=== PATIENT | male | born 1955 | race Caucasian/White ===

== ENCOUNTER 2018-03-04 15:13 | Inpatient (IN) | payer BC, MEDICAID ==
[2018-03-04] MEDS ORDERED: ASPIRIN 81 MG PO STA (15:59)
--- NOTE | 2018-03-04 16:02 | ED ---
Chest Pain HPI - General Chief Complaint: Chest Pain Stated Complaint: Chest Pain Time Seen by Provider: 03/04/18 15:42 Source: patient Mode of arrival: wheelchair Limitations: no limitations - History of Present Illness Initial Comments: This is a 63-year-old male who presents emergency department for chest discomfort. He states is been going on for the last 6 months however is worsened over the last 3 weeks. He describes it as a pressure-like sensation. He states it only occurs at nighttime when he is laying flat. He states that he is on an incline he will not have the discomfort. History is as a pressure- like sensation and occasionally gets diaphoretic. He also has some associated shortness of breath with this. He states that throughout the day he feels fine. He does occasionally get the sensation when he is playing golf however he attributed this to hold her whether and happened multiple months ago. He states he does lift weights once a week and does not get the discomfort. He does take [id number] medications for acid reflux which seemed to relieve the symptoms. He did go to his primary care doctor's office who advised him to come emergency department for evaluation. Denies any history of CAD or PR. Has not had a stress test previously. - Related Data Home Medications Medication Instructions Recorded Confirmed amLODIPine [Norvasc] 5 mg PO DAILY 04/24/16 03/04/18 HYDROcodone/IBUPROFEN 7.5-200 1 tab PO DAILY PRN 03/04/18 03/04/18 [Vicoprofen 7.5-200 mg] Meloxicam [Mobic] 15 mg PO DAILY PRN 03/04/18 03/04/18 Allergies Allergy/AdvReac Type Severity Reaction Status Date / Time No Known Allergies Allergy Verified 03/04/18 15:42 Review of Systems ROS Statement: Those systems with pertinent positive or pertinent negative responses have been documented in the HPI. ROS Other: All systems not noted in ROS Statement are negative. EKG Findings - EKG Comments: EKG Findings:: EKG showing normal sinus rhythm with a rate of 90. There is no abnormal ST segment changes. There are new T-wave inversions in V4 and V5 when compared to previous EKG. The patient does have a) block. QTC is 479. QRS is prolonged due to the bundle branch block. Other intervals normal. No ectopy. Past Medical History Past Medical History: Hearing Disorder / Deafness, Hypertension, Osteoarthritis (OA) Additional Past Medical History / Comment(s): TINNITUS . History of Any Multi-Drug Resistant Organisms: None Reported Past Surgical History: Joint Replacement, Orthopedic Surgery Additional Past Surgical History / Comment(s): TOTAL DAVINA KNEES. , DAVINA KNEE ARTHROSCOPY. Past Anesthesia/Blood Transfusion Reactions: No Reported Reaction Past Psychological History: No Psychological Hx Reported Smoking Status: Never smoker Past Alcohol Use History: Daily Past Drug Use History: None Reported - Past Family History Mother Family Medical History: No Reported History General Exam - General Exam Comments Initial Comments: Constitutional: Awake alert Appears comfortable Head: Normocephalic atraumatic Eyes: no conjunctival injection No scleral icterus EOMI Neck: No JVD Supple Heart: Regular rate rhythm normal S1-S2 no murmurs Lungs: Clear to auscultation bilaterally No wheezing No rales Abdomen: Soft nondistended nontender Extremities: Non edematous DP pulses intact Radial pulses intact Neuro: A&Ox3 No focal neurologic deficits Psych: Appropriate mood and affect Limitations: no limitations Course Vital Signs 03/04/18 15:24 Temperature 98.5 F Pulse Rate 90 Respiratory 18 Rate Blood Pressure 154/92 O2 Sat by Pulse 96 Oximetry Chest Pain MDM - MDM This is a 63-year-old male who presents emergency department for intermittent chest discomfort. The patient was found have a mildly elevated troponin of 0.06 and also new T-wave inversions laterally. The patient was started on heparin and will be kept in the hospital for cardiology evaluation. Dr. Woods except see admission. Disposition Clinical Impression: Elevated troponin, Chest pain Disposition: ADMITTED IP TO THIS HOSP Condition: Stable
[2018-03-04 16:15] LABS: Basophils % (A) 1 %; Eosinophils # (A) 0.1 k/uL (0-0.7); Eosinophils % (A) 1 %; HCT 44.4 % (39.0-53.0); HGB 14.3 gm/dL (13.0-17.5); Lymphocytes # (A) 1.5 k/uL (1.0-4.8); Lymphocytes % (A) 23 %; MCH 29.5 pg (25.0-35.0); MCHC 32.2 g/dL (31.0-37.0); MCV 91.5 fL (80.0-100.0); Mean Platelet Volume 6.5; Monocytes # (A) 0.3 k/uL (0-1.0); Monocytes % (A) 5 %; Neutrophils # (A) 4.5 k/uL (1.3-7.7); Neutrophils % (A) 69 %; Platelet Count 243 k/uL (150-450); RBC 4.85 m/uL (4.30-5.90); RDW 13.8 % (11.5-15.5); WBC 6.4 k/uL (3.8-10.6)
[2018-03-04 16:26] LABS: ALT 40 U/L (21-72); AST 26 U/L (17-59); Albumin 4.5 g/dL (3.5-5.0); Alkaline Phosphatase 75 U/L (38-126); Anion Gap 8 mmol/L; Blood Urea Nitrogen 18 mg/dL (9-20); Calcium 9.8 mg/dL (8.4-10.2); Carbon Dioxide 26 mmol/L (22-30); Chloride 106 mmol/L (98-107); Glucose 111 mg/dL (74-99); Lipase 72 U/L (23-300); Magnesium 2.1 mg/dL (1.6-2.3); Potassium 4.1 mmol/L (3.5-5.1); Sodium 140 mmol/L (137-145); Total Bilirubin 0.6 mg/dL (0.2-1.3); Total Protein 7.4 g/dL (6.3-8.2)
[2018-03-04 16:27] LABS: INR 1.1 (<1.2); Partial Thromboplastin Time 24.4 sec (22.0-30.0); Prothrombin Time 10.4 sec (9.0-12.0)
[2018-03-04 16:47] LABS: Creatine Kinase MB 0.8 ng/mL (0.0-2.4)
[2018-03-04 16:52] LABS: Troponin I 0.064 ng/mL (0.000-0.034)
--- NOTE | 2018-03-04 16:58 | XR ---
EXAMINATION TYPE: XR chest 2V DATE OF EXAM: 03/04/2018 COMPARISON: NONE HISTORY: Chest pain TECHNIQUE: Frontal and lateral views of the chest are obtained. FINDINGS: There is no heart failure nor confluent pneumonic infiltrate. Heart size is normal. Thorac ic aorta is atheromatous. There is no pleural effusion. Bony thorax is intact. There are chest leads. IMPRESSION: No active cardiopulmonary disease.
[2018-03-04] MEDS ORDERED: NITROGLYCERIN SL TABS 0.4 MG TAB SUBLINGUAL PRN (17:03)
[2018-03-04] MEDS ORDERED: HEPARIN SODIUM,PORCINE 5,000 UNIT/ML 1 ML VIAL IV ONE (17:03)
[2018-03-04] MEDS ORDERED: [UNRECOGNIZED DRUG - OTHER] PO PRN (17:06)
[2018-03-04] MEDS: HEPARIN SOD,PORK IN 0.45% NACL 25,000 UNIT in 0.45% NACL 1 500ML.BAG IV SCH (18:04)
[2018-03-04 23:07] LABS: Creatine Kinase MB 0.5 ng/mL (0.0-2.4)
[2018-03-04 23:11] LABS: Troponin I 0.07 ng/mL (0.000-0.034)
[2018-03-05] MEDS ORDERED: HEPARIN SODIUM,PORCINE 5,000 UNIT/ML 1 ML VIAL IV PRN ×2 (00:39→14:32)
[2018-03-05 01:08] LABS: Cholesterol 229 mg/dL (<200); HDL Cholesterol 49 mg/dL (40-60); LDL Cholesterol,Calculated 156 mg/dL (0-99); Triglycerides 122 mg/dL (<150)
[2018-03-05 04:42] LABS: Creatine Kinase MB 0.4 ng/mL (0.0-2.4)
[2018-03-05 04:47] LABS: Troponin I 0.06 ng/mL (0.000-0.034)
--- NOTE | 2018-03-05 08:05 | P.CRDCN ---
History of Present Illness Consult date: 03/05/18 Requesting physician: Cece Woods Consult reason: chest pain Chief complaint: Chest pain History of present illness: This is a pleasant 63-year-old gentleman with history of hypertension , sciatica, nondiabetic, no hyperlipidemia, he does smoke an occasional cigar. He denies family history of premature coronary artery disease but states that his father with myocardial infarction in his 80s. Patient presents to the hospital with symptoms of chest pressure and heaviness. According to the patient he has noticed the symptoms for the past several months, but over the past few weeks it seems to have been more intense than usual. He states that the symptoms mostly occur when he is lying flat in bed, he gets up to sleep in his chair and symptoms seemed to improve. Patient does play golf 3 or 4 times a week, states that he does not give any symptoms of chest discomfort at that time. Patient does drink alcohol, he has 3-4 beers for 5 times a week. Patient also has acid reflux and thought for the longest time that may be the symptoms were secondary to that. He went to see Dr. Davison and explained the symptoms he been having and was referred to come to the hospital for further evaluation. His EKG on arrival here showed a normal sinus rhythm with a right bundle branch block pattern, lateral ST-T wave changes are noted as well as inferior Q waves. Chest x-ray did not reveal any active cardiopulmonary disease. At pressure on arrival here 154/90 with a heart rate in the 90s, 96% on room air. CBC is normal, sodium 140, potassium 4.1, BUN 18, creatinine 0.8. Magnesium 2.1. Cholesterol 229, LDL 156, HDL 49, triglycerides 122. BNP 317. Troponin 0.064, 0.070, 0.060. At the time of my examination this morning, patient is currently chest pain-free. Past Medical History Past Medical History: Hypertension, Osteoarthritis (OA), Prostate Disorder Additional Past Medical History / Comment(s): DAVINA TINNITUS, BEGINNINGS OF MACULAR DEGENERATION History of Any Multi-Drug Resistant Organisms: None Reported Past Surgical History: Joint Replacement, Orthopedic Surgery, Prostate Surgery Additional Past Surgical History / Comment(s): TOTAL DAVINA KNEES. , DAVINA KNEE ARTHROSCOPIES, CYSTOSCOPY/TURP 2015, LASIK EYE SX -RT EYE Past Anesthesia/Blood Transfusion Reactions: No Reported Reaction Additional Past Anesthesia/Blood Transfusion Reaction / Comment(s): CLAUSTERPHOBIA Smoking Status: Never smoker - Past Family History Mother Family Medical History: No Reported History Additional Family Medical History / Comment(s): LUNG DISEASE Father Family Medical History: Myocardial Infarction ([place]) Medications and Allergies Home Medications Medication Instructions Recorded Confirmed Type amLODIPine [Norvasc] 5 mg PO DAILY 04/24/16 03/04/18 History HYDROcodone/IBUPROFEN 7.5-200 1 tab PO DAILY PRN 03/04/18 03/04/18 History [Vicoprofen 7.5-200 mg] Meloxicam [Mobic] 15 mg PO DAILY PRN 03/04/18 03/04/18 History Allergies Allergy/AdvReac Type Severity Reaction Status Date / Time No Known Allergies Allergy Verified 03/04/18 15:42 Physical Exam Vitals: Vital Signs Temp Pulse Pulse Resp BP BP Pulse Ox 03/05/18 04:00 85 16 168/96 96 03/05/18 00:00 97.8 F 77 18 153/91 98 03/04/18 20:00 97.9 F 87 18 151/88 97 03/04/18 18:25 97.7 F 80 20 152/89 95 03/04/18 18:08 98.3 F 79 18 145/93 97 03/04/18 17:06 86 152/91 98 03/04/18 16:36 84 186/89 98 03/04/18 16:06 84 175/95 99 03/04/18 15:24 98.5 F 90 18 154/92 96 Intake and Output 03/04/18 03/05/18 03/05/18 22:59 06:59 14:59 Intake Total 138.528 Balance 138.528 Intake: Intake, IV Titration 138.528 Amount Heparin Sod,Pork in 0.45% 138.528 NaCl 25,000 unit In 0.45 % NaCl 1 500ml.bag @ 7.73 UNITS/KG/HR 19.98 mls/hr IV .Q24H [facility] Rx#: [id number] Other: Voiding Method Toilet # Voids 2 Weight 129.274 kg 128.8 kg PHYSICAL EXAMINATION: GENERAL: 63-year-old gentleman in no acute distress at the time of my examination HEENT: Head is atraumatic, normocephalic. Pupils equal, round. Sclera anicteric. Conjunctiva are clear. Mucous membranes of the mouth are moist. Neck is supple. There is no elevated jugular venous pressure. No carotid bruit is heard. HEART EXAMINATION: [eart S1, S2 normal. No murmur or gallop heard.] CHEST EXAMINATION:[Lungs are clear to auscultation and precussion. No chest wall tenderness is noted on palpation or with deep breathing.] ABDOMEN: [Soft, nontender. Bowel sounds are heard. No organomegaly noted] EXTREMITIES:[2+ peripheral pulses with no evidence of peripheral edema and no calf tenderness noted] NEUROLOGIC [atient is awake, alert and oriented X3. . Results 03/04/18 15:44 03/04/18 15:44 Cardiac Enzymes 03/04/18 03/04/18 03/04/18 Range/Units 15:44 15:44 22:19 AST 26 (17-59) U/L CK-MB (CK-2) 0.8 0.5 (0.0-2.4) ng/mL Troponin I 0.064 H* 0.070 H* (0.000-0.034) ng/mL 03/05/18 Range/Units 03:54 AST (17-59) U/L CK-MB (CK-2) 0.4 (0.0-2.4) ng/mL Troponin I 0.060 H* (0.000-0.034) ng/mL Coagulation 03/04/18 03/05/18 03/05/18 Range/Units 15:44 00:11 03:54 PT 10.4 (9.0-12.0) sec APTT 24.4 28.6 61.6 H (22.0-30.0) sec Lipids 03/04/18 Range/Units 15:44 Triglycerides 122 (<150) mg/dL Cholesterol 229 H (<200) mg/dL HDL Cholesterol 49 (40-60) mg/dL CBC 03/04/18 Range/Units 15:44 WBC 6.4 (3.8-10.6) k/uL RBC 4.85 (4.30-5.90) m/uL Hgb 14.3 (13.0-17.5) gm/dL Hct 44.4 (39.0-53.0) % Plt Count 243 (150-450) k/uL Comprehensive Metabolic Panel 03/04/18 Range/Units 15:44 Sodium 140 (137-145) mmol/L Potassium 4.1 (3.5-5.1) mmol/L Chloride 106 (98-107) mmol/L Carbon Dioxide 26 (22-30) mmol/L BUN 18 (9-20) mg/dL Creatinine 0.80 (0.66-1.25) mg/dL Glucose 111 H (74-99) mg/dL Calcium 9.8 (8.4-10.2) mg/dL AST 26 (17-59) U/L ALT 40 (21-72) U/L Alkaline Phosphatase 75 (38-126) U/L Total Protein 7.4 (6.3-8.2) g/dL Albumin 4.5 (3.5-5.0) g/dL Current Medications Generic Name Dose Route Start Last Admin Trade Name Freq PRN Reason Stop Dose Admin Amlodipine Besylate 5 mg 03/05/18 09:00 Norvasc PO DAILY [facility] Aspirin 325 mg 03/05/18 09:00 Aspirin PO DAILY [facility] Heparin Sodium (Porcine) 0 unit 03/05/18 00:39 03/05/18 01:00 Heparin IV 4,000 unit PER PROTOCOL PRN Administration Low PTT Protocol Heparin Sodium/Sodium Chloride 500 mls @ 19.98 mls/hr 03/04/18 17:15 01:00 25,000 unit/ Sodium Chloride IV 10.73 units/kg/hr .Q24H [facility] 27.74 mls/hr Titration Protocol 7.73 UNITS/KG/HR Nitroglycerin 0.4 mg 03/04/18 17:03 Nitrostat SUBLINGUAL Q5M PRN Chest Pain Hydrocodone- 1 tab 03/04/18 17:06 Ibuprofen 7.5-200mg PO DAILY PRN Pain Intake and Output 03/04/18 03/05/18 03/05/18 22:59 06:59 14:59 Intake Total 138.528 Balance 138.528 Intake: Intake, IV Titration 138.528 Amount Heparin Sod,Pork in 0.45% 138.528 NaCl 25,000 unit In 0.45 % NaCl 1 500ml.bag @ 7.73 UNITS/KG/HR 19.98 mls/hr IV .Q24H [facility] Rx#: [id number] Other: Voiding Method Toilet # Voids 2 Weight 129.274 kg 128.8 kg 03/04/18 15:44 03/04/18 15:44 EKG Interpretations (text) EKG shows normal sinus rhythm with right bundle branch block pattern lateral ST- T wave changes. Inferior Q waves noted. Assessment and Plan Plan: Assessment and plan #1 symptoms of chest pressure and heaviness, possible acute coronary syndrome. Troponin 0.064, 0.070, 0.060. EKG shows normal sinus rhythm with right bundle branch block pattern ST-T wave changes noted in the lateral leads, inferior Q waves. #2 hypertension #3 occasional cigar smoking #4 hyperlipidemia, untreated Plan We will continue the patient on an aspirin daily along with IV heparin. We will add Lipitor to his medication regime as well as a small dose of beta david. Echocardiogram with Doppler study will be obtained. We will also request an old EKG from Dr. Davison's office. Patient has been advised he may need to undergo cardiac catheterization for more definitive diagnosis, the risks and the benefits were explained to the patient in detail and he is willing to proceed. Further recommendations will follow. DNP note has been reviewed, I agree with a documented findings and plan of care. Patient was seen and examined.
[2018-03-05] MEDS ORDERED: ASPIRIN 325 MG TAB PO SCH (09:00)
[2018-03-05] MEDS ORDERED: amLODIPine 5 MG TAB PO SCH (09:00)
[2018-03-05] MEDS ORDERED: ATORVASTATIN 80 MG TAB PO SCH (09:00)
[2018-03-05] MEDS ORDERED: NITROGLYCERIN SL TABS 0.4 MG TAB SUBLINGUAL PRN (09:25)
[2018-03-05] MEDS ORDERED: ATORVASTATIN 80 MG TAB PO STA (09:25)
[2018-03-05] MEDS ORDERED: ALPRAZolam 0.5 MG TAB PO PRN (09:25)
[2018-03-05] MEDS ORDERED: ALPRAZolam 0.25 MG TAB PO PRN (09:25)
[2018-03-05] MEDS ORDERED: SODIUM CHLORIDE 0.9% 1,000 ML in EMPTY BAG 1 BAG IV ONE (09:25)
[2018-03-05] MEDS ORDERED: ASPIRIN 325 MG TAB PO STA (09:25)
[2018-03-05] MEDS: METOPROLOL TARTRATE 25 MG TAB PO SCH ×2 (09:29→20:08)
[2018-03-05] MEDS: HEPARIN SOD,PORK IN 0.45% NACL 25,000 UNIT in 0.45% NACL 1 500ML.BAG IV SCH ×2 (09:36→16:30)
--- NOTE | 2018-03-05 10:17 | ECHOF ---
Referral Reason:chest pain MEASUREMENTS -------- HEIGHT: 188.0 cm WEIGHT: 128.4 kg BP: 168/96 RVIDd: 3.6 cm (< 3.3) IVSd: 1.6 cm (0.6 - 1.1) LVIDd: 4.4 cm (3.9 - 5.3) LVPWd: 1.6 cm (0.6 - 1.1) IVSs: 2.0 cm LVIDs: 2.8 cm LVPWs: 1.7 cm LA Diam: 3.6 cm (2.7 - 3.8) LAESV Index (A-L): 29.29 ml/m Ao Diam: 4.8 cm (2.0 - 3.7) AV Cusp: 2.6 cm (1.5 - 2.6) MV EXCURSION: 13.601 mm (> 18.000) MV EF SLOPE: 18 mm/s (70 - 150) EPSS: 1.0 cm MV E Paul: 0.56 m/s MV DecT: 457 ms MV A Paul: 0.87 m/s MV E/A Ratio: 0.64 RAP: 5.00 mmHg RVSP: 21.42 mmHg FINDINGS -------- Sinus rhythm. This was a technically adequate study. The left ventricular size is normal. There is moderate concentric left ventricular hypertrophy. O verall left ventricular systolic function is normal with, an EF between 55 - 60 %. The right ventricle is mildly enlarged. The global wall thickness of the right ventricle is mildly enlarged. LA is midly dilated 29-33ml/m2. The right atrium is normal in size. There is mild aortic valve sclerosis. The mitral valve is normal. Mild tricuspid regurgitation present. Right ventricular systolic pressure is normal at < 35 mmHg. Trace/mild (physiologic) pulmonic regurgitation. 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 IVC Not well visulized. There is no pericardial effusion. CONCLUSIONS -------- 1. Sinus rhythm. 2. This was a technically adequate study. 3. The left ventricular size is normal. 4. There is moderate concentric left ventricular hypertrophy. 5. Overall left ventricular systolic function is normal with, an EF between 55 - 60 %. 6. The right ventricle is mildly enlarged. 7. The global wall thickness of the right ventricle is mildly enlarged. 8. LA is midly dilated 29-33ml/m2. 9. The right atrium is normal in size. 10. There is mild aortic valve sclerosis. 11. The mitral valve is normal. 12. Mild tricuspid regurgitation present. 13. Right ventricular systolic pressure is normal at < 35 mmHg. 14. Trace/mild (physiologic) pulmonic regurgitation. 15. 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 16. IVC Not well visulized. 17. There is no pericardial effusion. BOILER ENGINEER: Brina Samayoa RDCS
--- NOTE | 2018-03-05 12:31 | P.HPIM ---
History of Present Illness H&P Date: 03/05/18 Chief Complaint: Chest pain, shortness of breath This is a 63-year-old male patient of Dr. Davison with past medical history for hypertension, osteoarthritis, benign prostatic hypertrophy. Patient gives history that for a long period of time since last fall he has had a cough when he lays in bed. He has had about a bronchitis and following that he did have some improvement for about 6 months and now he has a cough when he lays down and has some chest pain in the midsternal area. He does golf 3-4 times a week and does not have any chest heaviness at that time. He states he has had it every day for 2-3 weeks in a row and went to see Dr. Davison yesterday and he was sent into the emergency center for evaluation. Patient describes it as a heavy chest. He states he gets up and take some Pepto-Bismol or something else and then he ends up sleeping in a chair. Troponins are 0.064 , 0.070, 0.060. Triglycerides 122, cholesterol 229, LDL 156, HDL 49. Lipase 72. CBC is within normal limits. Electrolytes are normal. Patient has been admitted to the selective care unit and cardiology consult requested. He has been started on heparin drip and aspirin. Cardiology has added and Lipitor and beta david. Echocardiogram reveals EF of 55-60%, moderate concentric left ventricular hypertrophy, LV mildly dilated at 29-33, mild aortic valve sclerosis , mild tricuspid regurgitation. Patient is scheduled for heart catheterization today. Review of Systems All systems: negative Constitutional: Denies chills, Denies fatigue, Denies fever, Denies poor appetite Eyes: denies blurred vision, denies pain Ears, nose, mouth and throat: Denies headache, Denies sore throat, Denies vertigo Cardiovascular: Reports chest pain, Reports shortness of breath, Denies leg edema, Denies lightheadedness, Denies syncope Respiratory: Denies cough Gastrointestinal: Denies abdominal pain, Denies diarrhea, Denies nausea, Denies vomiting Musculoskeletal: Denies myalgias Integumentary: Denies pruritus, Denies rash Neurological: Denies numbness, Denies weakness Psychiatric: Denies anxiety, Denies depression Endocrine: Denies fatigue, Denies weight change Past Medical History Past Medical History: Hypertension, Osteoarthritis (OA), Prostate Disorder Additional Past Medical History / Comment(s): DAVINA TINNITUS, BEGINNINGS OF MACULAR DEGENERATION History of Any Multi-Drug Resistant Organisms: None Reported Past Surgical History: Joint Replacement, Orthopedic Surgery, Prostate Surgery Additional Past Surgical History / Comment(s): TOTAL DAVINA KNEES. , DAVINA KNEE ARTHROSCOPIES, CYSTOSCOPY/TURP 2016, LASIK EYE SX -RT EYE, lumbar disc disease of L4, L5, L6 with right lower extremity sciatica. Past Anesthesia/Blood Transfusion Reactions: No Reported Reaction Additional Past Anesthesia/Blood Transfusion Reaction / Comment(s): Claustrophobia Smoking Status: Never smoker Additional Past Alcohol Use History / Comment(s): Patient is a lifelong nonsmoker. He states he drinks a few beers occasionally and occasionally smokes a cigar. 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 He lives at home with his . He is independent. - Past Family History Mother Family Medical History: No Reported History Additional Family Medical History / Comment(s): Other at age 74 with heart failure and coronary artery disease. Father Family Medical History: Myocardial Infarction ([place]) Additional Family Medical History / Comment(s): Father at age 89 from a myocardial infarction. Sister(s) Additional Family Medical History / Comment(s): Patient has one sister and one half-sister with no major medical problems. Patient does not have any brothers. Patient has 2 sons with no major medical problems. Medications and Allergies Home Medications Medication Instructions Recorded Confirmed Type amLODIPine [Norvasc] 5 mg PO DAILY 04/24/16 03/04/18 History HYDROcodone/IBUPROFEN 7.5-200 1 tab PO DAILY PRN 03/04/18 03/04/18 History [Vicoprofen 7.5-200 mg] Meloxicam [Mobic] 15 mg PO DAILY PRN 03/04/18 03/04/18 History Allergies Allergy/AdvReac Type Severity Reaction Status Date / Time No Known Allergies Allergy Verified 03/04/18 15:42 Physical Exam Vitals: Vital Signs Temp Pulse Pulse Resp BP BP Pulse Ox 03/05/18 04:00 85 16 168/96 96 03/05/18 00:00 97.8 F 77 18 153/91 98 03/04/18 20:00 97.9 F 87 18 151/88 97 03/04/18 18:25 97.7 F 80 20 152/89 95 03/04/18 18:08 98.3 F 79 18 145/93 97 03/04/18 17:06 86 152/91 98 03/04/18 16:36 84 186/89 98 03/04/18 16:06 84 175/95 99 03/04/18 15:24 98.5 F 90 18 154/92 96 Intake and Output 03/04/18 03/05/18 03/05/18 22:59 06:59 14:59 Intake Total 138.528 238.564 Balance 138.528 238.564 Intake: Intake, IV Titration 138.528 238.564 Amount Heparin Sod,Pork in 0.45% 138.528 238.564 NaCl 25,000 unit In 0.45 % NaCl 1 500ml.bag @ 7.73 UNITS/KG/HR 19.98 mls/hr IV .Q24H [facility] Rx#: [id number] Other: Voiding Method Toilet # Voids 2 Weight 129.274 kg 128.8 kg Gen: This is a 63-year-old male. He is sitting up in bed and appears to be comfortable and in no acute distress. No current chest pain. HEENT: Head is atraumatic, normocephalic. Pupils equal, round. Sclerae is anicteric. Conjunctiva pink. Because members of the mouth are slightly dry. NECK: Supple. No JVD. No lymphadenopathy. No thyromegaly. LUNGS: Clear to auscultation. No wheezes or rhonchi. No intercostal retractions. HEART: Regular rate and rhythm. No murmur. ABDOMEN: Soft. Bowel sounds are present. No masses. No tenderness. EXTREMITIES: No pedal edema. No calf tenderness. Dorsalis pedis +2 bilaterally. NEUROLOGICAL: Patient is awake, alert and oriented x3. Cranial nerves 2 through 12 are grossly intact. Results CBC & Chem 7: 03/04/18 15:44 03/04/18 15:44 Labs: Abnormal Lab Results - Last 24 Hours (Table) 03/04/18 03/04/18 03/04/18 Range/Units 15:44 15:44 15:44 APTT (22.0-30.0) sec Glucose 111 H (74-99) mg/dL Total Creatine Kinase (55-170) U/L Troponin I 0.064 H* (0.000-0.034) ng/mL Cholesterol 229 H (<200) mg/dL LDL Cholesterol, Calc 156 H (0-99) mg/dL 03/04/18 03/05/18 03/05/18 Range/Units 22:19 03:54 03:54 APTT 61.6 H (22.0-30.0) sec Glucose (74-99) mg/dL Total Creatine Kinase 46 L 39 L (55-170) U/L Troponin I 0.070 H* 0.060 H* (0.000-0.034) ng/mL Cholesterol (<200) mg/dL LDL Cholesterol, Calc (0-99) mg/dL Thrombosis Risk Factor Assmnt - DVT/VTE Prophylaxis DVT/VTE Prophylaxis: Pharmacologic Prophylaxis ordered - Choose All That Apply Any of the Below Risk Factors Present?: No Other Risk Factors: Yes Each Risk Factor Represents 2 Points: Age 61-74 years Thrombosis Risk Factor Assessment Total Risk Factor Score: 2 Thrombosis Risk Factor Assessment Level: Low Risk Assessment and Plan Plan: 1. Chest heaviness with mildly elevated troponins and EKG changes. Patient is scheduled for heart catheterization today. Continue heparin drip, aspirin, Lipitor, Lopressor. Cardiology consult appreciated. Echocardiogram as above. 2. Hypertension. Continue amlodipine 5 mg daily, Lopressor 25 g twice daily 3. Benign prostatic hypertrophy. Monitor for urinary retention. 4. Osteoarthritis, generalized. 5. 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 Continue Vicoprofen as needed 6. DVT prophylaxis. Heparin. 7. GI prophylaxis. Pepcid. Patient will be admitted to the hospital for a minimum of 2 night stay. Discharge plan: Return home Impression and plan of care have been directed as dictated by the signing physician. Stefania Vázquez nurse practitioner acting as scribe for signing physician.
[2018-03-05] MEDS ORDERED: fentaNYL (PF) 50 MCG/ML 2 ML AMP IV ONE (14:00)
[2018-03-05] MEDS ORDERED: LIDOCAINE 1% INJ 10MG/ML (20 ML MDV) SQ ONE (14:00)
[2018-03-05] MEDS ORDERED: IV FLUID CONTINUATION 1,000 ML IV ONE (14:01)
[2018-03-05] MEDS ORDERED: VERAPAMIL SYRINGE (5 MG/10 ML) INTRAARTER ONE (14:06)
[2018-03-05] MEDS ORDERED: HEPARIN SODIUM 1,000 UN/ML (10ML VL) IV ONE (14:15)
[2018-03-05] MEDS ORDERED: IOPAMIDOL-370 125ML BTL INJ ONE (14:19)
[2018-03-05] MEDS ORDERED: RX INFO: IV CONTRAST WAS GIVEN 1 EACH MISC MISCELLANE PRN (14:27)
[2018-03-05] MEDS ORDERED: SODIUM CHLORIDE 0.9% 1,000 ML IV SCH (14:30)
[2018-03-05 15:33] LABS: Basophils % (A) 1 %; Eosinophils # (A) 0.1 k/uL (0-0.7); Eosinophils % (A) 1 %; HCT 42.7 % (39.0-53.0); HGB 13.9 gm/dL (13.0-17.5); Lymphocytes # (A) 1.4 k/uL (1.0-4.8); Lymphocytes % (A) 27 %; MCH 30.1 pg (25.0-35.0); MCHC 32.5 g/dL (31.0-37.0); MCV 92.7 fL (80.0-100.0); Mean Platelet Volume 6.8; Monocytes # (A) 0.4 k/uL (0-1.0); Monocytes % (A) 7 %; Neutrophils # (A) 3.3 k/uL (1.3-7.7); Neutrophils % (A) 63 %; Platelet Count 262 k/uL (150-450); RBC 4.61 m/uL (4.30-5.90); WBC 5.2 k/uL (3.8-10.6)
[2018-03-05 15:43] LABS: INR 1.1 (<1.2); Partial Thromboplastin Time 49.8 sec (22.0-30.0); Prothrombin Time 10.9 sec (9.0-12.0)
[2018-03-05] MEDS ORDERED: MD COMMUNICATION TO PHARMACY 1 EACH MISC PO ONE ×4 (15:49→15:55)
--- NOTE | 2018-03-05 16:44 | CC ---
CARDIAC CATHETERIZATION REPORT Mr. Virgen is a 63-year-old male with a known history of hypertension, hyperlipidemia, who presented with symptoms of chest discomfort. The discomfort has been occurring at rest. Prior to that, he had some discomfort with exertion. On presentation, there was no acute ST-segment changes, but there was minimal elevation of the troponin. In view of that, recommendation made regarding cardiac catheterization. The procedures, risks and complications were discussed with the patient who is in full understanding and agreement. PROCEDURE: Patient was brought to the laborer shaft sinking in a fasting semi-sedated state, after receiving fentanyl and Benadryl, he was draped and prepped and after achieving moderate conscious sedated state he was draped and prepped in a conventional fashion. Using Xylocaine anesthesia and the Seldinger technique, a 6-Vincentian sheath was introduced in the right radial artery. Selective right and left coronary angiography performed using 5-Vincentian 3 and half bend right and left Sherman catheter. Multiple views of the coronary artery including hemiaxial views were obtained. Following that a 5-Vincentian tight pigtail catheter was introduced in the left ventricle and a 30 degree MATTHEWS view of the left ventricle was obtained. Following that, the catheter and sheaths were removed. Hemostasis was obtained with deployment of TR band. There was no immediate complications. Patient is returned to his room in stable condition. Of note, the patient received 5000 units of intravenous heparin as well as intra-arterial verapamil. FLUOROSCOPY: There is calcification involving all the coronary arteries. SELECTIVE CORONARY ANGIOGRAPHY: LEFT MAIN: This is a large-sized vessel bifurcating left circumflex, left anterior descending artery. Left main coronary artery has no evidence of high-grade stenosis. LEFT ANTERIOR DESCENDING CORONARY ARTERY: This is a large-sized vessel reaching toward the apex with a wraparound apex segment giving rise to a large diagonal branch, proximal. The left anterior descending coronary artery proximally at the takeoff of the first septal microelectronics engineer had a 70% stenosis and there is a plaque of 80% involving the takeoff of the diagonal branch. In the mid segment of the LAD, there is another plaque of 99%. The rest of the vessel has no high-grade stenosis. LEFT CIRCUMFLEX: This is a nondominant vessel giving rise to a large obtuse marginal branch. Prior to the takeoff of the obtuse marginal branch, there is a 70% plaque. The rest of the vessel has no evidence of high-grade stenosis. RIGHT CORONARY ARTERY: This is a dominant vessel, totally occluded in a long segment of the mid vessel with minimal antegrade flow. COLLATERALS: There is collaterals from the left coronary system toward the right PDA and PLV. LEFT VENTRICULOGRAM: Left ventriculogram performed in 30-degree MATTHEWS view and revealed normal left ventricular size systolic function. The ejection fraction is 60%. There was no significant mitral regurgitation. HEMODYNAMICS: There was no gradient across the aortic valve. The left ventricle end-diastolic pressure was 20 mmHg. CONCLUSION: 1. Severe triple-vessel coronary disease. 2. Normal left ventricular size and systolic function. RECOMMENDATION: In view of findings and anatomy, I have recommend proceeding with evaluation for coronary bypass grafting in view of the multiple lesions and the occlusion of the right coronary artery. Those findings and recommendations were discussed with the patient and his family and they are in full understanding and agreement. Duration of the procedure 24 minutes. CANDIDO / ALINEN: [id number] /
--- NOTE | 2018-03-05 16:44 | LTR ---
DATE OF SERVICE: 03/05/[address] Davison: I had the pleasure of performing cardiac catheterization on Mr. Virgen at [facility] on March 05 and a full copy of procedure note will be forwarded to you. In brief, he was found to have severe triple-vessel coronary artery disease. Based on those findings, I have recommend proceed with evaluation for possible coronary artery bypass grafting. I will keep you updated on his outcome. Thank you again for allowing me to participate in his care. Please feel free to call for any questions. Sincerely yours, MMARMANDOL / ALINEN: [id number] /
--- NOTE | 2018-03-05 16:59 | P.GSCN ---
History of Present Illness Consult date: 03/05/18 Reason for Consult: Coronary artery disease, surgical recommendations. Requesting physician: Cielo Walter History of present illness: This is a 63-year-old gentleman who follows with Dr. Kameron Gordon on an outpatient basis. He has a previous medical history of hypertension, and social alcohol use as well as family history of coronary artery disease. He denies any history of hypertension, diabetes, tobacco dependence, although does admit to an occasional cigar. He is normally very active gentleman, however he has had anginal type symptoms in the form of shortness of breath and intermittent chest pressure for approximately the last 6 months with worsening in the last couple of weeks. He did not seek attention sooner as he attributed his symptoms to acid reflux. The patient did go to see his primary care physician and upon description of the symptoms his primary recommended he come to the emergency room for evaluation. He did have elevation of his troponins, his EKG demonstrated sinus rhythm with a right bundle branch block, lateral ST changes and inferior Q wave, and he was ruled in for non-ST elevation myocardial infarction. He was recommended to undergo heart catheterization which was completed this morning and which demonstrated LAD stenosis of 99%, circumflex 70%, and chronic total occlusion of the right coronary artery. He did transthoracic echocardiogram this morning which demonstrated preserved left ventricular function with an ejection fraction of 55-60% with no significant valvular pathology. Dr. Hammer from cardiothoracic surgery was consulted regarding surgical revascularization recommendations. Review of Systems Review of systems was completed and was negative except as noted. - Cardiovascular Reports as per HPI, Reports chest pain, Reports decreased exercise tolerance, Reports high blood pressure, Reports shortness of breath Past Medical History Past Medical History: Coronary Artery Disease (CAD), Chest Pain / Angina, Hypertension, Osteoarthritis (OA), Prostate Disorder Additional Past Medical History / Comment(s): DAVINA TINNITUS, BEGINNINGS OF MACULAR DEGENERATION History of Any Multi-Drug Resistant Organisms: None Reported Past Surgical History: Joint Replacement, Orthopedic Surgery, Prostate Surgery Additional Past Surgical History / Comment(s): TOTAL DAVINA KNEES. , DAVINA KNEE ARTHROSCOPIES, CYSTOSCOPY/TURP 2015, LASIK EYE SX -RT EYE, lumbar disc disease of L4, L5, L6 with right lower extremity sciatica. Past Anesthesia/Blood Transfusion Reactions: No Reported Reaction Additional Past Anesthesia/Blood Transfusion Reaction / Comm: Claustrophobia Past Psychological History: No Psychological Hx Reported Smoking Status: Never smoker Past Alcohol Use History: Occasional Additional Past Alcohol Use History / Comment(s): Patient is a lifelong nonsmoker. He states he drinks a few beers occasionally and occasionally smokes a cigar. 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 He lives at home with his . He is independent. Past Drug Use History: None Reported - Past Family History Mother Family Medical History: No Reported History Additional Family Medical History / Comment(s): Other at age 74 with heart failure and coronary artery disease. Father Family Medical History: Myocardial Infarction ([place]) Additional Family Medical History / Comment(s): Father at age 89 from a myocardial infarction. Sister(s) Additional Family Medical History / Comment(s): Patient has one sister and one half-sister with no major medical problems. Patient does not have any brothers. Patient has 2 sons with no major medical problems. Medications and Allergies Home Medications Medication Instructions Recorded Confirmed Type amLODIPine [Norvasc] 5 mg PO DAILY 04/24/16 03/04/18 History HYDROcodone/IBUPROFEN 7.5-200 1 tab PO DAILY PRN 03/04/18 03/04/18 History [Vicoprofen 7.5-200 mg] Meloxicam [Mobic] 15 mg PO DAILY PRN 03/04/18 03/04/18 History Allergies Allergy/AdvReac Type Severity Reaction Status Date / Time No Known Allergies Allergy Verified 03/04/18 15:42 Surgical - Exam Vital Signs Temp Pulse Resp BP Pulse Ox 98.5 F 90 18 154/92 96 03/04/18 15:24 03/04/18 15:24 03/04/18 15:24 03/04/18 15:24 03/04/18 15:24 - General well developed, well nourished, no distress, no pain - Eyes PERRL, normal ocular movement - ENT no hearing loss - Neck no masses, no bruits, trachea midline - Respiratory Lungs sounds clear bilaterally. Respirations even, nonlabored. Currently on room air with oxygen saturation 93%. No chest wall deformities. - Cardiovascular S1, S2 present. Regular rate and rhythm, sinus rhythm on telemetry. Palpable peripheral pulses bilaterally. No edema present. No calf pain or tenderness noted. Positive varicosities to bilateral lower extremities present. - Abdomen Abdomen: soft, non tender, bowel sounds - Genitourinary Deferred - Rectum Deferred - Integumentary Right radial heart catheterization site with TR band in place. no rash, no growths, no abnormal pigmentation - Neurologic normal coordination, normal sensation - Musculoskeletal normal gait, normal posture - Psychiatric oriented to time, oriented to person, oriented to place, speech is normal, memory intact Results - Labs 03/05/18 15:08 03/04/18 15:44 Abnormal Lab Results - Last 24 Hours (Table) 03/04/18 03/04/18 03/04/18 Range/Units 15:44 15:44 22:19 APTT (22.0-30.0) sec Total Creatine Kinase 46 L (55-170) U/L Troponin I 0.064 H* 0.070 H* (0.000-0.034) ng/mL Cholesterol 229 H (<200) mg/dL LDL Cholesterol, Calc 156 H (0-99) mg/dL 03/05/18 03/05/18 03/05/18 Range/Units 03:54 03:54 15:08 APTT 61.6 H 49.8 H (22.0-30.0) sec Total Creatine Kinase 39 L (55-170) U/L Troponin I 0.060 H* (0.000-0.034) ng/mL Cholesterol (<200) mg/dL LDL Cholesterol, Calc (0-99) mg/dL Diabetes panel 03/04/18 Range/Units 15:44 Triglycerides 122 (<150) mg/dL HDL Cholesterol 49 (40-60) mg/dL - Imaging Chest x-ray: report reviewed, image reviewed Additional studies: Heart catheterization films reviewed. Assessment and Plan (1) Non-STEMI (non-ST elevated myocardial infarction) Current Visit: Yes Status: Acute Code(s): I21.4 - NON-ST ELEVATION (NSTEMI) MYOCARDIAL INFARCTION SNOMED Code(s): 878604265 (2) Hypertension Current Visit: Yes Status: Chronic Code(s): I10 - ESSENTIAL (PRIMARY) HYPERTENSION SNOMED Code(s): 80953079 (3) Family history of coronary artery disease Current Visit: Yes Status: Chronic Code(s): Z82.49 - FAMILY HX OF ISCHEM HEART DIS AND OTH DIS OF THE CIRC SYS SNOMED Code(s): 875198536 Plan: The patient was seen and examined at the bedside. Chart/diagnostics were reviewed. Heart catheterization films were reviewed by Dr. Hammer. Preoperative teaching initiated. Preoperative testing initiated. We recommend continuing aspirin, statin, beta david therapy. Our plan is for urgent coronary artery bypass graft surgery 3 vessels with left internal mammary artery and endoscopic vein harvesting as well as possible left radial artery harvesting, intraoperative transesophageal echocardiogram, and epi-aortic scanning to be done tomorrow, 03/06/2018 pending the outcome of preoperative testing. More recommendations to follow. Thank you Dr. Walter for this consult. We look forward to working with you in the care of your patient. Time with Patient: Greater than 30
[2018-03-05] MEDS: NITROGLYCERIN OINT 1 INCH/GM PACKET TOPICAL SCH ×2 (18:17→23:06)
[2018-03-05 18:22] LABS: Basophils % (A) 1 %; Eosinophils # (A) 0.1 k/uL (0-0.7); Eosinophils % (A) 1 %; HCT 42.6 % (39.0-53.0); HGB 13.2 gm/dL (13.0-17.5); Lymphocytes # (A) 1.4 k/uL (1.0-4.8); Lymphocytes % (A) 26 %; MCH 28.6 pg (25.0-35.0); MCV 92.1 fL (80.0-100.0); Mean Platelet Volume 6.6; Monocytes # (A) 0.4 k/uL (0-1.0); Monocytes % (A) 7 %; Neutrophils # (A) 3.4 k/uL (1.3-7.7); Neutrophils % (A) 63 %; Platelet Count 280 k/uL (150-450); RBC 4.63 m/uL (4.30-5.90); RDW 13.9 % (11.5-15.5); WBC 5.4 k/uL (3.8-10.6)
--- NOTE | 2018-03-05 18:46 | US ---
EXAMINATION TYPE: US carotid duplex BILAT DATE OF EXAM: 03/05/2018 COMPARISON: NONE CLINICAL HISTORY: preop cardiac surgery. Pre op cabbage EXAM MEASUREMENTS: RIGHT: Peak Systolic Velocity (PSV) cm/sec ----- Right CCA: 53.7 ----- Right ICA: 76.9 ----- Right ECA: 84.2 ICA/CCA ratio: 1.4 RIGHT: End Diastole cm/sec ----- Right CCA: 12.9 ----- Right ICA: 24.6 ----- Right ECA: 11.5 LEFT: Peak Systolic Velocity (PSV) cm/sec ----- Left CCA: 87.1 ----- Left ICA: 85.1 ----- Left ECA: 93.0 ICA/CCA ratio: 1.0 LEFT: End Diastole cm/sec ----- Left CCA: 18.1 ----- Left ICA: 22.1 ----- Left ECA: 33.1 VERTEBRALS (direction of flow): Right Vertebral: Antegrade Left Vertebral: Antegrade Rhythm: Normal No significant stenosis seen IMPRESSION: There is antegrade flow in the vertebral arteries. The images and measurements suggest l ess than 10% stenosis in both internal carotid arteries. Criteria for Assigning % of Stenosis / Diameter reduction (Estimation based on the indirect measurements of the internal carotid artery velocities (ICA PSV). 1. Normal (no stenosis)=ICA PSV < 125 cm/s: ratio < 2.0: ICA EDV<40 cm/s. 2. Less than 50% stenosis=ICA PSV < 125 cm/s: ratio < 2.0: ICA EDV<40 cm/s. 3. 50 to 69% stenosis=ICA PSV of 125 to 230 cm/s: ration 2.0 ? 4.0: ICA EDV 40-100 cm/s. 4. Greater than 70% stenosis to near occlusion= ICA PSV > 230 cm/s: ratio > 4.0: ICA EDV > 100 cm/s. 5. Near occlusion= ICA PSV velocities may be low or undetectable: variable ratio and ICA EDV. 6. Total occlusion=unable to detect flow.
[2018-03-05 18:47] LABS: ALT 39 U/L (21-72); AST 23 U/L (17-59); Albumin 3.9 g/dL (3.5-5.0); Alkaline Phosphatase 66 U/L (38-126); Anion Gap 7 mmol/L; Blood Urea Nitrogen 15 mg/dL (9-20); Calcium 8.9 mg/dL (8.4-10.2); Carbon Dioxide 28 mmol/L (22-30); Chloride 106 mmol/L (98-107); Glucose 104 mg/dL (74-99); Magnesium 2.2 mg/dL (1.6-2.3); Potassium 3.9 mmol/L (3.5-5.1); Sodium 141 mmol/L (137-145); Total Bilirubin 0.5 mg/dL (0.2-1.3); Total Protein 6.7 g/dL (6.3-8.2)
[2018-03-05 19:27] LABS: Appearance,Urine Clear (Clear); Bilirubin,Urine Negative (Negative); Blood,Urine Negative (Negative); Color,Urine Light Yellow; Glucose,Urine (UA) Negative (Negative); Ketones,Urine Negative (Negative); Leukocyte Esterase,Urine Negative (Negative); Nitrite,Urine Negative (Negative); PH, Urine 7.5 (5.0-8.0); Protein,Urine Negative (Negative); Specific Gravity,Urine 1.028 (1.001-1.035); Urobilinogen,Urine <2.0 mg/dL (<2.0)
[2018-03-05] MEDS: MUPIROCIN 2% OINT 22 GM TUBE NASAL SCH (20:08)
[2018-03-06 02:07] LABS: Hemoglobin A1C 5.5 % (4.0-6.0)
[2018-03-06] MEDS ORDERED: PROTAMINE SULFATE 250 MG in EMPTY BAG 1 BAG IV PRN (05:00)
[2018-03-06] MEDS ORDERED: ATORVASTATIN 10 MG TAB PO ONE (05:00)
[2018-03-06] MEDS ORDERED: CLEVIDIPINE BUTYRATE 25 MG in EMPTY BAG 1 BAG IV PRN (05:00)
[2018-03-06] MEDS ORDERED: LACTATED RINGERS 1,000 ML IV PRN (05:00)
[2018-03-06] MEDS ORDERED: PHENYLEPHRINE-0.9% NACL SYG 1 MG/10 ML SYRINGE IV PRN ×4 (05:00)
[2018-03-06] MEDS ORDERED: SODIUM BICARB 8.4% 50 ML SYR (1 MEQ/ML) IV PRN (05:00)
[2018-03-06] MEDS ORDERED: HEPARIN SODIUM,PORCINE 5,000 UNIT in SODIUM CHLORIDE 0.9% 500 ML IV PRN (05:00)
[2018-03-06] MEDS ORDERED: PHENYLEPHRINE 40 MG in SODIUM CHLORIDE 0.9% 250 ML IV PRN (05:00)
[2018-03-06] MEDS ORDERED: ceFAZolin 1,000 MG in SODIUM CHLORIDE 0.9% IRRIGATIO 1,000 ML IRRIGATION PRN (05:00)
[2018-03-06] MEDS ORDERED: METOPROLOL TARTRATE 12.5 MG TAB PO ONE (05:00)
[2018-03-06] MEDS ORDERED: PROPOFOL 1,000 MG in EMPTY BAG 1 BAG IV PRN (05:00)
[2018-03-06] MEDS ORDERED: ceFAZolin 2 GM in SODIUM CHLORIDE 0.9% 30 ML IVPB PRN (05:00)
[2018-03-06] MEDS ORDERED: DEXTROSE 5% IN WATER 1,000 ML with POTASSIUM CHLORIDE 110 MEQ, MAGNESIUM SULFATE 16 MEQ... IV PRN ×5 (05:00)
[2018-03-06] MEDS ORDERED: ASPIRIN 325 MG TAB PO ONE (05:00)
[2018-03-06] MEDS ORDERED: MANNITOL 25% 12.5 GM/50 ML VIAL IV PRN ×2 (05:00)
[2018-03-06] MEDS ORDERED: DEXTROSE 5% IN WATER 1,000 ML with POTASSIUM CHLORIDE 25 MEQ, SODIUM CHLORIDE 2.5MEQ/ML... IV PRN ×6 (05:00)
[2018-03-06] MEDS ORDERED: PAPAVERINE 360 MG in SODIUM CHLORIDE 0.9% 90 ML IV PRN (05:00)
[2018-03-06] MEDS ORDERED: ALBUMIN HUMAN 25% 50 ML in EMPTY BAG 1 BAG IVPB PRN (05:00)
[2018-03-06] MEDS ORDERED: PROTAMINE SULFATE 10 MG/ML 25 ML VIAL IV PRN (05:00)
[2018-03-06] MEDS ORDERED: ceFAZolin 2,000 MG in SODIUM CHLORIDE 0.9% 30 ML IVPB PRN (05:00)
[2018-03-06] MEDS ORDERED: NITROGLYCERIN-D5W PMX 25 MG/250 ML BTL IV PRN (05:00)
[2018-03-06] MEDS ORDERED: INSULIN REGULAR 100 UNIT in SODIUM CHLORIDE 0.9% 100 ML IV PRN (05:00)
[2018-03-06] MEDS ORDERED: ALBUMIN HUMAN 5% 500 ML in EMPTY BAG 1 BAG IVPB PRN ×6 (05:00)
[2018-03-06] MEDS ORDERED: NOREPINEPHRINE 4 MG in DEXTROSE 5% IN WATER 250 ML IV PRN ×2 (05:00)
[2018-03-06] MEDS ORDERED: CALCIUM CHLORIDE 100 MG/ML 10 ML SYRINGE IVP PRN (05:00)
[2018-03-06] MEDS ORDERED: TRANEXAMIC ACID 2,000 MG in SODIUM CHLORIDE 0.9% 180 ML IV PRN (05:00)
[2018-03-06] MEDS ORDERED: MAGNESIUM SULFATE SYG 4.06 MEQ/ML SYRINGE IV PRN (05:00)
[2018-03-06] MEDS ORDERED: HEPARIN SODIUM 1,000 UN/ML (10ML VL) IV PRN (05:00)
[2018-03-06] MEDS ORDERED: CHLORHEXIDINE GLUCONATE 15 ML CUP MUCOUS MEM PRN (05:00)
[2018-03-06] MEDS ORDERED: NITROGLYCERIN-D5W PMX 50 MG in DEXTROSE/WATER 1 250ML.BAG IV PRN (05:00)
[2018-03-06 06:55] LABS: Basophils % (A) 1 %; Eosinophils # (A) 0.2 k/uL (0-0.7); Eosinophils % (A) 2 %; HCT 44.6 % (39.0-53.0); Lymphocytes # (A) 1.7 k/uL (1.0-4.8); Lymphocytes % (A) 23 %; MCH 29.3 pg (25.0-35.0); MCHC 31.4 g/dL (31.0-37.0); MCV 93.4 fL (80.0-100.0); Mean Platelet Volume 6.4; Monocytes # (A) 0.4 k/uL (0-1.0); Monocytes % (A) 5 %; Neutrophils % (A) 67 %; Platelet Count 295 k/uL (150-450); RBC 4.77 m/uL (4.30-5.90); WBC 7.5 k/uL (3.8-10.6)
[2018-03-06] MEDS ORDERED: METOPROLOL TARTRATE 12.5 MG TAB PO STA (06:57)
[2018-03-06 07:25] LABS: Anion Gap 10 mmol/L; Blood Urea Nitrogen 15 mg/dL (9-20); Carbon Dioxide 24 mmol/L (22-30); Chloride 107 mmol/L (98-107); Glucose 115 mg/dL (74-99); Potassium 3.9 mmol/L (3.5-5.1); Sodium 141 mmol/L (137-145)
[2018-03-06] MEDS: NITROGLYCERIN OINT 1 INCH/GM PACKET TOPICAL SCH (08:12)
[2018-03-06] MEDS: MUPIROCIN 2% OINT 22 GM TUBE NASAL SCH (08:47)
[2018-03-06] MEDS ORDERED: ATORVASTATIN 80 MG TAB PO SCH (09:00)
[2018-03-06] MEDS ORDERED: ASPIRIN 325 MG TAB PO SCH (09:00)
[2018-03-06] MEDS ORDERED: FAMOTIDINE 20 MG TAB PO SCH (09:00)
[2018-03-06] MEDS ORDERED: ASPIRIN 81 MG PO SCH (09:00)
--- NOTE | 2018-03-06 09:44 | PN ---
PROGRESS NOTE Mr. Virgen is a 63-year-old male who presented with unstable angina and non ST-segment elevation myocardial infarction, underwent cardiac catheterization yesterday was found to have severe triple-vessel coronary artery disease. He is doing well this morning. He slept well. He had no episode of anginal pain. He denies any chest pain. No dizziness. No palpitation. No nausea. Hemodynamically, he is stable. He is scheduled to undergo coronary artery bypass grafting today. He continued be on aspirin once a day, IV heparin, Lipitor 80 mg daily, metoprolol tartrate. PHYSICAL EXAMINATION: Blood pressure 142/80 with the heart in the 70s. LUNGS: Clear. HEART: Regular rate and rhythm. S1, S2. No S3. No rub. ABDOMEN: Soft, nontender. EXTREMITIES: No edema. Right radial pulse is intact. LAB DATA: Lab data revealed BUN and creatinine 15 and 0.93. Hemoglobin of 14. Potassium 3.9. IMPRESSION: 1. Non ST-segment elevation myocardial infarction. 2. Severe triple-vessel coronary artery disease with preserved left ventricular systolic function. 3. Hyperlipidemia. 4. Hypertension. RECOMMENDATION: The patient will proceed with coronary artery bypass grafting today. I have discussed with him again the rational behind that and he has full understanding and agreement. MMODL / IJN: [id number] /
--- NOTE | 2018-03-06 10:38 | P.PN ---
Subjective Progress Note Date: 03/06/18 This is a 63-year-old male patient of Dr. Davison with past medical history for hypertension, osteoarthritis, benign prostatic hypertrophy. Patient gives history that for a long period of time since last fall he has had a cough when he lays in bed. He has had about a bronchitis and following that he did have some improvement for about 6 months and now he has a cough when he lays down and has some chest pain in the midsternal area. He does golf 3-4 times a week and does not have any chest heaviness at that time. He states he has had it every day for 2-3 weeks in a row and went to see Dr. Davison yesterday and he was sent into the emergency center for evaluation. Patient describes it as a heavy chest. He states he gets up and take some Pepto-Bismol or something else and then he ends up sleeping in a chair. Troponins are 0.064 , 0.070, 0.060. Triglycerides 122, cholesterol 229, LDL 156, HDL 49. Lipase 72. CBC is within normal limits. Electrolytes are normal. Patient has been admitted to the selective care unit and cardiology consult requested. He has been started on heparin drip and aspirin. Cardiology has added and Lipitor and beta david. Echocardiogram reveals EF of 55-60%, moderate concentric left ventricular hypertrophy, LV mildly dilated at 29-33, mild aortic valve sclerosis , mild tricuspid regurgitation. Patient is scheduled for heart catheterization today. 03/06: And heart catheterization with Dr. Walter yesterday upon severe triple vessel coronary disease, normal left ventricular size and systolic function. Recommendations for cardiovascular surgery evaluation which was done yesterday. Plan is for urgent coronary artery bypass graft 3 today. Patient denies any new complaints. His is at bedside. Objective - Vital Signs Vital signs: Vital Signs Temp 97.3 F L 03/06/18 04:00 Pulse 78 03/06/18 04:00 Resp 18 03/06/18 04:00 BP 142/88 03/06/18 04:00 Pulse Ox 95 03/06/18 04:00 Intake & Output 03/05/18 03/06/18 03/06/18 18:59 06:59 18:59 Intake Total 313.564 150.849 Balance 313.564 150.849 Weight 128.2 kg Intake: IV 75 Intake, IV Titration 238.564 150.849 Amount Heparin Sod,Pork in 0.45% 238.564 NaCl 25,000 unit In 0.45 % NaCl 1 500ml.bag @ 7.73 UNITS/KG/HR 19.98 mls/hr IV .Q24H YOLIS Rx#: [id number] Heparin Sod,Pork in 0.45% 150.849 NaCl 25,000 unit In 0.45 % NaCl 1 500ml.bag @ 7.76 UNITS/KG/HR 19.98 mls/hr IV .Q24H YOLIS Rx#: [id number] Oral 0 Other: Voiding Method Toilet # Voids 1 1 # Bowel Movements 0 - Exam Gen: This is a 63-year-old male. He is sitting up in bed and appears to be comfortable and in no acute distress. No current chest pain. HEENT: Head is atraumatic, normocephalic. Pupils equal, round. Sclerae is anicteric. Conjunctiva pink. Because members of the mouth are slightly dry. NECK: Supple. No JVD. No lymphadenopathy. No thyromegaly. LUNGS: Clear to auscultation. No wheezes or rhonchi. No intercostal retractions. HEART: Regular rate and rhythm. No murmur. ABDOMEN: Soft. Bowel sounds are present. No masses. No tenderness. EXTREMITIES: No pedal edema. No calf tenderness. Dorsalis pedis +2 bilaterally. NEUROLOGICAL: Patient is awake, alert and oriented x3. Cranial nerves 2 through 12 are grossly intact. - Labs CBC & Chem 7: 03/06/18 06:38 03/06/18 06:38 Labs: Abnormal Lab Results - Last 24 Hours (Table) 03/05/18 03/05/18 03/05/18 Range/Units 15:08 18:02 18:02 APTT 49.8 H (22.0-30.0) sec Glucose 104 H (74-99) mg/dL Crossmatch See Detail 03/06/18 03/06/18 Range/Units 06:38 06:38 APTT 42.1 H (22.0-30.0) sec Glucose 115 H (74-99) mg/dL Crossmatch Microbiology - Last 24 Hours (Table) 03/05/18 18:10 Nasal Screen MRSA/MSSA - Preliminary Nasal Swab 03/05/18 18:40 Urine Culture - Preliminary Urine,Clean Catch Assessment and Plan Plan: 1. Chest pain secondary to severe coronary artery disease three-vessel with scheduled CABG today. Cardiology and cardio vascular surgery is following. Echocardiogram as above. 2. Hypertension. Patient has been on amlodipine 5 mg daily, Lopressor 25 g twice daily 3. Benign prostatic hypertrophy. Monitor for urinary retention. 4. Osteoarthritis, generalized. 5. 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 Continue Vicoprofen as needed 6. DVT prophylaxis. Heparin. 7. GI prophylaxis. Pepcid. Discharge plan: Return home Impression and plan of care have been directed as dictated by the signing physician. Stefania Vázquez nurse practitioner acting as scribe for signing physician.
--- NOTE | 2018-03-06 11:13 | P.CNPUL ---
History of Present Illness Consult date: 03/06/18 Reason for consult: other Chief complaint: Bypass grafting History of present illness: Consult dated 03/06/2018 Mr. Virgen is a 63-year-old male who I'm asked to see prior to bypass grafting. He apparently is going to have a three-vessel bypass today. He apparently presented to the emergency department with chest discomfort. He's been having chest discomfort for about 6 months prior to his admission on March 04. Over the last 3 weeks it has gotten worse. He describes it as a chest pressure like sensation. It occurs at nighttime when he is laying flat. He also has diaphoresis. He also some associated shortness of breath. Throughout the day he feels generally fine. He does get the sensation occasionally when he is playing golf. He apparently does suffer from acid reflux disease and over-the- counter medications help make the acid reflux better. It appears that maybe he was blaming the pain that he was having on acid reflux disease. Anyway, the patient is going to have a three-vessel bypass today by one of the thoracic surgeons. The patient is a lifelong nonsmoker. Has no history of any lung disease. Denies emphysema asthma chronic bronchitis or any other pulmonary issues. Denies any shortness of breath on a regular basis cough wheezing chest tightness phlegm production or hemoptysis. He does have a history of deafness and hypertension and DJD and ringing in the ears. Review of Systems A 12 point review of system is positive for chest pressure some mild shortness of breath and diaphoresis. Past Medical History Past Medical History: Coronary Artery Disease (CAD), Chest Pain / Angina, Hypertension, Osteoarthritis (OA), Prostate Disorder Additional Past Medical History / Comment(s): DAVINA TINNITUS, BEGINNINGS OF MACULAR DEGENERATION History of Any Multi-Drug Resistant Organisms: None Reported Past Surgical History: Joint Replacement, Orthopedic Surgery, Prostate Surgery Additional Past Surgical History / Comment(s): TOTAL DAVINA KNEES. , DAVINA KNEE ARTHROSCOPIES, CYSTOSCOPY/TURP 2016, LASIK EYE SX -RT EYE, lumbar disc disease of L4, L5, L6 with right lower extremity sciatica. Past Anesthesia/Blood Transfusion Reactions: No Reported Reaction Additional Past Anesthesia/Blood Transfusion Reaction / Comment(s): Claustrophobia Past Psychological History: No Psychological Hx Reported Smoking Status: Never smoker Past Alcohol Use History: Occasional Additional Past Alcohol Use History / Comment(s): Patient is a lifelong nonsmoker. He states he drinks a few beers occasionally and occasionally smokes a cigar. 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 He lives at home with his . He is independent. Past Drug Use History: None Reported - Past Family History Mother Family Medical History: No Reported History Additional Family Medical History / Comment(s): Other at age 74 with heart failure and coronary artery disease. Father Family Medical History: Myocardial Infarction ([place]) Additional Family Medical History / Comment(s): Father at age 89 from a myocardial infarction. Sister(s) Additional Family Medical History / Comment(s): Patient has one sister and one half-sister with no major medical problems. Patient does not have any brothers. Patient has 2 sons with no major medical problems. Medications and Allergies Home Medications Medication Instructions Recorded Confirmed Type amLODIPine [Norvasc] 5 mg PO DAILY 04/24/16 03/04/18 History HYDROcodone/IBUPROFEN 7.5-200 1 tab PO DAILY PRN 03/04/18 03/04/18 History [Vicoprofen 7.5-200 mg] Meloxicam [Mobic] 15 mg PO DAILY PRN 03/04/18 03/04/18 History Allergies Allergy/AdvReac Type Severity Reaction Status Date / Time No Known Allergies Allergy Verified 03/04/18 15:42 Physical Exam Osteopathic Statement: *. No significant issues noted on an osteopathic structural exam other than those noted in the History and Physical/Consult. Vitals: Vital Signs Temp Pulse Pulse Pulse Resp BP BP 03/06/18 08:06 97.7 F 77 20 141/93 141/87 03/06/18 08:00 97.7 F 77 20 141/93 141/87 03/06/18 04:00 97.3 F L 78 18 142/88 03/06/18 00:00 97.9 F 72 18 136/68 03/05/18 20:00 98.3 F 94 18 126/83 03/05/18 18:30 96.0 F L 91 20 149/91 03/05/18 17:30 96.6 F L 79 20 135/89 03/05/18 16:30 80 20 127/69 03/05/18 16:00 80 20 151/87 03/05/18 15:30 82 20 168/96 03/05/18 15:15 84 18 151/88 03/05/18 15:00 96.1 F L 83 20 154/93 03/05/18 14:45 18 152/84 03/05/18 11:20 96.8 F L 77 18 128/84 Pulse Ox 03/06/18 08:06 94 L 03/06/18 08:00 94 L 03/06/18 04:00 95 03/06/18 00:00 95 03/05/18 20:00 94 L 03/05/18 18:30 95 03/05/18 17:30 93 L 03/05/18 16:30 93 L 03/05/18 16:00 03/05/18 15:30 95 03/05/18 15:15 94 L 03/05/18 15:00 03/05/18 14:45 03/05/18 11:20 93 L Intake and Output 03/05/18 03/06/18 03/06/18 22:59 06:59 14:59 Intake Total 0 150.849 Balance 0 150.849 Intake: Intake, IV Titration 150.849 Amount Heparin Sod,Pork in 0.45% 150.849 NaCl 25,000 unit In 0.45 % NaCl 1 500ml.bag @ 7.76 UNITS/KG/HR 19.98 mls/hr IV .Q24H [facility] Rx#: [id number] Oral 0 Other: Voiding Method Toilet # Voids 2 1 # Bowel Movements 0 Weight 128.2 kg 128.2 kg No acute distress, oriented 3. HEENT examination is grossly unremarkable. Mucous membranes are moist. No oral lesions. Neck supple. Full range of motion. No adenopathy thyromegaly or neck vein distention. Cardiovascular examination reveals regular rhythm rate. S1-S2 normal. No S3 or S4. No discernible murmur noted. Lungs reveal clear breath sounds. His breath ounds are equal bilaterally. No adventitious lung sounds including wheezes rhonchi or crackles. Abdomen soft bowel sounds are heard. No masses or tenderness. Extremities are intact. No cyanosis clubbing or edema. Skin is without rash or lesion. Neurologic examination is brief but nonfocal. Results - Laboratory Findings CBC and BMP: 03/06/18 06:38 03/06/18 06:38 PT/INR, D-dimer PT 10.9 sec (9.0-12.0) 03/05/18 15:08 INR 1.1 (<1.2) 03/05/18 15:08 Abnormal lab findings: Abnormal Labs 03/04/18 03/04/18 03/04/18 15:44 15:44 15:44 APTT Glucose 111 H Total Creatine Kinase Troponin I 0.064 H* Cholesterol 229 H LDL Cholesterol, Calc 156 H Crossmatch 03/04/18 03/05/18 03/05/18 22:19 03:54 03:54 APTT 61.6 H Glucose Total Creatine Kinase 46 L 39 L Troponin I 0.070 H* 0.060 H* Cholesterol LDL Cholesterol, Calc Crossmatch 03/05/18 03/05/18 03/05/18 15:08 18:02 18:02 APTT 49.8 H Glucose 104 H Total Creatine Kinase Troponin I Cholesterol LDL Cholesterol, Calc Crossmatch See Detail 03/06/18 03/06/18 06:38 06:38 APTT 42.1 H Glucose 115 H Total Creatine Kinase Troponin I Cholesterol LDL Cholesterol, Calc Crossmatch - Diagnostic Findings Chest x-ray: report reviewed (Chest x-ray labs and medications are all reviewed. ), image reviewed Assessment and Plan Assessment: Assessment Severe triple-vessel coronary artery disease with normal LV function. Non-ST segment elevation myocardial infarction History of hypertension History of tinnitus History of deafness Multiple previous orthopedic procedures Lifelong nonsmoker No history of intrinsic pulmonary disease Plan: Plan dated 03/06/2018 I explained to the patient that I will be seeing him after surgery. Our goal will be to get him extubated as soon as possible. The patient appears not to have any intrinsic lung disease. He is a lifelong nonsmoker. Denies any history of emphysema asthma chronic bronchitis, etc. He should do well. We'll continue to follow. Time with Patient: Greater than 30
[2018-03-06 11:41] LABS: Hepatitis A Antibody IgM Non-Reactive (Non-Reactive); Hepatitis B Core IgM Non-Reactive (Non-Reactive)
[2018-03-06] MEDS ORDERED: LACTATED RINGERS 1,000 ML IV ONE (12:45)
[2018-03-06] MEDS ORDERED: fentaNYL (PF) 50 MCG/ML 2 ML AMP ONE (14:41)
[2018-03-06] MEDS ORDERED: TRANEXAMIC ACID 1,000 MG/10 ML VIAL ONE (14:41)
[2018-03-06] MEDS ORDERED: LIDOCAINE 2% SYG (PF) 100 MG/5 ML ONE (14:41)
[2018-03-06] MEDS ORDERED: SODIUM CHLORIDE 0.9% IRRIG 1,000 ML BTL IRRIGATION ONE (14:41)
[2018-03-06] MEDS ORDERED: ELECTROLYTE-R (PH 7.4) 1,000 ML IV.SOLN IV ONE (14:41)
[2018-03-06] MEDS ORDERED: VECURONIUM 10 MG VIAL IV ONE (14:41)
[2018-03-06] MEDS ORDERED: SODIUM CHLORIDE 0.9% 250 ML BAG ONE (14:41)
[2018-03-06] MEDS ORDERED: MIDAZOLAM 2 MG/2 ML VIAL ONE (14:41)
[2018-03-06] MEDS ORDERED: PROPOFOL 10 MG/ML 20 ML VIAL IV ONE (14:41)
[2018-03-06] MEDS ORDERED: HEPARIN SODIUM,PORCINE 10,000 UNIT/ML 1 ML VIAL ONE (14:41)
[2018-03-06] MEDS ORDERED: PROTAMINE SULFATE 10 MG/ML 25 ML VIAL IV ONE (14:41)
[2018-03-06] MEDS ORDERED: fentaNYL (PF) 50 MCG/ML 50 ML VIAL ONE (14:41)
[2018-03-06] MEDS ORDERED: MAGNESIUM SULFATE 4 MEQ/ML 2 ML VIAL ONE (14:41)
[2018-03-06 15:27] LABS: ABG Base Excess 1.5 mmol/L; ABG HCO3 26 mmol/L (21-25); ABG Oxygen Saturation 99.8 % (94-97); ABG PCO2 38 mmHg (35-45); ABG PH 7.44 (7.35-7.45); ABG PO2 237 mmHg (83-108); ABG Potassium Whole Blood 4.3 mmol/L (3.4-4.5); ABG Sodium Whole Blood 141 mmol/L (135-146); ABG TCO2 27 mmol/L (19-24)
[2018-03-06 17:39] LABS: ABG Base Excess -0.8 mmol/L; ABG HCO3 25 mmol/L (21-25); ABG Oxygen Saturation 99.4 % (94-97); ABG PCO2 42 mmHg (35-45); ABG PH 7.38 (7.35-7.45); ABG PO2 186 mmHg (83-108); ABG Potassium Whole Blood 3.6 mmol/L (3.4-4.5); ABG Sodium Whole Blood 142 mmol/L (135-146); ABG TCO2 26 mmol/L (19-24)
[2018-03-06 18:35] LABS: ABG Base Excess -0.8 mmol/L; ABG HCO3 24 mmol/L (21-25); ABG Oxygen Saturation 99.9 % (94-97); ABG PCO2 37 mmHg (35-45); ABG PH 7.41 (7.35-7.45); ABG PO2 420 mmHg (83-108); ABG Potassium Whole Blood 3.8 mmol/L (3.4-4.5); ABG Sodium Whole Blood 139 mmol/L (135-146); ABG TCO2 25 mmol/L (19-24)
[2018-03-06 19:10] LABS: ABG Base Excess -0.8 mmol/L; ABG HCO3 25 mmol/L (21-25); ABG Oxygen Saturation 99.3 % (94-97); ABG PCO2 43 mmHg (35-45); ABG PH 7.36 (7.35-7.45); ABG PO2 175 mmHg (83-108); ABG Potassium Whole Blood 4.3 mmol/L (3.4-4.5); ABG Sodium Whole Blood 139 mmol/L (135-146); ABG TCO2 26 mmol/L (19-24)
[2018-03-06 19:45] LABS: ABG Base Excess -0.5 mmol/L; ABG HCO3 25 mmol/L (21-25); ABG Oxygen Saturation 99.9 % (94-97); ABG PCO2 44 mmHg (35-45); ABG PH 7.36 (7.35-7.45); ABG PO2 304 mmHg (83-108); ABG Potassium Whole Blood 5.1 mmol/L (3.4-4.5); ABG Sodium Whole Blood 138 mmol/L (135-146); ABG TCO2 26 mmol/L (19-24)
[2018-03-06] MEDS ORDERED: ALBUMIN HUMAN 5% 250 ML IVPB ONE (20:49)
[2018-03-06 20:51] LABS: ABG Base Excess -0.7 mmol/L; ABG HCO3 24 mmol/L (21-25); ABG Oxygen Saturation 96.1 % (94-97); ABG PCO2 38 mmHg (35-45); ABG PH 7.41 (7.35-7.45); ABG PO2 78 mmHg (83-108); ABG Potassium Whole Blood 4.1 mmol/L (3.4-4.5); ABG Sodium Whole Blood 140 mmol/L (135-146); ABG TCO2 25 mmol/L (19-24)
[2018-03-06] MEDS ORDERED: Phosphorus Replacement Protoco 1 EACH MISC MISCELLANE PRN (21:12)
[2018-03-06] MEDS ORDERED: Magnesium Replacement Protocol 1 EACH MISC MISCELLANE PRN (21:12)
[2018-03-06] MEDS ORDERED: METOCLOPRAMIDE 5 MG/ML 2 ML VIAL IVP PRN (21:12)
[2018-03-06] MEDS ORDERED: MORPHINE SULFATE 2 MG/ML SYRINGE IVP PRN (21:12)
[2018-03-06] MEDS ORDERED: CALCIUM CHLORIDE 1,000 MG in SODIUM CHLORIDE 0.9% 100 ML IV PRN (21:12)
[2018-03-06] MEDS ORDERED: IPRATROPIUM-ALBUTEROL 3 ML NEB INHALATION PRN (21:12)
[2018-03-06] MEDS ORDERED: ALBUMIN HUMAN 5% 250 ML in EMPTY BAG 1 BAG IVPB PRN (21:12)
[2018-03-06] MEDS ORDERED: ONDANSETRON 4 MG/2 ML VIAL IVP PRN (21:12)
[2018-03-06] MEDS ORDERED: INSULIN REGULAR 100 UNIT in SODIUM CHLORIDE 0.9% 100 ML IV SCH (21:12)
[2018-03-06] MEDS ORDERED: Potassium Replacement Protocol 1 EACH MISC MISCELLANE PRN (21:12)
[2018-03-06] MEDS: PROPOFOL 1,000 MG in EMPTY BAG 1 BAG IV SCH (21:45)
--- NOTE | 2018-03-06 21:45 | P.PN ---
Progress Note - Text Procedure performed: Transesophageal echocardiography Indication for the procedure: Coronary artery bypass graft surgery, ischemia monitoring, assessment of valvular function, intracardiac air monitoring, assessment of regional wall motion abnormalities and hemodynamic monitoring. Probe insertion: Under general anesthesia, uneventful. Pre-bypass findings: Left ventricle mild hypertrophy and LV ejection fraction is approximately 55 - 60%. Left atrium slighly enalrgerd in size. No thrombus seen in the appendage. Right atrium normal in size. No patent foramen ovale or ASD seen. Right ventricle normal in structure and function. Aortic valve appears to be normal .No Aortic Regurgitation seen. Mitral valve normal in anatomy. Trivial mitral regurgitation seen. Trivial tricuspid regurgitation seen. Pulmonic valve appears to be normal. Descending aorta grade 2 atheroma seen. No pericardial effusion noted. Post-bypass findings: LV ejection fraction is 55-60%. No new regional wall motion abnormalities seen. Rest of the examination is same as pre-bypass.
[2018-03-06] MEDS: CLEVIDIPINE BUTYRATE 25 MG in EMPTY BAG 1 BAG IV SCH (22:30)
[2018-03-06 22:31] LABS: Glucose,Whole Blood 121 mg/dL (75-99)
--- NOTE | 2018-03-06 23:05 | OP ---
OPERATIVE REPORT DATE OF THE SURGERY: 03/06/2018. SURGEON: Dr. Alena Hammer. [employer]AND DEPARTMENT HEAD: MENA Swain and Sidney Mari, nurse practitioner. PREOPERATIVE DIAGNOSIS:: Non ST elevation myocardial infarction, triple-vessel coronary artery disease, preserved left ventricular function, hypertension, obesity, strong family history for coronary artery disease. POSTOPERATIVE DIAGNOSIS:: Non ST elevation myocardial infarction, triple-vessel coronary artery disease, preserved left ventricular function, hypertension, obesity, strong family history for coronary artery disease with evidence of diffuse coronary artery disease. OPERATION:: 1. Multiple arterial triple coronary artery bypass grafting using the left internal mammary artery to the left anterior descending artery, the left radial artery from the aorta to the obtuse marginal artery, reverse saphenous vein graft from the aorta to the right coronary artery. 2. Endoscopic harvesting of the left radial artery. 3. Endoscopic harvesting of the left greater saphenous vein between groin and knee level. 4. Intraoperative graft flow measurements. 5. Intraoperative transesophageal echocardiogram and epiaortic scanning. ESTIMATED BLOOD LOSS:: SPECIMEN TAKEN:: INDICATION FOR SURGERY: The patient is a 63-year-old gentleman who was admitted to the hospital for chest pain and was ruled in for non ST elevation myocardial infarction. 2D echo showed preserved left ventricular function. Cardiac catheterization followed and that showed severe stenosis of the left anterior descending artery, moderate stenosis of the circumflex artery and totally occluded collateralized right coronary artery. The patient was considered for surgical revascularization. The SDS risk was discussed with him. He understood it and agreed to proceed. NARRATIVE:: The patient had the right internal jugular [place]-Seble catheter and the right radial arterial line placed in the preoperative holding area. He has then brought to the operating room, where general endotracheal anesthesia was induced uneventfully. He had normal PA pressure and good cardiac index before induction. He received 3 g of cefazolin intravenously. A Cutler catheter was inserted. The chest, abdomen and both lower extremities were prepped and draped using ChloraPrep. Ioban was used to cover the skin. Transesophageal echocardiogram confirmed the preoperative finding of preserved systolic function and left ventricular hypertrophy. No significant valvular abnormalities. Midline sternotomy was performed and the bone was quite dense. The left rebekah-sternum was elevated and the left internal mammary artery was harvested in a somewhat skeletonized fashion. The left pleura was intentionally opened in this process and was drained with a 28-Cro[place]ian chest tube. The right pleura was also opened inadvertently, as the whole mediastinum was shifted to the left and it was drained with another 28- [place] chest tube. In the same setting, the left radial artery was harvested endoscopically from elbow to wrist level after exposing it at the wrist and performing a clamping trial that revealed preserved pulsatile signal at the level of the left index O2 saturation probe. The forearm incisions were closed over a drain. Also, the left greater saphenous vein was harvested endoscopically from groin to knee level after administration of 2500 units of heparin. The branches were tied. The leg incisions were closed over a drain. Mediastinal fat was transected between 2 ties and epiaortic scanning revealed normal ascending aorta. Pericardium was opened in an inverted T-fashion and a pericardial cradle was created. Findings included a leftward-shifted heart in mediastinum and evidence of diffuse coronary artery disease. The patient would not be a good candidate for redo surgery. After systemic heparinization and after placement of respective pledgeted pursestring, aortic cannulation with a 24-Croatian cannula and venous cannulation via the right atrial appendage was performed. Antegrade as well as retrograde cardioplegia catheters were placed. The mammary artery was clipped distally and transected and had an excellent pulsatile flow in it and was around 1.75 mm in diameter. The vein was prepared and appeared to be of good quality, around 4 mm in diameter. The left radial artery was prepared by incising its fascia all along the volar aspect and clipping all its branches. It was of excellent quality, around 3 mm in diameter. Cardiopulmonary bypass was initiated and the patient's temperature was allowed to drift down to 34 degrees Celsius. During 86 minutes of aortic clamping, myocardial protection was achieved with initial dose of antegrade cold blood cardioplegia followed by a dose of retrograde cold blood cardioplegia with adequate arrest at around 300 mL. All subsequent doses were given retrograde as well as through the constructed vein graft to the right coronary artery for optimal protection, as the right coronary artery was totally occluded. The 1st distal anastomosis was between a segment of reverse saphenous vein graft and the right coronary artery. The PDA was small and diffusely diseased as well as the right coronary artery. It was opened and was thickened and was around 1.5 mm in diameter. The anastomosis was completed using Prolene 7-0 in continuous fashion. There was adequate flow. The vein was connected to a side-arm of the retrograde cardioplegia delivery system and additional plegia was given via the vein. A 2nd distal anastomosis was between the left radial artery and obtuse marginal artery, which was of good caliber, but also diffusely diseased. It was around 2 mm in diameter and the anastomosis was completed using Prolene 7-0 in a continuous fashion. The 3rd distal anastomosis was between the left internal mammary artery and the left anterior descending artery which was totally and diffusely diseased. I found a soft spot in its mid aspect. It was around 1.75 mm in diameter and the anastomosis was completed using Prolene 7-0 in continuous fashion. Satisfied with the distal anastomosis, attention was turned to performing the 2 proximal anastomosis. The rewarming was started. Two buttons of 5 mm each were punched out of the ascending aorta and the 2 proximal anastomosis of the radial artery and the vein were completed using Prolene 7-0 and 6-0 respectively in a continuous fashion. The patient was given lidocaine and magnesium and de-airing maneuver was done before unclamping the aorta. He regained spontaneous sinus rhythm. Anastomosis appeared hemostatic. After a period of reperfusion, we were able to wean off cardioplegia bypass without the need of any inotropic support. SHIRA showed good LV function. The graft flow measurements revealed excellent flows in all 3 grafts with no evidence of competitive flow at the level of the radial artery. Test dose and full dose protamine was given. Two monopolar atrial pacing wires were affixed to the right atrial pursestring and 1 bipolar ventricular pacing wire was driven via the inferior aspect of the right ventricle. The venous cannulation site after decannulation was reinforced with a pledgeted Prolene 4-0. One 36-Croatian substernal chest tube was placed. A groove was made in the left pleuropericardial fat to accommodate the mammary artery medial to the lung and away from the posterior sternal table. As mentioned, the heart was shifted to the left. Basically, the right atrium was dominating the surgical field. Pericardial fat was approximated over the RV and did cover most of the vein graft to the right coronary artery. After ensuring adequate hemostasis and hemodynamics and after correct sponge, instrument and needle count, the sternum was closed using 6 [id number] Silva cable after interposing fibular between the sternal edges. Thorough irrigation with cefazolin was followed. The rest of the closure proceeded in layers. Skin glue was applied. Patient did not receive any blood bank product, but received 250 mL of Cell Saver blood. He was transferred to the ICU in stable condition with a normal EKG with a PA pressure 40/20. Cardiac index was 2.4 on low-dose nitroglycerin. MMARMANDOL / ALINEN: [id number] /
[2018-03-06 23:09] LABS: Glucose,Whole Blood 128 mg/dL (75-99)
[2018-03-06] MEDS ORDERED: IPRATROPIUM-ALBUTEROL 3 ML NEB ONE (23:30)
[2018-03-07] MEDS: PROPOFOL 1,000 MG in EMPTY BAG 1 BAG IV SCH (00:01)
[2018-03-07] MEDS ORDERED: HEPARIN SODIUM,PORCINE 5,000 UNIT/ML 1 ML VIAL ONE (00:30)
[2018-03-07] MEDS ORDERED: IPRATROPIUM-ALBUTEROL 3 ML NEB ONE (00:30)
[2018-03-07] MEDS ORDERED: MORPHINE SULFATE 2 MG/ML SYRINGE ONE ×2 (00:30)
[2018-03-07] MEDS: CLEVIDIPINE BUTYRATE 25 MG in EMPTY BAG 1 BAG IV SCH ×2 (01:45→04:48)
[2018-03-07 03:46] LABS: Glucose,Whole Blood 140 mg/dL (75-99)
[2018-03-07 03:46] LABS: Glucose,Whole Blood 136 mg/dL (75-99)
[2018-03-07 03:46] LABS: Glucose,Whole Blood 133 mg/dL (75-99)
[2018-03-07 04:13] LABS: Glucose,Whole Blood 128 mg/dL (75-99)
[2018-03-07] MEDS: MUPIROCIN 2% OINT 22 GM TUBE NASAL SCH ×4 (04:41→21:29)
[2018-03-07] MEDS: LACTATED RINGERS 1,000 ML IV SCH ×2 (04:41→17:12)
[2018-03-07] MEDS: ACETAMINOPHEN IV (For NPO) 1,000 MG in EMPTY BAG 1 BAG IVPB SCH ×4 (04:41→18:37)
[2018-03-07] MEDS: IPRATROPIUM-ALBUTEROL 3 ML NEB INHALATION SCH ×7 (04:41→19:44)
[2018-03-07] MEDS: HEPARIN SODIUM,PORCINE 5,000 UNIT/ML 1 ML VIAL SQ SCH ×3 (04:42→16:19)
[2018-03-07] MEDS: NITROGLYCERIN-D5W PMX 50 MG in DEXTROSE/WATER 1 250ML.BAG IV SCH ×3 (04:43→21:28)
[2018-03-07 05:24] LABS: Glucose,Whole Blood 150 mg/dL (75-99)
[2018-03-07 05:30] LABS: Basophils % (A) 0 %; Eosinophils % (A) 0 %; HCT 31.5 % (39.0-53.0); HGB 10.4 gm/dL (13.0-17.5); Lymphocytes # (A) 0.3 k/uL (1.0-4.8); Lymphocytes % (A) 3 %; MCH 30.3 pg (25.0-35.0); MCHC 32.9 g/dL (31.0-37.0); MCV 92.1 fL (80.0-100.0); Mean Platelet Volume 6.9; Monocytes # (A) 0.5 k/uL (0-1.0); Monocytes % (A) 5 %; Neutrophils # (A) 8.5 k/uL (1.3-7.7); Neutrophils % (A) 91 %; Platelet Count 150 k/uL (150-450); RBC 3.43 m/uL (4.30-5.90); RDW 13.7 % (11.5-15.5); WBC 9.4 k/uL (3.8-10.6)
[2018-03-07 05:36] LABS: ABG Base Excess -1.4 mmol/L; ABG HCO3 23 mmol/L (21-25); ABG PCO2 38 mmHg (35-45); ABG PO2 61 mmHg (83-108); ABG TCO2 25 mmol/L (19-24)
[2018-03-07 05:39] LABS: INR 1.1 (<1.2); Ionized Calcium 4.9 mg/dL (4.5-5.3); Partial Thromboplastin Time 23.6 sec (22.0-30.0)
[2018-03-07 05:48] LABS: Ionized Calcium 5.1 mg/dL (4.5-5.3)
[2018-03-07 05:55] LABS: Basophils % (A) 0 %; Eosinophils % (A) 0 %; HCT 26.5 % (39.0-53.0); Lymphocytes # (A) 0.6 k/uL (1.0-4.8); Lymphocytes % (A) 8 %; MCH 31.2 pg (25.0-35.0); MCHC 33.9 g/dL (31.0-37.0); MCV 92.1 fL (80.0-100.0); Mean Platelet Volume 6.6; Monocytes # (A) 0.4 k/uL (0-1.0); Monocytes % (A) 5 %; Neutrophils # (A) 6.7 k/uL (1.3-7.7); Neutrophils % (A) 86 %; RBC 2.88 m/uL (4.30-5.90); RDW 13.9 % (11.5-15.5); WBC 7.8 k/uL (3.8-10.6)
[2018-03-07 05:56] LABS: Platelet Count 118 k/uL (150-450)
[2018-03-07 05:57] LABS: ABG Base Excess -1.7 mmol/L; ABG HCO3 24 mmol/L (21-25); ABG PCO2 45 mmHg (35-45); ABG PH 7.34 (7.35-7.45); ABG PO2 307 mmHg (83-108); ABG TCO2 26 mmol/L (19-24)
[2018-03-07 05:58] LABS: ALT 37 U/L (21-72); AST 40 U/L (17-59); Albumin 2.9 g/dL (3.5-5.0); Alkaline Phosphatase 34 U/L (38-126); Anion Gap 3 mmol/L; Blood Urea Nitrogen 13 mg/dL (9-20); Carbon Dioxide 24 mmol/L (22-30); Chloride 111 mmol/L (98-107); Glucose 106 mg/dL (74-99); Magnesium 2.5 mg/dL (1.6-2.3); Potassium 4.3 mmol/L (3.5-5.1); Sodium 138 mmol/L (137-145); Total Bilirubin 0.7 mg/dL (0.2-1.3); Total Protein 4.6 g/dL (6.3-8.2)
[2018-03-07 06:08] LABS: INR 1.3 (<1.2); Partial Thromboplastin Time 32.8 sec (22.0-30.0); Prothrombin Time 12.2 sec (9.0-12.0)
[2018-03-07 06:28] LABS: Glucose,Whole Blood 131 mg/dL (75-99)
[2018-03-07 06:46] LABS: ALT 35 U/L (21-72); AST 52 U/L (17-59); Albumin 3.5 g/dL (3.5-5.0); Alkaline Phosphatase 49 U/L (38-126); Anion Gap 6 mmol/L; Blood Urea Nitrogen 14 mg/dL (9-20); Calcium 8.4 mg/dL (8.4-10.2); Carbon Dioxide 26 mmol/L (22-30); Chloride 107 mmol/L (98-107); Glucose 126 mg/dL (74-99); Magnesium 2.1 mg/dL (1.6-2.3); Sodium 139 mmol/L (137-145); Total Bilirubin 0.9 mg/dL (0.2-1.3); Total Protein 5.5 g/dL (6.3-8.2)
[2018-03-07 06:52] LABS: HCT 31.7 % (39.0-53.0); HGB 10.6 gm/dL (13.0-17.5); MCH 30.9 pg (25.0-35.0); MCHC 33.5 g/dL (31.0-37.0); MCV 92.4 fL (80.0-100.0); Mean Platelet Volume 6.6; Platelet Count 159 k/uL (150-450); RBC 3.43 m/uL (4.30-5.90)
--- NOTE | 2018-03-07 07:54 | P.CNPUL ---
History of Present Illness Consult date: 03/07/18 Reason for consult: other Chief complaint: Status post three-vessel bypass grafting, postoperative respiratory failure History of present illness: Progress note dated 03/07/2018 63-year-old male status post postop day #1 status post triple vessel bypass grafting. The patient did have postoperative respiratory failure. He was extubated within the 6 hour timeframe. Patient is doing relatively well. Sitting up in the chair. Working on deep breathing coughing clearing of secretions and also using the incentive spirometer. Remains on nasal O2. Hemodynamically stable. The patient does have a history of non-ST segment elevation myocardial infarction hypertension tinnitus deafness multiple reviews orthopedic procedures and was not thought to have any intrinsic pulmonary disease. The patient is otherwise doing reasonably well. We stressed the importance of deep breathing coughing and clearing his secretions. We'll also stressed the importance of using the incentive spirometer. Chest x-ray is difficult to interpret. Typical postoperative changes no noted. Review of Systems A 12 point review of system is positive only for pain at the surgical site. He denies other complaints at this time. Is coughing up some phlegm. Past Medical History Past Medical History: Coronary Artery Disease (CAD), Chest Pain / Angina, Hypertension, Osteoarthritis (OA), Prostate Disorder Additional Past Medical History / Comment(s): DAVINA TINNITUS, BEGINNINGS OF MACULAR DEGENERATION History of Any Multi-Drug Resistant Organisms: None Reported Past Surgical History: Joint Replacement, Orthopedic Surgery, Prostate Surgery Additional Past Surgical History / Comment(s): TOTAL DAVINA KNEES. , DAVINA KNEE ARTHROSCOPIES, CYSTOSCOPY/TURP 2016, LASIK EYE SX -RT EYE, lumbar disc disease of L4, L5, L6 with right lower extremity sciatica. Past Anesthesia/Blood Transfusion Reactions: No Reported Reaction Additional Past Anesthesia/Blood Transfusion Reaction / Comment(s): Claustrophobia Past Psychological History: No Psychological Hx Reported Smoking Status: Never smoker Past Alcohol Use History: Occasional Additional Past Alcohol Use History / Comment(s): Patient is a lifelong nonsmoker. He states he drinks a few beers occasionally and occasionally smokes a cigar. 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 He lives at home with his . He is independent. Past Drug Use History: None Reported - Past Family History Mother Family Medical History: No Reported History Additional Family Medical History / Comment(s): Other at age 74 with heart failure and coronary artery disease. Father Family Medical History: Myocardial Infarction (MT) Additional Family Medical History / Comment(s): Father at age 89 from a myocardial infarction. Sister(s) Additional Family Medical History / Comment(s): Patient has one sister and one half-sister with no major medical problems. Patient does not have any brothers. Patient has 2 sons with no major medical problems. Medications and Allergies Home Medications Medication Instructions Recorded Confirmed Type amLODIPine [Norvasc] 5 mg PO DAILY 04/24/16 03/04/18 History HYDROcodone/IBUPROFEN 7.5-200 1 tab PO DAILY PRN 03/04/18 03/04/18 History [Vicoprofen 7.5-200 mg] Meloxicam [Mobic] 15 mg PO DAILY PRN 03/04/18 03/04/18 History Allergies Allergy/AdvReac Type Severity Reaction Status Date / Time No Known Allergies Allergy Verified 03/04/18 15:42 Physical Exam Osteopathic Statement: *. No significant issues noted on an osteopathic structural exam other than those noted in the History and Physical/Consult. Vitals: Vital Signs Temp Pulse Pulse Pulse Resp BP BP 03/07/18 07:00 104 H 32 H 113/64 03/07/18 06:30 85 18 110/63 03/07/18 06:00 95 18 110/63 03/07/18 05:37 03/07/18 05:32 98 03/07/18 05:30 97 18 117/70 03/07/18 05:00 95 10 L 122/76 03/07/18 04:30 98 18 120/68 03/07/18 04:00 97 77 79 20 127/76 03/07/18 03:30 94 20 93/60 03/07/18 03:00 95 20 109/62 03/07/18 02:30 95 16 125/66 03/07/18 02:10 99 03/07/18 02:00 100 20 140/71 03/07/18 01:30 92 15 134/75 03/07/18 01:00 91 23 117/75 03/07/18 00:30 89 12 109/73 03/07/18 00:00 80 14 109/73 03/06/18 23:40 84 03/06/18 23:30 82 18 107/73 03/06/18 23:00 77 16 107/73 03/06/18 22:30 79 14 03/06/18 22:00 72 14 03/06/18 21:51 72 12 03/06/18 12:45 79 16 152/86 03/06/18 08:06 97.7 F 77 20 141/93 03/06/18 08:00 97.7 F 77 20 141/93 BP Pulse Ox 03/07/18 07:00 91 L 03/07/18 06:30 93 L 03/07/18 06:00 94 L 03/07/18 05:37 93 L 03/07/18 05:32 03/07/18 05:30 96 03/07/18 05:00 96 03/07/18 04:30 95 03/07/18 04:00 95 03/07/18 03:30 97 03/07/18 03:00 96 03/07/18 02:30 95 03/07/18 02:10 03/07/18 02:00 96 03/07/18 01:30 95 03/07/18 01:00 96 03/07/18 00:30 96 03/07/18 00:00 99 03/06/18 23:40 03/06/18 23:30 99 03/06/18 23:00 100 03/06/18 22:30 100 03/06/18 22:00 100 03/06/18 21:51 100 03/06/18 12:45 95 03/06/18 08:06 141/87 94 L 03/06/18 08:00 141/87 94 L Intake and Output 03/06/18 03/07/18 03/07/18 22:59 06:59 14:59 Intake Total 115.167 830.864 155.54 Output Total 5545 1373 225 Balance -2379.833 -542.136 -69.46 Intake: IV 114.5 660.5 151.5 ACETAMINOPHEN IV (For NPO 100 100 ) 1,000 mg In Empty Bag 1 bag @ 400 mls/hr IVPB Q6HR [facility] Rx#:[id number] CO/CI 30 150 Lactated Ringers 1,000 ml 50 350 50 @ 50 mls/hr IV .Q20H [facility] Rx#:[id number] Nitroglycerin-D5w Pmx 50 1.5 10.5 1.5 mg In Dextrose/Water 1 250ml.bag @ 5 MCG/MIN 1.5 mls/hr IV .Q24H [facility] Rx#: [id number] ceFAZolin 3 gm In Sodium 50 Chloride 0.9% 50 ml @ 50 mls/hr IVPB Q8H [facility] Rx#: [id number] Intake, IV Titration 0.667 170.364 4.04 Amount Clevidipine Butyrate 25 0.667 90.933 mg In Empty Bag 1 bag @ 1 MG/HR 2 mls/hr IV .Q24H [facility] Rx#:[id number] Insulin Regular 100 unit 6.04 4.04 In Sodium Chloride 0.9% 100 ml @ Per Protocol IV .Q0M [facility] Rx#:[id number] Propofol 1,000 mg In 73.391 Empty Bag 1 bag @ Titrate IV .Q0M [facility] Rx#: [id number] Output: Chest Tube Drainage 135 388 145 Chest Tube Left 130 58 50 Chest Tube Mediastinal 5 274 80 Chest Tube Right 0 56 15 Drainage 55 40 Left Calf 25 20 Left Wrist 30 20 Urine 560 930 40 Estimated Blood Loss 1800 Other: Voiding Method Indwelling Catheter Weight 130.3 kg ABP, PAP, CO, CI - Last 8 Hours Arterial Blood Pressure 123/113 Arterial Blood Pressure 136/83 Arterial Blood Pressure 112/107 Arterial Blood Pressure 118/61 Pulmonary Artery Pressure 33/24 Pulmonary Artery Pressure 34/23 Pulmonary Artery Pressure 48/48 Pulmonary Artery Pressure 37/22 Pulmonary Artery Pressure 39/26 Pulmonary Artery Pressure 32/21 Pulmonary Artery Pressure 35/22 Pulmonary Artery Pressure 28/11 Pulmonary Artery Pressure 29/8 Pulmonary Artery Pressure 35/19 Pulmonary Artery Pressure 44/26 Pulmonary Artery Pressure 45/25 Pulmonary Artery Pressure 52/25 Pulmonary Artery Pressure 53/24 Pulmonary Artery Pressure 42/17 Cardiac Output 8.5 Cardiac Output 8.5 Cardiac Output 8.5 Cardiac Output 8.5 Cardiac Output 8.5 Cardiac Output 8.5 Cardiac Output 8.5 Cardiac Output 8.8 Cardiac Output 8.8 Cardiac Output 8.8 Cardiac Output 7.7 Cardiac Output 7.7 Cardiac Output 7.7 Cardiac Output 7.7 Cardiac Output 7.7 Cardiac Index 3.4 Cardiac Index 3.5 Cardiac Index 3.1 No acute distress, oriented 3. Nasal O2 in place. HEENT examination is grossly unremarkable. Mucous membranes are moist. No oral lesions. Neck supple. Full range of motion. No adenopathy thyromegaly or neck vein distention. Cardiovascular examination reveals regular rhythm rate. S1-S2 normal. No S3 or S4. No discernible murmur noted. Lungs reveal mostly clear breath sounds. A few scattered expiratory rhonchi and wheezes are noted. No crackles. Rest sounds are equal bilaterally. Abdomen soft bowel sounds are heard. No masses or tenderness. Extremities are intact. No cyanosis clubbing or edema. Skin is without rash or lesion. Neurologic examination is brief but nonfocal. Results - Laboratory Findings CBC and BMP: 03/07/18 05:00 03/07/18 05:00 ABG ABG pH 7.40 (7.35-7.45) 03/07/18 01:24 ABG pCO2 38 mmHg (35-45) 03/07/18 01:24 ABG pO2 61 mmHg (83-108) L 03/07/18 01:24 ABG O2 Saturation 93.0 % (94-97) L 03/07/18 01:24 PT/INR, D-dimer PT 11.0 sec (9.0-12.0) 03/07/18 05:00 INR 1.1 (<1.2) 03/07/18 05:00 Abnormal lab findings: Abnormal Labs 03/04/18 03/04/18 03/04/18 15:44 15:44 15:44 RBC Hgb Hct Plt Count Neutrophils # Lymphocytes # PT INR APTT ABG pH ABG pO2 ABG HCO3 ABG Total CO2 ABG O2 Saturation ABG Hematocrit ABG Potassium ABG Ionized Calcium ABG Glucose Hemoglobin Chloride Glucose 111 H POC Glucose (mg/dL) Calcium Magnesium Alkaline Phosphatase Total Creatine Kinase Troponin I 0.064 H* Total Protein Albumin Cholesterol 229 H LDL Cholesterol, Calc 156 H Arterial Blood Potassium Arterial Blood Glucose Crossmatch 03/04/18 03/05/18 03/05/18 22:19 03:54 03:54 RBC Hgb Hct Plt Count Neutrophils # Lymphocytes # PT INR APTT 61.6 H ABG pH ABG pO2 ABG HCO3 ABG Total CO2 ABG O2 Saturation ABG Hematocrit ABG Potassium ABG Ionized Calcium ABG Glucose Hemoglobin Chloride Glucose POC Glucose (mg/dL) Calcium Magnesium Alkaline Phosphatase Total Creatine Kinase 46 L 39 L Troponin I 0.070 H* 0.060 H* Total Protein Albumin Cholesterol LDL Cholesterol, Calc Arterial Blood Potassium Arterial Blood Glucose Crossmatch 03/05/18 03/05/18 03/05/18 15:08 18:02 18:02 RBC Hgb Hct Plt Count Neutrophils # Lymphocytes # PT INR APTT 49.8 H ABG pH ABG pO2 ABG HCO3 ABG Total CO2 ABG O2 Saturation ABG Hematocrit ABG Potassium ABG Ionized Calcium ABG Glucose Hemoglobin Chloride Glucose 104 H POC Glucose (mg/dL) Calcium Magnesium Alkaline Phosphatase Total Creatine Kinase Troponin I Total Protein Albumin Cholesterol LDL Cholesterol, Calc Arterial Blood Potassium Arterial Blood Glucose Crossmatch See Detail 03/06/18 03/06/18 03/06/18 06:38 06:38 15:29 RBC Hgb Hct Plt Count Neutrophils # Lymphocytes # PT INR APTT 42.1 H ABG pH ABG pO2 237 H ABG HCO3 26 H ABG Total CO2 27 H ABG O2 Saturation 99.8 H ABG Hematocrit ABG Potassium ABG Ionized Calcium ABG Glucose Hemoglobin 12.4 L Chloride Glucose 115 H POC Glucose (mg/dL) Calcium Magnesium Alkaline Phosphatase Total Creatine Kinase Troponin I Total Protein Albumin Cholesterol LDL Cholesterol, Calc Arterial Blood Potassium Arterial Blood Glucose Crossmatch 03/06/18 03/06/18 03/06/18 17:40 18:36 19:11 RBC Hgb Hct Plt Count Neutrophils # Lymphocytes # PT INR APTT ABG pH ABG pO2 186 H 420 H 175 H ABG HCO3 ABG Total CO2 26 H 25 H 26 H ABG O2 Saturation 99.4 H 99.9 H 99.3 H ABG Hematocrit 33 L 29 L 28 L ABG Potassium ABG Ionized Calcium 4.2 L 4.4 L ABG Glucose 103 H 102 H 165 H Hemoglobin 10.8 L 9.3 L 9.0 L Chloride Glucose POC Glucose (mg/dL) Calcium Magnesium Alkaline Phosphatase Total Creatine Kinase Troponin I Total Protein Albumin Cholesterol LDL Cholesterol, Calc Arterial Blood Potassium Arterial Blood Glucose 103 H 102 H 165 H Crossmatch 03/06/18 03/06/18 03/06/18 19:47 20:53 21:55 RBC Hgb Hct Plt Count Neutrophils # Lymphocytes # PT INR APTT ABG pH ABG pO2 304 H 78 L ABG HCO3 ABG Total CO2 26 H 25 H ABG O2 Saturation 99.9 H ABG Hematocrit 28 L 28 L ABG Potassium 5.1 H ABG Ionized Calcium 4.4 L ABG Glucose 196 H 141 H Hemoglobin 9.1 L 9.2 L Chloride Glucose POC Glucose (mg/dL) 121 H Calcium Magnesium Alkaline Phosphatase Total Creatine Kinase Troponin I Total Protein Albumin Cholesterol LDL Cholesterol, Calc Arterial Blood Potassium 5.1 H Arterial Blood Glucose 196 H 141 H Crossmatch 03/06/18 03/06/18 03/06/18 21:59 22:00 22:00 RBC 2.88 L Hgb 9.0 L D Hct 26.5 L Plt Count 118 L D Neutrophils # Lymphocytes # 0.6 L PT INR APTT ABG pH 7.34 L ABG pO2 307 H ABG HCO3 ABG Total CO2 26 H ABG O2 Saturation 100.0 H ABG Hematocrit ABG Potassium ABG Ionized Calcium ABG Glucose Hemoglobin Chloride 111 H Glucose 106 H POC Glucose (mg/dL) Calcium 8.0 L Magnesium 2.5 H Alkaline Phosphatase 34 L Total Creatine Kinase Troponin I Total Protein 4.6 L Albumin 2.9 L Cholesterol LDL Cholesterol, Calc Arterial Blood Potassium Arterial Blood Glucose Crossmatch 03/06/18 03/06/18 03/06/18 22:00 23:08 23:57 RBC Hgb Hct Plt Count Neutrophils # Lymphocytes # PT 12.2 H INR 1.3 H APTT 32.8 H ABG pH ABG pO2 ABG HCO3 ABG Total CO2 ABG O2 Saturation ABG Hematocrit ABG Potassium ABG Ionized Calcium ABG Glucose Hemoglobin Chloride Glucose POC Glucose (mg/dL) 128 H 136 H Calcium Magnesium Alkaline Phosphatase Total Creatine Kinase Troponin I Total Protein Albumin Cholesterol LDL Cholesterol, Calc Arterial Blood Potassium Arterial Blood Glucose Crossmatch 03/07/18 03/07/18 03/07/18 00:50 00:55 01:24 RBC 3.43 L Hgb 10.6 L Hct 31.7 L Plt Count Neutrophils # Lymphocytes # PT INR APTT ABG pH ABG pO2 61 L ABG HCO3 ABG Total CO2 25 H ABG O2 Saturation 93.0 L ABG Hematocrit ABG Potassium ABG Ionized Calcium ABG Glucose Hemoglobin Chloride Glucose POC Glucose (mg/dL) 140 H Calcium Magnesium Alkaline Phosphatase Total Creatine Kinase Troponin I Total Protein Albumin Cholesterol LDL Cholesterol, Calc Arterial Blood Potassium Arterial Blood Glucose Crossmatch 03/07/18 03/07/18 03/07/18 03:17 04:10 05:00 RBC 3.43 L Hgb 10.4 L Hct 31.5 L Plt Count Neutrophils # 8.5 H Lymphocytes # 0.3 L PT INR APTT ABG pH ABG pO2 ABG HCO3 ABG Total CO2 ABG O2 Saturation ABG Hematocrit ABG Potassium ABG Ionized Calcium ABG Glucose Hemoglobin Chloride Glucose POC Glucose (mg/dL) 133 H 128 H Calcium Magnesium Alkaline Phosphatase Total Creatine Kinase Troponin I Total Protein Albumin Cholesterol LDL Cholesterol, Calc Arterial Blood Potassium Arterial Blood Glucose Crossmatch 03/07/18 03/07/18 03/07/18 05:00 05:04 06:26 RBC Hgb Hct Plt Count Neutrophils # Lymphocytes # PT INR APTT ABG pH ABG pO2 ABG HCO3 ABG Total CO2 ABG O2 Saturation ABG Hematocrit ABG Potassium ABG Ionized Calcium ABG Glucose Hemoglobin Chloride Glucose 126 H POC Glucose (mg/dL) 150 H 131 H Calcium Magnesium Alkaline Phosphatase Total Creatine Kinase Troponin I Total Protein 5.5 L Albumin Cholesterol LDL Cholesterol, Calc Arterial Blood Potassium Arterial Blood Glucose Crossmatch - Diagnostic Findings Chest x-ray: report reviewed (Labs x-rays and medications are reviewed.), image reviewed Assessment and Plan Assessment: Assessment Severe triple-vessel coronary artery disease with normal LV function, status postop day #1, three-vessel bypass grafting. Postoperative respiratory failure, resolved with extubation within the 6 hour time limit Non-ST segment elevation myocardial infarction History of hypertension History of tinnitus History of deafness Multiple previous orthopedic procedures Lifelong nonsmoker No history of intrinsic pulmonary disease Plan: Plan dated 03/06/2018 I explained to the patient that I will be seeing him after surgery. Our goal will be to get him extubated as soon as possible. The patient appears not to have any intrinsic lung disease. He is a lifelong nonsmoker. Denies any history of emphysema asthma chronic bronchitis, etc. He should do well. We'll continue to follow. Plan dated 03/07/2018. The patient is doing recently well. The patient's on nasal O2. Hemodynamically stable. We want the patient to focus on deep breathing coughing and clearing of secretions. We also want the patient to really focus on using the incentive spirometer. Chest x-ray shows typical postoperative changes. We'll continue to watch the patient closely to make sure he doesn't develop any complications from the lung standpoint such as atelectasis lung collapse pneumonia pleural effusion, etc. Prognosis is guarded. Critical care time 33 minutes Time with Patient: Greater than 30
[2018-03-07] MEDS ORDERED: FUROSEMIDE 10 MG/ML 2 ML VIAL IV ONE (08:00)
[2018-03-07 08:05] LABS: Glucose,Whole Blood 133 mg/dL (75-99)
--- NOTE | 2018-03-07 08:57 | PN ---
PROGRESS NOTE Mr. Virgen is a 63-year-old male who presented with unstable angina and a non ST- segment elevation myocardial infarction, underwent coronary artery bypass grafting yesterday. He is feeling well this morning. He has some soreness. Hemodynamically stable. He continued to be in sinus mechanism. Yesterday, he received a JACKSON to the LAD, radial to the obtuse marginal branch and saphenous vein graft to the right coronary artery. He has continued to be at this time on aspirin once a day, Lipitor 40 mg daily, Plavix 75 mg daily, metoprolol tartrate 12.5 mg twice a day. PHYSICAL EXAMINATION: Blood pressure 113/60 with a heart rate in the 80s. PA pressure 33/24. LUNGS: With a few crackles at the bases. HEART: Regular rate and rhythm, S1, S2. No S3. No rub. ABDOMEN: Soft, nontender. Positive bowel sounds. No organomegaly. EXTREMITIES: With Kunal wrapping in place. IMPRESSION: 1. Status post bypass grafting, stable. 2. History of non-STEMI. 3. Hypertension. 4. Hyperlipidemia. RECOMMENDATION: From the cardiac standpoint, he is stable. Will adjust the dose of his beta david as needed. Continue to increase his level of activity. Continue incentive spirometry and depending on his progress, further recommendation will be made. MMODL / IJN: [id number] /
[2018-03-07] MEDS: ASPIRIN 325 MG TAB PO SCH (08:58)
[2018-03-07] MEDS: ATORVASTATIN 40 MG TAB PO SCH (08:59)
[2018-03-07] MEDS: CLOPIDOGREL 75 MG TAB PO SCH (08:59)
[2018-03-07] MEDS ORDERED: PANTOPRAZOLE 40 MG/10 ML VIAL IVP SCH (09:00)
[2018-03-07 09:19] LABS: Glucose,Whole Blood 144 mg/dL (75-99)
[2018-03-07] MEDS: amLODIPine 5 MG TAB PO SCH (09:22)
[2018-03-07] MEDS: METOPROLOL TARTRATE 12.5 MG TAB PO SCH ×2 (09:55→21:28)
[2018-03-07 10:01] LABS: Glucose,Whole Blood 152 mg/dL (75-99)
--- NOTE | 2018-03-07 10:05 | P.PN ---
Subjective Progress Note Date: 03/07/18 Principal diagnosis: Non-ST elevation myocardial infarction, triple-vessel coronary artery disease, preserved left ventricular function, hypertension, obesity, strong family history for coronary artery disease with evidence of diffuse coronary artery disease. Social alcohol use of 2-7 drinks per week. POD #1 urgent multiple arterial triple coronary artery bypass grafting using the left internal mammary artery to the left anterior descending artery, the left radial artery from the aorta to the obtuse marginal artery, reverse saphenous vein graft from the aorta to the right coronary artery. Endoscopic harvesting of the left radial artery. Endoscopic harvesting of the left greater saphenous vein between the groin and knee level. Intraoperative graft flow measurements. Intraoperative transesophageal echocardiogram and epi- aortic scanning. Patient is currently sitting up in bed in no acute distress. Does complain of chest discomfort. He was successfully extubated this morning at 2:05 AM. Currently hemodynamically stable with no new complaints. Objective - Vital Signs Vital signs: Vital Signs Temp 97.7 F 03/06/18 08:06 Pulse 84 03/07/18 08:02 Resp 32 H 03/07/18 07:00 BP 113/64 03/07/18 07:00 Pulse Ox 91 L 03/07/18 07:00 Intake & Output 03/06/18 03/07/18 03/07/18 18:59 06:59 18:59 Intake Total 33 913.031 204.062 Output Total 3868 225 Balance 33 -2954.969 -20.938 Weight 128.2 kg 130.3 kg Intake: IV 33 742.0 151.5 ACETAMINOPHEN IV (For NPO 100 100 ) 1,000 mg In Empty Bag 1 bag @ 400 mls/hr IVPB Q6HR YOL[facility] Rx#:[id number] CO/CI 180 Lactated Ringers 1,000 ml 400 50 @ 50 mls/hr IV .Q20H YOLIS Rx#:[id number] Nitroglycerin-D5w Pmx 50 12.0 1.5 mg In Dextrose/Water 1 250ml.bag @ 5 MCG/MIN 1.5 mls/hr IV .Q24H YOLIS Rx#: [id number] ceFAZolin 3 gm In Sodium 50 Chloride 0.9% 50 ml @ 50 mls/hr IVPB Q8H YOLIS Rx#: [id number] Intake, IV Titration 171.031 52.562 Amount Clevidipine Butyrate 25 91.600 45.0 mg In Empty Bag 1 bag @ 1 MG/HR 2 mls/hr IV .Q24H YOLIS Rx#:[id number] Insulin Regular 100 unit 6.04 7.562 In Sodium Chloride 0.9% 100 ml @ Per Protocol IV .Q0M YOLIS Rx#:[id number] Propofol 1,000 mg In 73.391 Empty Bag 1 bag @ Titrate IV .Q0M YOLIS Rx#: [id number] Output: Chest Tube Drainage 523 145 Chest Tube Left 188 50 Chest Tube Mediastinal 279 80 Chest Tube Right 56 15 Drainage 55 40 Left Calf 25 20 Left Wrist 30 20 Urine 1490 40 Estimated Blood Loss 1800 Other: Voiding Method Indwelling Catheter ABP, PAP, CO, CI - Last Documented Arterial Blood Pressure 123/113 Pulmonary Artery Pressure 33/24 Cardiac Output 8.5 Cardiac Index 3.4 - Constitutional General appearance: Present: cooperative, no acute distress, obese - Respiratory Details: Lungs sounds diminished bilaterally. Respirations even, nonlabored. Currently on 10 L high flow with oxygen saturation 91%. Able to achieve 500-750 mL on his incentive spirometry. Effective cough. Mediastinal chest tube to continuous wall suction, 275 mL serosanguineous drainage overnight, 380 mL since surgery. Left pleural chest tube to continuous wall suction, 60 mL serosanguineous drainage overnight, 250 mL since surgery. Right pleural chest tube to continuous wall suction, 55 mL serosanguineous drainage overnight, 175 mL since surgery. No air leaks present. - Cardiovascular Details: S1, S2 present. Regular rate and rhythm, sinus rhythm on telemetry. Sternum stable. A/V epicardial pacemaker wires present, grounded. Palpable peripheral pulses bilaterally. No edema present. No calf pain or tenderness noted. Right internal jugular [place]/Cordis present. Last CO/CI 8.5/3.4 on no inotropes. Heart hugger in place with patient demonstrating appropriate use. Antiembolism stockings, SCDs present. - Gastrointestinal Gastrointestinal Comment(s): Abdomen soft, nontender, nondistended. Hypoactive bowel sounds present 4 quadrants. Tolerating clear liquids. Negative flatus. - Genitourinary Genitourinary Comment(s): [place] present draining clear, yellow urine. Output 80-180 mL/h overnight. - Integumentary Integumentary Comment(s): Skin is warm and dry with evidence of good perfusion. Anterior chest incision well approximated and covered with dry intact dressing. Left radial artery harvest site well approximated with FIDE drain present with minimal drainage, skin is pink, patient does have feeling and mobility in the left arm. Left lower extremity EVH site well approximated, FIDE drain present with minimal drainage. - Neurologic Neurologic: Present: CNII-XII intact - Musculoskeletal Musculoskeletal: Present: gait normal, strength equal bilaterally - Psychiatric Psychiatric: Present: A&O x's 3, appropriate affect, intact judgment & insight - Allied health notes Allied health notes reviewed: nursing - Labs CBC & Chem 7: 03/07/18 05:00 03/07/18 05:00 Labs: Abnormal Lab Results - Last 24 Hours (Table) 03/05/18 03/06/18 03/06/18 Range/Units 18:02 15:29 17:40 RBC (4.30-5.90) m/uL Hgb (13.0-17.5) gm/dL Hct (39.0-53.0) % Plt Count (150-450) k/uL Neutrophils # (1.3-7.7) k/uL Lymphocytes # (1.0-4.8) k/uL PT (9.0-12.0) sec INR (<1.2) APTT (22.0-30.0) sec ABG pH (7.35-7.45) ABG pO2 237 H 186 H (83-108) mmHg ABG HCO3 26 H (21-25) mmol/L ABG Total CO2 27 H 26 H (19-24) mmol/L ABG O2 Saturation 99.8 H 99.4 H (94-97) % ABG Hematocrit 33 L (34.0-46.0) % ABG Potassium (3.4-4.5) mmol/L ABG Ionized Calcium (4.5-5.3) mg/dL ABG Glucose 103 H (75-99) mg/dL Hemoglobin 12.4 L 10.8 L (13.0-17.5) gm/dL Chloride (98-107) mmol/L Glucose (74-99) mg/dL POC Glucose (mg/dL) (75-99) mg/dL Calcium (8.4-10.2) mg/dL Magnesium (1.6-2.3) mg/dL Alkaline Phosphatase (38-126) U/L Total Protein (6.3-8.2) g/dL Albumin (3.5-5.0) g/dL Arterial Blood Potassium (3.4-4.5) mmol/L Arterial Blood Glucose 103 H (75-99) mg/dL Crossmatch See Detail 03/06/18 03/06/18 03/06/18 Range/Units 18:36 19:11 19:47 RBC (4.30-5.90) m/uL Hgb (13.0-17.5) gm/dL Hct (39.0-53.0) % Plt Count (150-450) k/uL Neutrophils # (1.3-7.7) k/uL Lymphocytes # (1.0-4.8) k/uL PT (9.0-12.0) sec INR (<1.2) APTT (22.0-30.0) sec ABG pH (7.35-7.45) ABG pO2 420 H 175 H 304 H (83-108) mmHg ABG HCO3 (21-25) mmol/L ABG Total CO2 25 H 26 H 26 H (19-24) mmol/L ABG O2 Saturation 99.9 H 99.3 H 99.9 H (94-97) % ABG Hematocrit 29 L 28 L 28 L (34.0-46.0) % ABG Potassium 5.1 H (3.4-4.5) mmol/L ABG Ionized Calcium 4.2 L 4.4 L 4.4 L (4.5-5.3) mg/dL ABG Glucose 102 H 165 H 196 H (75-99) mg/dL Hemoglobin 9.3 L 9.0 L 9.1 L (13.0-17.5) gm/dL Chloride (98-107) mmol/L Glucose (74-99) mg/dL POC Glucose (mg/dL) (75-99) mg/dL Calcium (8.4-10.2) mg/dL Magnesium (1.6-2.3) mg/dL Alkaline Phosphatase (38-126) U/L Total Protein (6.3-8.2) g/dL Albumin (3.5-5.0) g/dL Arterial Blood Potassium 5.1 H (3.4-4.5) mmol/L Arterial Blood Glucose 102 H 165 H 196 H (75-99) mg/dL Crossmatch 03/06/18 03/06/18 03/06/18 Range/Units 20:53 21:55 21:59 RBC (4.30-5.90) m/uL Hgb (13.0-17.5) gm/dL Hct (39.0-53.0) % Plt Count (150-450) k/uL Neutrophils # (1.3-7.7) k/uL Lymphocytes # (1.0-4.8) k/uL PT (9.0-12.0) sec INR (<1.2) APTT (22.0-30.0) sec ABG pH 7.34 L (7.35-7.45) ABG pO2 78 L 307 H (83-108) mmHg ABG HCO3 (21-25) mmol/L ABG Total CO2 25 H 26 H (19-24) mmol/L ABG O2 Saturation 100.0 H (94-97) % ABG Hematocrit 28 L (34.0-46.0) % ABG Potassium (3.4-4.5) mmol/L ABG Ionized Calcium (4.5-5.3) mg/dL ABG Glucose 141 H (75-99) mg/dL Hemoglobin 9.2 L (13.0-17.5) gm/dL Chloride (98-107) mmol/L Glucose (74-99) mg/dL POC Glucose (mg/dL) 121 H (75-99) mg/dL Calcium (8.4-10.2) mg/dL Magnesium (1.6-2.3) mg/dL Alkaline Phosphatase (38-126) U/L Total Protein (6.3-8.2) g/dL Albumin (3.5-5.0) g/dL Arterial Blood Potassium (3.4-4.5) mmol/L Arterial Blood Glucose 141 H (75-99) mg/dL Crossmatch 03/06/18 03/06/18 03/06/18 Range/Units 22:00 22:00 22:00 RBC 2.88 L (4.30-5.90) m/uL Hgb 9.0 L D (13.0-17.5) gm/dL Hct 26.5 L (39.0-53.0) % Plt Count 118 L D (150-450) k/uL Neutrophils # (1.3-7.7) k/uL Lymphocytes # 0.6 L (1.0-4.8) k/uL PT 12.2 H (9.0-12.0) sec INR 1.3 H (<1.2) APTT 32.8 H (22.0-30.0) sec ABG pH (7.35-7.45) ABG pO2 (83-108) mmHg ABG HCO3 (21-25) mmol/L ABG Total CO2 (19-24) mmol/L ABG O2 Saturation (94-97) % ABG Hematocrit (34.0-46.0) % ABG Potassium (3.4-4.5) mmol/L ABG Ionized Calcium (4.5-5.3) mg/dL ABG Glucose (75-99) mg/dL Hemoglobin (13.0-17.5) gm/dL Chloride 111 H (98-107) mmol/L Glucose 106 H (74-99) mg/dL POC Glucose (mg/dL) (75-99) mg/dL Calcium 8.0 L (8.4-10.2) mg/dL Magnesium 2.5 H (1.6-2.3) mg/dL Alkaline Phosphatase 34 L (38-126) U/L Total Protein 4.6 L (6.3-8.2) g/dL Albumin 2.9 L (3.5-5.0) g/dL Arterial Blood Potassium (3.4-4.5) mmol/L Arterial Blood Glucose (75-99) mg/dL Crossmatch 03/06/18 03/06/18 03/07/18 Range/Units 23:08 23:57 00:50 RBC (4.30-5.90) m/uL Hgb (13.0-17.5) gm/dL Hct (39.0-53.0) % Plt Count (150-450) k/uL Neutrophils # (1.3-7.7) k/uL Lymphocytes # (1.0-4.8) k/uL PT (9.0-12.0) sec INR (<1.2) APTT (22.0-30.0) sec ABG pH (7.35-7.45) ABG pO2 (83-108) mmHg ABG HCO3 (21-25) mmol/L ABG Total CO2 (19-24) mmol/L ABG O2 Saturation (94-97) % ABG Hematocrit (34.0-46.0) % ABG Potassium (3.4-4.5) mmol/L ABG Ionized Calcium (4.5-5.3) mg/dL ABG Glucose (75-99) mg/dL Hemoglobin (13.0-17.5) gm/dL Chloride (98-107) mmol/L Glucose (74-99) mg/dL POC Glucose (mg/dL) 128 H 136 H 140 H (75-99) mg/dL Calcium (8.4-10.2) mg/dL Magnesium (1.6-2.3) mg/dL Alkaline Phosphatase (38-126) U/L Total Protein (6.3-8.2) g/dL Albumin (3.5-5.0) g/dL Arterial Blood Potassium (3.4-4.5) mmol/L Arterial Blood Glucose (75-99) mg/dL Crossmatch 03/07/18 03/07/18 03/07/18 Range/Units 00:55 01:24 03:17 RBC 3.43 L (4.30-5.90) m/uL Hgb 10.6 L (13.0-17.5) gm/dL Hct 31.7 L (39.0-53.0) % Plt Count (150-450) k/uL Neutrophils # (1.3-7.7) k/uL Lymphocytes # (1.0-4.8) k/uL PT (9.0-12.0) sec INR (<1.2) APTT (22.0-30.0) sec ABG pH (7.35-7.45) ABG pO2 61 L (83-108) mmHg ABG HCO3 (21-25) mmol/L ABG Total CO2 25 H (19-24) mmol/L ABG O2 Saturation 93.0 L (94-97) % ABG Hematocrit (34.0-46.0) % ABG Potassium (3.4-4.5) mmol/L ABG Ionized Calcium (4.5-5.3) mg/dL ABG Glucose (75-99) mg/dL Hemoglobin (13.0-17.5) gm/dL Chloride (98-107) mmol/L Glucose (74-99) mg/dL POC Glucose (mg/dL) 133 H (75-99) mg/dL Calcium (8.4-10.2) mg/dL Magnesium (1.6-2.3) mg/dL Alkaline Phosphatase (38-126) U/L Total Protein (6.3-8.2) g/dL Albumin (3.5-5.0) g/dL Arterial Blood Potassium (3.4-4.5) mmol/L Arterial Blood Glucose (75-99) mg/dL Crossmatch 03/07/18 03/07/18 03/07/18 Range/Units 04:10 05:00 05:00 RBC 3.43 L (4.30-5.90) m/uL Hgb 10.4 L (13.0-17.5) gm/dL Hct 31.5 L (39.0-53.0) % Plt Count (150-450) k/uL Neutrophils # 8.5 H (1.3-7.7) k/uL Lymphocytes # 0.3 L (1.0-4.8) k/uL PT (9.0-12.0) sec INR (<1.2) APTT (22.0-30.0) sec ABG pH (7.35-7.45) ABG pO2 (83-108) mmHg ABG HCO3 (21-25) mmol/L ABG Total CO2 (19-24) mmol/L ABG O2 Saturation (94-97) % ABG Hematocrit (34.0-46.0) % ABG Potassium (3.4-4.5) mmol/L ABG Ionized Calcium (4.5-5.3) mg/dL ABG Glucose (75-99) mg/dL Hemoglobin (13.0-17.5) gm/dL Chloride (98-107) mmol/L Glucose 126 H (74-99) mg/dL POC Glucose (mg/dL) 128 H (75-99) mg/dL Calcium (8.4-10.2) mg/dL Magnesium (1.6-2.3) mg/dL Alkaline Phosphatase (38-126) U/L Total Protein 5.5 L (6.3-8.2) g/dL Albumin (3.5-5.0) g/dL Arterial Blood Potassium (3.4-4.5) mmol/L Arterial Blood Glucose (75-99) mg/dL Crossmatch 03/07/18 03/07/18 03/07/18 Range/Units 05:04 06:26 08:04 RBC (4.30-5.90) m/uL Hgb (13.0-17.5) gm/dL Hct (39.0-53.0) % Plt Count (150-450) k/uL Neutrophils # (1.3-7.7) k/uL Lymphocytes # (1.0-4.8) k/uL PT (9.0-12.0) sec INR (<1.2) APTT (22.0-30.0) sec ABG pH (7.35-7.45) ABG pO2 (83-108) mmHg ABG HCO3 (21-25) mmol/L ABG Total CO2 (19-24) mmol/L ABG O2 Saturation (94-97) % ABG Hematocrit (34.0-46.0) % ABG Potassium (3.4-4.5) mmol/L ABG Ionized Calcium (4.5-5.3) mg/dL ABG Glucose (75-99) mg/dL Hemoglobin (13.0-17.5) gm/dL Chloride (98-107) mmol/L Glucose (74-99) mg/dL POC Glucose (mg/dL) 150 H 131 H 133 H (75-99) mg/dL Calcium (8.4-10.2) mg/dL Magnesium (1.6-2.3) mg/dL Alkaline Phosphatase (38-126) U/L Total Protein (6.3-8.2) g/dL Albumin (3.5-5.0) g/dL Arterial Blood Potassium (3.4-4.5) mmol/L Arterial Blood Glucose (75-99) mg/dL Crossmatch 03/07/18 Range/Units 09:13 RBC (4.30-5.90) m/uL Hgb (13.0-17.5) gm/dL Hct (39.0-53.0) % Plt Count (150-450) k/uL Neutrophils # (1.3-7.7) k/uL Lymphocytes # (1.0-4.8) k/uL PT (9.0-12.0) sec INR (<1.2) APTT (22.0-30.0) sec ABG pH (7.35-7.45) ABG pO2 (83-108) mmHg ABG HCO3 (21-25) mmol/L ABG Total CO2 (19-24) mmol/L ABG O2 Saturation (94-97) % ABG Hematocrit (34.0-46.0) % ABG Potassium (3.4-4.5) mmol/L ABG Ionized Calcium (4.5-5.3) mg/dL ABG Glucose (75-99) mg/dL Hemoglobin (13.0-17.5) gm/dL Chloride (98-107) mmol/L Glucose (74-99) mg/dL POC Glucose (mg/dL) 144 H (75-99) mg/dL Calcium (8.4-10.2) mg/dL Magnesium (1.6-2.3) mg/dL Alkaline Phosphatase (38-126) U/L Total Protein (6.3-8.2) g/dL Albumin (3.5-5.0) g/dL Arterial Blood Potassium (3.4-4.5) mmol/L Arterial Blood Glucose (75-99) mg/dL Crossmatch Microbiology - Last 24 Hours (Table) 03/05/18 18:10 Nasal Screen MRSA/MSSA - Final Nasal Swab 03/05/18 18:40 Urine Culture - Final Urine,Clean Catch - Imaging and Cardiology Chest x-ray: image reviewed Assessment and Plan (1) Non-STEMI (non-ST elevated myocardial infarction) Current Visit: Yes Status: Acute Code(s): I21.4 - NON-ST ELEVATION (NSTEMI) MYOCARDIAL INFARCTION SNOMED Code(s): 627795209 (2) Hypertension Current Visit: Yes Status: Chronic Code(s): I10 - ESSENTIAL (PRIMARY) HYPERTENSION SNOMED Code(s): 12059170 (3) Family history of coronary artery disease Current Visit: Yes Status: Chronic Code(s): Z82.49 - FAMILY HX OF ISCHEM HEART DIS AND OTH DIS OF THE [facility] SNOMED Code(s): 853408631 Plan: 1. Continue aspirin, statin, Plavix, heparin subcu, beta david. Will increase beta david therapy as tolerated. 2. Norvasc added for radial artery spasm. May discontinue IV nitro. 3. Wean O2 as tolerated. Encourage incentive spirometry use 10 times every hour while awake. 4. Increase activity ambulate as tolerated. PT/OT/cardiac rehab following. 5. GI/DVT prophylaxis. 6. Will monitor daily labs and x-rays. 7. Insulin management per primary care service. 8. Pain management per ordered medication regimen. 9. We will give Lasix 20 mg IV 1 today. 10. Will discontinue right pleural chest tube. 11. Discontinue [place]. Connect Cordis to continue CVP monitoring. 12. More recommendations to follow. Time with Patient: Greater than 30
[2018-03-07 10:57] LABS: Glucose,Whole Blood 130 mg/dL (75-99)
--- NOTE | 2018-03-07 11:14 | XR ---
EXAMINATION TYPE: XR chest 1V portable DATE OF EXAM: 03/07/2018 CLINICAL HISTORY: Post open cardiac surgery. TECHNIQUE: Single AP portable supine view of the chest is obtained. COMPARISON: Chest x-ray from 2 days earlier. FINDINGS: There is no endotracheal tube terminating at superior aortic knob and clavicle level appro ximately 3 to 4 cm above the toshia. There is new orogastric tube projecting below diaphragm. There i s new left internal jugular [place]-Seble catheter terminating at level of pulmonary outflow tracts. Ther e is new mediastinal drainage catheter and bilateral chest tubes. Overlying sternal wires and mediast inal clips are now present. There is diminished inspiration with cardiomegaly and central vascular congestion as well as right mi d lung linear atelectasis. Some subcutaneous emphysema in the left lower chest is present. No sizable pneumothorax is seen. Visualized osseous structures are intact. IMPRESSION: 1. New tubes and lines satisfactory in position. 2. Low lung volumes with new cardiomegaly and moderate central vascular congestion with right midlung lateral linear atelectasis. Left lower thoracic subcutaneous emphysema. No sizable pneumothorax.
[2018-03-07 12:08] LABS: Glucose,Whole Blood 120 mg/dL (75-99)
--- NOTE | 2018-03-07 12:38 | XR ---
EXAMINATION TYPE: XR chest 1V portable DATE OF EXAM: 03/07/2018 COMPARISON: 03/06/2018 HISTORY: Status post cardiac surgery. Follow-up exam. TECHNIQUE: Single frontal view of the chest is obtained. FINDINGS: There is been interval extubation and removal of the enteric tube. Mediastinal drain and S wan-Seble catheter remain although the [place]-Seble catheter appears retracted in comparison to the prior . Left-sided thoracostomy tube is also been retracted in the interim. There is a small left apical pn eumothorax seen with visceral pleural line in Pleural separation of 6 mm. Again there are low lung volumes and postoperative changes of the chest with scattered areas of linea r atelectasis. There is improved aeration of the right midlung. Right thoracostomy tube is also seen inferiorly with no residual right pneumothorax remaining. Small amount of left chest wall subcutaneou s emphysema is less well-visualized than on the prior. IMPRESSION: 1. Interval retraction of the left thoracostomy tube with small apical residual pneumothorax seen on the left. 2. Interval extubation and removal of the enteric tube. Low lung volumes are present with scattered a reas of subsegmental atelectasis.
--- NOTE | 2018-03-07 12:58 | P.PN ---
Subjective Progress Note Date: 03/07/18 This is a 63-year-old male patient of Dr. Davison with past medical history for hypertension, osteoarthritis, benign prostatic hypertrophy. Patient gives history that for a long period of time since last fall he has had a cough when he lays in bed. He has had about a bronchitis and following that he did have some improvement for about 6 months and now he has a cough when he lays down and has some chest pain in the midsternal area. He does golf 3-4 times a week and does not have any chest heaviness at that time. He states he has had it every day for 2-3 weeks in a row and went to see Dr. Davison yesterday and he was sent into the emergency center for evaluation. Patient describes it as a heavy chest. He states he gets up and take some Pepto-Bismol or something else and then he ends up sleeping in a chair. Troponins are 0.064 , 0.070, 0.060. Triglycerides 122, cholesterol 229, LDL 156, HDL 49. Lipase 72. CBC is within normal limits. Electrolytes are normal. Patient has been admitted to the selective care unit and cardiology consult requested. He has been started on heparin drip and aspirin. Cardiology has added and Lipitor and beta david. Echocardiogram reveals EF of 55-60%, moderate concentric left ventricular hypertrophy, LV mildly dilated at 29-33, mild aortic valve sclerosis , mild tricuspid regurgitation. Patient is scheduled for heart catheterization today. 03/06: Heart catheterization with Dr. aWlter yesterday revealed severe triple vessel coronary disease, normal left ventricular size and systolic function. Recommendations for cardiovascular surgery evaluation which was done yesterday. Plan is for urgent coronary artery bypass graft 3 today. Patient denies any new complaints. His is at bedside. 03/07: Patient underwent coronary artery bypass grafting using the left internal mammary artery to the left anterior descending artery, left radial artery from the aorta to the obtuse marginal artery, reverse saphenous vein graft from the aorta to the right coronary artery. Patient remains in the intensive care unit. Patient was successfully extubated early in the morning. This morning, patient is sitting up in a chair and appears to be comfortable. Plan is to remove the one pleural tube and [place]'s today. His blood sugars been running 131 and 152. He is ordered for 1 dose of Lasix IV push 20 mg this morning.. Objective - Vital Signs Vital signs: Vital Signs Temp 97.7 F 03/06/18 08:06 Pulse 84 03/07/18 08:02 Resp 32 H 03/07/18 07:00 BP 113/64 03/07/18 07:00 Pulse Ox 91 L 03/07/18 07:00 Intake & Output 03/06/18 03/07/18 03/07/18 18:59 06:59 18:59 Intake Total 33 913.031 199.162 Output Total 3868 225 Balance 33 -2954.969 -25.838 Weight 128.2 kg 130.3 kg Intake: IV 33 742.0 151.5 ACETAMINOPHEN IV (For NPO 100 100 ) 1,000 mg In Empty Bag 1 bag @ 400 mls/hr IVPB Q6HR [facility] Rx#:[id number] CO/CI 180 Lactated Ringers 1,000 ml 400 50 @ 50 mls/hr IV .Q20H [facility] Rx#:[id number] Nitroglycerin-D5w Pmx 50 12.0 1.5 mg In Dextrose/Water 1 250ml.bag @ 5 MCG/MIN 1.5 mls/hr IV .Q24H [facility] Rx#: [id number] ceFAZolin 3 gm In Sodium 50 Chloride 0.9% 50 ml @ 50 mls/hr IVPB Q8H [facility] Rx#: [id number] Intake, IV Titration 171.031 47.662 Amount Clevidipine Butyrate 25 91.600 41.4 mg In Empty Bag 1 bag @ 1 MG/HR 2 mls/hr IV .Q24H [facility] Rx#:[id number] Insulin Regular 100 unit 6.04 6.262 In Sodium Chloride 0.9% 100 ml @ Per Protocol IV .Q0M [facility] Rx#:[id number] Propofol 1,000 mg In 73.391 Empty Bag 1 bag @ Titrate IV .Q0M [facility] Rx#: [id number] Output: Chest Tube Drainage 523 145 Chest Tube Left 188 50 Chest Tube Mediastinal 279 80 Chest Tube Right 56 15 Drainage 55 40 Left Calf 25 20 Left Wrist 30 20 Urine 1490 40 Estimated Blood Loss 1800 Other: Voiding Method Indwelling Catheter ABP, PAP, CO, CI - Last Documented Arterial Blood Pressure 123/113 Pulmonary Artery Pressure 33/24 Cardiac Output 8.5 Cardiac Index 3.4 - Exam Gen: This is a 63-year-old male. He is sitting up in bed and appears to be comfortable and in no acute distress. No current chest pain. HEENT: Head is atraumatic, normocephalic. Pupils equal, round. Sclerae is anicteric. Conjunctiva pink. Because members of the mouth are slightly dry. NECK: Supple. No JVD. No lymphadenopathy. No thyromegaly. LUNGS: Clear to auscultation. No wheezes or rhonchi. No intercostal retractions. HEART: Regular rate and rhythm. No murmur. ABDOMEN: Soft. Bowel sounds are present. No masses. No tenderness. EXTREMITIES: No pedal edema. No calf tenderness. Dorsalis pedis +2 bilaterally. NEUROLOGICAL: Patient is awake, alert and oriented x3. Cranial nerves 2 through 12 are grossly intact. - Labs CBC & Chem 7: 03/07/18 05:00 03/07/18 05:00 Labs: Abnormal Lab Results - Last 24 Hours (Table) 03/05/18 03/06/18 03/06/18 Range/Units 18:02 15:29 17:40 RBC (4.30-5.90) m/uL Hgb (13.0-17.5) gm/dL Hct (39.0-53.0) % Plt Count (150-450) k/uL Neutrophils # (1.3-7.7) k/uL Lymphocytes # (1.0-4.8) k/uL PT (9.0-12.0) sec INR (<1.2) APTT (22.0-30.0) sec ABG pH (7.35-7.45) ABG pO2 237 H 186 H (83-108) mmHg ABG HCO3 26 H (21-25) mmol/L ABG Total CO2 27 H 26 H (19-24) mmol/L ABG O2 Saturation 99.8 H 99.4 H (94-97) % ABG Hematocrit 33 L (34.0-46.0) % ABG Potassium (3.4-4.5) mmol/L ABG Ionized Calcium (4.5-5.3) mg/dL ABG Glucose 103 H (75-99) mg/dL Hemoglobin 12.4 L 10.8 L (13.0-17.5) gm/dL Chloride (98-107) mmol/L Glucose (74-99) mg/dL POC Glucose (mg/dL) (75-99) mg/dL Calcium (8.4-10.2) mg/dL Magnesium (1.6-2.3) mg/dL Alkaline Phosphatase (38-126) U/L Total Protein (6.3-8.2) g/dL Albumin (3.5-5.0) g/dL Arterial Blood Potassium (3.4-4.5) mmol/L Arterial Blood Glucose 103 H (75-99) mg/dL Crossmatch See Detail 03/06/18 03/06/18 03/06/18 Range/Units 18:36 19:11 19:47 RBC (4.30-5.90) m/uL Hgb (13.0-17.5) gm/dL Hct (39.0-53.0) % Plt Count (150-450) k/uL Neutrophils # (1.3-7.7) k/uL Lymphocytes # (1.0-4.8) k/uL PT (9.0-12.0) sec INR (<1.2) APTT (22.0-30.0) sec ABG pH (7.35-7.45) ABG pO2 420 H 175 H 304 H (83-108) mmHg ABG HCO3 (21-25) mmol/L ABG Total CO2 25 H 26 H 26 H (19-24) mmol/L ABG O2 Saturation 99.9 H 99.3 H 99.9 H (94-97) % ABG Hematocrit 29 L 28 L 28 L (34.0-46.0) % ABG Potassium 5.1 H (3.4-4.5) mmol/L ABG Ionized Calcium 4.2 L 4.4 L 4.4 L (4.5-5.3) mg/dL ABG Glucose 102 H 165 H 196 H (75-99) mg/dL Hemoglobin 9.3 L 9.0 L 9.1 L (13.0-17.5) gm/dL Chloride (98-107) mmol/L Glucose (74-99) mg/dL POC Glucose (mg/dL) (75-99) mg/dL Calcium (8.4-10.2) mg/dL Magnesium (1.6-2.3) mg/dL Alkaline Phosphatase (38-126) U/L Total Protein (6.3-8.2) g/dL Albumin (3.5-5.0) g/dL Arterial Blood Potassium 5.1 H (3.4-4.5) mmol/L Arterial Blood Glucose 102 H 165 H 196 H (75-99) mg/dL Crossmatch 03/06/18 03/06/18 03/06/18 Range/Units 20:53 21:55 21:59 RBC (4.30-5.90) m/uL Hgb (13.0-17.5) gm/dL Hct (39.0-53.0) % Plt Count (150-450) k/uL Neutrophils # (1.3-7.7) k/uL Lymphocytes # (1.0-4.8) k/uL PT (9.0-12.0) sec INR (<1.2) APTT (22.0-30.0) sec ABG pH 7.34 L (7.35-7.45) ABG pO2 78 L 307 H (83-108) mmHg ABG HCO3 (21-25) mmol/L ABG Total CO2 25 H 26 H (19-24) mmol/L ABG O2 Saturation 100.0 H (94-97) % ABG Hematocrit 28 L (34.0-46.0) % ABG Potassium (3.4-4.5) mmol/L ABG Ionized Calcium (4.5-5.3) mg/dL ABG Glucose 141 H (75-99) mg/dL Hemoglobin 9.2 L (13.0-17.5) gm/dL Chloride (98-107) mmol/L Glucose (74-99) mg/dL POC Glucose (mg/dL) 121 H (75-99) mg/dL Calcium (8.4-10.2) mg/dL Magnesium (1.6-2.3) mg/dL Alkaline Phosphatase (38-126) U/L Total Protein (6.3-8.2) g/dL Albumin (3.5-5.0) g/dL Arterial Blood Potassium (3.4-4.5) mmol/L Arterial Blood Glucose 141 H (75-99) mg/dL Crossmatch 03/06/18 03/06/18 03/06/18 Range/Units 22:00 22:00 22:00 RBC 2.88 L (4.30-5.90) m/uL Hgb 9.0 L D (13.0-17.5) gm/dL Hct 26.5 L (39.0-53.0) % Plt Count 118 L D (150-450) k/uL Neutrophils # (1.3-7.7) k/uL Lymphocytes # 0.6 L (1.0-4.8) k/uL PT 12.2 H (9.0-12.0) sec INR 1.3 H (<1.2) APTT 32.8 H (22.0-30.0) sec ABG pH (7.35-7.45) ABG pO2 (83-108) mmHg ABG HCO3 (21-25) mmol/L ABG Total CO2 (19-24) mmol/L ABG O2 Saturation (94-97) % ABG Hematocrit (34.0-46.0) % ABG Potassium (3.4-4.5) mmol/L ABG Ionized Calcium (4.5-5.3) mg/dL ABG Glucose (75-99) mg/dL Hemoglobin (13.0-17.5) gm/dL Chloride 111 H (98-107) mmol/L Glucose 106 H (74-99) mg/dL POC Glucose (mg/dL) (75-99) mg/dL Calcium 8.0 L (8.4-10.2) mg/dL Magnesium 2.5 H (1.6-2.3) mg/dL Alkaline Phosphatase 34 L (38-126) U/L Total Protein 4.6 L (6.3-8.2) g/dL Albumin 2.9 L (3.5-5.0) g/dL Arterial Blood Potassium (3.4-4.5) mmol/L Arterial Blood Glucose (75-99) mg/dL Crossmatch 03/06/18 03/06/18 03/07/18 Range/Units 23:08 23:57 00:50 RBC (4.30-5.90) m/uL Hgb (13.0-17.5) gm/dL Hct (39.0-53.0) % Plt Count (150-450) k/uL Neutrophils # (1.3-7.7) k/uL Lymphocytes # (1.0-4.8) k/uL PT (9.0-12.0) sec INR (<1.2) APTT (22.0-30.0) sec ABG pH (7.35-7.45) ABG pO2 (83-108) mmHg ABG HCO3 (21-25) mmol/L ABG Total CO2 (19-24) mmol/L ABG O2 Saturation (94-97) % ABG Hematocrit (34.0-46.0) % ABG Potassium (3.4-4.5) mmol/L ABG Ionized Calcium (4.5-5.3) mg/dL ABG Glucose (75-99) mg/dL Hemoglobin (13.0-17.5) gm/dL Chloride (98-107) mmol/L Glucose (74-99) mg/dL POC Glucose (mg/dL) 128 H 136 H 140 H (75-99) mg/dL Calcium (8.4-10.2) mg/dL Magnesium (1.6-2.3) mg/dL Alkaline Phosphatase (38-126) U/L Total Protein (6.3-8.2) g/dL Albumin (3.5-5.0) g/dL Arterial Blood Potassium (3.4-4.5) mmol/L Arterial Blood Glucose (75-99) mg/dL Crossmatch 03/07/18 03/07/18 03/07/18 Range/Units 00:55 01:24 03:17 RBC 3.43 L (4.30-5.90) m/uL Hgb 10.6 L (13.0-17.5) gm/dL Hct 31.7 L (39.0-53.0) % Plt Count (150-450) k/uL Neutrophils # (1.3-7.7) k/uL Lymphocytes # (1.0-4.8) k/uL PT (9.0-12.0) sec INR (<1.2) APTT (22.0-30.0) sec ABG pH (7.35-7.45) ABG pO2 61 L (83-108) mmHg ABG HCO3 (21-25) mmol/L ABG Total CO2 25 H (19-24) mmol/L ABG O2 Saturation 93.0 L (94-97) % ABG Hematocrit (34.0-46.0) % ABG Potassium (3.4-4.5) mmol/L ABG Ionized Calcium (4.5-5.3) mg/dL ABG Glucose (75-99) mg/dL Hemoglobin (13.0-17.5) gm/dL Chloride (98-107) mmol/L Glucose (74-99) mg/dL POC Glucose (mg/dL) 133 H (75-99) mg/dL Calcium (8.4-10.2) mg/dL Magnesium (1.6-2.3) mg/dL Alkaline Phosphatase (38-126) U/L Total Protein (6.3-8.2) g/dL Albumin (3.5-5.0) g/dL Arterial Blood Potassium (3.4-4.5) mmol/L Arterial Blood Glucose (75-99) mg/dL Crossmatch 03/07/18 03/07/18 03/07/18 Range/Units 04:10 05:00 05:00 RBC 3.43 L (4.30-5.90) m/uL Hgb 10.4 L (13.0-17.5) gm/dL Hct 31.5 L (39.0-53.0) % Plt Count (150-450) k/uL Neutrophils # 8.5 H (1.3-7.7) k/uL Lymphocytes # 0.3 L (1.0-4.8) k/uL PT (9.0-12.0) sec INR (<1.2) APTT (22.0-30.0) sec ABG pH (7.35-7.45) ABG pO2 (83-108) mmHg ABG HCO3 (21-25) mmol/L ABG Total CO2 (19-24) mmol/L ABG O2 Saturation (94-97) % ABG Hematocrit (34.0-46.0) % ABG Potassium (3.4-4.5) mmol/L ABG Ionized Calcium (4.5-5.3) mg/dL ABG Glucose (75-99) mg/dL Hemoglobin (13.0-17.5) gm/dL Chloride (98-107) mmol/L Glucose 126 H (74-99) mg/dL POC Glucose (mg/dL) 128 H (75-99) mg/dL Calcium (8.4-10.2) mg/dL Magnesium (1.6-2.3) mg/dL Alkaline Phosphatase (38-126) U/L Total Protein 5.5 L (6.3-8.2) g/dL Albumin (3.5-5.0) g/dL Arterial Blood Potassium (3.4-4.5) mmol/L Arterial Blood Glucose (75-99) mg/dL Crossmatch 03/07/18 03/07/18 03/07/18 Range/Units 05:04 06:26 08:04 RBC (4.30-5.90) m/uL Hgb (13.0-17.5) gm/dL Hct (39.0-53.0) % Plt Count (150-450) k/uL Neutrophils # (1.3-7.7) k/uL Lymphocytes # (1.0-4.8) k/uL PT (9.0-12.0) sec INR (<1.2) APTT (22.0-30.0) sec ABG pH (7.35-7.45) ABG pO2 (83-108) mmHg ABG HCO3 (21-25) mmol/L ABG Total CO2 (19-24) mmol/L ABG O2 Saturation (94-97) % ABG Hematocrit (34.0-46.0) % ABG Potassium (3.4-4.5) mmol/L ABG Ionized Calcium (4.5-5.3) mg/dL ABG Glucose (75-99) mg/dL Hemoglobin (13.0-17.5) gm/dL Chloride (98-107) mmol/L Glucose (74-99) mg/dL POC Glucose (mg/dL) 150 H 131 H 133 H (75-99) mg/dL Calcium (8.4-10.2) mg/dL Magnesium (1.6-2.3) mg/dL Alkaline Phosphatase (38-126) U/L Total Protein (6.3-8.2) g/dL Albumin (3.5-5.0) g/dL Arterial Blood Potassium (3.4-4.5) mmol/L Arterial Blood Glucose (75-99) mg/dL Crossmatch Microbiology - Last 24 Hours (Table) 03/05/18 18:10 Nasal Screen MRSA/MSSA - Final Nasal Swab 03/05/18 18:40 Urine Culture - Final Urine,Clean Catch Assessment and Plan Plan: 1. Non-ST elevated myocardial infarction status post CABG. Continue current management per cardiovascular surgery and pulmonary medicine. Patient has been successfully extubated. 2. Hypertension. Patient has been on amlodipine 5 mg daily, Lopressor 25 g twice daily 3. Benign prostatic hypertrophy. Monitor for urinary retention. 4. Osteoarthritis, generalized. 5. 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 Continue Vicoprofen as needed 6. DVT prophylaxis. Heparin. 7. GI prophylaxis. Pepcid. Discharge plan: Return home as likely with homecare. Impression and plan of care have been directed as dictated by the signing physician. Stefania Vázquez nurse practitioner acting as scribe for signing physician.
[2018-03-07 13:19] LABS: Glucose,Whole Blood 141 mg/dL (75-99)
[2018-03-07] MEDS: KETOROLAC 30 MG/ML 1 ML VIAL IVP SCH ×2 (13:49→21:28)
[2018-03-07 14:11] LABS: Glucose,Whole Blood 132 mg/dL (75-99)
[2018-03-07 15:08] LABS: Glucose,Whole Blood 132 mg/dL (75-99)
[2018-03-07 16:02] LABS: Glucose,Whole Blood 121 mg/dL (75-99)
[2018-03-07 17:05] LABS: Glucose,Whole Blood 111 mg/dL (75-99)
[2018-03-07] MEDS: HEPARIN SOD,PORK IN 0.45% NACL 25,000 UNIT in 0.45% NACL 1 500ML.BAG IV SCH (17:45)
[2018-03-07] MEDS: NITROGLYCERIN OINT 1 INCH/GM PACKET TOPICAL SCH (17:45)
[2018-03-07 18:22] LABS: Glucose,Whole Blood 137 mg/dL (75-99)
[2018-03-07] MEDS ORDERED: HYDROcodone/APAP 5-325MG 1 EACH TAB PO PRN (18:37)
[2018-03-07] MEDS ORDERED: BISACODYL 10 MG SUPP RECTAL PRN (18:38)
[2018-03-07] MEDS ORDERED: MAGNESIUM HYDROXIDE 2,400 MG/10 ML CUP PO PRN (18:38)
[2018-03-07 19:03] LABS: Glucose,Whole Blood 132 mg/dL (75-99)
[2018-03-07 21:12] LABS: Glucose,Whole Blood 122 mg/dL (75-99)
[2018-03-07] MEDS: SENNOSIDES-DOCUSATE SODIUM 1 EACH TAB PO SCH (21:28)
[2018-03-07 22:59] LABS: Glucose,Whole Blood 114 mg/dL (75-99)
[2018-03-08 00:02] LABS: Glucose,Whole Blood 115 mg/dL (75-99)
[2018-03-08] MEDS: ACETAMINOPHEN IV (For NPO) 1,000 MG in EMPTY BAG 1 BAG IVPB SCH (00:02)
[2018-03-08] MEDS: HEPARIN SODIUM,PORCINE 5,000 UNIT/ML 1 ML VIAL SQ SCH ×4 (00:03→23:59)
[2018-03-08 01:00] LABS: Glucose,Whole Blood 105 mg/dL (75-99)
[2018-03-08] MEDS: KETOROLAC 30 MG/ML 1 ML VIAL IVP SCH ×2 (03:02→08:12)
[2018-03-08 03:04] LABS: Glucose,Whole Blood 101 mg/dL (75-99)
[2018-03-08 05:05] LABS: Glucose,Whole Blood 114 mg/dL (75-99)
[2018-03-08 05:48] LABS: Basophils % (A) 0 %; Eosinophils % (A) 1 %; HCT 29.1 % (39.0-53.0); HGB 9.3 gm/dL (13.0-17.5); Lymphocytes # (A) 1.1 k/uL (1.0-4.8); Lymphocytes % (A) 12 %; MCH 30.2 pg (25.0-35.0); MCV 94.1 fL (80.0-100.0); Mean Platelet Volume 6.4; Monocytes # (A) 0.4 k/uL (0-1.0); Monocytes % (A) 5 %; Neutrophils # (A) 7.1 k/uL (1.3-7.7); Neutrophils % (A) 81 %; Platelet Count 120 k/uL (150-450); RBC 3.09 m/uL (4.30-5.90); RDW 14.1 % (11.5-15.5); WBC 8.7 k/uL (3.8-10.6)
[2018-03-08 05:51] LABS: Ionized Calcium 5.1 mg/dL (4.5-5.3)
[2018-03-08 05:59] LABS: Albumin 2.8 g/dL (3.5-5.0); Calcium 8.3 mg/dL (8.4-10.2); Magnesium 2.2 mg/dL (1.6-2.3); Phosphorus 3.4 mg/dL (2.5-4.5); Potassium 3.8 mmol/L (3.5-5.1); Total Bilirubin 0.5 mg/dL (0.2-1.3); Total Protein 4.8 g/dL (6.3-8.2)
[2018-03-08 07:15] LABS: Glucose,Whole Blood 109 mg/dL (75-99)
[2018-03-08] MEDS: IPRATROPIUM-ALBUTEROL 3 ML NEB INHALATION SCH ×4 (07:53→20:07)
[2018-03-08] MEDS ORDERED: POTASSIUM CHLORIDE ER 20 MEQ TAB.ER PO ONE (08:00)
--- NOTE | 2018-03-08 08:03 | XR ---
EXAMINATION TYPE: XR chest 1V portable DATE OF EXAM: 03/08/2018 COMPARISON: 03/07/2018 INDICATION: Post cardiac surgery TECHNIQUE: Single frontal view of the chest is obtained. FINDINGS: The heart size is mildly prominent. The pulmonary vasculature is normal. Streak opacity is present at the right base compatible some atelectasis. There is elevation of the ri ght diaphragm. There is a right central venous catheter sheath on the right. EKG leads overlie the chest. Bilateral chest tubes are present. No pneumothorax is evident. IMPRESSION: 1. Right midlung streak atelectasis. 2. Bilateral chest tubes.
[2018-03-08] MEDS: METOPROLOL TARTRATE 12.5 MG TAB PO SCH (08:39)
[2018-03-08] MEDS: CLOPIDOGREL 75 MG TAB PO SCH (08:39)
[2018-03-08] MEDS: MUPIROCIN 2% OINT 22 GM TUBE NASAL SCH ×2 (08:39→21:11)
[2018-03-08] MEDS: ATORVASTATIN 40 MG TAB PO SCH (08:39)
[2018-03-08] MEDS ORDERED: METOPROLOL TARTRATE 12.5 MG TAB PO STA (08:53)
[2018-03-08] MEDS ORDERED: METOPROLOL TARTRATE 25 MG TAB PO SCH (09:00)
--- NOTE | 2018-03-08 09:19 | PN ---
PROGRESS NOTE Mr. Virgen is a 63-year-old male status post coronary artery bypass grafting. He is doing well this morning. His breathing has been stable. He is denying any chest pain. He denies any dizziness. He denies any palpitation. He has been sitting up in the chair. He continues to be at this time on aspirin once a day, Lipitor 40 mg daily, Plavix 75 mg daily, metoprolol tartrate that was increased today to 25 mg twice a day. PHYSICAL EXAMINATION: Blood pressure 119/60 with the heart rate in the one teens in sinus. LUNGS: With few crackles at the bases. HEART: Regular rate and rhythm, S1, S2. No S3. No significant murmur. ABDOMEN: Soft, nontender. EXTREMITIES: No significant edema. LAB DATA: Lab data revealed BUN and creatinine 25 and 1.3. His creatinine has increased. Potassium 3.8. Hemoglobin of 9.3. His chest x-ray revealed mild congestion with atelectasis. IMPRESSION: 1. Status post coronary artery bypass grafting. 2. Sinus tachycardia with no evidence of atrial fibrillation. 3. Hypertension. 4. Hyperlipidemia. 5. Worsening renal function. RECOMMENDATION: I agree with your plan of increasing the dose of beta david. We will follow his renal function. He may require a dose of diuretics. Depending on his progress, further recommendation will be made. He will be continuing incentive spirometry and increase his activity. MMODL / ALINEN: [id number] /
[2018-03-08] MEDS: PANTOPRAZOLE 40 MG TABLET PO SCH (09:29)
[2018-03-08] MEDS: ASPIRIN 325 MG TAB PO SCH (09:30)
--- NOTE | 2018-03-08 09:57 | P.PN ---
Subjective Progress Note Date: 03/08/18 Principal diagnosis: Severe multivessel coronary artery disease with normal LV function, status post three-vessel coronary artery bypass grafting, postop day 2 Progress note dated 03/07/2018 63-year-old male status post postop day #1 status post triple vessel bypass grafting. The patient did have postoperative respiratory failure. He was extubated within the 6 hour timeframe. Patient is doing relatively well. Sitting up in the chair. Working on deep breathing coughing clearing of secretions and also using the incentive spirometer. Remains on nasal O2. Hemodynamically stable. The patient does have a history of non-ST segment elevation myocardial infarction hypertension tinnitus deafness multiple reviews orthopedic procedures and was not thought to have any intrinsic pulmonary disease. The patient is otherwise doing reasonably well. We stressed the importance of deep breathing coughing and clearing his secretions. We'll also stressed the importance of using the incentive spirometer. Chest x-ray is difficult to interpret. Typical postoperative changes no noted. On 03/08/2018 patient is seen in follow-up in the intensive care unit. He states he is more short of breath today. Patient did receive a dose of IV Lasix per CT surgery yesterday, his chest x-ray was reviewed by Dr. Robbins, and shows elevated right hemidiaphragm, right midlung streak atelectasis, small pleural effusions. Currently on 3 L per nasal cannula, his pulse ox is 94%, ration is tachycardic, but in sinus mechanism, his current heart rate is 118 BPM , he is afebrile. Maintenance IV fluid is LR at a rate of 40 ML per hour. No other drips. Incentive spirometry effort is significantly less today compared to yesterday, he is only able to achieve 750 today compared 1500 yesterday. He is complaining of mid back pain which is exacerbated by deep breathing. Patient needs increased pulmonary toileting, deep breathing and coughing. His labs were reviewed, the PVCs 8.7, hemoglobin is 9.3. Sodium is 136, patient has developed acute kidney injury, his BUN is 25, creatinine is 1.3, urine output is in the order from 30-70 ML per hour. Patient has left and right and mediastinal chest tubes, with small amount of serosanguineous drainage. Patient has ambulated around the unit, and tolerated activity fairly well. Objective - Vital Signs Vital signs: Vital Signs Temp 98.8 F 03/08/18 08:00 Pulse 112 H 03/08/18 09:00 Resp 20 03/08/18 09:00 BP 119/64 03/08/18 09:00 Pulse Ox 92 L 03/08/18 09:00 Intake & Output 03/07/18 03/08/18 03/08/18 18:59 06:59 18:59 Intake Total 1294.954 890.100 129 Output Total 859 705 335 Balance 435.954 185.100 -206 Weight 130.3 kg 129.6 kg Intake: IV 828.5 706 129 0.9 Pressure Bag 57 36 9 ACETAMINOPHEN IV (For NPO 200 100 ) 1,000 mg In Empty Bag 1 bag @ 400 mls/hr IVPB Q6HR [facility] Rx#:[id number] CO/CI 10 Lactated Ringers 1,000 ml 460 470 120 @ 20 mls/hr IV .Q24H [facility] Rx#:[id number] Nitroglycerin-D5w Pmx 50 1.5 mg In Dextrose/Water 1 250ml.bag @ 5 MCG/MIN 1.5 mls/hr IV .Q24H [facility] Rx#: [id number] ceFAZolin 3 gm In Sodium 100 100 Chloride 0.9% 50 ml @ 50 mls/hr IVPB Q8H [facility] Rx#: [id number] Intake, IV Titration 66.454 4.100 Amount Clevidipine Butyrate 25 45.0 mg In Empty Bag 1 bag @ 1 MG/HR 2 mls/hr IV .Q24H [facility] Rx#:[id number] Insulin Regular 100 unit 17.329 4.100 In Sodium Chloride 0.9% 100 ml @ Per Protocol IV .Q0M [facility] Rx#:[id number] Nitroglycerin-D5w Pmx 50 4.125 mg In Dextrose/Water 1 250ml.bag @ 5 MCG/MIN 1.5 mls/hr IV .Q24H [facility] Rx#: [id number] Oral 400 180 Output: Chest Tube Drainage 473 329 110 Chest Tube Left 180 110 60 Chest Tube Mediastinal 250 150 20 Chest Tube Right 43 69 30 Drainage 65 50 Left Calf 45 30 Left Wrist 20 20 Urine 321 376 175 Other: Voiding Method Indwelling Catheter Indwelling Catheter ABP, PAP, CO, CI - Last Documented Arterial Blood Pressure 123/113 Pulmonary Artery Pressure 34/26 Cardiac Output 5.4 Cardiac Index 3.4 - Exam No acute distress, oriented 3. HEENT examination is grossly unremarkable. Mucous membranes are moist. No oral lesions. Neck supple. Full range of motion. No adenopathy thyromegaly or neck vein distention. Cardiovascular examination reveals regular rhythm rate. S1-S2 normal. No S3 or S4. No discernible murmur noted. Lungs reveal clear breath sounds. His breath ounds are equal bilaterally. Diminished breath sounds at the bases, dullness to percussion over bilateral bases. Mediastinal, and bilateral pleural chest tubes to wall suction, and there is small mount of serosanguineous drainage. Abdomen soft bowel sounds are heard. No masses or tenderness. Extremities are intact. No cyanosis clubbing or edema. Skin is without rash or lesion. Midsternal incision is clean dry and intact, mediastinal, and bilateral pleural chest tube insertion sites are intact, left leg incisions covered with dressings, patient has bilateral lower leg SWATI hose on, FIDE drain in the left leg with small amount of serosanguineous drainage Neurologic examination is brief but nonfocal. - Labs CBC & Chem 7: 03/08/18 05:05 03/08/18 05:05 Labs: Abnormal Lab Results - Last 24 Hours (Table) 03/07/18 03/07/18 03/07/18 Range/Units 09:59 10:56 12:06 RBC (4.30-5.90) m/uL Hgb (13.0-17.5) gm/dL Hct (39.0-53.0) % Plt Count (150-450) k/uL Sodium (137-145) mmol/L BUN (9-20) mg/dL Creatinine (0.66-1.25) mg/dL Glucose (74-99) mg/dL POC Glucose (mg/dL) 152 H 130 H 120 H (75-99) mg/dL Calcium (8.4-10.2) mg/dL Total Protein (6.3-8.2) g/dL Albumin (3.5-5.0) g/dL 03/07/18 03/07/18 03/07/18 Range/Units 13:16 14:07 15:06 RBC (4.30-5.90) m/uL Hgb (13.0-17.5) gm/dL Hct (39.0-53.0) % Plt Count (150-450) k/uL Sodium (137-145) mmol/L BUN (9-20) mg/dL Creatinine (0.66-1.25) mg/dL Glucose (74-99) mg/dL POC Glucose (mg/dL) 141 H 132 H 132 H (75-99) mg/dL Calcium (8.4-10.2) mg/dL Total Protein (6.3-8.2) g/dL Albumin (3.5-5.0) g/dL 03/07/18 03/07/18 03/07/18 Range/Units 16:00 17:04 18:21 RBC (4.30-5.90) m/uL Hgb (13.0-17.5) gm/dL Hct (39.0-53.0) % Plt Count (150-450) k/uL Sodium (137-145) mmol/L BUN (9-20) mg/dL Creatinine (0.66-1.25) mg/dL Glucose (74-99) mg/dL POC Glucose (mg/dL) 121 H 111 H 137 H (75-99) mg/dL Calcium (8.4-10.2) mg/dL Total Protein (6.3-8.2) g/dL Albumin (3.5-5.0) g/dL 03/07/18 03/07/18 03/07/18 Range/Units 19:02 21:11 22:57 RBC (4.30-5.90) m/uL Hgb (13.0-17.5) gm/dL Hct (39.0-53.0) % Plt Count (150-450) k/uL Sodium (137-145) mmol/L BUN (9-20) mg/dL Creatinine (0.66-1.25) mg/dL Glucose (74-99) mg/dL POC Glucose (mg/dL) 132 H 122 H 114 H (75-99) mg/dL Calcium (8.4-10.2) mg/dL Total Protein (6.3-8.2) g/dL Albumin (3.5-5.0) g/dL 03/08/18 03/08/18 03/08/18 Range/Units 00:01 00:59 03:03 RBC (4.30-5.90) m/uL Hgb (13.0-17.5) gm/dL Hct (39.0-53.0) % Plt Count (150-450) k/uL Sodium (137-145) mmol/L BUN (9-20) mg/dL Creatinine (0.66-1.25) mg/dL Glucose (74-99) mg/dL POC Glucose (mg/dL) 115 H 105 H 101 H (75-99) mg/dL Calcium (8.4-10.2) mg/dL Total Protein (6.3-8.2) g/dL Albumin (3.5-5.0) g/dL 03/08/18 03/08/18 03/08/18 Range/Units 05:04 05:05 05:05 RBC 3.09 L (4.30-5.90) m/uL Hgb 9.3 L (13.0-17.5) gm/dL Hct 29.1 L (39.0-53.0) % Plt Count 120 L (150-450) k/uL Sodium 136 L (137-145) mmol/L BUN 25 H (9-20) mg/dL Creatinine 1.30 H (0.66-1.25) mg/dL Glucose 103 H (74-99) mg/dL POC Glucose (mg/dL) 114 H (75-99) mg/dL Calcium 8.3 L (8.4-10.2) mg/dL Total Protein 4.8 L (6.3-8.2) g/dL Albumin 2.8 L (3.5-5.0) g/dL 03/08/18 Range/Units 07:13 RBC (4.30-5.90) m/uL Hgb (13.0-17.5) gm/dL Hct (39.0-53.0) % Plt Count (150-450) k/uL Sodium (137-145) mmol/L BUN (9-20) mg/dL Creatinine (0.66-1.25) mg/dL Glucose (74-99) mg/dL POC Glucose (mg/dL) 109 H (75-99) mg/dL Calcium (8.4-10.2) mg/dL Total Protein (6.3-8.2) g/dL Albumin (3.5-5.0) g/dL Assessment and Plan Plan: Assessment: Severe triple-vessel coronary artery disease with normal LV function, status postop day #2, three-vessel bypass grafting. Postoperative respiratory failure, resolved with extubation within the 6 hour time limit Acute kidney injury, possibly related to ATN Non-ST segment elevation myocardial infarction History of hypertension History of tinnitus History of deafness Multiple previous orthopedic procedures Lifelong nonsmoker No history of intrinsic pulmonary disease Plan: Encourage pulmonary toileting, deep breathing and coughing, ambulation, incentive spirometry. CT surgery is dosing IV diuretics. Maintain pain control. Chest x-ray shows worsening atelectasis, bilateral pleural effusions. Monitor hemodynamics, urine output, renal profile. Patient has developed acute kidney injury. Nonoliguric, no nausea, no vomiting. Tolerating oral intake. We'll continue to follow. I performed a history & physical examination of the patient and discussed their management with my nurse practitioner, Geena Hoyt. I reviewed the nurse practitioner's note and agree with the documented findings and plan of care. Lung sounds are diminished at the bases, with dullness to percussion. The findings and the impression was discussed with the patient. I attest to the documentation by the nurse practitioner. Time with Patient: Greater than 30
--- NOTE | 2018-03-08 11:18 | CDI ---
Last Revision, July 2017 Documentation Clarification Form Date: 03/08/18 From: Ellie Ruiz RN Admit Date: 03/04/2018 5:03:00 PM Patient Name: Sourav Virgen Visit Number: [id number] ATTENTION: The Clinical Documentation Specialists (CDI) and [facility] Coding Staff appreciate your assistance in clarifying documentation. Please respond to the clarification below the line at the bottom and electronically sign. The CDI & [facility] Coding staff will review the response and follow-up if needed. Please note: Queries are made part of the Legal Health Record. If you have any questions, please contact the author of this message via ITS. Dr. Coleman Robbins, Postoperative respiratory failure is documented in the chart. Patient had CABG on 03/06 In your PN on 03/07 Postoperative respiratory failure, resolved with extubation within the 6 hour time limit Patient history/risk factors: HTN, OA, prostate benign hypertrophy, urinary retention Clinical Indicators: Radiology: Interval extubation and removal of the enteric tube. Low lung volumes are present with scattered areas of subsegmental c atelectasis. Labs: TROP. 0.064 - 0.070 - 0.060 , CHOL 229, LDL 156 Vital Signs:T 98.5, P90, R 18, 154/92, 96% RA Treatment: Oxygen: 2L Medication: Duoneb Monitor labs Please document confirmation of the clinical validation: Postoperative respiratory failure Postoperative ventilator management Unable to determine Other (Please specify) Please continue to document in your progress notes, under the line below and/or in the discharge summary in order to capture severity of illness and risk of mortality. Include clinical findings that support your diagnosis. Postoperative respiratory failure, ruled out, he was successfully extubated within 6 hour of OR exit time. Routine postop CABG ventilator management. MTDD
--- NOTE | 2018-03-08 11:21 | CDI ---
Last Revision, July 2017 Documentation Clarification Form Date: 03/08/18 From: Ellie Ruiz RN Admit Date: 03/04/2018 5:03:00 PM Patient Name: Sourav Virgen Visit Number: [id number] ATTENTION: The Clinical Documentation Specialists (CDI) and [facility] Coding Staff appreciate your assistance in clarifying documentation. Please respond to the clarification below the line at the bottom and electronically sign. The CDI & [facility] Coding staff will review the response and follow-up if needed. Please note: Queries are made part of the Legal Health Record. If you have any questions, please contact the author of this message via ITS. Dr. Coleman Robbins, Postoperative respiratory failure is documented in the chart. Patient had CABG on 03/06 In your PN on 03/07 Postoperative respiratory failure, resolved with extubation within the 6 hour time limit Patient history/risk factors: HTN, OA, prostate benign hypertrophy, urinary retention Clinical Indicators: Radiology: Interval extubation and removal of the enteric tube. Low lung volumes are present with scattered areas of subsegmental atelectasis. Labs: TROP. 0.064 - 0.070 - 0.060 , CHOL 229, LDL 156 Vital Signs:T 98.5, P90, R 18, 154/92, 96% RA Treatment: Oxygen: 2L Medication: Duoneb Monitor labs Please document confirmation of the clinical validation: Postoperative respiratory failure Postoperative ventilator management Unable to determine Other (Please specify) Please continue to document in your progress notes, under the line below and/or in the discharge summary in order to capture severity of illness and risk of mortality. Include clinical findings that support your diagnosis. MTDD
--- NOTE | 2018-03-08 11:22 | P.PN ---
Subjective Progress Note Date: 03/08/18 Principal diagnosis: Non-ST elevation myocardial infarction, triple-vessel coronary artery disease, preserved left ventricular function, hypertension, obesity, strong family history for coronary artery disease with evidence of diffuse coronary artery disease. Social alcohol use of 2-7 drinks per week. POD #2 urgent multiple arterial triple coronary artery bypass grafting using the left internal mammary artery to the left anterior descending artery, the left radial artery from the aorta to the obtuse marginal artery, reverse saphenous vein graft from the aorta to the right coronary artery. Endoscopic harvesting of the left radial artery. Endoscopic harvesting of the left greater saphenous vein between the groin and knee level. Intraoperative graft flow measurements. Intraoperative transesophageal echocardiogram and epi- aortic scanning. Patient is currently sitting up in bed in no acute distress. States pain is controlled with current pain medication. Denies shortness of breath. No new complaints. Objective - Vital Signs Vital signs: Vital Signs Temp 98.8 F 03/08/18 08:00 Pulse 104 H 03/08/18 10:00 Resp 17 03/08/18 10:00 BP 117/66 03/08/18 10:00 Pulse Ox 93 L 03/08/18 10:00 Intake & Output 03/07/18 03/08/18 03/08/18 18:59 06:59 18:59 Intake Total 1294.954 890.100 152 Output Total 859 705 385 Balance 435.954 185.100 -233 Weight 130.3 kg 129.6 kg Intake: IV 828.5 706 152 0.9 Pressure Bag 57 36 12 ACETAMINOPHEN IV (For NPO 200 100 ) 1,000 mg In Empty Bag 1 bag @ 400 mls/hr IVPB Q6HR [facility] Rx#:[id number] CO/CI 10 Lactated Ringers 1,000 ml 460 470 140 @ 20 mls/hr IV .Q24H [facility] Rx#:[id number] Nitroglycerin-D5w Pmx 50 1.5 mg In Dextrose/Water 1 250ml.bag @ 5 MCG/MIN 1.5 mls/hr IV .Q24H [facility] Rx#: [id number] ceFAZolin 3 gm In Sodium 100 100 Chloride 0.9% 50 ml @ 50 mls/hr IVPB Q8H [facility] Rx#: [id number] Intake, IV Titration 66.454 4.100 Amount Clevidipine Butyrate 25 45.0 mg In Empty Bag 1 bag @ 1 MG/HR 2 mls/hr IV .Q24H [facility] Rx#:[id number] Insulin Regular 100 unit 17.329 4.100 In Sodium Chloride 0.9% 100 ml @ Per Protocol IV .Q0M [facility] Rx#:[id number] Nitroglycerin-D5w Pmx 50 4.125 mg In Dextrose/Water 1 250ml.bag @ 5 MCG/MIN 1.5 mls/hr IV .Q24H [facility] Rx#: [id number] Oral 400 180 Output: Chest Tube Drainage 473 329 130 Chest Tube Left 180 110 70 Chest Tube Mediastinal 250 150 20 Chest Tube Right 43 69 40 Drainage 65 50 Left Calf 45 30 Left Wrist 20 20 Urine 321 376 205 Other: Voiding Method Indwelling Catheter Indwelling Catheter ABP, PAP, CO, CI - Last Documented Arterial Blood Pressure 123/113 Pulmonary Artery Pressure 34/26 Cardiac Output 5.4 Cardiac Index 3.4 - Constitutional General appearance: Present: cooperative, no acute distress, obese - Respiratory Details: Lungs sounds diminished bilaterally. Respirations even, nonlabored. Currently on 2L nasal cannula with oxygen saturation 94%. Able to achieve 500 mL on his incentive spirometry. Effective cough. Mediastinal chest tube to continuous wall suction, 50 mL serosanguineous drainage overnight, 300 mL in the last 24 hours. Left pleural chest tube to continuous wall suction, 50 mL serosanguineous drainage overnight, 250 mL in the last 24 hours. Right pleural chest tube to continuous wall suction, 16 mL serosanguineous drainage overnight , 65 mL in the last 24 hours. No air leaks present. - Cardiovascular Details: S1, S2 present. Regular rate and rhythm, sinus rhythm on telemetry. Sternum stable. A/V epicardial pacemaker wires present, grounded. Palpable peripheral pulses bilaterally. No edema present. No calf pain or tenderness noted. Right internal jugular Cordis present. Heart hugger in place with patient demonstrating appropriate use. Antiembolism stockings, SCDs present. - Gastrointestinal Gastrointestinal Comment(s): Abdomen soft, nontender, nondistended. Hypoactive bowel sounds present 4 quadrants. Tolerating diet. Positive flatus. - Genitourinary Genitourinary Comment(s): Cutler present draining clear, yellow urine. Output 25-45 mL/h overnight. - Integumentary Integumentary Comment(s): Skin is warm and dry with evidence of good perfusion. Anterior chest incision well approximated and covered with dry intact dressing. Left radial artery harvest site well approximated with FIDE drain present with minimal drainage, skin is pink, patient does have feeling and mobility in the left arm. Left lower extremity EVH site well approximated, FIDE drain present with minimal drainage. - Neurologic Neurologic: Present: CNII-XII intact - Musculoskeletal Musculoskeletal: Present: gait normal, strength equal bilaterally - Psychiatric Psychiatric: Present: A&O x's 3, appropriate affect, intact judgment & insight - Allied health notes Allied health notes reviewed: nursing - Labs CBC & Chem 7: 03/08/18 05:05 03/08/18 05:05 Labs: Abnormal Lab Results - Last 24 Hours (Table) 03/07/18 03/07/18 03/07/18 Range/Units 10:56 12:06 13:16 RBC (4.30-5.90) m/uL Hgb (13.0-17.5) gm/dL Hct (39.0-53.0) % Plt Count (150-450) k/uL Sodium (137-145) mmol/L BUN (9-20) mg/dL Creatinine (0.66-1.25) mg/dL Glucose (74-99) mg/dL POC Glucose (mg/dL) 130 H 120 H 141 H (75-99) mg/dL Calcium (8.4-10.2) mg/dL Total Protein (6.3-8.2) g/dL Albumin (3.5-5.0) g/dL 03/07/18 03/07/18 03/07/18 Range/Units 14:07 15:06 16:00 RBC (4.30-5.90) m/uL Hgb (13.0-17.5) gm/dL Hct (39.0-53.0) % Plt Count (150-450) k/uL Sodium (137-145) mmol/L BUN (9-20) mg/dL Creatinine (0.66-1.25) mg/dL Glucose (74-99) mg/dL POC Glucose (mg/dL) 132 H 132 H 121 H (75-99) mg/dL Calcium (8.4-10.2) mg/dL Total Protein (6.3-8.2) g/dL Albumin (3.5-5.0) g/dL 03/07/18 03/07/18 03/07/18 Range/Units 17:04 18:21 19:02 RBC (4.30-5.90) m/uL Hgb (13.0-17.5) gm/dL Hct (39.0-53.0) % Plt Count (150-450) k/uL Sodium (137-145) mmol/L BUN (9-20) mg/dL Creatinine (0.66-1.25) mg/dL Glucose (74-99) mg/dL POC Glucose (mg/dL) 111 H 137 H 132 H (75-99) mg/dL Calcium (8.4-10.2) mg/dL Total Protein (6.3-8.2) g/dL Albumin (3.5-5.0) g/dL 03/07/18 03/07/18 03/08/18 Range/Units 21:11 22:57 00:01 RBC (4.30-5.90) m/uL Hgb (13.0-17.5) gm/dL Hct (39.0-53.0) % Plt Count (150-450) k/uL Sodium (137-145) mmol/L BUN (9-20) mg/dL Creatinine (0.66-1.25) mg/dL Glucose (74-99) mg/dL POC Glucose (mg/dL) 122 H 114 H 115 H (75-99) mg/dL Calcium (8.4-10.2) mg/dL Total Protein (6.3-8.2) g/dL Albumin (3.5-5.0) g/dL 03/08/18 03/08/18 03/08/18 Range/Units 00:59 03:03 05:04 RBC (4.30-5.90) m/uL Hgb (13.0-17.5) gm/dL Hct (39.0-53.0) % Plt Count (150-450) k/uL Sodium (137-145) mmol/L BUN (9-20) mg/dL Creatinine (0.66-1.25) mg/dL Glucose (74-99) mg/dL POC Glucose (mg/dL) 105 H 101 H 114 H (75-99) mg/dL Calcium (8.4-10.2) mg/dL Total Protein (6.3-8.2) g/dL Albumin (3.5-5.0) g/dL 03/08/18 03/08/18 03/08/18 Range/Units 05:05 05:05 07:13 RBC 3.09 L (4.30-5.90) m/uL Hgb 9.3 L (13.0-17.5) gm/dL Hct 29.1 L (39.0-53.0) % Plt Count 120 L (150-450) k/uL Sodium 136 L (137-145) mmol/L BUN 25 H (9-20) mg/dL Creatinine 1.30 H (0.66-1.25) mg/dL Glucose 103 H (74-99) mg/dL POC Glucose (mg/dL) 109 H (75-99) mg/dL Calcium 8.3 L (8.4-10.2) mg/dL Total Protein 4.8 L (6.3-8.2) g/dL Albumin 2.8 L (3.5-5.0) g/dL - Imaging and Cardiology Chest x-ray: report reviewed, image reviewed Assessment and Plan (1) Non-STEMI (non-ST elevated myocardial infarction) Current Visit: Yes Status: Acute Code(s): I21.4 - NON-ST ELEVATION (NSTEMI) MYOCARDIAL INFARCTION SNOMED Code(s): 870795878 (2) Hypertension Current Visit: Yes Status: Chronic Code(s): I10 - ESSENTIAL (PRIMARY) HYPERTENSION SNOMED Code(s): 16339159 (3) Family history of coronary artery disease Current Visit: Yes Status: Chronic Code(s): Z82.49 - FAMILY HX OF ISCHEM HEART DIS AND OTH DIS OF THE CIRC SYS SNOMED Code(s): 024354070 Plan: 1. Continue aspirin, statin, Plavix, heparin subcu, beta david. Will increase beta david therapy as tolerated. 2. Continue Norvasc for radial artery spasm. 3. Wean O2 as tolerated. Encourage incentive spirometry use 10 times every hour while awake. 4. Increase activity ambulate as tolerated. PT/OT/cardiac rehab following. 5. GI/DVT prophylaxis. 6. Will monitor daily labs and x-rays. 7. Insulin management per primary care service. 8. Pain management per ordered medication regimen. 9. No Lasix today. 10. Will discontinue mediastinal and right pleural chest tube. 11. Bronchodilators per pulmonology. 12. Keep Cutler for another 24 hours for strict accurate intake and output. 13. More recommendations to follow. Time with Patient: Greater than 30
[2018-03-08 11:53] LABS: Glucose,Whole Blood 109 mg/dL (75-99)
[2018-03-08] MEDS: INSULIN ASPART 100 UNIT/ML 1 ML 10 ML VIAL SQ SCH ×3 (11:59→21:10)
[2018-03-08] MEDS: amLODIPine 5 MG TAB PO SCH (12:00)
[2018-03-08] MEDS: HYDROcodone/APAP 5-325MG 1 EACH TAB PO PRN ×2 (16:35→21:12)
[2018-03-08] MEDS: LACTATED RINGERS 1,000 ML IV SCH (16:38)
[2018-03-08 16:56] LABS: Glucose,Whole Blood 107 mg/dL (75-99)
[2018-03-08] MEDS: SENNOSIDES-DOCUSATE SODIUM 1 EACH TAB PO SCH (21:11)
[2018-03-08] MEDS: METOPROLOL TARTRATE 25 MG TAB PO SCH (21:11)
[2018-03-08 21:12] LABS: Glucose,Whole Blood 119 mg/dL (75-99)
[2018-03-08] MEDS ORDERED: DEXTROSE 5% IN WATER 100 ML with AMIODARONE 150 MG IV ONE (21:31)
[2018-03-08] MEDS: AMIODARONE 450 MG in DEXTROSE 5% IN WATER 250 ML IV SCH ×2 (22:05)
[2018-03-09 01:31] LABS: Glucose,Whole Blood 127 mg/dL (75-99)
[2018-03-09] MEDS: INSULIN ASPART 100 UNIT/ML 1 ML 10 ML VIAL SQ SCH ×5 (02:53→21:10)
[2018-03-09] MEDS: AMIODARONE 450 MG in DEXTROSE 5% IN WATER 250 ML IV SCH ×6 (05:12→20:40)
[2018-03-09 05:30] LABS: Basophils % (A) 0 %; Eosinophils # (A) 0.1 k/uL (0-0.7); Eosinophils % (A) 1 %; HCT 29.9 % (39.0-53.0); HGB 9.4 gm/dL (13.0-17.5); Lymphocytes # (A) 0.9 k/uL (1.0-4.8); Lymphocytes % (A) 11 %; MCH 29.2 pg (25.0-35.0); MCHC 31.3 g/dL (31.0-37.0); MCV 93.2 fL (80.0-100.0); Mean Platelet Volume 7.3; Monocytes # (A) 0.5 k/uL (0-1.0); Monocytes % (A) 6 %; Neutrophils # (A) 6.8 k/uL (1.3-7.7); Neutrophils % (A) 80 %; Platelet Count 139 k/uL (150-450); RBC 3.21 m/uL (4.30-5.90); WBC 8.5 k/uL (3.8-10.6)
[2018-03-09 06:08] LABS: ALT 23 U/L (21-72); AST 24 U/L (17-59); Albumin 3.3 g/dL (3.5-5.0); Alkaline Phosphatase 50 U/L (38-126); Anion Gap 8 mmol/L; Blood Urea Nitrogen 27 mg/dL (9-20); Calcium 8.8 mg/dL (8.4-10.2); Carbon Dioxide 23 mmol/L (22-30); Chloride 106 mmol/L (98-107); Glucose 116 mg/dL (74-99); Magnesium 2.2 mg/dL (1.6-2.3); Phosphorus 2.7 mg/dL (2.5-4.5); Potassium 4.2 mmol/L (3.5-5.1); Sodium 137 mmol/L (137-145); Total Bilirubin 0.9 mg/dL (0.2-1.3); Total Protein 5.6 g/dL (6.3-8.2)
--- NOTE | 2018-03-09 06:09 | P.PN ---
Subjective Progress Note Date: 03/08/18 This is a 63-year-old male patient of Dr. Davison with past medical history for hypertension, osteoarthritis, benign prostatic hypertrophy. Patient gives history that for a long period of time since last fall he has had a cough when he lays in bed. He has had about a bronchitis and following that he did have some improvement for about 6 months and now he has a cough when he lays down and has some chest pain in the midsternal area. He does golf 3-4 times a week and does not have any chest heaviness at that time. He states he has had it every day for 2-3 weeks in a row and went to see Dr. Davison yesterday and he was sent into the emergency center for evaluation. Patient describes it as a heavy chest. He states he gets up and take some Pepto-Bismol or something else and then he ends up sleeping in a chair. Troponins are 0.064 , 0.070, 0.060. Triglycerides 122, cholesterol 229, LDL 156, HDL 49. Lipase 72. CBC is within normal limits. Electrolytes are normal. Patient has been admitted to the selective care unit and cardiology consult requested. He has been started on heparin drip and aspirin. Cardiology has added and Lipitor and beta david. Echocardiogram reveals EF of 55-60%, moderate concentric left ventricular hypertrophy, LV mildly dilated at 29-33, mild aortic valve sclerosis , mild tricuspid regurgitation. Patient is scheduled for heart catheterization today. 03/06: Heart catheterization with Dr. Walter yesterday revealed severe triple vessel coronary disease, normal left ventricular size and systolic function. Recommendations for cardiovascular surgery evaluation which was done yesterday. Plan is for urgent coronary artery bypass graft 3 today. Patient denies any new complaints. His is at bedside. 03/07: Patient underwent coronary artery bypass grafting using the left internal mammary artery to the left anterior descending artery, left radial artery from the aorta to the obtuse marginal artery, reverse saphenous vein graft from the aorta to the right coronary artery. Patient remains in the intensive care unit. Patient was successfully extubated early in the morning. This morning, patient is sitting up in a chair and appears to be comfortable. Plan is to remove the one pleural tube and Beltrami's today. His blood sugars been running 131 and 152. He is ordered for 1 dose of Lasix IV push 20 mg this morning.. 03/08: Patient remains in the intensive care unit. Pulse ox is 94% on 3 L nasal cannula. He has been afebrile. Patient is some increased shortness of breath and is doing less with incentive spirometry. Mediastinal and right pleural chest tubes have been discontinued. Objective - Vital Signs Vital signs: Vital Signs Temp 98.8 F 03/08/18 08:00 Pulse 104 H 03/08/18 10:00 Resp 17 03/08/18 10:00 BP 117/66 03/08/18 10:00 Pulse Ox 93 L 03/08/18 10:00 Intake & Output 03/07/18 03/08/18 03/08/18 18:59 06:59 18:59 Intake Total 1294.954 890.100 152 Output Total 859 705 385 Balance 435.954 185.100 -233 Weight 130.3 kg 129.6 kg Intake: IV 828.5 706 152 0.9 Pressure Bag 57 36 12 ACETAMINOPHEN IV (For NPO 200 100 ) 1,000 mg In Empty Bag 1 bag @ 400 mls/hr IVPB Q6HR [facility] Rx#:[id number] CO/CI 10 Lactated Ringers 1,000 ml 460 470 140 @ 20 mls/hr IV .Q24H [facility] Rx#:[id number] Nitroglycerin-D5w Pmx 50 1.5 mg In Dextrose/Water 1 250ml.bag @ 5 MCG/MIN 1.5 mls/hr IV .Q24H [facility] Rx#: [id number] ceFAZolin 3 gm In Sodium 100 100 Chloride 0.9% 50 ml @ 50 mls/hr IVPB Q8H [facility] Rx#: [id number] Intake, IV Titration 66.454 4.100 Amount Clevidipine Butyrate 25 45.0 mg In Empty Bag 1 bag @ 1 MG/HR 2 mls/hr IV .Q24H [facility] Rx#:[id number] Insulin Regular 100 unit 17.329 4.100 In Sodium Chloride 0.9% 100 ml @ Per Protocol IV .Q0M [facility] Rx#:[id number] Nitroglycerin-D5w Pmx 50 4.125 mg In Dextrose/Water 1 250ml.bag @ 5 MCG/MIN 1.5 mls/hr IV .Q24H [facility] Rx#: [id number] Oral 400 180 Output: Chest Tube Drainage 473 329 130 Chest Tube Left 180 110 70 Chest Tube Mediastinal 250 150 20 Chest Tube Right 43 69 40 Drainage 65 50 Left Calf 45 30 Left Wrist 20 20 Urine 321 376 205 Other: Voiding Method Indwelling Catheter Indwelling Catheter ABP, PAP, CO, CI - Last Documented Arterial Blood Pressure 123/113 Pulmonary Artery Pressure 34/26 Cardiac Output 5.4 Cardiac Index 3.4 - Exam Gen: This is a 63-year-old male. He is sitting up in bed and appears to be comfortable and in no acute distress. No current chest pain. HEENT: Head is atraumatic, normocephalic. Pupils equal, round. Sclerae is anicteric. Conjunctiva pink. Because members of the mouth are slightly dry. NECK: Supple. No JVD. No lymphadenopathy. No thyromegaly. LUNGS: Clear to auscultation. No wheezes or rhonchi. No intercostal retractions. HEART: Regular rate and rhythm. No murmur. ABDOMEN: Soft. Bowel sounds are present. No masses. No tenderness. EXTREMITIES: No pedal edema. No calf tenderness. Dorsalis pedis +2 bilaterally. NEUROLOGICAL: Patient is awake, alert and oriented x3. Cranial nerves 2 through 12 are grossly intact. - Labs CBC & Chem 7: 03/08/18 05:05 03/08/18 05:05 Labs: Abnormal Lab Results - Last 24 Hours (Table) 03/07/18 03/07/18 03/07/18 Range/Units 10:56 12:06 13:16 RBC (4.30-5.90) m/uL Hgb (13.0-17.5) gm/dL Hct (39.0-53.0) % Plt Count (150-450) k/uL Sodium (137-145) mmol/L BUN (9-20) mg/dL Creatinine (0.66-1.25) mg/dL Glucose (74-99) mg/dL POC Glucose (mg/dL) 130 H 120 H 141 H (75-99) mg/dL Calcium (8.4-10.2) mg/dL Total Protein (6.3-8.2) g/dL Albumin (3.5-5.0) g/dL 03/07/18 03/07/18 03/07/18 Range/Units 14:07 15:06 16:00 RBC (4.30-5.90) m/uL Hgb (13.0-17.5) gm/dL Hct (39.0-53.0) % Plt Count (150-450) k/uL Sodium (137-145) mmol/L BUN (9-20) mg/dL Creatinine (0.66-1.25) mg/dL Glucose (74-99) mg/dL POC Glucose (mg/dL) 132 H 132 H 121 H (75-99) mg/dL Calcium (8.4-10.2) mg/dL Total Protein (6.3-8.2) g/dL Albumin (3.5-5.0) g/dL 03/07/18 03/07/18 03/07/18 Range/Units 17:04 18:21 19:02 RBC (4.30-5.90) m/uL Hgb (13.0-17.5) gm/dL Hct (39.0-53.0) % Plt Count (150-450) k/uL Sodium (137-145) mmol/L BUN (9-20) mg/dL Creatinine (0.66-1.25) mg/dL Glucose (74-99) mg/dL POC Glucose (mg/dL) 111 H 137 H 132 H (75-99) mg/dL Calcium (8.4-10.2) mg/dL Total Protein (6.3-8.2) g/dL Albumin (3.5-5.0) g/dL 03/07/18 03/07/18 03/08/18 Range/Units 21:11 22:57 00:01 RBC (4.30-5.90) m/uL Hgb (13.0-17.5) gm/dL Hct (39.0-53.0) % Plt Count (150-450) k/uL Sodium (137-145) mmol/L BUN (9-20) mg/dL Creatinine (0.66-1.25) mg/dL Glucose (74-99) mg/dL POC Glucose (mg/dL) 122 H 114 H 115 H (75-99) mg/dL Calcium (8.4-10.2) mg/dL Total Protein (6.3-8.2) g/dL Albumin (3.5-5.0) g/dL 03/08/18 03/08/18 03/08/18 Range/Units 00:59 03:03 05:04 RBC (4.30-5.90) m/uL Hgb (13.0-17.5) gm/dL Hct (39.0-53.0) % Plt Count (150-450) k/uL Sodium (137-145) mmol/L BUN (9-20) mg/dL Creatinine (0.66-1.25) mg/dL Glucose (74-99) mg/dL POC Glucose (mg/dL) 105 H 101 H 114 H (75-99) mg/dL Calcium (8.4-10.2) mg/dL Total Protein (6.3-8.2) g/dL Albumin (3.5-5.0) g/dL 03/08/18 03/08/18 03/08/18 Range/Units 05:05 05:05 07:13 RBC 3.09 L (4.30-5.90) m/uL Hgb 9.3 L (13.0-17.5) gm/dL Hct 29.1 L (39.0-53.0) % Plt Count 120 L (150-450) k/uL Sodium 136 L (137-145) mmol/L BUN 25 H (9-20) mg/dL Creatinine 1.30 H (0.66-1.25) mg/dL Glucose 103 H (74-99) mg/dL POC Glucose (mg/dL) 109 H (75-99) mg/dL Calcium 8.3 L (8.4-10.2) mg/dL Total Protein 4.8 L (6.3-8.2) g/dL Albumin 2.8 L (3.5-5.0) g/dL Assessment and Plan Plan: 1. Non-ST elevated myocardial infarction status post CABG. Continue current management per cardiovascular surgery and pulmonary medicine. Patient has been successfully extubated. Continue aspirin, Lipitor, Plavix, Lopressor. 2. Hypertension. Patient has been on amlodipine 5 mg daily, Lopressor 25 g twice daily 3. Benign prostatic hypertrophy. Monitor for urinary retention. Patient currently has Cutler catheter in place 4. Osteoarthritis, generalized. 5. 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 Continue Vicoprofen as needed 6. DVT prophylaxis. Heparin. 7. GI prophylaxis. Pepcid. Discharge plan: Return home as likely with homecare. Impression and plan of care have been directed as dictated by the signing physician. Stefania Vázquez nurse practitioner acting as scribe for signing physician.
[2018-03-09] MEDS: HYDROcodone/APAP 5-325MG 1 EACH TAB PO PRN (06:39)
--- NOTE | 2018-03-09 06:40 | XR ---
EXAMINATION TYPE: XR chest 1V portable DATE OF EXAM: 03/09/2018 HISTORY: post cardiac surgery. REFERENCE: Previous study dated 03/08/2018. FINDINGS: There has been a midline sternotomy. A right internal jugular sheath remains in place. Its tip is in the superior vena cava. A left pleural drain is in place. The right-sided chest tube has be en removed. The heart is enlarged. There is platelike atelectasis in the right lung base. There is more confluent airspace disease the left lung base. IMPRESSION: NO SIGNIFICANT INTERVAL CHANGE IN THE APPEARANCE OF THE CHEST.
[2018-03-09 06:51] LABS: Glucose,Whole Blood 124 mg/dL (75-99)
[2018-03-09] MEDS: PANTOPRAZOLE 40 MG TABLET PO SCH (07:36)
[2018-03-09] MEDS: MUPIROCIN 2% OINT 22 GM TUBE NASAL SCH ×2 (08:26→21:12)
[2018-03-09] MEDS: ATORVASTATIN 40 MG TAB PO SCH (08:26)
[2018-03-09] MEDS: CLOPIDOGREL 75 MG TAB PO SCH (08:26)
[2018-03-09] MEDS: ASPIRIN 325 MG TAB PO SCH (08:26)
[2018-03-09] MEDS: HEPARIN SODIUM,PORCINE 5,000 UNIT/ML 1 ML VIAL SQ SCH ×2 (08:26→16:53)
[2018-03-09] MEDS ORDERED: ALBUMIN HUMAN 5% 250 ML IVPB ONE (08:46)
[2018-03-09] MEDS: DEXTROSE 5% IN WATER 100 ML with AMIODARONE 150 MG IV PRN ×3 (08:48→19:03)
[2018-03-09] MEDS: IPRATROPIUM-ALBUTEROL 3 ML NEB INHALATION SCH ×4 (09:05→21:12)
[2018-03-09] MEDS ORDERED: DEXTROSE 5% IN WATER 100 ML with AMIODARONE 150 MG IV ONE (09:08)
--- NOTE | 2018-03-09 09:08 | P.PN ---
Subjective Progress Note Date: 03/09/18 Principal diagnosis: Status post three-vessel bypass grafting, postoperative day #2 Progress note dated 03/09/2018 This is a 63-year-old male who is postop day #2, status post three-vessel bypass grafting. The patient had developed atrial fibrillation overnight was placed on amiodarone at 0.5 mg/m. He is getting an IV of lactated Ringer's at 20 mL an hour is receiving supplemental oxygen 3 L by nasal cannula. His incentive spirometry effort is not very good only 750 mL. This patient was discovered on evaluation to have severe triple-vessel disease, normal LV function, acute kidney injury, related to ATN, non-ST segment elevation myocardial infarction, hypertension, tinnitus, deafness, and had no history of intrinsic pulmonary disease as he was a lifelong nonsmoker. Objective - Vital Signs Vital signs: Vital Signs Temp 98.0 F 03/09/18 08:00 Pulse 124 H 03/09/18 08:00 Resp 21 03/09/18 08:00 BP 93/51 03/09/18 08:00 Pulse Ox 96 03/09/18 08:00 Intake & Output 03/08/18 03/09/18 03/09/18 18:59 06:59 18:59 Intake Total 836 493.751 46 Output Total 718 610 75 Balance 118 -116.249 -29 Weight 129.6 kg 133 kg Intake: IV 336 276 46 0.9 Pressure Bag 36 36 6 Lactated Ringers 1,000 ml 300 240 40 @ 20 mls/hr IV .Q24H [facility] Rx#:[id number] Intake, IV Titration 217.751 Amount Amiodarone 450 mg In 217.751 Dextrose 5% in Water 250 ml @ 1 MG/MIN 33.33 mls/ hr IV .Q7H31M [facility] Rx#: [id number] Oral 500 Output: Chest Tube Drainage 200 140 0 Chest Tube Left 140 140 0 Chest Tube Mediastinal 20 Chest Tube Right 40 Drainage 60 30 Left Calf 40 30 Left Wrist 20 Urine 458 440 75 Other: Voiding Method Indwelling Catheter Indwelling Catheter ABP, PAP, CO, CI - Last Documented Arterial Blood Pressure 123/113 Pulmonary Artery Pressure 34/26 Cardiac Output 5.4 Cardiac Index 3.4 - Exam No acute distress, oriented 3. Nasal O2 in place at 3 L. HEENT examination is grossly unremarkable. Mucous membranes are moist. No oral lesions. Neck supple. Full range of motion. No adenopathy thyromegaly or neck vein distention. Cardiovascular examination reveals an irregular rhythm and rate. The patient's in atrial fibrillation. S1 and S2 are normal. No distinct murmurs noted.. Lungs reveal clear breath sounds. Her sounds are equal bilaterally. No adventitious lung sounds including wheezes rhonchi or crackles. Abdomen soft bowel sounds are heard. No masses or tenderness. Extremities are intact. No cyanosis clubbing or edema. Skin is without rash or lesion. Neurologic examination is brief but nonfocal. - Labs CBC & Chem 7: 03/09/18 05:05 03/09/18 05:05 Labs: Abnormal Lab Results - Last 24 Hours (Table) 03/08/18 03/08/18 03/08/18 Range/Units 11:52 16:54 21:09 RBC (4.30-5.90) m/uL Hgb (13.0-17.5) gm/dL Hct (39.0-53.0) % Plt Count (150-450) k/uL Lymphocytes # (1.0-4.8) k/uL BUN (9-20) mg/dL Glucose (74-99) mg/dL POC Glucose (mg/dL) 109 H 107 H 119 H (75-99) mg/dL Total Protein (6.3-8.2) g/dL Albumin (3.5-5.0) g/dL 03/09/18 03/09/18 03/09/18 Range/Units 01:30 05:05 05:05 RBC 3.21 L (4.30-5.90) m/uL Hgb 9.4 L (13.0-17.5) gm/dL Hct 29.9 L (39.0-53.0) % Plt Count 139 L (150-450) k/uL Lymphocytes # 0.9 L (1.0-4.8) k/uL BUN 27 H (9-20) mg/dL Glucose 116 H (74-99) mg/dL POC Glucose (mg/dL) 127 H (75-99) mg/dL Total Protein 5.6 L (6.3-8.2) g/dL Albumin 3.3 L (3.5-5.0) g/dL 03/09/18 Range/Units 06:48 RBC (4.30-5.90) m/uL Hgb (13.0-17.5) gm/dL Hct (39.0-53.0) % Plt Count (150-450) k/uL Lymphocytes # (1.0-4.8) k/uL BUN (9-20) mg/dL Glucose (74-99) mg/dL POC Glucose (mg/dL) 124 H (75-99) mg/dL Total Protein (6.3-8.2) g/dL Albumin (3.5-5.0) g/dL Assessment and Plan Assessment: Assessment Severe triple-vessel coronary artery disease with normal LV function, status postop day #2, three-vessel bypass grafting. Postoperative ventilator management, with extubation within 6 hours. Development of atrial fibrillation with RVR, currently on amiodarone Non-ST segment elevation myocardial infarction History of hypertension History of tinnitus History of deafness Multiple previous orthopedic procedures Lifelong nonsmoker No history of intrinsic pulmonary disease Plan: Plan dated 03/06/2018 I explained to the patient that I will be seeing him after surgery. Our goal will be to get him extubated as soon as possible. The patient appears not to have any intrinsic lung disease. He is a lifelong nonsmoker. Denies any history of emphysema asthma chronic bronchitis, etc. He should do well. We'll continue to follow. Plan dated 03/07/2018. The patient is doing recently well. The patient's on nasal O2. Hemodynamically stable. We want the patient to focus on deep breathing coughing and clearing of secretions. We also want the patient to really focus on using the incentive spirometer. Chest x-ray shows typical postoperative changes. We'll continue to watch the patient closely to make sure he doesn't develop any complications from the lung standpoint such as atelectasis lung collapse pneumonia pleural effusion, etc. Prognosis is guarded. Critical care time 33 minutes Plan dated 03/09/2018 This patient is postop day #2, status post four-vessel bypass grafting. He is not really doing very well as evidenced on his incentive spirometer. Only getting about 750 mL. The patient developed atrial fibrillation with RVR. For that reason, he was placed on amiodarone drip 0.5 mg/m. The patient denies any significant chest pain or chest discomfort. Denies any difficulty breathing. Not coughing up any phlegm or blood. No fever or chills. No nausea vomiting or diarrhea. Chest x-ray shows no interval change. White count 8.5, hemoglobin 9.4, hematocrit 29.9, platelet count 1 39,000. Electrolytes look very good with a sodium 137 potassium 4.2 chloride 106 CO2 23 anion gap a BUN 27 and creatinine of 0.9. Critical care time 34 minutes Time with Patient: Greater than 30
[2018-03-09] MEDS: DIGOXIN 250 MCG/ML 2 ML AMP IVP STA ×2 (10:05→10:22)
--- NOTE | 2018-03-09 10:08 | PN ---
PROGRESS NOTE Mr. Virgen is a 63-year-old male who presented with a non ST-segment elevation myocardial infarction. Underwent cardiac catheterization and subsequently coronary artery bypass grafting. He is doing well this morning. He had mild dyspnea yesterday, better today. He had an episode of atrial fibrillation. He denies any dizziness. No palpitations. He denies any nausea. He continues to be on amiodarone 400 mg twice a day, aspirin once a day, Lipitor 40 mg daily, Plavix 75 mg daily, diltiazem 30 mg q.6 hours, and metoprolol tartrate 25 mg twice a day. PHYSICAL EXAMINATION: Blood pressure running in the high 90s, low 100s with a heart rate in the one teens. Lungs with few crackles at the bases. Heart irregularly irregular. S1, S2. No S3. No rub appreciated. ABDOMEN: Soft, nontender. Extremities trace edema. LAB DATA: BUN and creatinine 27 and 0.9, potassium 4.2, hemoglobin of 9.4. IMPRESSION: 1. Status post coronary artery bypass grafting. 2. Atrial fibrillation. 3. Hyperlipidemia. RECOMMENDATION: From the cardiac standpoint, the patient has been started on amiodarone. If he maintains the atrial fibrillation, then he will need to be anticoagulated. Otherwise, we will continue the rest of his medical regimen. Increase level of physical activity. MMODL / IJN: [id number] /
--- NOTE | 2018-03-09 10:47 | P.PN ---
Subjective Progress Note Date: 03/09/18 Principal diagnosis: Non-ST elevation myocardial infarction, triple-vessel coronary artery disease, preserved left ventricular function, hypertension, obesity, strong family history for coronary artery disease with evidence of diffuse coronary artery disease. Social alcohol use of 2-7 drinks per week. POD #3 urgent multiple arterial triple coronary artery bypass grafting using the left internal mammary artery to the left anterior descending artery, the left radial artery from the aorta to the obtuse marginal artery, reverse saphenous vein graft from the aorta to the right coronary artery. Endoscopic harvesting of the left radial artery. Endoscopic harvesting of the left greater saphenous vein between the groin and knee level. Intraoperative graft flow measurements. Intraoperative transesophageal echocardiogram and epi- aortic scanning. Postoperative atrial fibrillation with rapid ventricular response, an unexpected potential outcome of surgery. Patient is currently sitting up in a recliner in no acute distress. States pain is controlled with current pain medication, especially since it mediastinal and right pleural chest tubes were discontinued. Denies shortness of breath. Patient to atrial fibrillation with rapid ventricular response, started on amiodarone but does remain in A. fib RVR Objective - Vital Signs Vital signs: Vital Signs Temp 98.0 F 03/09/18 08:00 Pulse 114 H 03/09/18 10:00 Resp 21 03/09/18 10:00 BP 99/62 03/09/18 10:00 Pulse Ox 95 03/09/18 10:00 Intake & Output 03/08/18 03/09/18 03/09/18 18:59 06:59 18:59 Intake Total 836 493.751 432 Output Total 718 610 138 Balance 118 -116.249 294 Weight 129.6 kg 133 kg Intake: IV 336 276 82 0.9 Pressure Bag 36 36 12 Lactated Ringers 1,000 ml 300 240 70 @ 20 mls/hr IV .Q24H [facility] Rx#:[id number] Intake, IV Titration 217.751 350 Amount Albumin Human 5% 250 ml @ 250 0 mls/hr IVPB .[facility] ONE Rx#:[id number] Amiodarone 450 mg In 217.751 Dextrose 5% in Water 250 ml @ 1 MG/MIN 33.33 mls/ hr IV .Q7H31M [facility] Rx#: [id number] Dextrose 5% in Water 100 100 ml @ 618 mls/hr IV .Q10M ONE with Amiodarone 150 mg Rx#:[id number] Oral 500 Output: Chest Tube Drainage 200 140 0 Chest Tube Left 140 140 0 Chest Tube Mediastinal 20 Chest Tube Right 40 Drainage 60 30 Left Calf 40 30 Left Wrist 20 Urine 458 440 138 Other: Voiding Method Indwelling Catheter Indwelling Catheter ABP, PAP, CO, CI - Last Documented Arterial Blood Pressure 123/113 Pulmonary Artery Pressure 34/26 Cardiac Output 5.4 Cardiac Index 3.4 - Constitutional General appearance: Present: cooperative, no acute distress, obese - Respiratory Details: Lungs sounds diminished bilaterally. Respirations even, nonlabored. Currently on 3L nasal cannula with oxygen saturation 94%. Able to achieve 750 mL on his incentive spirometry. Effective cough. Left pleural chest tube to continuous wall suction, 110 mL serosanguineous drainage overnight, 250 mL in the last 24 hours. No air leaks present. - Cardiovascular Details: S1, S2 present. Tachycardic, irregular rate and rhythm, atrial fibrillation with rapid ventricular response on telemetry. Sternum stable. A/V epicardial pacemaker wires present, connected to generator, generator turned off. Palpable peripheral pulses bilaterally. Left lower extremity edema present. No calf pain or tenderness noted. Right internal jugular Cordis present. Heart hugger in place with patient demonstrating appropriate use. Antiembolism stockings, SCDs present. - Gastrointestinal Gastrointestinal Comment(s): Abdomen soft, nontender, nondistended. Active bowel sounds present 4 quadrants. Tolerating diet. Positive flatus. - Genitourinary Genitourinary Comment(s): Cutler present draining clear, yellow urine. Output 30-60 mL/h overnight. - Integumentary Integumentary Comment(s): Skin is warm and dry with evidence of good perfusion. Anterior chest incision well approximated and covered with dry intact dressing. Skin is pink, patient does have feeling and mobility in the left arm. Left lower extremity EVH site well approximated, FIDE drain present with minimal drainage. - Neurologic Neurologic: Present: CNII-XII intact - Musculoskeletal Musculoskeletal: Present: gait normal, strength equal bilaterally - Psychiatric Psychiatric: Present: A&O x's 3, appropriate affect, intact judgment & insight - Allied health notes Allied health notes reviewed: nursing - Labs CBC & Chem 7: 03/09/18 05:05 03/09/18 05:05 Labs: Abnormal Lab Results - Last 24 Hours (Table) 03/08/18 03/08/18 03/08/18 Range/Units 11:52 16:54 21:09 RBC (4.30-5.90) m/uL Hgb (13.0-17.5) gm/dL Hct (39.0-53.0) % Plt Count (150-450) k/uL Lymphocytes # (1.0-4.8) k/uL BUN (9-20) mg/dL Glucose (74-99) mg/dL POC Glucose (mg/dL) 109 H 107 H 119 H (75-99) mg/dL Total Protein (6.3-8.2) g/dL Albumin (3.5-5.0) g/dL 03/09/18 03/09/18 03/09/18 Range/Units 01:30 05:05 05:05 RBC 3.21 L (4.30-5.90) m/uL Hgb 9.4 L (13.0-17.5) gm/dL Hct 29.9 L (39.0-53.0) % Plt Count 139 L (150-450) k/uL Lymphocytes # 0.9 L (1.0-4.8) k/uL BUN 27 H (9-20) mg/dL Glucose 116 H (74-99) mg/dL POC Glucose (mg/dL) 127 H (75-99) mg/dL Total Protein 5.6 L (6.3-8.2) g/dL Albumin 3.3 L (3.5-5.0) g/dL 03/09/18 Range/Units 06:48 RBC (4.30-5.90) m/uL Hgb (13.0-17.5) gm/dL Hct (39.0-53.0) % Plt Count (150-450) k/uL Lymphocytes # (1.0-4.8) k/uL BUN (9-20) mg/dL Glucose (74-99) mg/dL POC Glucose (mg/dL) 124 H (75-99) mg/dL Total Protein (6.3-8.2) g/dL Albumin (3.5-5.0) g/dL - Imaging and Cardiology Chest x-ray: report reviewed, image reviewed Assessment and Plan (1) Non-STEMI (non-ST elevated myocardial infarction) Current Visit: Yes Status: Acute Code(s): I21.4 - NON-ST ELEVATION (NSTEMI) MYOCARDIAL INFARCTION SNOMED Code(s): 209777870 (2) Hypertension Current Visit: Yes Status: Chronic Code(s): I10 - ESSENTIAL (PRIMARY) HYPERTENSION SNOMED Code(s): 51683923 (3) Family history of coronary artery disease Current Visit: Yes Status: Chronic Code(s): Z82.49 - FAMILY HX OF ISCHEM HEART DIS AND OTH DIS OF THE CIRC SYS SNOMED Code(s): 970127530 Plan: 1. Continue aspirin, statin, Plavix, heparin subcu, beta david. Will increase beta david therapy as tolerated. 2. Continue amiodarone for A. fib prophylaxis. No need for anticoagulation unless patient is in atrial fibrillation greater than 24 hours. 3. Norvasc discontinued. Oral Cardizem started for radial artery spasm prophylaxis as well as rate control 4. Wean O2 as tolerated. Encourage incentive spirometry use 10 times every hour while awake. 5. Increase activity ambulate as tolerated. PT/OT/cardiac rehab following. 6. GI/DVT prophylaxis. 7. Will monitor daily labs and x-rays. 8. Insulin management per primary care service. 9. Pain management per ordered medication regimen. 10. No Lasix today. 11. Will discontinue left pleural chest tube. 12. Bronchodilators per pulmonology. 13. DC He. 14. More recommendations to follow. Time with Patient: Greater than 30
[2018-03-09] MEDS: DILTIAZEM ORAL 30 MG TAB PO SCH ×2 (11:23→18:05)
[2018-03-09 12:18] LABS: Glucose,Whole Blood 129 mg/dL (75-99)
--- NOTE | 2018-03-09 13:11 | P.PN ---
Subjective Progress Note Date: 03/09/18 Principal diagnosis: CAD post IL, post CABG, respiratory failure, hypertension, hyperlipidemia, BPH. This is a 63-year-old male patient of Dr. Davison with past medical history for hypertension, osteoarthritis, benign prostatic hypertrophy. Patient gives history that for a long period of time since last fall he has had a cough when he lays in bed. He has had about a bronchitis and following that he did have some improvement for about 6 months and now he has a cough when he lays down and has some chest pain in the midsternal area. He does golf 3-4 times a week and does not have any chest heaviness at that time. He states he has had it every day for 2-3 weeks in a row and went to see Dr. Davison yesterday and he was sent into the emergency center for evaluation. Patient describes it as a heavy chest. He states he gets up and take some Pepto-Bismol or something else and then he ends up sleeping in a chair. Troponins are 0.064 , 0.070, 0.060. Triglycerides 122, cholesterol 229, LDL 156, HDL 49. Lipase 72. CBC is within normal limits. Electrolytes are normal. Patient has been admitted to the selective care unit and cardiology consult requested. He has been started on heparin drip and aspirin. Cardiology has added and Lipitor and beta david. Echocardiogram reveals EF of 55-60%, moderate concentric left ventricular hypertrophy, LV mildly dilated at 29-33, mild aortic valve sclerosis , mild tricuspid regurgitation. Patient is scheduled for heart catheterization today. 03/06: Heart catheterization with Dr. Walter yesterday revealed severe triple vessel coronary disease, normal left ventricular size and systolic function. Recommendations for cardiovascular surgery evaluation which was done yesterday. Plan is for urgent coronary artery bypass graft 3 today. Patient denies any new complaints. His is at bedside. 03/07: Patient underwent coronary artery bypass grafting using the left internal mammary artery to the left anterior descending artery, left radial artery from the aorta to the obtuse marginal artery, reverse saphenous vein graft from the aorta to the right coronary artery. Patient remains in the intensive care unit. Patient was successfully extubated early in the morning. This morning, patient is sitting up in a chair and appears to be comfortable. Plan is to remove the one pleural tube and [place]'s today. His blood sugars been running 131 and 152. He is ordered for 1 dose of Lasix IV push 20 mg this morning.. 03/08: Patient remains in the intensive care unit. Pulse ox is 94% on 3 L nasal cannula. He has been afebrile. Patient is some increased shortness of breath and is doing less with incentive spirometry. Mediastinal and right pleural chest tubes have been discontinued. 03/09: Patient remain in the intensive care unit, still on O2, still have a chest tube and, patient developed to have A. fib with RVR started on amiodarone drip his pulse rate is down to 100 and is feeling little bit better. Patient is in the chair eating his first meal this morning and tolerating food very well. Objective - Vital Signs Vital signs: Vital Signs Temp 98.0 F 03/09/18 08:00 Pulse 124 H 03/09/18 08:00 Resp 21 03/09/18 08:00 BP 93/51 03/09/18 08:00 Pulse Ox 96 03/09/18 08:00 Intake & Output 03/08/18 03/09/18 03/09/18 18:59 06:59 18:59 Intake Total 836 493.751 46 Output Total 718 610 75 Balance 118 -116.249 -29 Weight 129.6 kg 133 kg Intake: IV 336 276 46 0.9 Pressure Bag 36 36 6 Lactated Ringers 1,000 ml 300 240 40 @ 20 mls/hr IV .Q24H [facility] Rx#:[id number] Intake, IV Titration 217.751 Amount Amiodarone 450 mg In 217.751 Dextrose 5% in Water 250 ml @ 1 MG/MIN 33.33 mls/ hr IV .Q7H31M [facility] Rx#: [id number] Oral 500 Output: Chest Tube Drainage 200 140 0 Chest Tube Left 140 140 0 Chest Tube Mediastinal 20 Chest Tube Right 40 Drainage 60 30 Left Calf 40 30 Left Wrist 20 Urine 458 440 75 Other: Voiding Method Indwelling Catheter Indwelling Catheter ABP, PAP, CO, CI - Last Documented Arterial Blood Pressure 123/113 Pulmonary Artery Pressure 34/26 Cardiac Output 5.4 Cardiac Index 3.4 - Constitutional General appearance: Present: cooperative, disheveled, no acute distress. Absent : average body habitus, mild distress, morbidly obese, obese, severe distress, thin - EENT Eyes: Present: normal appearance. Absent: abnormal pupil, anicteric sclerae, disc margins sharp, edentulous, EOMI, PERRLA, fundus normal, photophobia, dentition normal, poor dentition, ptosis, scleral icterus ENT: Present: normal oropharynx. Absent: hard of hearing, hearing grossly normal, NA/AT, other, pharyngeal erythema, thrush, tonsillar exudates, tonsillar swelling Ears: bilateral: normal - Neck Neck: Present: normal ROM Carotids: bilateral: upstroke normal Thyroid: bilateral: normal size - Respiratory Respiratory: bilateral: diminished, dullness, rales - Cardiovascular Rhythm: irregularly irregular Heart sounds: normal: S1, S2 Abnormal Heart Sounds: Present: systolic murmur, S3 Gallop - Gastrointestinal General gastrointestinal: Present: decreased bowel sounds, soft. Absent: absent bowel sounds, distended, hepatomegaly, hyperactive bowel sounds, normal bowel sounds, organomegaly, rigid, scaphoid, splenomegaly, tenderness, umbilical hernia, ventral hernia - Integumentary Integumentary: Present: normal. Absent: calor, cellulitis, cyanotic, decreased turgor, flushed, jaundiced, normal turgor, pale, rash, ulcer - Neurologic Neurologic: Present: CNII-XII intact - Musculoskeletal Musculoskeletal: Present: gait normal, generalized weakness. Absent: strength equal bilaterally, right sided weakness, left sided weakness - Psychiatric Psychiatric: Present: A&O x's 3 - Labs CBC & Chem 7: 03/09/18 05:05 03/09/18 05:05 Labs: Abnormal Lab Results - Last 24 Hours (Table) 03/08/18 03/08/18 03/08/18 Range/Units 11:52 16:54 21:09 RBC (4.30-5.90) m/uL Hgb (13.0-17.5) gm/dL Hct (39.0-53.0) % Plt Count (150-450) k/uL Lymphocytes # (1.0-4.8) k/uL BUN (9-20) mg/dL Glucose (74-99) mg/dL POC Glucose (mg/dL) 109 H 107 H 119 H (75-99) mg/dL Total Protein (6.3-8.2) g/dL Albumin (3.5-5.0) g/dL 03/09/18 03/09/18 03/09/18 Range/Units 01:30 05:05 05:05 RBC 3.21 L (4.30-5.90) m/uL Hgb 9.4 L (13.0-17.5) gm/dL Hct 29.9 L (39.0-53.0) % Plt Count 139 L (150-450) k/uL Lymphocytes # 0.9 L (1.0-4.8) k/uL BUN 27 H (9-20) mg/dL Glucose 116 H (74-99) mg/dL POC Glucose (mg/dL) 127 H (75-99) mg/dL Total Protein 5.6 L (6.3-8.2) g/dL Albumin 3.3 L (3.5-5.0) g/dL 03/09/18 Range/Units 06:48 RBC (4.30-5.90) m/uL Hgb (13.0-17.5) gm/dL Hct (39.0-53.0) % Plt Count (150-450) k/uL Lymphocytes # (1.0-4.8) k/uL BUN (9-20) mg/dL Glucose (74-99) mg/dL POC Glucose (mg/dL) 124 H (75-99) mg/dL Total Protein (6.3-8.2) g/dL Albumin (3.5-5.0) g/dL Assessment and Plan Plan: 1. Post CABG: Continue postsurgical protocol, hemodynamically stable. 2. Non-ST elevated myocardial infarction status post CABG. still doing secondary prevention post surgery. 3 A. fib with RVR: Patient was started on IV amiodarone anticoagulation will be discussed and start with cardiology. 4 4. Hypertension. Patient has been on amlodipine 5 mg daily, Lopressor 25 g twice daily 5. Benign prostatic hypertrophy. Monitor for urinary retention. Patient currently has Cutler catheter in place 6. Osteoarthritis, generalized. 7. 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 Continue Vicoprofen as needed CODE STATUS: Full code P
[2018-03-09] MEDS ORDERED: DIGOXIN 250 MCG/ML 2 ML AMP IVP STA (15:34)
[2018-03-09] MEDS: METOPROLOL TARTRATE 25 MG TAB PO SCH (15:54)
[2018-03-09 17:22] LABS: Glucose,Whole Blood 131 mg/dL (75-99)
[2018-03-09] MEDS: LACTATED RINGERS 1,000 ML IV SCH (20:39)
[2018-03-09] MEDS: SENNOSIDES-DOCUSATE SODIUM 1 EACH TAB PO SCH (20:58)
[2018-03-09] MEDS ORDERED: METOPROLOL TARTRATE 12.5 MG TAB PO SCH (21:00)
[2018-03-09 21:11] LABS: Glucose,Whole Blood 125 mg/dL (75-99)
[2018-03-09] MEDS: AMIODARONE 200 MG TAB PO SCH (21:11)
[2018-03-09] MEDS ORDERED: DIGOXIN 250 MCG/ML 2 ML AMP IVP ONE (22:00)
[2018-03-10] MEDS: DILTIAZEM ORAL 30 MG TAB PO SCH ×5 (00:45→23:54)
[2018-03-10] MEDS: HEPARIN SODIUM,PORCINE 5,000 UNIT/ML 1 ML VIAL SQ SCH ×4 (00:45→23:54)
[2018-03-10] MEDS ORDERED: DIGOXIN 250 MCG/ML 2 ML AMP IVP ONE (02:00)
[2018-03-10 02:58] LABS: Glucose,Whole Blood 140 mg/dL (75-99)
[2018-03-10] MEDS: INSULIN ASPART 100 UNIT/ML 1 ML 10 ML VIAL SQ SCH ×5 (02:59→21:17)
[2018-03-10 05:01] LABS: ALT 33 U/L (21-72); AST 33 U/L (17-59); Alkaline Phosphatase 37 U/L (38-126); Anion Gap 5 mmol/L; Blood Urea Nitrogen 24 mg/dL (9-20); Calcium 8.5 mg/dL (8.4-10.2); Carbon Dioxide 24 mmol/L (22-30); Chloride 109 mmol/L (98-107); Glucose 116 mg/dL (74-99); Magnesium 2.1 mg/dL (1.6-2.3); Phosphorus 3.2 mg/dL (2.5-4.5); Potassium 4.7 mmol/L (3.5-5.1); Sodium 138 mmol/L (137-145); Total Bilirubin 0.6 mg/dL (0.2-1.3); Total Protein 5.3 g/dL (6.3-8.2)
[2018-03-10 05:42] LABS: Basophils % (A) 0 %; Eosinophils # (A) 0.3 k/uL (0-0.7); Eosinophils % (A) 4 %; HCT 28.3 % (39.0-53.0); HGB 9.5 gm/dL (13.0-17.5); Lymphocytes # (A) 1.1 k/uL (1.0-4.8); Lymphocytes % (A) 14 %; MCHC 33.5 g/dL (31.0-37.0); MCV 92.6 fL (80.0-100.0); Mean Platelet Volume 7.5; Monocytes # (A) 0.6 k/uL (0-1.0); Monocytes % (A) 8 %; Neutrophils # (A) 5.9 k/uL (1.3-7.7); Neutrophils % (A) 73 %; Platelet Count 169 k/uL (150-450); RBC 3.06 m/uL (4.30-5.90); RDW 14.1 % (11.5-15.5); WBC 8.1 k/uL (3.8-10.6)
[2018-03-10] MEDS: HYDROcodone/APAP 5-325MG 1 EACH TAB PO PRN ×2 (06:15→20:52)
--- NOTE | 2018-03-10 06:48 | XR ---
EXAMINATION TYPE: XR chest 1V portable DATE OF EXAM: 03/10/2018 HISTORY: post cardiac surgery. REFERENCE: Previous study dated 03/01/2018. FINDINGS: The patient's right internal jugular sheath is been removed. There has been a midline laird otomy. There is a right pleural drain in place. There is apparent elevation right hemidiaphragm. There is bibasilar atelectasis. The heart is enlarge d. I suspect small effusions. IMPRESSION: CONTINUING POSTOPERATIVE CHANGE.
[2018-03-10 07:31] LABS: Glucose,Whole Blood 134 mg/dL (75-99)
[2018-03-10] MEDS: AMIODARONE 200 MG TAB PO SCH ×2 (08:04→20:52)
[2018-03-10] MEDS: PANTOPRAZOLE 40 MG TABLET PO SCH (08:04)
[2018-03-10] MEDS: ASPIRIN 325 MG TAB PO SCH ×2 (08:04→08:05)
[2018-03-10] MEDS: ATORVASTATIN 40 MG TAB PO SCH (08:05)
[2018-03-10] MEDS: CLOPIDOGREL 75 MG TAB PO SCH (08:05)
[2018-03-10] MEDS: METOPROLOL TARTRATE 25 MG TAB PO SCH ×2 (08:05→20:52)
[2018-03-10] MEDS ORDERED: FUROSEMIDE 10 MG/ML 2 ML VIAL IV ONE (08:05)
[2018-03-10] MEDS: IPRATROPIUM-ALBUTEROL 3 ML NEB INHALATION SCH ×4 (08:09→19:21)
--- NOTE | 2018-03-10 08:32 | P.PN ---
Subjective Progress Note Date: 03/10/18 Principal diagnosis: Non-ST elevation myocardial infarction, triple-vessel coronary artery disease, preserved left ventricular function, hypertension, obesity, strong family history for coronary artery disease with evidence of diffuse coronary artery disease. Social alcohol use of 2-7 drinks per week. POD #4 urgent multiple arterial triple coronary artery bypass grafting using the left internal mammary artery to the left anterior descending artery, the left radial artery from the aorta to the obtuse marginal artery, reverse saphenous vein graft from the aorta to the right coronary artery. Endoscopic harvesting of the left radial artery. Endoscopic harvesting of the left greater saphenous vein between the groin and knee level. Intraoperative graft flow measurements. Intraoperative transesophageal echocardiogram and epi- aortic scanning. Postoperative atrial fibrillation with rapid ventricular response, an unexpected potential outcome of surgery. Patient is currently sitting up in a recliner in no acute distress. States pain is controlled with current pain medication. Denies shortness of breath. Patient continues to be in atrial fibrillation with rapid ventricular response although heart rate is slightly less than yesterday. He was given IV digoxin loading doses yesterday as well as amiodarone boluses. He continues to be on Cardizem and Lopressor as well as oral amiodarone. Objective - Vital Signs Vital signs: Vital Signs Temp 98.9 F 03/10/18 04:00 Pulse 111 H 03/10/18 08:22 Resp 14 03/10/18 07:00 BP 101/64 03/10/18 07:00 Pulse Ox 95 03/10/18 07:00 Intake & Output 03/09/18 03/10/18 03/10/18 18:59 06:59 18:59 Intake Total 678 300 20 Output Total 368 800 0 Balance 310 -500 20 Weight 133 kg Intake: IV 228 200 20 0.9 Pressure Bag 48 Lactated Ringers 1,000 ml 180 200 20 @ 20 mls/hr IV .Q24H [facility] Rx#:[id number] Intake, IV Titration 450 100 Amount Albumin Human 5% 250 ml @ 250 0 mls/hr IVPB .STK-MED ONE Rx#:[id number] Dextrose 5% in Water 100 100 ml @ 618 mls/hr IV .Q10M ONE with Amiodarone 150 mg Rx#:[id number] Dextrose 5% in Water 100 100 100 ml @ 618 mls/hr IV .Q10M PRN with Amiodarone 150 mg Rx#:[id number] Output: Chest Tube Drainage 0 Chest Tube Left 0 Drainage 30 Left Calf 30 Urine 338 800 0 Other: Voiding Method Indwelling Catheter Bedside Commode Urinal # Voids 1 # Bowel Movements 1 ABP, PAP, CO, CI - Last Documented Arterial Blood Pressure 123/113 Pulmonary Artery Pressure 34/26 Cardiac Output 5.4 Cardiac Index 3.4 - Constitutional General appearance: Present: cooperative, no acute distress, obese - Respiratory Details: Lungs sounds diminished bilaterally. Respirations even, nonlabored. Currently on 2L nasal cannula with oxygen saturation 95%. Able to achieve 1250 mL on his incentive spirometry. Effective cough. - Cardiovascular Details: S1, S2 present. Tachycardic, irregular rate and rhythm, atrial fibrillation with rapid ventricular response on telemetry. Sternum stable. A/V epicardial pacemaker wires present, connected to generator, generator turned off. Palpable peripheral pulses bilaterally. Bilateral lower extremity edema present. No calf pain or tenderness noted. Heart hugger in place with patient demonstrating appropriate use. Antiembolism stockings, SCDs present. - Gastrointestinal Gastrointestinal Comment(s): Abdomen soft, nontender, nondistended. Active bowel sounds present 4 quadrants. Tolerating diet. Positive bowel movement. - Genitourinary Genitourinary Comment(s): Cutler discontinued yesterday. He continues to void clear, yellow urine. - Integumentary Integumentary Comment(s): Skin is warm and dry with evidence of good perfusion. Anterior chest incision well approximated and covered with dry intact dressing. Skin is pink, patient does have feeling and mobility in the left arm. Left lower extremity EVH site well approximated. - Neurologic Neurologic: Present: CNII-XII intact - Musculoskeletal Musculoskeletal: Present: gait normal, strength equal bilaterally - Psychiatric Psychiatric: Present: A&O x's 3, appropriate affect, intact judgment & insight - Allied health notes Allied health notes reviewed: nursing - Labs CBC & Chem 7: 03/10/18 04:34 03/10/18 04:34 Labs: Abnormal Lab Results - Last 24 Hours (Table) 03/09/18 03/09/18 03/09/18 Range/Units 12:16 17:19 21:09 RBC (4.30-5.90) m/uL Hgb (13.0-17.5) gm/dL Hct (39.0-53.0) % Chloride (98-107) mmol/L BUN (9-20) mg/dL Glucose (74-99) mg/dL POC Glucose (mg/dL) 129 H 131 H 125 H (75-99) mg/dL Alkaline Phosphatase (38-126) U/L Total Protein (6.3-8.2) g/dL Albumin (3.5-5.0) g/dL 03/10/18 03/10/18 03/10/18 Range/Units 02:56 04:34 04:34 RBC 3.06 L (4.30-5.90) m/uL Hgb 9.5 L (13.0-17.5) gm/dL Hct 28.3 L (39.0-53.0) % Chloride 109 H (98-107) mmol/L BUN 24 H (9-20) mg/dL Glucose 116 H (74-99) mg/dL POC Glucose (mg/dL) 140 H (75-99) mg/dL Alkaline Phosphatase 37 L (38-126) U/L Total Protein 5.3 L (6.3-8.2) g/dL Albumin 3.0 L (3.5-5.0) g/dL 03/10/18 Range/Units 07:28 RBC (4.30-5.90) m/uL Hgb (13.0-17.5) gm/dL Hct (39.0-53.0) % Chloride (98-107) mmol/L BUN (9-20) mg/dL Glucose (74-99) mg/dL POC Glucose (mg/dL) 134 H (75-99) mg/dL Alkaline Phosphatase (38-126) U/L Total Protein (6.3-8.2) g/dL Albumin (3.5-5.0) g/dL - Imaging and Cardiology Chest x-ray: report reviewed, image reviewed Assessment and Plan (1) Non-STEMI (non-ST elevated myocardial infarction) Current Visit: Yes Status: Acute Code(s): I21.4 - NON-ST ELEVATION (NSTEMI) MYOCARDIAL INFARCTION SNOMED Code(s): 208310162 (2) Hypertension Current Visit: Yes Status: Chronic Code(s): I10 - ESSENTIAL (PRIMARY) HYPERTENSION SNOMED Code(s): 59457160 (3) Family history of coronary artery disease Current Visit: Yes Status: Chronic Code(s): Z82.49 - FAMILY HX OF ISCHEM HEART DIS AND OTH DIS OF THE CIRC SYS SNOMED Code(s): 132116141 Plan: 1. Continue low-dose aspirin, statin, Plavix, heparin subcu, beta david. Lopressor increased to 25 mg twice daily. Will increase beta david therapy as tolerated. 2. Continue amiodarone for A. fib prophylaxis. Will start oral Eliquis today for anticoagulation. 3. Continue Cardizem for radial artery spasm prophylaxis as well as rate control. 4. Wean O2 as tolerated. Encourage incentive spirometry use 10 times every hour while awake. 5. Increase activity ambulate as tolerated. PT/OT/cardiac rehab following. 6. GI/DVT prophylaxis. 7. Will monitor daily labs and x-rays. 8. Insulin management per primary care service. 9. Pain management per ordered medication regimen. 10. Will give 20 mg IV Lasix today. 11. Will discontinue left pleural chest tube. 12. Bronchodilators per pulmonology. 13. Will discontinue epicardial pacemaker wires today. 14. More recommendations to follow. Time with Patient: Greater than 30
--- NOTE | 2018-03-10 09:04 | P.PN ---
Subjective Progress Note Date: 03/10/18 Principal diagnosis: Status post three-vessel bypass grafting, postoperative day #2 Progress note dated 03/09/2018 This is a 63-year-old male who is postop day #2, status post three-vessel bypass grafting. The patient had developed atrial fibrillation overnight was placed on amiodarone at 0.5 mg/m. He is getting an IV of lactated Ringer's at 20 mL an hour is receiving supplemental oxygen 3 L by nasal cannula. His incentive spirometry effort is not very good only 750 mL. This patient was discovered on evaluation to have severe triple-vessel disease, normal LV function, acute kidney injury, related to ATN, non-ST segment elevation myocardial infarction, hypertension, tinnitus, deafness, and had no history of intrinsic pulmonary disease as he was a lifelong nonsmoker. Progress note dated 03/10/2018 This is a 63-year-old male who is postop day #3, status post three-vessel bypass grafting. He did develop some atrial fibrillation postoperatively and was placed initially on IV Cordarone at 0.5 mg/m. There has not been switched to oral Cordarone. The patient is getting lactated Ringer's at KVO and still on oxygen at 2 L by nasal cannula. He is getting about 1250 mL on his incentive spirometer. He has surgical site discomfort. In addition to have severe triple-vessel disease which necessitated the bypass grafting, the patient was found to have acute kidney injury secondary to ATN, non-ST segment elevation myocardial infarction, hypertension, tinnitus, deafness, but did not have any intrinsic pulmonary disease. He is a lifelong nonsmoker. Objective - Vital Signs Vital signs: Vital Signs Temp 98.9 F 03/10/18 04:00 Pulse 111 H 03/10/18 08:22 Resp 29 H 03/10/18 08:00 BP 106/56 03/10/18 08:00 Pulse Ox 95 03/10/18 08:00 Intake & Output 03/09/18 03/10/18 03/10/18 18:59 06:59 18:59 Intake Total 678 300 40 Output Total 368 800 0 Balance 310 -500 40 Weight 133 kg Intake: IV 228 200 40 0.9 Pressure Bag 48 Lactated Ringers 1,000 ml 180 200 40 @ 20 mls/hr IV .Q24H [facility] Rx#:[id number] Intake, IV Titration 450 100 Amount Albumin Human 5% 250 ml @ 250 0 mls/hr IVPB .STK-MED ONE Rx#:[id number] Dextrose 5% in Water 100 100 ml @ 618 mls/hr IV .Q10M ONE with Amiodarone 150 mg Rx#:[id number] Dextrose 5% in Water 100 100 100 ml @ 618 mls/hr IV .Q10M PRN with Amiodarone 150 mg Rx#:[id number] Output: Chest Tube Drainage 0 Chest Tube Left 0 Drainage 30 Left Calf 30 Urine 338 800 0 Other: Voiding Method Indwelling Catheter Bedside Commode Urinal # Voids 1 # Bowel Movements 1 ABP, PAP, CO, CI - Last Documented Arterial Blood Pressure 123/113 Pulmonary Artery Pressure 34/26 Cardiac Output 5.4 Cardiac Index 3.4 - Exam No acute distress, oriented 3. Nasal O2 in place at 2L. HEENT examination is grossly unremarkable. Mucous membranes are moist. No oral lesions. Neck supple. Full range of motion. No adenopathy thyromegaly or neck vein distention. Cardiovascular examination reveals an irregular rhythm and rate. The patient's in atrial fibrillation. S1 and S2 are normal. No distinct murmurs noted.. Lungs reveal few scattered rhonchi. No wheezes or crackles. Breath sounds equal bilaterally. Abdomen soft bowel sounds are heard. No masses or tenderness. Extremities are intact. No cyanosis clubbing or edema. Skin is without rash or lesion. Neurologic examination is brief but nonfocal. - Labs CBC & Chem 7: 03/10/18 04:34 03/10/18 04:34 Labs: Abnormal Lab Results - Last 24 Hours (Table) 03/09/18 03/09/18 03/09/18 Range/Units 12:16 17:19 21:09 RBC (4.30-5.90) m/uL Hgb (13.0-17.5) gm/dL Hct (39.0-53.0) % Chloride (98-107) mmol/L BUN (9-20) mg/dL Glucose (74-99) mg/dL POC Glucose (mg/dL) 129 H 131 H 125 H (75-99) mg/dL Alkaline Phosphatase (38-126) U/L Total Protein (6.3-8.2) g/dL Albumin (3.5-5.0) g/dL 03/10/18 03/10/18 03/10/18 Range/Units 02:56 04:34 04:34 RBC 3.06 L (4.30-5.90) m/uL Hgb 9.5 L (13.0-17.5) gm/dL Hct 28.3 L (39.0-53.0) % Chloride 109 H (98-107) mmol/L BUN 24 H (9-20) mg/dL Glucose 116 H (74-99) mg/dL POC Glucose (mg/dL) 140 H (75-99) mg/dL Alkaline Phosphatase 37 L (38-126) U/L Total Protein 5.3 L (6.3-8.2) g/dL Albumin 3.0 L (3.5-5.0) g/dL 03/10/18 Range/Units 07:28 RBC (4.30-5.90) m/uL Hgb (13.0-17.5) gm/dL Hct (39.0-53.0) % Chloride (98-107) mmol/L BUN (9-20) mg/dL Glucose (74-99) mg/dL POC Glucose (mg/dL) 134 H (75-99) mg/dL Alkaline Phosphatase (38-126) U/L Total Protein (6.3-8.2) g/dL Albumin (3.5-5.0) g/dL Assessment and Plan Assessment: Assessment Severe triple-vessel coronary artery disease with normal LV function, status postop day #3, three-vessel bypass grafting. Postoperative ventilator management, with extubation within 6 hours. Development of atrial fibrillation with RVR, currently on amiodarone Non-ST segment elevation myocardial infarction History of hypertension History of tinnitus History of deafness Multiple previous orthopedic procedures Lifelong nonsmoker No history of intrinsic pulmonary disease Plan: Plan dated 03/06/2018 I explained to the patient that I will be seeing him after surgery. Our goal will be to get him extubated as soon as possible. The patient appears not to have any intrinsic lung disease. He is a lifelong nonsmoker. Denies any history of emphysema asthma chronic bronchitis, etc. He should do well. We'll continue to follow. Plan dated 03/07/2018. The patient is doing recently well. The patient's on nasal O2. Hemodynamically stable. We want the patient to focus on deep breathing coughing and clearing of secretions. We also want the patient to really focus on using the incentive spirometer. Chest x-ray shows typical postoperative changes. We'll continue to watch the patient closely to make sure he doesn't develop any complications from the lung standpoint such as atelectasis lung collapse pneumonia pleural effusion, etc. Prognosis is guarded. Critical care time 33 minutes Plan dated 03/09/2018 This patient is postop day #2, status post four-vessel bypass grafting. He is not really doing very well as evidenced on his incentive spirometer. Only getting about 750 mL. The patient developed atrial fibrillation with RVR. For that reason, he was placed on amiodarone drip 0.5 mg/m. The patient denies any significant chest pain or chest discomfort. Denies any difficulty breathing. Not coughing up any phlegm or blood. No fever or chills. No nausea vomiting or diarrhea. Chest x-ray shows no interval change. White count 8.5, hemoglobin 9.4, hematocrit 29.9, platelet count 1 39,000. Electrolytes look very good with a sodium 137 potassium 4.2 chloride 106 CO2 23 anion gap a BUN 27 and creatinine of 0.9. Critical care time 34 minutes Plan dated 03/10/2018. The patient is postop day #3, and seems to be progressing nicely. He is status post three-vessel bypass grafting. He is currently on O2 at 2 L by nasal cannula lactated Ringer's IV at KVO. His atrial fibrillation is still present and he was switched from IV amiodarone to oral amiodarone. Some bibasilar atelectasis with minimal elevation of the right hemidiaphragm. The patient is encouraged to take deeper breaths and clear secretions. White count 8.1 hemoglobin 9.5 hematocrit 28.3 and platelet count is normal. Sodium potassium normal. Chloride was 109 with a CO2 of 24 anion gap of 5 BUN 24 and creatinine 0.8. Medications are reviewed. He has not yet been seen by cardiothoracic surgery. Critical care time 31 minutes Time with Patient: Greater than 30
--- NOTE | 2018-03-10 10:24 | PN ---
PROGRESS NOTE Mr. Virgen is a 63-year-old male status post coronary artery bypass grafting. He is doing well this morning. His breathing has been stable. He denies any symptoms of chest pain. He continued to be in atrial fibrillation but with a controlled ventricular response. He is ambulating without difficulty. He continues to be at this time on amiodarone 400 mg twice a day, aspirin 81 mg daily, Plavix 75 mg daily, diltiazem 30 mg q.6 hours, metoprolol tartrate 25 mg twice a day. PHYSICAL EXAMINATION: Blood pressure 114/59 with a heart rate in the 90s and low 100s. Lungs a few crackles at the bases. Heart irregularly irregular S1, S2. No S3. ABDOMEN: Soft, nontender. Extremities: Trace edema. LAB DATA: Lab data revealed a BUN and creatinine 24 and 0.8. Potassium 4.7. IMPRESSION: 1. Status post coronary artery bypass grafting. 2. Atrial fibrillation. 3. Hypertension. 4. Hyperlipidemia. RECOMMENDATIONS: The patient will start anticoagulation. His activity level will be increased. I would recommend to stop the Plavix and continue on the aspirin and the anticoagulation because the increase risk of bleeding. MMODL / IJN: [id number] /
[2018-03-10 12:09] LABS: Glucose,Whole Blood 124 mg/dL (75-99)
[2018-03-10 17:26] LABS: Glucose,Whole Blood 116 mg/dL (75-99)
[2018-03-10] MEDS: LACTATED RINGERS 1,000 ML IV SCH (17:49)
[2018-03-10] MEDS: SENNOSIDES-DOCUSATE SODIUM 1 EACH TAB PO SCH (19:44)
[2018-03-10] MEDS: APIXABAN 5 MG TAB PO SCH (20:52)
[2018-03-10 21:05] LABS: Glucose,Whole Blood 139 mg/dL (75-99)
[2018-03-11 01:42] LABS: Glucose,Whole Blood 118 mg/dL (75-99)
[2018-03-11] MEDS: INSULIN ASPART 100 UNIT/ML 1 ML 10 ML VIAL SQ SCH ×5 (02:28→20:24)
[2018-03-11 04:11] LABS: Basophils % (A) 0 %; Eosinophils # (A) 0.3 k/uL (0-0.7); Eosinophils % (A) 4 %; HCT 26.5 % (39.0-53.0); HGB 8.2 gm/dL (13.0-17.5); Lymphocytes # (A) 1.3 k/uL (1.0-4.8); Lymphocytes % (A) 21 %; MCH 28.8 pg (25.0-35.0); MCHC 30.9 g/dL (31.0-37.0); MCV 93.1 fL (80.0-100.0); Mean Platelet Volume 7.2; Monocytes # (A) 0.4 k/uL (0-1.0); Monocytes % (A) 7 %; Neutrophils % (A) 64 %; Platelet Count 208 k/uL (150-450); RBC 2.85 m/uL (4.30-5.90); WBC 6.3 k/uL (3.8-10.6)
[2018-03-11 04:18] LABS: ALT 43 U/L (21-72); AST 36 U/L (17-59); Albumin 2.7 g/dL (3.5-5.0); Alkaline Phosphatase 43 U/L (38-126); Anion Gap 6 mmol/L; Blood Urea Nitrogen 25 mg/dL (9-20); Calcium 8.3 mg/dL (8.4-10.2); Carbon Dioxide 25 mmol/L (22-30); Chloride 109 mmol/L (98-107); Glucose 108 mg/dL (74-99); Magnesium 2.1 mg/dL (1.6-2.3); Phosphorus 4.5 mg/dL (2.5-4.5); Potassium 4.2 mmol/L (3.5-5.1); Sodium 140 mmol/L (137-145); Total Bilirubin 0.5 mg/dL (0.2-1.3); Total Protein 4.9 g/dL (6.3-8.2)
[2018-03-11] MEDS: DILTIAZEM ORAL 30 MG TAB PO SCH ×3 (05:44→18:39)
[2018-03-11 06:39] LABS: Glucose,Whole Blood 126 mg/dL (75-99)
[2018-03-11] MEDS: IPRATROPIUM-ALBUTEROL 3 ML NEB INHALATION SCH ×4 (06:55→19:28)
[2018-03-11] MEDS ORDERED: FUROSEMIDE 10 MG/ML 2 ML VIAL IV ONE (08:21)
--- NOTE | 2018-03-11 08:22 | XR ---
EXAMINATION TYPE: XR chest 1V portable DATE OF EXAM: 03/11/2018 COMPARISON: 03/10/2018 HISTORY: Post cardiac surgery. Follow-up exam. TECHNIQUE: Single frontal view of the chest is obtained. FINDINGS: Scattered subsegmental atelectatic changes are noted bilaterally. Post CABG changes of the chest are seen with cardiomegaly. Right hemidiaphragm elevation is unchanged in the prior. Blunting of the left costophrenic angle and partial obscuration of the left hemidiaphragm may relate to a trac e left pleural effusion. No apparent pneumothorax. IMPRESSION: New partial obscuration of the medial retrocardiac airspace and costophrenic angle may r elate to atelectasis and trace pleural effusion. Other areas of scattered subsegmental atelectasis ar e similar to the prior with persistent right hemidiaphragm elevation.
[2018-03-11] MEDS: APIXABAN 5 MG TAB PO SCH ×2 (09:00→20:20)
[2018-03-11] MEDS: METOPROLOL TARTRATE 25 MG TAB PO SCH ×3 (09:00→22:14)
[2018-03-11] MEDS: AMIODARONE 200 MG TAB PO SCH ×2 (09:00→20:20)
[2018-03-11] MEDS: PANTOPRAZOLE 40 MG TABLET PO SCH (09:01)
[2018-03-11] MEDS: ASPIRIN 81 MG PO SCH (09:01)
[2018-03-11] MEDS: ATORVASTATIN 40 MG TAB PO SCH (09:01)
[2018-03-11] MEDS: HYDROcodone/APAP 5-325MG 1 EACH TAB PO PRN ×2 (09:11→22:14)
--- NOTE | 2018-03-11 09:12 | P.PN ---
Subjective Progress Note Date: 03/11/18 Principal diagnosis: Non-ST elevation myocardial infarction, triple-vessel coronary artery disease, preserved left ventricular function, hypertension, obesity, strong family history for coronary artery disease with evidence of diffuse coronary artery disease. Social alcohol use of 2-7 drinks per week. POD #5 urgent multiple arterial triple coronary artery bypass grafting using the left internal mammary artery to the left anterior descending artery, the left radial artery from the aorta to the obtuse marginal artery, reverse saphenous vein graft from the aorta to the right coronary artery. Endoscopic harvesting of the left radial artery. Endoscopic harvesting of the left greater saphenous vein between the groin and knee level. Intraoperative graft flow measurements. Intraoperative transesophageal echocardiogram and epi- aortic scanning. Postoperative atrial fibrillation with rapid ventricular response, an unexpected but potential outcome of surgery. Patient is currently sitting up in a recliner in no acute distress. States pain is controlled with current pain medication. Denies shortness of breath. Patient continues to be in atrial fibrillation with rapid ventricular response although heart rate is slightly less than yesterday. He has been given IV digoxin loading doses, amiodarone boluses, and continues to be on Cardizem and Lopressor as well as oral amiodarone. He was started on anticoagulation last night. Objective - Vital Signs Vital signs: Vital Signs Temp 98.6 F 03/11/18 08:00 Pulse 120 H 03/11/18 08:00 Resp 15 03/11/18 08:00 BP 113/60 03/11/18 08:00 Pulse Ox 93 L 03/11/18 08:00 Intake & Output 03/10/18 03/11/18 03/11/18 18:59 06:59 18:59 Intake Total 660 10 200 Output Total 965 300 0 Balance -305 -290 200 Weight 134 kg 135.3 kg Intake: IV 60 10 Flush 0.9 10 Lactated Ringers 1,000 ml 60 @ 20 mls/hr IV .Q24H [facility] Rx#:[id number] Oral 600 Tube Feeding 200 Output: Urine 965 300 0 Other: Voiding Method Bedside Commode Bedside Commode Urinal Urinal ABP, PAP, CO, CI - Last Documented Arterial Blood Pressure 123/113 Pulmonary Artery Pressure 34/26 Cardiac Output 5.4 Cardiac Index 3.4 - Constitutional General appearance: Present: cooperative, no acute distress, obese - Respiratory Details: Lungs sounds diminished bilaterally. Respirations even, nonlabored. Currently on 2L nasal cannula with oxygen saturation 93%. Able to achieve 1750 mL on his incentive spirometry. Effective cough. - Cardiovascular Details: S1, S2 present. Tachycardic, irregular rate and rhythm, atrial fibrillation with rapid ventricular response on telemetry. Sternum stable. Palpable peripheral pulses bilaterally. Trace bilateral lower extremity edema present. No calf pain or tenderness noted. Heart hugger in place with patient demonstrating appropriate use. Antiembolism stockings, SCDs present. - Gastrointestinal Gastrointestinal Comment(s): Abdomen soft, nontender, nondistended. Active bowel sounds present 4 quadrants. Tolerating diet. Positive bowel movement. - Genitourinary Genitourinary Comment(s): Patient continues to void clear, yellow urine. - Integumentary Integumentary Comment(s): Skin is warm and dry with evidence of good perfusion. Anterior chest incision well approximated and covered with dry intact dressing. Skin is pink, patient does have feeling and mobility in the left arm. Left lower extremity EVH site well approximated. - Neurologic Neurologic: Present: CNII-XII intact - Musculoskeletal Musculoskeletal: Present: gait normal, strength equal bilaterally - Psychiatric Psychiatric: Present: A&O x's 3, appropriate affect, intact judgment & insight - Allied health notes Allied health notes reviewed: nursing - Labs CBC & Chem 7: 03/11/18 03:43 03/11/18 03:43 Labs: Abnormal Lab Results - Last 24 Hours (Table) 03/10/18 03/10/18 03/10/18 Range/Units 12:07 17:24 21:04 RBC (4.30-5.90) m/uL Hgb (13.0-17.5) gm/dL Hct (39.0-53.0) % MCHC (31.0-37.0) g/dL Chloride (98-107) mmol/L BUN (9-20) mg/dL Glucose (74-99) mg/dL POC Glucose (mg/dL) 124 H 116 H 139 H (75-99) mg/dL Calcium (8.4-10.2) mg/dL Total Protein (6.3-8.2) g/dL Albumin (3.5-5.0) g/dL 03/11/18 03/11/18 03/11/18 Range/Units 01:41 03:43 03:43 RBC 2.85 L (4.30-5.90) m/uL Hgb 8.2 L (13.0-17.5) gm/dL Hct 26.5 L (39.0-53.0) % MCHC 30.9 L (31.0-37.0) g/dL Chloride 109 H (98-107) mmol/L BUN 25 H (9-20) mg/dL Glucose 108 H (74-99) mg/dL POC Glucose (mg/dL) 118 H (75-99) mg/dL Calcium 8.3 L (8.4-10.2) mg/dL Total Protein 4.9 L (6.3-8.2) g/dL Albumin 2.7 L (3.5-5.0) g/dL 03/11/18 Range/Units 06:38 RBC (4.30-5.90) m/uL Hgb (13.0-17.5) gm/dL Hct (39.0-53.0) % MCHC (31.0-37.0) g/dL Chloride (98-107) mmol/L BUN (9-20) mg/dL Glucose (74-99) mg/dL POC Glucose (mg/dL) 126 H (75-99) mg/dL Calcium (8.4-10.2) mg/dL Total Protein (6.3-8.2) g/dL Albumin (3.5-5.0) g/dL - Imaging and Cardiology Chest x-ray: report reviewed, image reviewed Assessment and Plan (1) Non-STEMI (non-ST elevated myocardial infarction) Current Visit: Yes Status: Acute Code(s): I21.4 - NON-ST ELEVATION (NSTEMI) MYOCARDIAL INFARCTION SNOMED Code(s): 486940119 (2) Hypertension Current Visit: Yes Status: Chronic Code(s): I10 - ESSENTIAL (PRIMARY) HYPERTENSION SNOMED Code(s): 04117381 (3) Family history of coronary artery disease Current Visit: Yes Status: Chronic Code(s): Z82.49 - FAMILY HX OF ISCHEM HEART DIS AND OTH DIS OF THE CIRC SYS SNOMED Code(s): 051717763 Plan: 1. Continue low-dose aspirin, statin, heparin subcu, beta david. Will increase beta david therapy as tolerated. 2. Continue amiodarone for A. fib prophylaxis. Continue Eliquis for anticoagulation. 3. Continue Cardizem for radial artery spasm prophylaxis as well as rate control. 4. Wean O2 as tolerated. Encourage incentive spirometry use 10 times every hour while awake. 5. Increase activity ambulate as tolerated. PT/OT/cardiac rehab following. 6. GI/DVT prophylaxis. 7. Will monitor daily labs and x-rays. 8. Insulin management per primary care service. 9. Pain management per ordered medication regimen. 10. Will give 20 mg IV Lasix today. 11. Bronchodilators per pulmonology. 12. More recommendations to follow. Time with Patient: Greater than 30
--- NOTE | 2018-03-11 09:12 | P.PN ---
Subjective Progress Note Date: 03/11/18 Principal diagnosis: Severe multivessel coronary artery disease with normal LV function, status post three-vessel coronary artery bypass grafting, postop day 2 Progress note dated 03/07/2018 63-year-old male status post postop day #1 status post triple vessel bypass grafting. The patient did have postoperative respiratory failure. He was extubated within the 6 hour timeframe. Patient is doing relatively well. Sitting up in the chair. Working on deep breathing coughing clearing of secretions and also using the incentive spirometer. Remains on nasal O2. Hemodynamically stable. The patient does have a history of non-ST segment elevation myocardial infarction hypertension tinnitus deafness multiple reviews orthopedic procedures and was not thought to have any intrinsic pulmonary disease. The patient is otherwise doing reasonably well. We stressed the importance of deep breathing coughing and clearing his secretions. We'll also stressed the importance of using the incentive spirometer. Chest x-ray is difficult to interpret. Typical postoperative changes no noted. On 03/08/2018 patient is seen in follow-up in the intensive care unit. He states he is more short of breath today. Patient did receive a dose of IV Lasix per CT surgery yesterday, his chest x-ray was reviewed by Dr. Robbins, and shows elevated right hemidiaphragm, right midlung streak atelectasis, small pleural effusions. Currently on 3 L per nasal cannula, his pulse ox is 94%, ration is tachycardic, but in sinus mechanism, his current heart rate is 118 BPM , he is afebrile. Maintenance IV fluid is LR at a rate of 40 ML per hour. No other drips. Incentive spirometry effort is significantly less today compared to yesterday, he is only able to achieve 750 today compared 1500 yesterday. He is complaining of mid back pain which is exacerbated by deep breathing. Patient needs increased pulmonary toileting, deep breathing and coughing. His labs were reviewed, the PVCs 8.7, hemoglobin is 9.3. Sodium is 136, patient has developed acute kidney injury, his BUN is 25, creatinine is 1.3, urine output is in the order from 30-70 ML per hour. Patient has left and right and mediastinal chest tubes, with small amount of serosanguineous drainage. Patient has ambulated around the unit, and tolerated activity fairly well. Progress note dated 03/09/2018 This is a 63-year-old male who is postop day #2, status post three-vessel bypass grafting. The patient had developed atrial fibrillation overnight was placed on amiodarone at 0.5 mg/m. He is getting an IV of lactated Ringer's at 20 mL an hour is receiving supplemental oxygen 3 L by nasal cannula. His incentive spirometry effort is not very good only 750 mL. This patient was discovered on evaluation to have severe triple-vessel disease, normal LV function, acute kidney injury, related to ATN, non-ST segment elevation myocardial infarction, hypertension, tinnitus, deafness, and had no history of intrinsic pulmonary disease as he was a lifelong nonsmoker. Progress note dated 03/10/2018 This is a 63-year-old male who is postop day #3, status post three-vessel bypass grafting. He did develop some atrial fibrillation postoperatively and was placed initially on IV Cordarone at 0.5 mg/m. There has not been switched to oral Cordarone. The patient is getting lactated Ringer's at KVO and still on oxygen at 2 L by nasal cannula. He is getting about 1250 mL on his incentive spirometer. He has surgical site discomfort. In addition to have severe triple-vessel disease which necessitated the bypass grafting, the patient was found to have acute kidney injury secondary to ATN, non-ST segment elevation myocardial infarction, hypertension, tinnitus, deafness, but did not have any intrinsic pulmonary disease. He is a lifelong nonsmoker. On 03/11/2018 patient seen again in follow-up in intensive care unit. He is sitting up in the chair, denies any acute distress, his dyspnea. His pain is under good control, he remains in atrial fibrillation with a rate of 121 BPM. Currently on oral amiodarone 400 mg twice a day, Lopressor at 25 mg twice a day , she did receive a dose of IV Lanoxin, and she is on diltiazem 30 mg every 6 hours. Continues on oral anticoagulation with Eliquis 5 mg by mouth twice a day. Patient has been ambulating, tolerating activity well. 2 L per nasal cannula his pulse ox is 93%. Afebrile, hemodynamically stable. Lung sounds are diminished at the bases, his chest x-ray has been reviewed by Dr. Martinez, and shows partial obscuration of the medial retrocardiac airspace and costophrenic angle that may relate to atelectasis and trace pleural effusion. Patient will receive a dose of IV Lasix today per CT surgery. Objective - Vital Signs Vital signs: Vital Signs Temp 98.6 F 03/11/18 08:00 Pulse 120 H 03/11/18 08:00 Resp 15 03/11/18 08:00 BP 113/60 03/11/18 08:00 Pulse Ox 93 L 03/11/18 08:00 Intake & Output 03/10/18 03/11/18 03/11/18 18:59 06:59 18:59 Intake Total 660 10 200 Output Total 965 300 0 Balance -305 -290 200 Weight 134 kg 135.3 kg Intake: IV 60 10 Flush 0.9 10 Lactated Ringers 1,000 ml 60 @ 20 mls/hr IV .Q24H [facility] Rx#:[id number] Oral 600 Tube Feeding 200 Output: Urine 965 300 0 Other: Voiding Method Bedside Commode Bedside Commode Urinal Urinal ABP, PAP, CO, CI - Last Documented Arterial Blood Pressure 123/113 Pulmonary Artery Pressure 34/26 Cardiac Output 5.4 Cardiac Index 3.4 - Exam No acute distress, oriented 3. HEENT examination is grossly unremarkable. Mucous membranes are moist. No oral lesions. Neck supple. Full range of motion. No adenopathy thyromegaly or neck vein distention. Cardiovascular examination reveals regular rhythm rate. S1-S2 normal. No S3 or S4. No discernible murmur noted. Lungs reveal clear breath sounds. His breath ounds are equal bilaterally. Diminished breath sounds at the bases, dullness to percussion over bilateral bases. Abdomen soft bowel sounds are heard. No masses or tenderness. Extremities are intact. No cyanosis clubbing or edema. Skin is without rash or lesion. Midsternal incision is clean dry and intact, mediastinal, and bilateral pleural chest tube insertion sites are intact, left leg incisions covered with dressings, patient has bilateral lower leg SWATI hose on Neurologic examination is brief but nonfocal. - Labs CBC & Chem 7: 03/11/18 03:43 03/11/18 03:43 Labs: Abnormal Lab Results - Last 24 Hours (Table) 03/10/18 03/10/18 03/10/18 Range/Units 12:07 17:24 21:04 RBC (4.30-5.90) m/uL Hgb (13.0-17.5) gm/dL Hct (39.0-53.0) % MCHC (31.0-37.0) g/dL Chloride (98-107) mmol/L BUN (9-20) mg/dL Glucose (74-99) mg/dL POC Glucose (mg/dL) 124 H 116 H 139 H (75-99) mg/dL Calcium (8.4-10.2) mg/dL Total Protein (6.3-8.2) g/dL Albumin (3.5-5.0) g/dL 03/11/18 03/11/18 03/11/18 Range/Units 01:41 03:43 03:43 RBC 2.85 L (4.30-5.90) m/uL Hgb 8.2 L (13.0-17.5) gm/dL Hct 26.5 L (39.0-53.0) % MCHC 30.9 L (31.0-37.0) g/dL Chloride 109 H (98-107) mmol/L BUN 25 H (9-20) mg/dL Glucose 108 H (74-99) mg/dL POC Glucose (mg/dL) 118 H (75-99) mg/dL Calcium 8.3 L (8.4-10.2) mg/dL Total Protein 4.9 L (6.3-8.2) g/dL Albumin 2.7 L (3.5-5.0) g/dL 03/11/18 Range/Units 06:38 RBC (4.30-5.90) m/uL Hgb (13.0-17.5) gm/dL Hct (39.0-53.0) % MCHC (31.0-37.0) g/dL Chloride (98-107) mmol/L BUN (9-20) mg/dL Glucose (74-99) mg/dL POC Glucose (mg/dL) 126 H (75-99) mg/dL Calcium (8.4-10.2) mg/dL Total Protein (6.3-8.2) g/dL Albumin (3.5-5.0) g/dL Assessment and Plan Plan: Assessment: Severe triple-vessel coronary artery disease with normal LV function, status postop day #4, three-vessel bypass grafting. Postoperative respiratory failure, resolved with extubation within the 6 hour time limit Acute kidney injury, possibly related to ATN Non-ST segment elevation myocardial infarction History of hypertension History of tinnitus History of deafness Multiple previous orthopedic procedures Lifelong nonsmoker No history of intrinsic pulmonary disease Plan: Continue encouraging pulmonary toileting, incentive spirometer use. Patient will receive another dose of IV Lasix per CT surgery, today's chest x-ray shows a small pleural effusions, and atelectasis. CT surgery suggesting medications to control patient's heart rate. Otherwise. No acute events overnight, no acute complaints. Patient is stable to be transferred to [facility] care today. I performed a history & physical examination of the patient and discussed their management with my nurse practitioner, Geena Hoyt. I reviewed the nurse practitioner's note and agree with the documented findings and plan of care. Lung sounds are diminished at the bases, with dullness to percussion. The findings and the impression was discussed with the patient. I attest to the documentation by the nurse practitioner. Time with Patient: Less than 30
--- NOTE | 2018-03-11 09:58 | PN ---
PROGRESS NOTE Mr. Virgen is a 63-year-old male who has underwent a coronary artery bypass grafting. He is doing well this morning. He is denying any chest pain. His breathing has been stable. He denies any dizziness or palpitation. He denies any nausea. He continues to be in atrial fibrillation with rapid ventricular response at times. He continued to be on amiodarone 400 mg twice a day, Eliquis 5 mg twice a day, aspirin 81 mg daily, Lipitor 40 mg daily, diltiazem 30 mg q.6 hours, and metoprolol tartrate 25 mg twice a day. PHYSICAL EXAMINATION: Blood pressure 113/60 with the heart rate in the one teens. LUNGS: A few crackles at the bases. HEART: Irregular, irregular. S1, S2. No S3. No rub. ABDOMEN: Soft, nontender. EXTREMITIES: +2 edema. LAB DATA: Lab data revealed BUN and creatinine 25 and 0.8, potassium 4.2, hemoglobin of 8.2. IMPRESSION: 1. Status post coronary artery bypass grafting. 2. Atrial fibrillation with episode of rapid ventricular response. 3. Hypertension. 4. Hyperlipidemia. RECOMMENDATION: I will increase the dose of his beta david. Continue the anticoagulation as present. Follow his heart rate. Depending on his progress, further recommendation will be made. MMODL / IJN: [id number] /
[2018-03-11 12:19] LABS: Glucose,Whole Blood 131 mg/dL (75-99)
[2018-03-11] MEDS: FERROUS SULFATE 325 MG TAB PO SCH (13:19)
--- NOTE | 2018-03-11 15:59 | P.PN ---
Subjective Progress Note Date: 03/11/18 This is a 63-year-old male patient of Dr. Davison with past medical history for hypertension, osteoarthritis, benign prostatic hypertrophy. Patient gives history that for a long period of time since last fall he has had a cough when he lays in bed. He has had about a bronchitis and following that he did have some improvement for about 6 months and now he has a cough when he lays down and has some chest pain in the midsternal area. He does golf 3-4 times a week and does not have any chest heaviness at that time. He states he has had it every day for 2-3 weeks in a row and went to see Dr. Davison yesterday and he was sent into the emergency center for evaluation. Patient describes it as a heavy chest. He states he gets up and take some Pepto-Bismol or something else and then he ends up sleeping in a chair. Troponins are 0.064 , 0.070, 0.060. Triglycerides 122, cholesterol 229, LDL 156, HDL 49. Lipase 72. CBC is within normal limits. Electrolytes are normal. Patient has been admitted to the selective care unit and cardiology consult requested. He has been started on heparin drip and aspirin. Cardiology has added and Lipitor and beta david. Echocardiogram reveals EF of 55-60%, moderate concentric left ventricular hypertrophy, LV mildly dilated at 29-33, mild aortic valve sclerosis , mild tricuspid regurgitation. Patient is scheduled for heart catheterization today. 03/06: Heart catheterization with Dr. Walter yesterday revealed severe triple vessel coronary disease, normal left ventricular size and systolic function. Recommendations for cardiovascular surgery evaluation which was done yesterday. Plan is for urgent coronary artery bypass graft 3 today. Patient denies any new complaints. His is at bedside. 03/07: Patient underwent coronary artery bypass grafting using the left internal mammary artery to the left anterior descending artery, left radial artery from the aorta to the obtuse marginal artery, reverse saphenous vein graft from the aorta to the right coronary artery. Patient remains in the intensive care unit. Patient was successfully extubated early in the morning. This morning, patient is sitting up in a chair and appears to be comfortable. Plan is to remove the one pleural tube and [place]'s today. His blood sugars been running 131 and 152. He is ordered for 1 dose of Lasix IV push 20 mg this morning.. 03/08: Patient remains in the intensive care unit. Pulse ox is 94% on 3 L nasal cannula. He has been afebrile. Patient is some increased shortness of breath and is doing less with incentive spirometry. Mediastinal and right pleural chest tubes have been discontinued. 03/09: Patient remain in the intensive care unit, still on O2, still have a chest tube and, patient developed to have A. fib with RVR started on amiodarone drip his pulse rate is down to 100 and is feeling little bit better. Patient is in the chair eating his first meal this morning and tolerating food very well. 03/11: Patient is continued in atrial fibrillation with elevated rate. He is on amiodarone oral and Lopressor as well as 1 dose of IV digoxin, Cardizem 30 mg every 6 hours. Patient was started on eliquis. Patient states that he is feeling a lot better from yesterday. He states he has been up and walked, took a nap and also took a shower. He feels tired after minimal activity. He did feel a little lightheadedness but it wasn't bad. Pulse ox is 94% on room air. Hemoglobin is 8.2, creatinine 0.8. Blood sugars have been running between 118 and 131. Patient is not diabetic. Objective - Vital Signs Vital signs: Vital Signs Temp 98.6 F 03/11/18 08:00 Pulse 98 03/11/18 11:41 Resp 22 03/11/18 10:00 BP 92/52 03/11/18 11:00 Pulse Ox 94 L 03/11/18 10:00 Intake & Output 03/10/18 03/11/18 03/11/18 18:59 06:59 18:59 Intake Total 660 10 210 Output Total 965 300 0 Balance -305 -290 210 Weight 134 kg 135.3 kg Intake: IV 60 10 10 Flush 0.9 10 10 Lactated Ringers 1,000 ml 60 @ 20 mls/hr IV .Q24H [facility] Rx#:[id number] Oral 600 Tube Feeding 200 Output: Urine 965 300 0 Other: Voiding Method Bedside Commode Bedside Commode Urinal Urinal # Voids 1 # Bowel Movements 1 ABP, PAP, CO, CI - Last Documented Arterial Blood Pressure 123/113 Pulmonary Artery Pressure 34/26 Cardiac Output 5.4 Cardiac Index 3.4 - Exam General appearance: Present: cooperative, disheveled, no acute distress. Absent : average body habitus, mild distress, morbidly obese, obese, severe distress, thin - EENT Eyes: Present: normal appearance. Absent: abnormal pupil, anicteric sclerae, disc margins sharp, edentulous, EOMI, PERRLA, fundus normal, photophobia, dentition normal, poor dentition, ptosis, scleral icterus ENT: Present: normal oropharynx. Absent: hard of hearing, hearing grossly normal, NA/AT, other, pharyngeal erythema, thrush, tonsillar exudates, tonsillar swelling Ears: bilateral: normal - Neck Neck: Present: normal ROM Carotids: bilateral: upstroke normal Thyroid: bilateral: normal size - Respiratory Respiratory: bilateral: diminished, dullness, rales - Cardiovascular Rhythm: irregularly irregular Heart sounds: normal: S1, S2 Abnormal Heart Sounds: Present: systolic murmur, S3 Gallop - Gastrointestinal General gastrointestinal: Present: decreased bowel sounds, soft. Absent: absent bowel sounds, distended, hepatomegaly, hyperactive bowel sounds, normal bowel sounds, organomegaly, rigid, scaphoid, splenomegaly, tenderness, umbilical hernia, ventral hernia - Integumentary Integumentary: Present: normal. Absent: calor, cellulitis, cyanotic, decreased turgor, flushed, jaundiced, normal turgor, pale, rash, ulcer - Neurologic Neurologic: Present: CNII-XII intact - Musculoskeletal Musculoskeletal: Present: gait normal, generalized weakness. Absent: strength equal bilaterally, right sided weakness, left sided weakness - Psychiatric Psychiatric: Present: A&O x's 3 - Labs CBC & Chem 7: 03/11/18 03:43 03/11/18 03:43 Labs: Abnormal Lab Results - Last 24 Hours (Table) 03/10/18 03/10/18 03/11/18 Range/Units 17:24 21:04 01:41 RBC (4.30-5.90) m/uL Hgb (13.0-17.5) gm/dL Hct (39.0-53.0) % MCHC (31.0-37.0) g/dL Chloride (98-107) mmol/L BUN (9-20) mg/dL Glucose (74-99) mg/dL POC Glucose (mg/dL) 116 H 139 H 118 H (75-99) mg/dL Calcium (8.4-10.2) mg/dL Total Protein (6.3-8.2) g/dL Albumin (3.5-5.0) g/dL 03/11/18 03/11/18 03/11/18 Range/Units 03:43 03:43 06:38 RBC 2.85 L (4.30-5.90) m/uL Hgb 8.2 L (13.0-17.5) gm/dL Hct 26.5 L (39.0-53.0) % MCHC 30.9 L (31.0-37.0) g/dL Chloride 109 H (98-107) mmol/L BUN 25 H (9-20) mg/dL Glucose 108 H (74-99) mg/dL POC Glucose (mg/dL) 126 H (75-99) mg/dL Calcium 8.3 L (8.4-10.2) mg/dL Total Protein 4.9 L (6.3-8.2) g/dL Albumin 2.7 L (3.5-5.0) g/dL 03/11/18 Range/Units 12:18 RBC (4.30-5.90) m/uL Hgb (13.0-17.5) gm/dL Hct (39.0-53.0) % MCHC (31.0-37.0) g/dL Chloride (98-107) mmol/L BUN (9-20) mg/dL Glucose (74-99) mg/dL POC Glucose (mg/dL) 131 H (75-99) mg/dL Calcium (8.4-10.2) mg/dL Total Protein (6.3-8.2) g/dL Albumin (3.5-5.0) g/dL Assessment and Plan Plan: 1. Non-ST elevated myocardial infarction status post CABG. Continue current management per cardiovascular surgery and pulmonary medicine. Patient has been successfully extubated. Continue aspirin, Lipitor, Lopressor. 2. Hypertension. Patient has been on amlodipine 5 mg daily, Lopressor 25 g twice daily 3. Benign prostatic hypertrophy. Monitor for urinary retention. Patient currently has Cutler catheter in place 4. Osteoarthritis, generalized. 5. 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 Continue Vicoprofen as needed 6. Atrial fibrillation with RVR possible paroxysmal atrial fibrillation. Continue amiodarone, Cardizem, Lopressor, patient received 1 dose of IV digoxin. Patient is on eliquis. 7. DVT prophylaxis. 7. GI prophylaxis. Pepcid. Discharge plan: Return home as likely with homecare. Impression and plan of care have been directed as dictated by the signing physician. Stefania Vázquez nurse practitioner acting as scribe for signing physician.
[2018-03-11 16:42] LABS: Glucose,Whole Blood 124 mg/dL (75-99)
[2018-03-11] MEDS: ASCORBIC ACID 500 MG TAB PO SCH (17:28)
[2018-03-11 18:52] LABS: Iron Saturation 5.17 (15.00-50.00)
[2018-03-11] MEDS: SENNOSIDES-DOCUSATE SODIUM 1 EACH TAB PO SCH (20:17)
[2018-03-11 20:21] LABS: Glucose,Whole Blood 134 mg/dL (75-99)
[2018-03-12] MEDS: DILTIAZEM ORAL 30 MG TAB PO SCH ×5 (00:22→22:33)
[2018-03-12 02:01] LABS: Glucose,Whole Blood 115 mg/dL (75-99)
[2018-03-12] MEDS: INSULIN ASPART 100 UNIT/ML 1 ML 10 ML VIAL SQ SCH ×5 (02:17→20:13)
[2018-03-12 05:07] LABS: ALT 54 U/L (21-72); AST 47 U/L (17-59); Albumin 2.8 g/dL (3.5-5.0); Alkaline Phosphatase 41 U/L (38-126); Blood Urea Nitrogen 33 mg/dL (9-20); Calcium 8.5 mg/dL (8.4-10.2); Carbon Dioxide 24 mmol/L (22-30); Glucose 108 mg/dL (74-99); Potassium 4.9 mmol/L (3.5-5.1); Sodium 140 mmol/L (137-145); Total Bilirubin 0.6 mg/dL (0.2-1.3); Total Protein 5.1 g/dL (6.3-8.2)
[2018-03-12 05:40] LABS: HCT 26.4 % (39.0-53.0); HGB 8.8 gm/dL (13.0-17.5); MCH 30.8 pg (25.0-35.0); MCHC 33.5 g/dL (31.0-37.0); MCV 91.9 fL (80.0-100.0); Mean Platelet Volume 7.8; Platelet Count 254 k/uL (150-450); RBC 2.88 m/uL (4.30-5.90); RDW 14.1 % (11.5-15.5); WBC 7.3 k/uL (3.8-10.6)
[2018-03-12] MEDS: IPRATROPIUM-ALBUTEROL 3 ML NEB INHALATION SCH ×4 (06:59→20:04)
[2018-03-12 07:24] LABS: Glucose,Whole Blood 117 mg/dL (75-99)
--- NOTE | 2018-03-12 08:11 | PN ---
PROGRESS NOTE Mr. Virgen is a 63-year-old male status post coronary artery bypass grafting. He is feeling well this morning. He did not sleep that well last night, but has no chest pain. His breathing has been stable. He denies any dizziness or palpitation. He denies any syncope. No PND, no orthopnea. He continued be in atrial fibrillation with episode of rapid ventricular response. He continues to be on Eliquis 5 mg twice a day, amiodarone 400 mg twice a day, aspirin 81 mg daily, Lipitor 40 mg daily, diltiazem 30 mg q.6 hours, and metoprolol tartrate 25 mg 3 times a day. PHYSICAL EXAMINATION: Blood pressure running in the 100s with the heart rate in the low 110. LUNGS: Clear. HEART: Irregular, irregular, S1, S2. No S3. No rub appreciated. ABDOMEN: Soft, nontender. EXTREMITIES: No significant edema. LAB DATA: Lab data revealed BUN and creatinine 33 and 0.9. Potassium 4.9. Hemoglobin of 8.8. IMPRESSION: 1. Status post coronary artery bypass grafting. 2. Persistent atrial fibrillation with episode of rapid ventricular response. 3. Hyperlipidemia. RECOMMENDATION: I will increase his beta david. Continue the amiodarone. If we cannot control his ventricular response and has episodes of , he may be a candidate for early cardioversion. In the meantime, we will continue rest of his medical regimen. CANDIDO / KERI: [id number] /
[2018-03-12] MEDS ORDERED: FUROSEMIDE 10 MG/ML 2 ML VIAL IV ONE (08:15)
[2018-03-12] MEDS: ASPIRIN 81 MG PO SCH (08:16)
[2018-03-12] MEDS: AMIODARONE 200 MG TAB PO SCH ×2 (08:16→20:30)
[2018-03-12] MEDS: PANTOPRAZOLE 40 MG TABLET PO SCH (08:16)
[2018-03-12] MEDS: ATORVASTATIN 40 MG TAB PO SCH (08:16)
[2018-03-12] MEDS: METOPROLOL TARTRATE 50 MG TAB PO SCH ×2 (08:16→16:08)
[2018-03-12] MEDS: ASCORBIC ACID 500 MG TAB PO SCH ×2 (08:16→17:17)
[2018-03-12] MEDS: APIXABAN 5 MG TAB PO SCH ×2 (08:16→20:30)
[2018-03-12] MEDS ORDERED: ZOLPIDEM 5 MG TAB PO PRN (08:19)
--- NOTE | 2018-03-12 08:31 | XR ---
EXAMINATION TYPE: XR chest 1V portable DATE OF EXAM: 03/12/2018 COMPARISON: 03/11/2018 INDICATION: Post cardiac surgery TECHNIQUE: Single frontal view of the chest is obtained. FINDINGS: The heart size is mildly prominent. The pulmonary vasculature is normal. Mild infiltrate at the bilateral lung bases. Sternotomy wires are present. Patient's CABG. EKG leads overlie the chest IMPRESSION: 1. Mild bibasilar infiltrates. Correlate for atelectasis. Pneumonia is not excluded. Continued follow -up.
--- NOTE | 2018-03-12 08:35 | P.PN ---
Subjective Progress Note Date: 03/12/18 Principal diagnosis: Severe multivessel coronary artery disease with normal LV function, status post three-vessel coronary artery bypass grafting, postop day 2 Progress note dated 03/07/2018 63-year-old male status post postop day #1 status post triple vessel bypass grafting. The patient did have postoperative respiratory failure. He was extubated within the 6 hour timeframe. Patient is doing relatively well. Sitting up in the chair. Working on deep breathing coughing clearing of secretions and also using the incentive spirometer. Remains on nasal O2. Hemodynamically stable. The patient does have a history of non-ST segment elevation myocardial infarction hypertension tinnitus deafness multiple reviews orthopedic procedures and was not thought to have any intrinsic pulmonary disease. The patient is otherwise doing reasonably well. We stressed the importance of deep breathing coughing and clearing his secretions. We'll also stressed the importance of using the incentive spirometer. Chest x-ray is difficult to interpret. Typical postoperative changes no noted. On 03/08/2018 patient is seen in follow-up in the intensive care unit. He states he is more short of breath today. Patient did receive a dose of IV Lasix per CT surgery yesterday, his chest x-ray was reviewed by Dr. Robbins, and shows elevated right hemidiaphragm, right midlung streak atelectasis, small pleural effusions. Currently on 3 L per nasal cannula, his pulse ox is 94%, ration is tachycardic, but in sinus mechanism, his current heart rate is 118 BPM , he is afebrile. Maintenance IV fluid is LR at a rate of 40 ML per hour. No other drips. Incentive spirometry effort is significantly less today compared to yesterday, he is only able to achieve 750 today compared 1500 yesterday. He is complaining of mid back pain which is exacerbated by deep breathing. Patient needs increased pulmonary toileting, deep breathing and coughing. His labs were reviewed, the PVCs 8.7, hemoglobin is 9.3. Sodium is 136, patient has developed acute kidney injury, his BUN is 25, creatinine is 1.3, urine output is in the order from 30-70 ML per hour. Patient has left and right and mediastinal chest tubes, with small amount of serosanguineous drainage. Patient has ambulated around the unit, and tolerated activity fairly well. Progress note dated 03/09/2018 This is a 63-year-old male who is postop day #2, status post three-vessel bypass grafting. The patient had developed atrial fibrillation overnight was placed on amiodarone at 0.5 mg/m. He is getting an IV of lactated Ringer's at 20 mL an hour is receiving supplemental oxygen 3 L by nasal cannula. His incentive spirometry effort is not very good only 750 mL. This patient was discovered on evaluation to have severe triple-vessel disease, normal LV function, acute kidney injury, related to ATN, non-ST segment elevation myocardial infarction, hypertension, tinnitus, deafness, and had no history of intrinsic pulmonary disease as he was a lifelong nonsmoker. Progress note dated 03/10/2018 This is a 63-year-old male who is postop day #3, status post three-vessel bypass grafting. He did develop some atrial fibrillation postoperatively and was placed initially on IV Cordarone at 0.5 mg/m. There has not been switched to oral Cordarone. The patient is getting lactated Ringer's at KVO and still on oxygen at 2 L by nasal cannula. He is getting about 1250 mL on his incentive spirometer. He has surgical site discomfort. In addition to have severe triple-vessel disease which necessitated the bypass grafting, the patient was found to have acute kidney injury secondary to ATN, non-ST segment elevation myocardial infarction, hypertension, tinnitus, deafness, but did not have any intrinsic pulmonary disease. He is a lifelong nonsmoker. On 03/11/2018 patient seen again in follow-up in intensive care unit. He is sitting up in the chair, denies any acute distress, his dyspnea. His pain is under good control, he remains in atrial fibrillation with a rate of 121 BPM. Currently on oral amiodarone 400 mg twice a day, Lopressor at 25 mg twice a day , she did receive a dose of IV Lanoxin, and she is on diltiazem 30 mg every 6 hours. Continues on oral anticoagulation with Eliquis 5 mg by mouth twice a day. Patient has been ambulating, tolerating activity well. 2 L per nasal cannula his pulse ox is 93%. Afebrile, hemodynamically stable. Lung sounds are diminished at the bases, his chest x-ray has been reviewed by Dr. Martinez, and shows partial obscuration of the medial retrocardiac airspace and costophrenic angle that may relate to atelectasis and trace pleural effusion. Patient will receive a dose of IV Lasix today per CT surgery. On 03/12/2018 patient seen again in follow-up in the intensive care unit. He is resting in the recliner, he states he did not sleep much because of noise in the unit, he states he normally takes Advil PM as a sleep aid. But otherwise denies any acute complaints, denies any dyspnea, his postop pain is controlled. Her maintenance in atrial fibrillation, and the rate is still low 100s to 120s with activity. He is afebrile, remains on 2 L per nasal cannula his pulse ox is 94%, hemodynamically stable, his beta blockers are being adjusted per CT surgery, it is increased to 50 mg 3 times a day, he remains on oral amiodarone and oral Cardizem. Lung sounds are diminished at the bases, no wheezes, no rhonchi, today's chest x-ray has been reviewed and shows mild bibasilar infiltrates, likely related to atelectasis. Patient is compliant with his incentive spirometer, is able to achieve 1500 on the today. Objective - Vital Signs Vital signs: Vital Signs Temp 98.3 F 03/12/18 08:00 Pulse 115 H 03/12/18 08:00 Resp 22 03/12/18 08:00 BP 101/60 03/12/18 08:00 Pulse Ox 94 L 03/12/18 08:00 Intake & Output 03/11/18 03/12/18 03/12/18 18:59 06:59 18:59 Intake Total 870 890 240 Output Total 550 625 0 Balance 320 265 240 Weight 134.8 kg Intake: IV 20 10 0 Flush 0.9 20 10 0 Oral 650 880 240 Tube Feeding 200 Output: Urine 550 625 0 Other: Voiding Method Bedside Commode Urinal Urinal # Voids 1 1 0 # Bowel Movements 1 ABP, PAP, CO, CI - Last Documented Arterial Blood Pressure 123/113 Pulmonary Artery Pressure 34/26 Cardiac Output 5.4 Cardiac Index 3.4 - Exam No acute distress, oriented 3. HEENT examination is grossly unremarkable. Mucous membranes are moist. No oral lesions. Neck supple. Full range of motion. No adenopathy thyromegaly or neck vein distention. Cardiovascular examination reveals regular rhythm rate. S1-S2 normal. No S3 or S4. No discernible murmur noted. Lungs reveal clear breath sounds. His breath ounds are equal bilaterally. Diminished breath sounds at the bases, dullness to percussion over bilateral bases. Abdomen soft bowel sounds are heard. No masses or tenderness. Extremities are intact. No cyanosis clubbing or edema. Skin is without rash or lesion. Midsternal incision is clean dry and intact, mediastinal, and bilateral pleural chest tube insertion sites are intact, left leg incisions covered with dressings, patient has bilateral lower leg SWATI hose on Neurologic examination is brief but nonfocal. - Labs CBC & Chem 7: 03/12/18 04:13 03/12/18 04:13 Labs: Abnormal Lab Results - Last 24 Hours (Table) 03/11/18 03/11/18 03/11/18 Range/Units 03:43 12:18 16:40 RBC (4.30-5.90) m/uL Hgb (13.0-17.5) gm/dL Hct (39.0-53.0) % BUN (9-20) mg/dL Glucose (74-99) mg/dL POC Glucose (mg/dL) 131 H 124 H (75-99) mg/dL Iron 12 L (65-175) ug/dL Iron Saturation 5.17 L (15.00-50.00) Ferritin 436.8 H (22.0-322.0) ng/mL Total Protein (6.3-8.2) g/dL Albumin (3.5-5.0) g/dL 03/11/18 03/12/18 03/12/18 Range/Units 20:20 01:59 04:13 RBC 2.88 L (4.30-5.90) m/uL Hgb 8.8 L (13.0-17.5) gm/dL Hct 26.4 L (39.0-53.0) % BUN (9-20) mg/dL Glucose (74-99) mg/dL POC Glucose (mg/dL) 134 H 115 H (75-99) mg/dL Iron (65-175) ug/dL Iron Saturation (15.00-50.00) Ferritin (22.0-322.0) ng/mL Total Protein (6.3-8.2) g/dL Albumin (3.5-5.0) g/dL 03/12/18 03/12/18 Range/Units 04:13 07:22 RBC (4.30-5.90) m/uL Hgb (13.0-17.5) gm/dL Hct (39.0-53.0) % BUN 33 H (9-20) mg/dL Glucose 108 H (74-99) mg/dL POC Glucose (mg/dL) 117 H (75-99) mg/dL Iron (65-175) ug/dL Iron Saturation (15.00-50.00) Ferritin (22.0-322.0) ng/mL Total Protein 5.1 L (6.3-8.2) g/dL Albumin 2.8 L (3.5-5.0) g/dL Assessment and Plan Plan: Assessment: Severe triple-vessel coronary artery disease with normal LV function, status postop day #5, three-vessel bypass grafting. Postoperative respiratory failure, resolved with extubation within the 6 hour time limit Acute kidney injury, possibly related to ATN, recovered Non-ST segment elevation myocardial infarction History of hypertension History of tinnitus History of deafness Multiple previous orthopedic procedures Lifelong nonsmoker No history of intrinsic pulmonary disease Plan: Patient remains stable, continue encouraging pulmonary toileting, ambulation. His dose of beta blockers is being titrated per CT surgery, remains in A. fib. Is complaining of not being able to sleep last night, taking this morning. Normally takes Advil PM at home, we will order a small dose of Ambien 5 mg on as -needed basis at bedtime. We'll continue with current plan of care. I performed a history & physical examination of the patient and discussed their management with my nurse practitioner, Geena Hoyt. I reviewed the nurse practitioner's note and agree with the documented findings and plan of care. Lung sounds are diminished at the bases, with dullness to percussion. The findings and the impression was discussed with the patient. I attest to the documentation by the nurse practitioner. Time with Patient: Less than 30
[2018-03-12] MEDS ORDERED: METOPROLOL TARTRATE 50 MG TAB PO SCH (09:00)
--- NOTE | 2018-03-12 11:57 | P.ARTDOP ---
Arterial Doppler Bilateral radial artery testing: Date of study: 03/05/2018 Only the left side his study due to heart cath done via the right arm. Doppler study shows no significant segmental pressure gradient. Digital plethysmography with radial artery compression shows no significant pressure change. Imaging shows size between 2.8 x 2.6 and 3.2 x 3.4 mm. Usable left radial artery.
--- NOTE | 2018-03-12 12:00 | P.VSCSTY ---
Greater Saphenous Vein Mapping This is bilateral lower extremity greater saphenous vein mapping. Date of service 03/05/2018 Vein quality and ultrasound appearance no visible thrombus or wall changes. Vein size groin right 11.7 x 6.6 groin left 6.9 x 6.0 High thigh right 7.2 x 5.8 high thigh left 5.4 x 4.1 Mid thigh right 7.5 x 5.0 mid thigh left 5.6 x 3.5 Above-knee right 4.9 x 3.4 above- knee left 5.0 x 3.9 Below knee right 3.9 x 2.9 below-knee left 4.9 x 4.4 Mid calf right 5.7 x 4.2 mid calf left 3.8 x 3.4 Ankle right 3.2 x 3.0 ankle left 2.9 x 2.3 Impression usable bilateral greater saphenous veins.
[2018-03-12] MEDS: FERROUS SULFATE 325 MG TAB PO SCH (12:34)
[2018-03-12 12:35] LABS: Glucose,Whole Blood 119 mg/dL (75-99)
[2018-03-12] MEDS ORDERED: SODIUM FERRIC GLUCONAT-SUCROSE 125 MG in SODIUM CHLORIDE 0.9% 100 ML IVPB ONE (13:00)
--- NOTE | 2018-03-12 13:12 | P.PN ---
Subjective Progress Note Date: 03/12/18 Principal diagnosis: Non-ST elevation myocardial infarction, triple-vessel coronary artery disease, preserved left ventricular function, hypertension, obesity, strong family history for coronary artery disease with evidence of diffuse coronary artery disease. Social alcohol use of 2-7 drinks per week. POD #6 urgent multiple arterial triple coronary artery bypass grafting using the left internal mammary artery to the left anterior descending artery, the left radial artery from the aorta to the obtuse marginal artery, reverse saphenous vein graft from the aorta to the right coronary artery. Endoscopic harvesting of the left radial artery. Endoscopic harvesting of the left greater saphenous vein between the groin and knee level. Intraoperative graft flow measurements. Intraoperative transesophageal echocardiogram and epi- aortic scanning. Postoperative atrial fibrillation with rapid ventricular response, an unexpected but potential outcome of surgery. Patient is currently sitting up in a recliner in no acute distress. States pain is controlled with current pain medication. Denies shortness of breath. States he did not sleep well last night but otherwise feels okay. Patient continues to be in atrial fibrillation with rapid ventricular response although heart rate is slightly less than yesterday. He has been given IV digoxin loading doses, amiodarone boluses, and continues to be on Cardizem and Lopressor as well as oral amiodarone. He is presently on oral anticoagulation. Objective - Vital Signs Vital signs: Vital Signs Temp 98.3 F 03/12/18 12:00 Pulse 98 03/12/18 13:00 Resp 18 03/12/18 13:00 BP 105/64 03/12/18 13:00 Pulse Ox 94 L 03/12/18 13:00 Intake & Output 03/11/18 03/12/18 03/12/18 18:59 06:59 18:59 Intake Total 870 890 480 Output Total 550 625 640 Balance 320 265 -160 Weight 134.8 kg Intake: IV 20 10 0 Flush 0.9 20 10 0 Oral 650 880 480 Tube Feeding 200 Output: Urine 550 625 640 Other: Voiding Method Bedside Commode Urinal Urinal # Voids 1 1 0 # Bowel Movements 1 ABP, PAP, CO, CI - Last Documented Arterial Blood Pressure 123/113 Pulmonary Artery Pressure 34/26 Cardiac Output 5.4 Cardiac Index 3.4 - Constitutional General appearance: Present: cooperative, no acute distress, obese - Respiratory Details: Lungs sounds diminished bilaterally. Respirations even, nonlabored. Currently on 2L nasal cannula with oxygen saturation 95%. Able to achieve 6183-3004 mL on his incentive spirometry. Effective cough. - Cardiovascular Details: S1, S2 present. Tachycardic, irregular rate and rhythm, atrial fibrillation with rapid ventricular response on telemetry. Sternum stable. Palpable peripheral pulses bilaterally. Trace bilateral lower extremity edema present. No calf pain or tenderness noted. Heart hugger in place with patient demonstrating appropriate use. Antiembolism stockings, SCDs present. - Gastrointestinal Gastrointestinal Comment(s): Abdomen soft, nontender, nondistended. Active bowel sounds present 4 quadrants. Tolerating diet. Positive bowel movement. - Genitourinary Genitourinary Comment(s): Patient continues to void clear, yellow urine. - Integumentary Integumentary Comment(s): Skin is warm and dry with evidence of good perfusion. Anterior chest incision well approximated and covered with dry intact dressing. Skin is pink, patient does have feeling and mobility in the left arm. Left lower extremity EVH site well approximated. - Neurologic Neurologic: Present: CNII-XII intact - Musculoskeletal Musculoskeletal: Present: gait normal, strength equal bilaterally - Psychiatric Psychiatric: Present: A&O x's 3, appropriate affect, intact judgment & insight - Allied health notes Allied health notes reviewed: nursing - Labs CBC & Chem 7: 03/12/18 04:13 03/12/18 04:13 Labs: Abnormal Lab Results - Last 24 Hours (Table) 03/11/18 03/11/18 03/11/18 Range/Units 03:43 16:40 20:20 RBC (4.30-5.90) m/uL Hgb (13.0-17.5) gm/dL Hct (39.0-53.0) % BUN (9-20) mg/dL Glucose (74-99) mg/dL POC Glucose (mg/dL) 124 H 134 H (75-99) mg/dL Iron 12 L (65-175) ug/dL Iron Saturation 5.17 L (15.00-50.00) Ferritin 436.8 H (22.0-322.0) ng/mL Total Protein (6.3-8.2) g/dL Albumin (3.5-5.0) g/dL 03/12/18 03/12/18 03/12/18 Range/Units 01:59 04:13 04:13 RBC 2.88 L (4.30-5.90) m/uL Hgb 8.8 L (13.0-17.5) gm/dL Hct 26.4 L (39.0-53.0) % BUN 33 H (9-20) mg/dL Glucose 108 H (74-99) mg/dL POC Glucose (mg/dL) 115 H (75-99) mg/dL Iron (65-175) ug/dL Iron Saturation (15.00-50.00) Ferritin (22.0-322.0) ng/mL Total Protein 5.1 L (6.3-8.2) g/dL Albumin 2.8 L (3.5-5.0) g/dL 03/12/18 03/12/18 Range/Units 07:22 12:32 RBC (4.30-5.90) m/uL Hgb (13.0-17.5) gm/dL Hct (39.0-53.0) % BUN (9-20) mg/dL Glucose (74-99) mg/dL POC Glucose (mg/dL) 117 H 119 H (75-99) mg/dL Iron (65-175) ug/dL Iron Saturation (15.00-50.00) Ferritin (22.0-322.0) ng/mL Total Protein (6.3-8.2) g/dL Albumin (3.5-5.0) g/dL - Imaging and Cardiology Chest x-ray: report reviewed, image reviewed Assessment and Plan (1) Non-STEMI (non-ST elevated myocardial infarction) Current Visit: Yes Status: Acute Code(s): I21.4 - NON-ST ELEVATION (NSTEMI) MYOCARDIAL INFARCTION SNOMED Code(s): 292411694 (2) Hypertension Current Visit: Yes Status: Chronic Code(s): I10 - ESSENTIAL (PRIMARY) HYPERTENSION SNOMED Code(s): 87291500 (3) Family history of coronary artery disease Current Visit: Yes Status: Chronic Code(s): Z82.49 - FAMILY HX OF ISCHEM HEART DIS AND OTH DIS OF THE CIRC SYS SNOMED Code(s): 649269408 Plan: 1. Continue low-dose aspirin, statin, beta david. Lopressor increased to 50 mg every 8 hours. Will increase beta david therapy as tolerated. 2. Continue amiodarone for A. fib prophylaxis. Continue Eliquis for anticoagulation. 3. Continue Cardizem for radial artery spasm prophylaxis as well as rate control. 4. Wean O2 as tolerated. Encourage incentive spirometry use 10 times every hour while awake. 5. Increase activity ambulate as tolerated. PT/OT/cardiac rehab following. 6. GI/DVT prophylaxis. 7. Will monitor daily labs and x-rays. 8. Insulin management per primary care service. 9. Pain management per ordered medication regimen. 10. Will give 20 mg IV Lasix today. 11. Bronchodilators per pulmonology. 12. Recommendations for possible cardioversion deferred to cardiology. 13. More recommendations to follow. Time with Patient: Greater than 30
[2018-03-12] MEDS: HYDROcodone/APAP 5-325MG 1 EACH TAB PO PRN (15:06)
--- NOTE | 2018-03-12 15:15 | P.PN ---
Subjective Progress Note Date: 03/12/18 This is a 63-year-old male patient of Dr. Davison with past medical history for hypertension, osteoarthritis, benign prostatic hypertrophy. Patient gives history that for a long period of time since last fall he has had a cough when he lays in bed. He has had about a bronchitis and following that he did have some improvement for about 6 months and now he has a cough when he lays down and has some chest pain in the midsternal area. He does golf 3-4 times a week and does not have any chest heaviness at that time. He states he has had it every day for 2-3 weeks in a row and went to see Dr. Davison yesterday and he was sent into the emergency center for evaluation. Patient describes it as a heavy chest. He states he gets up and take some Pepto-Bismol or something else and then he ends up sleeping in a chair. Troponins are 0.064 , 0.070, 0.060. Triglycerides 122, cholesterol 229, LDL 156, HDL 49. Lipase 72. CBC is within normal limits. Electrolytes are normal. Patient has been admitted to the selective care unit and cardiology consult requested. He has been started on heparin drip and aspirin. Cardiology has added and Lipitor and beta david. Echocardiogram reveals EF of 55-60%, moderate concentric left ventricular hypertrophy, LV mildly dilated at 29-33, mild aortic valve sclerosis , mild tricuspid regurgitation. Patient is scheduled for heart catheterization today. 03/06: Heart catheterization with Dr. Walter yesterday revealed severe triple vessel coronary disease, normal left ventricular size and systolic function. Recommendations for cardiovascular surgery evaluation which was done yesterday. Plan is for urgent coronary artery bypass graft 3 today. Patient denies any new complaints. His is at bedside. 03/07: Patient underwent coronary artery bypass grafting using the left internal mammary artery to the left anterior descending artery, left radial artery from the aorta to the obtuse marginal artery, reverse saphenous vein graft from the aorta to the right coronary artery. Patient remains in the intensive care unit. Patient was successfully extubated early in the morning. This morning, patient is sitting up in a chair and appears to be comfortable. Plan is to remove the one pleural tube and Mobile's today. His blood sugars been running 131 and 152. He is ordered for 1 dose of Lasix IV push 20 mg this morning.. 03/08: Patient remains in the intensive care unit. Pulse ox is 94% on 3 L nasal cannula. He has been afebrile. Patient is some increased shortness of breath and is doing less with incentive spirometry. Mediastinal and right pleural chest tubes have been discontinued. 03/09: Patient remain in the intensive care unit, still on O2, still have a chest tube and, patient developed to have A. fib with RVR started on amiodarone drip his pulse rate is down to 100 and is feeling little bit better. Patient is in the chair eating his first meal this morning and tolerating food very well. 03/11: Patient is continued in atrial fibrillation with elevated rate. He is on amiodarone oral and Lopressor as well as 1 dose of IV digoxin, Cardizem 30 mg every 6 hours. Patient was started on eliquis. Patient states that he is feeling a lot better from yesterday. He states he has been up and walked, took a nap and also took a shower. He feels tired after minimal activity. He did feel a little lightheadedness but it wasn't bad. Pulse ox is 94% on room air. Hemoglobin is 8.2, creatinine 0.8. Blood sugars have been running between 118 and 131. Patient is not diabetic. 03/12: He remains in the intensive care unit now as an overflow for selective care. Patient states he has been sleeping well in the hospital until last night and Ambien has are been added for tonight. He states he was feeling woozy and out of it this morning but after nap he was feeling improved. Hemoglobin is 8.8. Ferrlecit 1 dose has been ordered. His Lopressor was increased to 50 mg 3 times daily and he received 1 dose of IV Lasix this morning. Objective - Vital Signs Vital signs: Vital Signs Temp 98.3 F 03/12/18 08:00 Pulse 102 H 03/12/18 11:29 Resp 22 03/12/18 11:00 BP 109/60 03/12/18 11:00 Pulse Ox 96 03/12/18 11:00 Intake & Output 03/11/18 03/12/18 03/12/18 18:59 06:59 18:59 Intake Total 870 890 240 Output Total 550 625 640 Balance 320 265 -400 Weight 134.8 kg Intake: IV 20 10 0 Flush 0.9 20 10 0 Oral 650 880 240 Tube Feeding 200 Output: Urine 550 625 640 Other: Voiding Method Bedside Commode Urinal Urinal # Voids 1 1 0 # Bowel Movements 1 ABP, PAP, CO, CI - Last Documented Arterial Blood Pressure 123/113 Pulmonary Artery Pressure 34/26 Cardiac Output 5.4 Cardiac Index 3.4 - Exam General appearance: Present: cooperative, disheveled, no acute distress. Absent : average body habitus, mild distress, morbidly obese, obese, severe distress, thin - EENT Eyes: Present: normal appearance. Absent: abnormal pupil, anicteric sclerae, disc margins sharp, edentulous, EOMI, PERRLA, fundus normal, photophobia, dentition normal, poor dentition, ptosis, scleral icterus ENT: Present: normal oropharynx. Absent: hard of hearing, hearing grossly normal, NA/AT, other, pharyngeal erythema, thrush, tonsillar exudates, tonsillar swelling Ears: bilateral: normal - Neck Neck: Present: normal ROM Carotids: bilateral: upstroke normal Thyroid: bilateral: normal size - Respiratory Respiratory: bilateral: diminished, dullness, rales - Cardiovascular Rhythm: irregularly irregular Heart sounds: normal: S1, S2 Abnormal Heart Sounds: Present: systolic murmur, S3 Gallop - Gastrointestinal General gastrointestinal: Present: decreased bowel sounds, soft. Absent: absent bowel sounds, distended, hepatomegaly, hyperactive bowel sounds, normal bowel sounds, organomegaly, rigid, scaphoid, splenomegaly, tenderness, umbilical hernia, ventral hernia - Integumentary Integumentary: Present: normal. Absent: calor, cellulitis, cyanotic, decreased turgor, flushed, jaundiced, normal turgor, pale, rash, ulcer - Neurologic Neurologic: Present: CNII-XII intact - Musculoskeletal Musculoskeletal: Present: gait normal, generalized weakness. Absent: strength equal bilaterally, right sided weakness, left sided weakness - Psychiatric Psychiatric: Present: A&O x's 3 - Labs CBC & Chem 7: 03/12/18 04:13 03/12/18 04:13 Labs: Abnormal Lab Results - Last 24 Hours (Table) 03/11/18 03/11/18 03/11/18 Range/Units 03:43 16:40 20:20 RBC (4.30-5.90) m/uL Hgb (13.0-17.5) gm/dL Hct (39.0-53.0) % BUN (9-20) mg/dL Glucose (74-99) mg/dL POC Glucose (mg/dL) 124 H 134 H (75-99) mg/dL Iron 12 L (65-175) ug/dL Iron Saturation 5.17 L (15.00-50.00) Ferritin 436.8 H (22.0-322.0) ng/mL Total Protein (6.3-8.2) g/dL Albumin (3.5-5.0) g/dL 03/12/18 03/12/18 03/12/18 Range/Units 01:59 04:13 04:13 RBC 2.88 L (4.30-5.90) m/uL Hgb 8.8 L (13.0-17.5) gm/dL Hct 26.4 L (39.0-53.0) % BUN 33 H (9-20) mg/dL Glucose 108 H (74-99) mg/dL POC Glucose (mg/dL) 115 H (75-99) mg/dL Iron (65-175) ug/dL Iron Saturation (15.00-50.00) Ferritin (22.0-322.0) ng/mL Total Protein 5.1 L (6.3-8.2) g/dL Albumin 2.8 L (3.5-5.0) g/dL 03/12/18 Range/Units 07:22 RBC (4.30-5.90) m/uL Hgb (13.0-17.5) gm/dL Hct (39.0-53.0) % BUN (9-20) mg/dL Glucose (74-99) mg/dL POC Glucose (mg/dL) 117 H (75-99) mg/dL Iron (65-175) ug/dL Iron Saturation (15.00-50.00) Ferritin (22.0-322.0) ng/mL Total Protein (6.3-8.2) g/dL Albumin (3.5-5.0) g/dL Assessment and Plan Plan: 1. Non-ST elevated myocardial infarction status post CABG. Continue current management per cardiovascular surgery and pulmonary medicine. Patient has been successfully extubated. Continue aspirin, Lipitor, Lopressor. 2. Hypertension. Patient has been on amlodipine 5 mg daily, Lopressor 25 g twice daily 3. Benign prostatic hypertrophy. Monitor for urinary retention. Patient currently has Cutler catheter in place 4. Osteoarthritis, generalized. 5. 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 Continue Vicoprofen as needed 6. Atrial fibrillation with RVR, paroxysmal atrial fibrillation. Continue amiodarone, Cardizem, Lopressor, patient received 1 dose of IV digoxin. Patient is on eliquis. 7. DVT prophylaxis. 7. GI prophylaxis. Pepcid. Discharge plan: Return home as likely with homecare. Impression and plan of care have been directed as dictated by the signing physician. Stefania Vázquez nurse practitioner acting as scribe for signing physician.
[2018-03-12 17:07] LABS: Glucose,Whole Blood 135 mg/dL (75-99)
[2018-03-12 19:48] LABS: Glucose,Whole Blood 118 mg/dL (75-99)
[2018-03-12] MEDS: SENNOSIDES-DOCUSATE SODIUM 1 EACH TAB PO SCH (20:30)
[2018-03-12] MEDS: BENZOCAINE/MENTHOL LOZENG 1 EACH LOZENGE MUCOUS MEM PRN (20:50)
[2018-03-13] MEDS: METOPROLOL TARTRATE 50 MG TAB PO SCH ×3 (00:59→17:36)
[2018-03-13] MEDS: INSULIN ASPART 100 UNIT/ML 1 ML 10 ML VIAL SQ SCH ×5 (01:08→21:49)
[2018-03-13 01:09] LABS: Glucose,Whole Blood 114 mg/dL (75-99)
[2018-03-13 04:21] LABS: Basophils % (A) 0 %; Eosinophils # (A) 0.4 k/uL (0-0.7); Eosinophils % (A) 5 %; HCT 25.2 % (39.0-53.0); HGB 8.5 gm/dL (13.0-17.5); Lymphocytes # (A) 1.3 k/uL (1.0-4.8); Lymphocytes % (A) 15 %; MCH 30.6 pg (25.0-35.0); MCHC 33.8 g/dL (31.0-37.0); MCV 90.7 fL (80.0-100.0); Monocytes # (A) 0.8 k/uL (0-1.0); Monocytes % (A) 9 %; Neutrophils # (A) 6.3 k/uL (1.3-7.7); Neutrophils % (A) 70 %; Platelet Count 301 k/uL (150-450); RBC 2.77 m/uL (4.30-5.90); RDW 14.2 % (11.5-15.5)
[2018-03-13 04:45] LABS: Chloride 109 mmol/L (98-107)
[2018-03-13 04:47] LABS: ALT 57 U/L (21-72); AST 43 U/L (17-59); Albumin 2.8 g/dL (3.5-5.0); Alkaline Phosphatase 46 U/L (38-126); Anion Gap 5 mmol/L; Blood Urea Nitrogen 35 mg/dL (9-20); Calcium 8.4 mg/dL (8.4-10.2); Carbon Dioxide 26 mmol/L (22-30); Glucose 112 mg/dL (74-99); Magnesium 2.2 mg/dL (1.6-2.3); Potassium 5.1 mmol/L (3.5-5.1); Sodium 140 mmol/L (137-145); Total Bilirubin 0.6 mg/dL (0.2-1.3); Total Protein 5.1 g/dL (6.3-8.2)
[2018-03-13] MEDS: DILTIAZEM ORAL 30 MG TAB PO SCH ×3 (05:29→21:39)
[2018-03-13] MEDS: IPRATROPIUM-ALBUTEROL 3 ML NEB INHALATION SCH ×4 (07:06→20:19)
[2018-03-13 07:48] LABS: Glucose,Whole Blood 118 mg/dL (75-99)
--- NOTE | 2018-03-13 07:50 | XR ---
EXAMINATION TYPE: XR chest 2V DATE OF EXAM: 03/13/2018 COMPARISON: Chest x-ray from yesterday and older studies. HISTORY: Post open cardiac surgery progress study. TECHNIQUE: Frontal and lateral views of the chest are obtained. FINDINGS: Sternal wires and mediastinal clips are redemonstrated. There is cardiomegaly with mild mary jane tral vascular congestion and bibasilar opacity left worse than right all redemonstrated. Upper lungs are clear without pneumothorax. Osseous structures are intact. IMPRESSION: Persistent low lung volumes and cardiomegaly with mild central vascular congestion and s uspected tiny bilateral pleural effusions. There is slightly more suspicious left greater than right bibasilar infiltrate and/or atelectasis noted seen best on lateral view. No significant change from o ne day earlier.
--- NOTE | 2018-03-13 08:24 | PN ---
PROGRESS NOTE Mr. Virgen is a 63-year-old male, status post coronary artery bypass grafting. He is doing well this morning. His breathing has been stable. He is denying any symptoms of dizziness. He has been ambulating without difficulty. Continues to be in atrial fibrillation but with a better control of his ventricular response. His blood pressure has been stable. He continues on amiodarone 400 mg twice a day, Eliquis 5 mg twice a day, aspirin 81 mg daily, Lipitor 40 mg daily, diltiazem 30 mg q.6 hours, and metoprolol tartrate 50 mg 3 times a day. PHYSICAL EXAMINATION: Blood pressure 111/60 with the heart rate in 90s. LUNGS: With no wheezes or rales. HEART: Irregular, irregular, S1, S2. No S3. No rub. ABDOMEN: Soft, nontender. Positive bowel sounds. EXTREMITIES: Trace to 1+ edema. LAB DATA: Lab data revealed BUN and creatinine of 35.9, potassium 5.1, hemoglobin of 8.5. IMPRESSION: 1. Status post coronary artery bypass grafting, stable. 2. Atrial fibrillation persistent, rate under better control. 3. Hyperlipidemia. RECOMMENDATION: We will continue present medical therapy increase his level of activity. If his rate remains stable, then I will continue observation and attempt cardioversion if he persists to be in atrial fibrillation at a later time. MMODL / IJN: [id number] /
[2018-03-13] MEDS ORDERED: FUROSEMIDE 10 MG/ML 2 ML VIAL IV ONE (08:34)
--- NOTE | 2018-03-13 09:19 | P.PN ---
Subjective Progress Note Date: 03/13/18 Principal diagnosis: Severe multivessel coronary artery disease, status post coronary artery bypass grafting. Progress note dated 03/07/2018 63-year-old male status post postop day #1 status post triple vessel bypass grafting. The patient did have postoperative respiratory failure. He was extubated within the 6 hour timeframe. Patient is doing relatively well. Sitting up in the chair. Working on deep breathing coughing clearing of secretions and also using the incentive spirometer. Remains on nasal O2. Hemodynamically stable. The patient does have a history of non-ST segment elevation myocardial infarction hypertension tinnitus deafness multiple reviews orthopedic procedures and was not thought to have any intrinsic pulmonary disease. The patient is otherwise doing reasonably well. We stressed the importance of deep breathing coughing and clearing his secretions. We'll also stressed the importance of using the incentive spirometer. Chest x-ray is difficult to interpret. Typical postoperative changes no noted. On 03/08/2018 patient is seen in follow-up in the intensive care unit. He states he is more short of breath today. Patient did receive a dose of IV Lasix per CT surgery yesterday, his chest x-ray was reviewed by Dr. Robbins, and shows elevated right hemidiaphragm, right midlung streak atelectasis, small pleural effusions. Currently on 3 L per nasal cannula, his pulse ox is 94%, ration is tachycardic, but in sinus mechanism, his current heart rate is 118 BPM , he is afebrile. Maintenance IV fluid is LR at a rate of 40 ML per hour. No other drips. Incentive spirometry effort is significantly less today compared to yesterday, he is only able to achieve 750 today compared 1500 yesterday. He is complaining of mid back pain which is exacerbated by deep breathing. Patient needs increased pulmonary toileting, deep breathing and coughing. His labs were reviewed, the PVCs 8.7, hemoglobin is 9.3. Sodium is 136, patient has developed acute kidney injury, his BUN is 25, creatinine is 1.3, urine output is in the order from 30-70 ML per hour. Patient has left and right and mediastinal chest tubes, with small amount of serosanguineous drainage. Patient has ambulated around the unit, and tolerated activity fairly well. Progress note dated 03/09/2018 This is a 63-year-old male who is postop day #2, status post three-vessel bypass grafting. The patient had developed atrial fibrillation overnight was placed on amiodarone at 0.5 mg/m. He is getting an IV of lactated Ringer's at 20 mL an hour is receiving supplemental oxygen 3 L by nasal cannula. His incentive spirometry effort is not very good only 750 mL. This patient was discovered on evaluation to have severe triple-vessel disease, normal LV function, acute kidney injury, related to ATN, non-ST segment elevation myocardial infarction, hypertension, tinnitus, deafness, and had no history of intrinsic pulmonary disease as he was a lifelong nonsmoker. Progress note dated 03/10/2018 This is a 63-year-old male who is postop day #3, status post three-vessel bypass grafting. He did develop some atrial fibrillation postoperatively and was placed initially on IV Cordarone at 0.5 mg/m. There has not been switched to oral Cordarone. The patient is getting lactated Ringer's at KVO and still on oxygen at 2 L by nasal cannula. He is getting about 1250 mL on his incentive spirometer. He has surgical site discomfort. In addition to have severe triple-vessel disease which necessitated the bypass grafting, the patient was found to have acute kidney injury secondary to ATN, non-ST segment elevation myocardial infarction, hypertension, tinnitus, deafness, but did not have any intrinsic pulmonary disease. He is a lifelong nonsmoker. On 03/11/2018 patient seen again in follow-up in intensive care unit. He is sitting up in the chair, denies any acute distress, his dyspnea. His pain is under good control, he remains in atrial fibrillation with a rate of 121 BPM. Currently on oral amiodarone 400 mg twice a day, Lopressor at 25 mg twice a day , she did receive a dose of IV Lanoxin, and she is on diltiazem 30 mg every 6 hours. Continues on oral anticoagulation with Eliquis 5 mg by mouth twice a day. Patient has been ambulating, tolerating activity well. 2 L per nasal cannula his pulse ox is 93%. Afebrile, hemodynamically stable. Lung sounds are diminished at the bases, his chest x-ray has been reviewed by Dr. Martinez, and shows partial obscuration of the medial retrocardiac airspace and costophrenic angle that may relate to atelectasis and trace pleural effusion. Patient will receive a dose of IV Lasix today per CT surgery. On 03/12/2018 patient seen again in follow-up in the intensive care unit. He is resting in the recliner, he states he did not sleep much because of noise in the unit, he states he normally takes Advil PM as a sleep aid. But otherwise denies any acute complaints, denies any dyspnea, his postop pain is controlled. Her maintenance in atrial fibrillation, and the rate is still low 100s to 120s with activity. He is afebrile, remains on 2 L per nasal cannula his pulse ox is 94%, hemodynamically stable, his beta blockers are being adjusted per CT surgery, it is increased to 50 mg 3 times a day, he remains on oral amiodarone and oral Cardizem. Lung sounds are diminished at the bases, no wheezes, no rhonchi, today's chest x-ray has been reviewed and shows mild bibasilar infiltrates, likely related to atelectasis. Patient is compliant with his incentive spirometer, is able to achieve 1500 on the today. Patient is seen again today 03/13/2018 in follow-up in the intensive care unit. He is currently sitting up in a chair at the bedside. He is awake and alert in no acute distress. He denies any issues in the past 24 hours. He is feeling quite well. He's been up ambulating around this morning. He denies any worsening shortness of breath, cough or congestion. No chills or night sweats. He is maintaining good O2 saturations in the 90s on 4 L/m per nasal cannula. Chest x-ray shows persistent low lung volumes and cardiomegaly with mild central vascular congestion and small bilateral effusions. Left greater than right. Stable compared to yesterday. He continues to work well with the incentive spirometer. White count 9.0. Hemoglobin 8.5. Creatinine 0.90. He does remain in atrial fibrillation. He is currently on oral amiodarone and Cardizem. Anticoagulated with Eliquis. Objective - Vital Signs Vital signs: Vital Signs Temp 98.3 F 03/13/18 04:00 Pulse 98 03/13/18 07:17 Resp 28 H 03/13/18 07:00 BP 97/63 03/13/18 07:00 Pulse Ox 93 L 03/13/18 07:00 Intake & Output 03/12/18 03/13/18 03/13/18 18:59 06:59 18:59 Intake Total 920 480 480 Output Total 1040 250 0 Balance -120 230 480 Weight 134.8 kg 133.4 kg Intake: IV 0 0 0 Flush 0.9 0 0 0 Intake, IV Titration 100 Amount Sodium Ferric Gluconat- 100 Sucrose 125 mg In Sodium Chloride 0.9% 100 ml @ 100 mls/hr IVPB ONCE ONE Rx#:[id number] Oral 820 480 480 Output: Urine 1040 250 0 Other: Voiding Method Urinal Urinal # Voids 0 0 0 # Bowel Movements 1 ABP, PAP, CO, CI - Last Documented Arterial Blood Pressure 123/113 Pulmonary Artery Pressure 34/26 Cardiac Output 5.4 Cardiac Index 3.4 - Exam GENERAL EXAM: Alert, active, comfortable in no apparent distress. HEAD: Normocephalic. EYES: Normal reaction of pupils, equal size. NOSE: Clear with pink turbinates. THROAT: No erythema or exudates. NECK: No masses, no JVD. CHEST: Sternal dressing remains dry and intact LUNGS: Equal air entry with crackles in the bilateral posterior bases. CVS: S1 and S2 normal with no audible murmur, irregular rhythm. ABDOMEN: No hepatosplenomegaly, normal bowel sounds, no guarding or rigidity. SPINE: No scoliosis or deformity SKIN: No rashes CENTRAL NERVOUS SYSTEM: No focal deficits, tone is normal in all 4 extremities. EXTREMITIES: There is no peripheral edema. No clubbing, no cyanosis. Peripheral pulses are intact. - Labs CBC & Chem 7: 03/13/18 03:56 03/13/18 03:56 Labs: Abnormal Lab Results - Last 24 Hours (Table) 03/12/18 03/12/18 03/12/18 Range/Units 12:32 17:05 19:46 RBC (4.30-5.90) m/uL Hgb (13.0-17.5) gm/dL Hct (39.0-53.0) % Chloride (98-107) mmol/L BUN (9-20) mg/dL Glucose (74-99) mg/dL POC Glucose (mg/dL) 119 H 135 H 118 H (75-99) mg/dL Total Protein (6.3-8.2) g/dL Albumin (3.5-5.0) g/dL 03/13/18 03/13/18 03/13/18 Range/Units 01:07 03:56 03:56 RBC 2.77 L (4.30-5.90) m/uL Hgb 8.5 L (13.0-17.5) gm/dL Hct 25.2 L (39.0-53.0) % Chloride 109 H (98-107) mmol/L BUN 35 H (9-20) mg/dL Glucose 112 H (74-99) mg/dL POC Glucose (mg/dL) 114 H (75-99) mg/dL Total Protein 5.1 L (6.3-8.2) g/dL Albumin 2.8 L (3.5-5.0) g/dL 03/13/18 Range/Units 07:47 RBC (4.30-5.90) m/uL Hgb (13.0-17.5) gm/dL Hct (39.0-53.0) % Chloride (98-107) mmol/L BUN (9-20) mg/dL Glucose (74-99) mg/dL POC Glucose (mg/dL) 118 H (75-99) mg/dL Total Protein (6.3-8.2) g/dL Albumin (3.5-5.0) g/dL Assessment and Plan Assessment: Assessment: Severe triple-vessel coronary artery disease with normal LV function, status post three-vessel bypass grafting. Postoperative respiratory failure, resolved with extubation within the 6 hour time limit Acute kidney injury, possibly related to ATN, recovered Non-ST segment elevation myocardial infarction History of hypertension History of tinnitus History of deafness Multiple previous orthopedic procedures Lifelong nonsmoker No history of intrinsic pulmonary disease Plan: The patient was seen and evaluated by Dr. Martinez. Chest x-ray and labs were all reviewed. The patient is doing well from the pulmonary standpoint. He is again encouraged regarding the increased use the incentive spirometer and cough and deep breathing exercises. He does remain in atrial fibrillation. On oral amiodarone and Cardizem. Anticoagulated with Eliquis. The patient will be transferred to the selective care unit. We will increase his activity as tolerated. We'll continue to follow. I, the cosigning physician, performed a history & physical examination of the patient. Lungs sounds with crackles in the bilateral posterior bases. Maintaining good O2 saturations in the 90s on 4 L/m per nasal cannula. I discussed the assessment and plan of care with my nurse practitioner, Gracie Velásquez. I attest to the above note as dictated by her.
[2018-03-13] MEDS: PANTOPRAZOLE 40 MG TABLET PO SCH (09:43)
[2018-03-13] MEDS: ASCORBIC ACID 500 MG TAB PO SCH ×2 (09:43→17:36)
[2018-03-13] MEDS: APIXABAN 5 MG TAB PO SCH ×2 (09:44→21:39)
[2018-03-13] MEDS: ASPIRIN 81 MG PO SCH (09:44)
[2018-03-13] MEDS: AMIODARONE 200 MG TAB PO SCH ×2 (09:44→21:39)
[2018-03-13] MEDS: ATORVASTATIN 40 MG TAB PO SCH (09:44)
--- NOTE | 2018-03-13 10:23 | P.PN ---
Subjective Progress Note Date: 03/13/18 Principal diagnosis: Non-ST elevation myocardial infarction, triple-vessel coronary artery disease, preserved left ventricular function, hypertension, obesity, strong family history for coronary artery disease with evidence of diffuse coronary artery disease. Social alcohol use of 2-7 drinks per week. POD #7 urgent multiple arterial triple coronary artery bypass grafting using the left internal mammary artery to the left anterior descending artery, the left radial artery from the aorta to the obtuse marginal artery, reverse saphenous vein graft from the aorta to the right coronary artery. Endoscopic harvesting of the left radial artery. Endoscopic harvesting of the left greater saphenous vein between the groin and knee level. Intraoperative graft flow measurements. Intraoperative transesophageal echocardiogram and epi- aortic scanning. Postoperative atrial fibrillation with rapid ventricular response, an unexpected but potential outcome of surgery. Patient is currently sitting up in a recliner in no acute distress. States pain is controlled with current pain medication. Denies shortness of breath. Patient continues to be in atrial fibrillation with rapid ventricular response although heart rate is better controlled today. Patient is anxious to be discharged. He has been ambulating in hallway. Objective - Vital Signs Vital signs: Vital Signs Temp 98.3 F 03/13/18 04:00 Pulse 98 03/13/18 07:17 Resp 28 H 03/13/18 07:00 BP 97/63 03/13/18 07:00 Pulse Ox 93 L 03/13/18 07:00 Intake & Output 03/12/18 03/13/18 03/13/18 18:59 06:59 18:59 Intake Total 920 480 480 Output Total 1040 250 0 Balance -120 230 480 Weight 134.8 kg 133.4 kg Intake: IV 0 0 0 Flush 0.9 0 0 0 Intake, IV Titration 100 Amount Sodium Ferric Gluconat- 100 Sucrose 125 mg In Sodium Chloride 0.9% 100 ml @ 100 mls/hr IVPB ONCE ONE Rx#:[id number] Oral 820 480 480 Output: Urine 1040 250 0 Other: Voiding Method Urinal Urinal # Voids 0 0 0 # Bowel Movements 1 ABP, PAP, CO, CI - Last Documented Arterial Blood Pressure 123/113 Pulmonary Artery Pressure 34/26 Cardiac Output 5.4 Cardiac Index 3.4 - Constitutional General appearance: Present: cooperative, no acute distress, obese - Respiratory Details: Lungs sounds diminished bilaterally. Respirations even, nonlabored. Currently on 4L nasal cannula with oxygen saturation 95%. Able to achieve 8245-0900 mL on his incentive spirometry. Effective cough. - Cardiovascular Details: S1, S2 present. Tachycardic, irregular rate and rhythm, atrial fibrillation with rapid ventricular response on telemetry. Sternum stable. Palpable peripheral pulses bilaterally. Bilateral lower extremity edema present. No calf pain or tenderness noted. Heart hugger in place with patient demonstrating appropriate use. Antiembolism stockings, SCDs present. - Gastrointestinal Gastrointestinal Comment(s): Abdomen soft, nontender, nondistended. Active bowel sounds present 4 quadrants. Tolerating diet. Positive bowel movement. - Genitourinary Genitourinary Comment(s): Patient continues to void clear, yellow urine. - Integumentary Integumentary Comment(s): Skin is warm and dry with evidence of good perfusion. Anterior chest incision well approximated and covered with dry intact dressing. Skin is pink, patient does have feeling and mobility in the left arm. Left lower extremity EVH site well approximated. - Neurologic Neurologic: Present: CNII-XII intact - Musculoskeletal Musculoskeletal: Present: gait normal, strength equal bilaterally - Psychiatric Psychiatric: Present: A&O x's 3, appropriate affect, intact judgment & insight - Allied health notes Allied health notes reviewed: nursing - Labs CBC & Chem 7: 03/13/18 03:56 03/13/18 03:56 Labs: Abnormal Lab Results - Last 24 Hours (Table) 03/12/18 03/12/18 03/12/18 Range/Units 12:32 17:05 19:46 RBC (4.30-5.90) m/uL Hgb (13.0-17.5) gm/dL Hct (39.0-53.0) % Chloride (98-107) mmol/L BUN (9-20) mg/dL Glucose (74-99) mg/dL POC Glucose (mg/dL) 119 H 135 H 118 H (75-99) mg/dL Total Protein (6.3-8.2) g/dL Albumin (3.5-5.0) g/dL 03/13/18 03/13/18 03/13/18 Range/Units 01:07 03:56 03:56 RBC 2.77 L (4.30-5.90) m/uL Hgb 8.5 L (13.0-17.5) gm/dL Hct 25.2 L (39.0-53.0) % Chloride 109 H (98-107) mmol/L BUN 35 H (9-20) mg/dL Glucose 112 H (74-99) mg/dL POC Glucose (mg/dL) 114 H (75-99) mg/dL Total Protein 5.1 L (6.3-8.2) g/dL Albumin 2.8 L (3.5-5.0) g/dL 03/13/18 Range/Units 07:47 RBC (4.30-5.90) m/uL Hgb (13.0-17.5) gm/dL Hct (39.0-53.0) % Chloride (98-107) mmol/L BUN (9-20) mg/dL Glucose (74-99) mg/dL POC Glucose (mg/dL) 118 H (75-99) mg/dL Total Protein (6.3-8.2) g/dL Albumin (3.5-5.0) g/dL - Imaging and Cardiology Chest x-ray: report reviewed, image reviewed Assessment and Plan (1) Non-STEMI (non-ST elevated myocardial infarction) Current Visit: Yes Status: Acute Code(s): I21.4 - NON-ST ELEVATION (NSTEMI) MYOCARDIAL INFARCTION SNOMED Code(s): 768897764 (2) Hypertension Current Visit: Yes Status: Chronic Code(s): I10 - ESSENTIAL (PRIMARY) HYPERTENSION SNOMED Code(s): 93231449 (3) Family history of coronary artery disease Current Visit: Yes Status: Chronic Code(s): Z82.49 - FAMILY HX OF ISCHEM HEART DIS AND OTH DIS OF THE CIRC S SNOMED Code(s): 174266304 Plan: 1. Continue low-dose aspirin, statin, beta david. Will increase beta david therapy as tolerated. 2. Continue amiodarone for A. fib prophylaxis. Continue Eliquis for anticoagulation. 3. Continue Cardizem for radial artery spasm prophylaxis as well as rate control. 4. Wean O2 as tolerated. Encourage incentive spirometry use 10 times every hour while awake. 5. Increase activity ambulate as tolerated. PT/OT/cardiac rehab following. 6. GI/DVT prophylaxis. 7. Will monitor daily labs and x-rays. 8. Insulin management per primary care service. 9. Pain management per ordered medication regimen. 10. Will give 20 mg IV Lasix today. 11. Bronchodilators per pulmonology. 12. Recommendations for possible cardioversion deferred to cardiology. 13. May transfer to [facility] care when bed available. 14. If no cardioversion planned by cardiology anticipate discharge to home soon. Time with Patient: Greater than 30
[2018-03-13] MEDS: FERROUS SULFATE 325 MG TAB PO SCH (11:46)
[2018-03-13 12:07] LABS: Glucose,Whole Blood 129 mg/dL (75-99)
[2018-03-13] MEDS: amLODIPine 5 MG TAB PO SCH (12:55)
[2018-03-13] MEDS: CLOPIDOGREL 75 MG TAB PO SCH (12:56)
[2018-03-13] MEDS: BENZOCAINE/MENTHOL LOZENG 1 EACH LOZENGE MUCOUS MEM PRN (15:32)
[2018-03-13 17:26] LABS: Glucose,Whole Blood 121 mg/dL (75-99)
[2018-03-13 21:39] LABS: Glucose,Whole Blood 128 mg/dL (75-99)
[2018-03-13] MEDS: HYDROcodone/APAP 5-325MG 1 EACH TAB PO PRN (21:40)
[2018-03-13] MEDS: SENNOSIDES-DOCUSATE SODIUM 1 EACH TAB PO SCH (21:40)
[2018-03-14] MEDS: METOPROLOL TARTRATE 50 MG TAB PO SCH ×3 (00:32→16:01)
[2018-03-14] MEDS: DILTIAZEM ORAL 30 MG TAB PO SCH ×4 (00:32→16:01)
[2018-03-14 02:12] LABS: Glucose,Whole Blood 120 mg/dL (75-99)
[2018-03-14] MEDS: INSULIN ASPART 100 UNIT/ML 1 ML 10 ML VIAL SQ SCH ×5 (02:43→21:06)
[2018-03-14 06:08] LABS: Glucose,Whole Blood 109 mg/dL (75-99)
[2018-03-14 06:25] LABS: HCT 25.6 % (39.0-53.0); HGB 7.9 gm/dL (13.0-17.5); Hypochromasia Slight; MCH 28.6 pg (25.0-35.0); MCHC 30.9 g/dL (31.0-37.0); MCV 92.5 fL (80.0-100.0); Mean Platelet Volume 6.7; Platelet Count 393 k/uL (150-450); RBC 2.77 m/uL (4.30-5.90); RDW 14.1 % (11.5-15.5); WBC 8.1 k/uL (3.8-10.6)
[2018-03-14 06:41] LABS: Albumin 2.9 g/dL (3.5-5.0); Calcium 8.3 mg/dL (8.4-10.2); Magnesium 2.3 mg/dL (1.6-2.3); Potassium 4.4 mmol/L (3.5-5.1); Total Bilirubin 0.6 mg/dL (0.2-1.3)
[2018-03-14] MEDS: ASCORBIC ACID 500 MG TAB PO SCH ×2 (06:51→16:00)
[2018-03-14] MEDS: PANTOPRAZOLE 40 MG TABLET PO SCH (06:51)
[2018-03-14] MEDS: IPRATROPIUM-ALBUTEROL 3 ML NEB INHALATION SCH ×4 (07:24→20:50)
--- NOTE | 2018-03-14 07:56 | P.PN ---
Subjective Progress Note Date: 03/13/18 This is a 63-year-old male patient of Dr. Davison with past medical history for hypertension, osteoarthritis, benign prostatic hypertrophy. Patient gives history that for a long period of time since last fall he has had a cough when he lays in bed. He has had about a bronchitis and following that he did have some improvement for about 6 months and now he has a cough when he lays down and has some chest pain in the midsternal area. He does golf 3-4 times a week and does not have any chest heaviness at that time. He states he has had it every day for 2-3 weeks in a row and went to see Dr. Davison yesterday and he was sent into the emergency center for evaluation. Patient describes it as a heavy chest. He states he gets up and take some Pepto-Bismol or something else and then he ends up sleeping in a chair. Troponins are 0.064 , 0.070, 0.060. Triglycerides 122, cholesterol 229, LDL 156, HDL 49. Lipase 72. CBC is within normal limits. Electrolytes are normal. Patient has been admitted to the selective care unit and cardiology consult requested. He has been started on heparin drip and aspirin. Cardiology has added and Lipitor and beta david. Echocardiogram reveals EF of 55-60%, moderate concentric left ventricular hypertrophy, LV mildly dilated at 29-33, mild aortic valve sclerosis , mild tricuspid regurgitation. Patient is scheduled for heart catheterization today. 03/06: Heart catheterization with Dr. Walter yesterday revealed severe triple vessel coronary disease, normal left ventricular size and systolic function. Recommendations for cardiovascular surgery evaluation which was done yesterday. Plan is for urgent coronary artery bypass graft 3 today. Patient denies any new complaints. His is at bedside. 03/07: Patient underwent coronary artery bypass grafting using the left internal mammary artery to the left anterior descending artery, left radial artery from the aorta to the obtuse marginal artery, reverse saphenous vein graft from the aorta to the right coronary artery. Patient remains in the intensive care unit. Patient was successfully extubated early in the morning. This morning, patient is sitting up in a chair and appears to be comfortable. Plan is to remove the one pleural tube and [place]'s today. His blood sugars been running 131 and 152. He is ordered for 1 dose of Lasix IV push 20 mg this morning.. 03/08: Patient remains in the intensive care unit. Pulse ox is 94% on 3 L nasal cannula. He has been afebrile. Patient is some increased shortness of breath and is doing less with incentive spirometry. Mediastinal and right pleural chest tubes have been discontinued. 03/09: Patient remain in the intensive care unit, still on O2, still have a chest tube and, patient developed to have A. fib with RVR started on amiodarone drip his pulse rate is down to 100 and is feeling little bit better. Patient is in the chair eating his first meal this morning and tolerating food very well. 03/11: Patient is continued in atrial fibrillation with elevated rate. He is on amiodarone oral and Lopressor as well as 1 dose of IV digoxin, Cardizem 30 mg every 6 hours. Patient was started on eliquis. Patient states that he is feeling a lot better from yesterday. He states he has been up and walked, took a nap and also took a shower. He feels tired after minimal activity. He did feel a little lightheadedness but it wasn't bad. Pulse ox is 94% on room air. Hemoglobin is 8.2, creatinine 0.8. Blood sugars have been running between 118 and 131. Patient is not diabetic. 03/12: He remains in the intensive care unit now as an overflow for selective care. Patient states he has been sleeping well in the hospital until last night and Ambien has are been added for tonight. He states he was feeling woozy and out of it this morning but after nap he was feeling improved. Hemoglobin is 8.8. Ferrlecit 1 dose has been ordered. His Lopressor was increased to 50 mg 3 times daily and he received 1 dose of IV Lasix this morning. 03/13:Patient complains of fatigue but no other real concerns. He remains in a fib in the low 100s. BP is on the low side. Repeat chest x-ray reveals persistent low lung volumes and cardiomegaly with mild central vascular congestion and suspected tiny pleural effusions. Pulse ox is 96% on 2 L nasal cannula. Today's hemoglobin is 8.5. Patient is awaiting for selective care bed. Objective - Vital Signs Vital signs: Vital Signs Temp 98.3 F 03/13/18 04:00 Pulse 98 03/13/18 07:17 Resp 28 H 03/13/18 07:00 BP 97/63 03/13/18 07:00 Pulse Ox 93 L 03/13/18 07:00 Intake & Output 03/12/18 03/13/18 03/13/18 18:59 06:59 18:59 Intake Total 920 480 480 Output Total 1040 250 0 Balance -120 230 480 Weight 134.8 kg 133.4 kg Intake: IV 0 0 0 Flush 0.9 0 0 0 Intake, IV Titration 100 Amount Sodium Ferric Gluconat- 100 Sucrose 125 mg In Sodium Chloride 0.9% 100 ml @ 100 mls/hr IVPB ONCE ONE Rx#:[id number] Oral 820 480 480 Output: Urine 1040 250 0 Other: Voiding Method Urinal Urinal # Voids 0 0 0 # Bowel Movements 1 ABP, PAP, CO, CI - Last Documented Arterial Blood Pressure 123/113 Pulmonary Artery Pressure 34/26 Cardiac Output 5.4 Cardiac Index 3.4 - Exam General appearance: Present: cooperative, disheveled, no acute distress. Absent : average body habitus, mild distress, morbidly obese, obese, severe distress, thin - EENT Eyes: Present: normal appearance. Absent: abnormal pupil, anicteric sclerae, disc margins sharp, edentulous, EOMI, PERRLA, fundus normal, photophobia, dentition normal, poor dentition, ptosis, scleral icterus ENT: Present: normal oropharynx. Absent: hard of hearing, hearing grossly normal, NA/AT, other, pharyngeal erythema, thrush, tonsillar exudates, tonsillar swelling Ears: bilateral: normal - Neck Neck: Present: normal ROM Carotids: bilateral: upstroke normal Thyroid: bilateral: normal size - Respiratory Respiratory: bilateral: diminished, dullness, rales - Cardiovascular Rhythm: irregularly irregular Heart sounds: normal: S1, S2 Abnormal Heart Sounds: Present: systolic murmur, S3 Gallop - Gastrointestinal General gastrointestinal: Present: decreased bowel sounds, soft. Absent: absent bowel sounds, distended, hepatomegaly, hyperactive bowel sounds, normal bowel sounds, organomegaly, rigid, scaphoid, splenomegaly, tenderness, umbilical hernia, ventral hernia - Integumentary Integumentary: Present: normal. Absent: calor, cellulitis, cyanotic, decreased turgor, flushed, jaundiced, normal turgor, pale, rash, ulcer - Neurologic Neurologic: Present: CNII-XII intact - Musculoskeletal Musculoskeletal: Present: gait normal, generalized weakness. Absent: strength equal bilaterally, right sided weakness, left sided weakness - Psychiatric Psychiatric: Present: A&O x's 3 - Labs CBC & Chem 7: 03/14/18 05:48 03/14/18 05:48 Labs: Abnormal Lab Results - Last 24 Hours (Table) 03/12/18 03/12/18 03/12/18 Range/Units 12:32 17:05 19:46 RBC (4.30-5.90) m/uL Hgb (13.0-17.5) gm/dL Hct (39.0-53.0) % Chloride (98-107) mmol/L BUN (9-20) mg/dL Glucose (74-99) mg/dL POC Glucose (mg/dL) 119 H 135 H 118 H (75-99) mg/dL Total Protein (6.3-8.2) g/dL Albumin (3.5-5.0) g/dL 03/13/18 03/13/18 03/13/18 Range/Units 01:07 03:56 03:56 RBC 2.77 L (4.30-5.90) m/uL Hgb 8.5 L (13.0-17.5) gm/dL Hct 25.2 L (39.0-53.0) % Chloride 109 H (98-107) mmol/L BUN 35 H (9-20) mg/dL Glucose 112 H (74-99) mg/dL POC Glucose (mg/dL) 114 H (75-99) mg/dL Total Protein 5.1 L (6.3-8.2) g/dL Albumin 2.8 L (3.5-5.0) g/dL 03/13/18 Range/Units 07:47 RBC (4.30-5.90) m/uL Hgb (13.0-17.5) gm/dL Hct (39.0-53.0) % Chloride (98-107) mmol/L BUN (9-20) mg/dL Glucose (74-99) mg/dL POC Glucose (mg/dL) 118 H (75-99) mg/dL Total Protein (6.3-8.2) g/dL Albumin (3.5-5.0) g/dL Assessment and Plan Plan: 1. Non-ST elevated myocardial infarction status post CABG. Continue current management per cardiovascular surgery and pulmonary medicine. Patient has been successfully extubated. Continue aspirin, Lipitor, Lopressor. 2. Hypertension. Patient has been on amlodipine 5 mg daily, Lopressor 25 g twice daily 3. Benign prostatic hypertrophy. Monitor for urinary retention. Patient currently has Cutler catheter in place 4. Osteoarthritis, generalized. 5. 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 Continue Vicoprofen as needed 6. Atrial fibrillation with RVR, paroxysmal atrial fibrillation. Continue amiodarone, Cardizem, Lopressor, patient received 1 dose of IV digoxin. Patient is on eliquis. 7. DVT prophylaxis. 7. GI prophylaxis. Pepcid. Discharge plan: Home with [facility]. Impression and plan of care have been directed as dictated by the signing physician. Stefania Vázquez nurse practitioner acting as scribe for signing physician.
[2018-03-14] MEDS: ASPIRIN 81 MG PO SCH (08:10)
[2018-03-14] MEDS: APIXABAN 5 MG TAB PO SCH ×2 (08:10→20:39)
[2018-03-14] MEDS: ATORVASTATIN 40 MG TAB PO SCH (08:10)
[2018-03-14] MEDS: FUROSEMIDE 10 MG/ML 2 ML VIAL IV SCH ×2 (08:10→16:00)
[2018-03-14] MEDS: AMIODARONE 200 MG TAB PO SCH ×2 (08:11→20:39)
--- NOTE | 2018-03-14 08:51 | XR ---
EXAMINATION TYPE: XR chest 2V DATE OF EXAM: 03/14/2018 COMPARISON: 03/13/2018 HISTORY: 63 year-old male post cardiac surgery TECHNIQUE: Frontal and lateral views FINDINGS: Heart remains borderline to mildly enlarged. Median sternotomy wires and post-CABG changes. Small lef t greater than right pleural effusions with retrocardiac opacity. IMPRESSION: Overall stable exam with borderline to mild cardiomegaly. Small left greater than right effusions wit h adjacent atelectasis and/or consolidation.
[2018-03-14 10:08] VITALS: BMI 37.0
[2018-03-14] MEDS ORDERED: ACETAMINOPHEN TAB 325 MG TAB PO PRN (10:59)
[2018-03-14 11:37] LABS: Glucose,Whole Blood 120 mg/dL (75-99)
--- NOTE | 2018-03-14 12:04 | P.PN ---
Subjective Progress Note Date: 03/14/18 Principal diagnosis: Severe multivessel coronary artery disease with normal LV function, status post three-vessel coronary artery bypass grafting, postop day 2 Progress note dated 03/07/2018 63-year-old male status post postop day #1 status post triple vessel bypass grafting. The patient did have postoperative respiratory failure. He was extubated within the 6 hour timeframe. Patient is doing relatively well. Sitting up in the chair. Working on deep breathing coughing clearing of secretions and also using the incentive spirometer. Remains on nasal O2. Hemodynamically stable. The patient does have a history of non-ST segment elevation myocardial infarction hypertension tinnitus deafness multiple reviews orthopedic procedures and was not thought to have any intrinsic pulmonary disease. The patient is otherwise doing reasonably well. We stressed the importance of deep breathing coughing and clearing his secretions. We'll also stressed the importance of using the incentive spirometer. Chest x-ray is difficult to interpret. Typical postoperative changes no noted. On 03/08/2018 patient is seen in follow-up in the intensive care unit. He states he is more short of breath today. Patient did receive a dose of IV Lasix per CT surgery yesterday, his chest x-ray was reviewed by Dr. Robbins, and shows elevated right hemidiaphragm, right midlung streak atelectasis, small pleural effusions. Currently on 3 L per nasal cannula, his pulse ox is 94%, ration is tachycardic, but in sinus mechanism, his current heart rate is 118 BPM , he is afebrile. Maintenance IV fluid is LR at a rate of 40 ML per hour. No other drips. Incentive spirometry effort is significantly less today compared to yesterday, he is only able to achieve 750 today compared 1500 yesterday. He is complaining of mid back pain which is exacerbated by deep breathing. Patient needs increased pulmonary toileting, deep breathing and coughing. His labs were reviewed, the PVCs 8.7, hemoglobin is 9.3. Sodium is 136, patient has developed acute kidney injury, his BUN is 25, creatinine is 1.3, urine output is in the order from 30-70 ML per hour. Patient has left and right and mediastinal chest tubes, with small amount of serosanguineous drainage. Patient has ambulated around the unit, and tolerated activity fairly well. Progress note dated 03/09/2018 This is a 63-year-old male who is postop day #2, status post three-vessel bypass grafting. The patient had developed atrial fibrillation overnight was placed on amiodarone at 0.5 mg/m. He is getting an IV of lactated Ringer's at 20 mL an hour is receiving supplemental oxygen 3 L by nasal cannula. His incentive spirometry effort is not very good only 750 mL. This patient was discovered on evaluation to have severe triple-vessel disease, normal LV function, acute kidney injury, related to ATN, non-ST segment elevation myocardial infarction, hypertension, tinnitus, deafness, and had no history of intrinsic pulmonary disease as he was a lifelong nonsmoker. Progress note dated 03/10/2018 This is a 63-year-old male who is postop day #3, status post three-vessel bypass grafting. He did develop some atrial fibrillation postoperatively and was placed initially on IV Cordarone at 0.5 mg/m. There has not been switched to oral Cordarone. The patient is getting lactated Ringer's at KVO and still on oxygen at 2 L by nasal cannula. He is getting about 1250 mL on his incentive spirometer. He has surgical site discomfort. In addition to have severe triple-vessel disease which necessitated the bypass grafting, the patient was found to have acute kidney injury secondary to ATN, non-ST segment elevation myocardial infarction, hypertension, tinnitus, deafness, but did not have any intrinsic pulmonary disease. He is a lifelong nonsmoker. On 03/11/2018 patient seen again in follow-up in intensive care unit. He is sitting up in the chair, denies any acute distress, his dyspnea. His pain is under good control, he remains in atrial fibrillation with a rate of 121 BPM. Currently on oral amiodarone 400 mg twice a day, Lopressor at 25 mg twice a day , she did receive a dose of IV Lanoxin, and she is on diltiazem 30 mg every 6 hours. Continues on oral anticoagulation with Eliquis 5 mg by mouth twice a day. Patient has been ambulating, tolerating activity well. 2 L per nasal cannula his pulse ox is 93%. Afebrile, hemodynamically stable. Lung sounds are diminished at the bases, his chest x-ray has been reviewed by Dr. Martinez, and shows partial obscuration of the medial retrocardiac airspace and costophrenic angle that may relate to atelectasis and trace pleural effusion. Patient will receive a dose of IV Lasix today per CT surgery. On 03/12/2018 patient seen again in follow-up in the intensive care unit. He is resting in the recliner, he states he did not sleep much because of noise in the unit, he states he normally takes Advil PM as a sleep aid. But otherwise denies any acute complaints, denies any dyspnea, his postop pain is controlled. Her maintenance in atrial fibrillation, and the rate is still low 100s to 120s with activity. He is afebrile, remains on 2 L per nasal cannula his pulse ox is 94%, hemodynamically stable, his beta blockers are being adjusted per CT surgery, it is increased to 50 mg 3 times a day, he remains on oral amiodarone and oral Cardizem. Lung sounds are diminished at the bases, no wheezes, no rhonchi, today's chest x-ray has been reviewed and shows mild bibasilar infiltrates, likely related to atelectasis. Patient is compliant with his incentive spirometer, is able to achieve 1500 on the today. On 03/14/2018 patient seen in follow-up on selective care unit. No acute distress, room air pulse ox is 91%, post exercises 94%. Vital signs are stable , afebrile. His chest x-ray has been reviewed, shows stable exam, with mild cardiomegaly, and small left greater than right effusions and adjacent atelectasis. Able to achieve 2800-2015 ML in his incentive spirometry today. Remains in A. fib, and the rate is 119 BPM, Mirian on a combination of oral amiodarone 200 by mouth twice a day, oral Cardizem at 30 mg every 6 hours, metoprolol 75 mg every 8 hours, and he is on oral anticoagulation the form of Eliquis. Overall remains stable, tolerating ambulation. Objective - Vital Signs Vital signs: Vital Signs Temp 97.7 F 03/14/18 08:00 Pulse 88 03/14/18 11:37 Resp 18 03/14/18 08:00 BP 111/66 03/14/18 09:06 Pulse Ox 90 L 03/14/18 09:06 Intake & Output 08/01/18 08/02/18 08/02/18 18:59 06:59 18:59 Intake Total 1310 240 Output Total 400 180 Balance 910 -180 240 Weight 133.4 kg 131.1 kg 131.1 kg Intake: IV 30 Flush 0.9 30 Oral 1280 240 Output: Urine 400 180 Other: Voiding Method Urinal Urinal # Voids 1 1 # Bowel Movements 1 ABP, PAP, CO, CI - Last Documented Arterial Blood Pressure 123/113 Pulmonary Artery Pressure 34/26 Cardiac Output 5.4 Cardiac Index 3.4 - Exam No acute distress, oriented 3. HEENT examination is grossly unremarkable. Mucous membranes are moist. No oral lesions. Neck supple. Full range of motion. No adenopathy thyromegaly or neck vein distention. Cardiovascular examination reveals regular rhythm rate. S1-S2 normal. No S3 or S4. No discernible murmur noted. Lungs reveal clear breath sounds. His breath sounds are equal bilaterally. Diminished breath sounds at the bases, dullness to percussion over bilateral bases. Abdomen soft bowel sounds are heard. No masses or tenderness. Extremities are intact. No cyanosis clubbing or edema. Skin is without rash or lesion. Midsternal incision is clean dry and intact, mediastinal, and bilateral pleural chest tube insertion sites are intact, left leg incisions covered with dressings, patient has bilateral lower leg SWATI hose on Neurologic examination is brief but nonfocal. - Labs CBC & Chem 7: 03/14/18 05:48 03/14/18 05:48 Labs: Abnormal Lab Results - Last 24 Hours (Table) 03/13/18 03/13/18 03/13/18 Range/Units 12:06 17:25 21:37 RBC (4.30-5.90) m/uL Hgb (13.0-17.5) gm/dL Hct (39.0-53.0) % MCHC (31.0-37.0) g/dL BUN (9-20) mg/dL Glucose (74-99) mg/dL POC Glucose (mg/dL) 129 H 121 H 128 H (75-99) mg/dL Calcium (8.4-10.2) mg/dL Total Protein (6.3-8.2) g/dL Albumin (3.5-5.0) g/dL 03/14/18 03/14/18 03/14/18 Range/Units 02:10 05:48 05:48 RBC 2.77 L (4.30-5.90) m/uL Hgb 7.9 L (13.0-17.5) gm/dL Hct 25.6 L (39.0-53.0) % MCHC 30.9 L (31.0-37.0) g/dL BUN 32 H (9-20) mg/dL Glucose 105 H (74-99) mg/dL POC Glucose (mg/dL) 120 H (75-99) mg/dL Calcium 8.3 L (8.4-10.2) mg/dL Total Protein 5.0 L (6.3-8.2) g/dL Albumin 2.9 L (3.5-5.0) g/dL 18 03/14/18 Range/Units 05:56 11:33 RBC (4.30-5.90) m/uL Hgb (13.0-17.5) gm/dL Hct (39.0-53.0) % MCHC (31.0-37.0) g/dL BUN (9-20) mg/dL Glucose (74-99) mg/dL POC Glucose (mg/dL) 109 H 120 H (75-99) mg/dL Calcium (8.4-10.2) mg/dL Total Protein (6.3-8.2) g/dL Albumin (3.5-5.0) g/dL Assessment and Plan Plan: Assessment: Severe triple-vessel coronary artery disease with normal LV function, status postop day #6, three-vessel bypass grafting. Postoperative respiratory failure, resolved with extubation within the 6 hour time limit Acute kidney injury, possibly related to ATN, recovered Non-ST segment elevation myocardial infarction History of hypertension History of tinnitus History of deafness Multiple previous orthopedic procedures Lifelong nonsmoker No history of intrinsic pulmonary disease Plan: Continue current medical treatment, beta blockers are being adjusted per cardiology, remains on combination of amiodarone and oral Cardizem for rate control, remains in atrial fibrillation. Hemodynamically stable, on room air, tolerating ambulation, today's chest x-ray shows stable findings with bilateral pleural effusions and atelectasis. Encourage incentive spirometry use, IV diuretics per CT surgery. I performed a history & physical examination of the patient and discussed their management with my nurse practitioner, Geena Hoyt. I reviewed the nurse practitioner's note and agree with the documented findings and plan of care. Lung sounds are diminished at the bases, with dullness to percussion. The findings and the impression was discussed with the patient. I attest to the documentation by the nurse practitioner. Time with Patient: Less than 30
[2018-03-14] MEDS: FERROUS SULFATE 325 MG TAB PO SCH (12:22)
--- NOTE | 2018-03-14 13:16 | P.PN ---
Subjective Progress Note Date: 03/14/18 This is a 63-year-old male patient of Dr. Davison with past medical history for hypertension, osteoarthritis, benign prostatic hypertrophy. Patient gives history that for a long period of time since last fall he has had a cough when he lays in bed. He has had about a bronchitis and following that he did have some improvement for about 6 months and now he has a cough when he lays down and has some chest pain in the midsternal area. He does golf 3-4 times a week and does not have any chest heaviness at that time. He states he has had it every day for 2-3 weeks in a row and went to see Dr. Davison yesterday and he was sent into the emergency center for evaluation. Patient describes it as a heavy chest. He states he gets up and take some Pepto-Bismol or something else and then he ends up sleeping in a chair. Troponins are 0.064 , 0.070, 0.060. Triglycerides 122, cholesterol 229, LDL 156, HDL 49. Lipase 72. CBC is within normal limits. Electrolytes are normal. Patient has been admitted to the selective care unit and cardiology consult requested. He has been started on heparin drip and aspirin. Cardiology has added and Lipitor and beta david. Echocardiogram reveals EF of 55-60%, moderate concentric left ventricular hypertrophy, LV mildly dilated at 29-33, mild aortic valve sclerosis , mild tricuspid regurgitation. Patient is scheduled for heart catheterization today. 03/06: Heart catheterization with Dr. Walter yesterday revealed severe triple vessel coronary disease, normal left ventricular size and systolic function. Recommendations for cardiovascular surgery evaluation which was done yesterday. Plan is for urgent coronary artery bypass graft 3 today. Patient denies any new complaints. His is at bedside. 03/07: Patient underwent coronary artery bypass grafting using the left internal mammary artery to the left anterior descending artery, left radial artery from the aorta to the obtuse marginal artery, reverse saphenous vein graft from the aorta to the right coronary artery. Patient remains in the intensive care unit. Patient was successfully extubated early in the morning. This morning, patient is sitting up in a chair and appears to be comfortable. Plan is to remove the one pleural tube and Perry's today. His blood sugars been running 131 and 152. He is ordered for 1 dose of Lasix IV push 20 mg this morning.. 03/08: Patient remains in the intensive care unit. Pulse ox is 94% on 3 L nasal cannula. He has been afebrile. Patient is some increased shortness of breath and is doing less with incentive spirometry. Mediastinal and right pleural chest tubes have been discontinued. 03/09: Patient remain in the intensive care unit, still on O2, still have a chest tube and, patient developed to have A. fib with RVR started on amiodarone drip his pulse rate is down to 100 and is feeling little bit better. Patient is in the chair eating his first meal this morning and tolerating food very well. 03/11: Patient is continued in atrial fibrillation with elevated rate. He is on amiodarone oral and Lopressor as well as 1 dose of IV digoxin, Cardizem 30 mg every 6 hours. Patient was started on eliquis. Patient states that he is feeling a lot better from yesterday. He states he has been up and walked, took a nap and also took a shower. He feels tired after minimal activity. He did feel a little lightheadedness but it wasn't bad. Pulse ox is 94% on room air. Hemoglobin is 8.2, creatinine 0.8. Blood sugars have been running between 118 and 131. Patient is not diabetic. 03/12: He remains in the intensive care unit now as an overflow for selective care. Patient states he has been sleeping well in the hospital until last night and Ambien has are been added for tonight. He states he was feeling woozy and out of it this morning but after nap he was feeling improved. Hemoglobin is 8.8. Ferrlecit 1 dose has been ordered. His Lopressor was increased to 50 mg 3 times daily and he received 1 dose of IV Lasix this morning. 03/13:Patient complains of fatigue but no other real concerns. He remains in a fib in the low 100s. BP is on the low side. Repeat chest x-ray reveals persistent low lung volumes and cardiomegaly with mild central vascular congestion and suspected tiny pleural effusions. Pulse ox is 96% on 2 L nasal cannula. Today's hemoglobin is 8.5. Patient is awaiting for selective care bed. 03/14: Sugars are running between 109 and 128. He will not need any medications at home for this. Hemoglobin is at 7.9. Heart rate is running in the 90s and low 100s and remains in atrial fibrillation. He has been ambulating well in the hallway without any complaints of chest pain, shortness of breath, lightheadedness or dizziness. Patient states he is going home today. Home care has been arranged. Objective - Vital Signs Vital signs: Vital Signs Temp 97.7 F 03/14/18 08:00 Pulse 104 H 03/14/18 09:06 Resp 18 03/14/18 08:00 BP 111/66 03/14/18 09:06 Pulse Ox 90 L 03/14/18 09:06 Intake & Output 03/13/18 03/14/18 03/14/18 18:59 06:59 18:59 Intake Total 1310 240 Output Total 400 180 Balance 910 -180 240 Weight 133.4 kg 131.1 kg 131.1 kg Intake: IV 30 Flush 0.9 30 Oral 1280 240 Output: Urine 400 180 Other: Voiding Method Urinal Urinal # Voids 1 1 # Bowel Movements 1 ABP, PAP, CO, CI - Last Documented Arterial Blood Pressure 123/113 Pulmonary Artery Pressure 34/26 Cardiac Output 5.4 Cardiac Index 3.4 - Exam General appearance: Present: cooperative, disheveled, no acute distress. Absent : average body habitus, mild distress, morbidly obese, obese, severe distress, thin - EENT Eyes: Present: normal appearance. Absent: abnormal pupil, anicteric sclerae, disc margins sharp, edentulous, EOMI, PERRLA, fundus normal, photophobia, dentition normal, poor dentition, ptosis, scleral icterus ENT: Present: normal oropharynx. Absent: hard of hearing, hearing grossly normal, NA/AT, other, pharyngeal erythema, thrush, tonsillar exudates, tonsillar swelling Ears: bilateral: normal - Neck Neck: Present: normal ROM Carotids: bilateral: upstroke normal Thyroid: bilateral: normal size - Respiratory Respiratory: bilateral: diminished, dullness, rales - Cardiovascular Rhythm: irregularly irregular Heart sounds: normal: S1, S2 Abnormal Heart Sounds: Present: systolic murmur, S3 Gallop - Gastrointestinal General gastrointestinal: Present: decreased bowel sounds, soft. Absent: absent bowel sounds, distended, hepatomegaly, hyperactive bowel sounds, normal bowel sounds, organomegaly, rigid, scaphoid, splenomegaly, tenderness, umbilical hernia, ventral hernia - Integumentary Integumentary: Present: normal. Absent: calor, cellulitis, cyanotic, decreased turgor, flushed, jaundiced, normal turgor, pale, rash, ulcer - Neurologic Neurologic: Present: CNII-XII intact - Musculoskeletal Musculoskeletal: Present: gait normal, generalized weakness. Absent: strength equal bilaterally, right sided weakness, left sided weakness - Psychiatric Psychiatric: Present: A&O x's 3 - Labs CBC & Chem 7: 03/14/18 05:48 03/14/18 05:48 Labs: Abnormal Lab Results - Last 24 Hours (Table) 03/13/18 03/13/18 03/13/18 Range/Units 12:06 17:25 21:37 RBC (4.30-5.90) m/uL Hgb (13.0-17.5) gm/dL Hct (39.0-53.0) % MCHC (31.0-37.0) g/dL BUN (9-20) mg/dL Glucose (74-99) mg/dL POC Glucose (mg/dL) 129 H 121 H 128 H (75-99) mg/dL Calcium (8.4-10.2) mg/dL Total Protein (6.3-8.2) g/dL Albumin (3.5-5.0) g/dL 03/14/18 03/14/18 03/14/18 Range/Units 02:10 05:48 05:48 RBC 2.77 L (4.30-5.90) m/uL Hgb 7.9 L (13.0-17.5) gm/dL Hct 25.6 L (39.0-53.0) % MCHC 30.9 L (31.0-37.0) g/dL BUN 32 H (9-20) mg/dL Glucose 105 H (74-99) mg/dL POC Glucose (mg/dL) 120 H (75-99) mg/dL Calcium 8.3 L (8.4-10.2) mg/dL Total Protein 5.0 L (6.3-8.2) g/dL Albumin 2.9 L (3.5-5.0) g/dL 03/14/18 Range/Units 05:56 RBC (4.30-5.90) m/uL Hgb (13.0-17.5) gm/dL Hct (39.0-53.0) % MCHC (31.0-37.0) g/dL BUN (9-20) mg/dL Glucose (74-99) mg/dL POC Glucose (mg/dL) 109 H (75-99) mg/dL Calcium (8.4-10.2) mg/dL Total Protein (6.3-8.2) g/dL Albumin (3.5-5.0) g/dL Assessment and Plan Plan: 1. Non-ST elevated myocardial infarction status post CABG. Continue current management per cardiovascular surgery and pulmonary medicine. Patient has been successfully extubated. Continue aspirin, Lipitor, Lopressor. 2. Hypertension. Patient has been on amlodipine 5 mg daily, Lopressor 25 g twice daily 3. Benign prostatic hypertrophy. Monitor for urinary retention. Patient currently has Cutler catheter in place 4. Osteoarthritis, generalized. 5. 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 Continue Vicoprofen as needed 6. Atrial fibrillation with RVR, paroxysmal atrial fibrillation. Continue amiodarone, Cardizem, Lopressor, patient received 1 dose of IV digoxin. Patient is on eliquis. 7. DVT prophylaxis. 7. GI prophylaxis. Pepcid. Discharge plan: Home with [facility]. Impression and plan of care have been directed as dictated by the signing physician. Stefania Vázquez nurse practitioner acting as scribe for signing physician.
--- NOTE | 2018-03-14 14:50 | P.PN ---
Subjective Progress Note Date: 03/14/18 This is a pleasant 63-year-old gentleman with history of hypertension , hyperlipidemia, who is status post coronary artery bypass grafting surgery. He was seen and examined on the telemetry unit today, he has been up ambulating in the [place] a couple of times today. Continues to be in atrial fibrillation, his heart rate today is staying in the mid 100 range, blood pressure 120/60. We will increase his dose of beta david to 3 times a day today for more optimal heart rate control. He did use his incentive spirometry while I was in the room, he is getting at times up to 1999. Objective - Vital Signs Vital signs: Vital Signs Temp 97.6 F 03/14/18 12:00 Pulse 108 H 03/14/18 12:00 Resp 18 03/14/18 12:00 BP 121/65 03/14/18 12:00 Pulse Ox 92 L 03/14/18 12:00 Intake & Output 03/13/18 03/14/18 03/14/18 18:59 06:59 18:59 Intake Total 1310 240 Output Total 400 180 Balance 910 -180 240 Weight 133.4 kg 131.1 kg 131.1 kg Intake: IV 30 Flush 0.9 30 Oral 1280 240 Output: Urine 400 180 Other: Voiding Method Urinal Urinal # Voids 1 1 # Bowel Movements 1 ABP, PAP, CO, CI - Last Documented Arterial Blood Pressure 123/113 Pulmonary Artery Pressure 34/26 Cardiac Output 5.4 Cardiac Index 3.4 - Exam PHYSICAL EXAMINATION: GENERAL: 63-year-old gentleman in no acute distress at the time of my examination HEENT: Head is atraumatic, normocephalic. Pupils equal, round. Sclera anicteric. Conjunctiva are clear. Mucous membranes of the mouth are moist. Neck is supple. There is no elevated jugular venous pressure.] bruit is heard. HEART EXAMINATION: Heart S1 S2 irregularly irregular systolic murmur is heard CHEST EXAMINATION: Lungs are clear to auscultation and precussion. No chest wall tenderness is noted on palpation or with deep breathing. ABDOMEN: Soft, nontender. Bowel sounds are heard. No organomegaly noted. EXTREMITIES: 2+ peripheral pulses with no evidence of peripheral edema and no calf tenderness noted. NEUROLOGIC patient is awake, alert and oriented ?-3. . - Labs CBC & Chem 7: 03/14/18 05:48 03/14/18 05:48 Labs: Abnormal Lab Results - Last 24 Hours (Table) 03/13/18 03/13/18 03/14/18 Range/Units 17:25 21:37 02:10 RBC (4.30-5.90) m/uL Hgb (13.0-17.5) gm/dL Hct (39.0-53.0) % MCHC (31.0-37.0) g/dL BUN (9-20) mg/dL Glucose (74-99) mg/dL POC Glucose (mg/dL) 121 H 128 H 120 H (75-99) mg/dL Calcium (8.4-10.2) mg/dL Total Protein (6.3-8.2) g/dL Albumin (3.5-5.0) g/dL 03/14/18 03/14/18 03/14/18 Range/Units 05:48 05:48 05:56 RBC 2.77 L (4.30-5.90) m/uL Hgb 7.9 L (13.0-17.5) gm/dL Hct 25.6 L (39.0-53.0) % MCHC 30.9 L (31.0-37.0) g/dL BUN 32 H (9-20) mg/dL Glucose 105 H (74-99) mg/dL POC Glucose (mg/dL) 109 H (75-99) mg/dL Calcium 8.3 L (8.4-10.2) mg/dL Total Protein 5.0 L (6.3-8.2) g/dL Albumin 2.9 L (3.5-5.0) g/dL 03/14/18 Range/Units 11:33 RBC (4.30-5.90) m/uL Hgb (13.0-17.5) gm/dL Hct (39.0-53.0) % MCHC (31.0-37.0) g/dL BUN (9-20) mg/dL Glucose (74-99) mg/dL POC Glucose (mg/dL) 120 H (75-99) mg/dL Calcium (8.4-10.2) mg/dL Total Protein (6.3-8.2) g/dL Albumin (3.5-5.0) g/dL Assessment and Plan Plan: Assessment and plan #1 non-Q-wave DE status post coronary artery bypass grafting surgery #2 hypertension #3 occasional cigar smoking #4 hyperlipidemia, untreated Plan From cardiology's perspective, we will increase his dose of beta david to 3 times a day today. Continue the rest of his medications. DNP note has been reviewed, I agree with a documented findings and plan of care. Patient was seen and examined.
[2018-03-14 16:58] LABS: Glucose,Whole Blood 126 mg/dL (75-99)
[2018-03-14] MEDS: SENNOSIDES-DOCUSATE SODIUM 1 EACH TAB PO SCH (20:40)
[2018-03-14 20:53] LABS: Glucose,Whole Blood 124 mg/dL (75-99)
[2018-03-15] MEDS: DILTIAZEM ORAL 30 MG TAB PO SCH ×2 (00:43→06:19)
[2018-03-15] MEDS: METOPROLOL TARTRATE 50 MG TAB PO SCH ×2 (00:43→08:55)
[2018-03-15 02:02] LABS: Glucose,Whole Blood 119 mg/dL (75-99)
[2018-03-15] MEDS: INSULIN ASPART 100 UNIT/ML 1 ML 10 ML VIAL SQ SCH ×3 (02:24→14:34)
[2018-03-15 05:52] LABS: HCT 24.8 % (39.0-53.0); HGB 7.7 gm/dL (13.0-17.5); Hypochromasia Slight; MCH 28.9 pg (25.0-35.0); MCHC 31.2 g/dL (31.0-37.0); MCV 92.7 fL (80.0-100.0); Mean Platelet Volume 6.7; Platelet Count 431 k/uL (150-450); RBC 2.67 m/uL (4.30-5.90); RDW 14.1 % (11.5-15.5)
[2018-03-15 06:08] LABS: ALT 61 U/L (21-72); AST 31 U/L (17-59); Albumin 2.8 g/dL (3.5-5.0); Alkaline Phosphatase 53 U/L (38-126); Anion Gap 7 mmol/L; Blood Urea Nitrogen 32 mg/dL (9-20); Calcium 8.3 mg/dL (8.4-10.2); Carbon Dioxide 27 mmol/L (22-30); Chloride 105 mmol/L (98-107); Glucose 104 mg/dL (74-99); Magnesium 2.4 mg/dL (1.6-2.3); Potassium 4.2 mmol/L (3.5-5.1); Sodium 139 mmol/L (137-145); Total Bilirubin 0.5 mg/dL (0.2-1.3); Total Protein 5.2 g/dL (6.3-8.2)
[2018-03-15] MEDS: ASCORBIC ACID 500 MG TAB PO SCH (06:19)
[2018-03-15] MEDS: PANTOPRAZOLE 40 MG TABLET PO SCH (06:19)
[2018-03-15 06:31] LABS: Glucose,Whole Blood 105 mg/dL (75-99)
--- NOTE | 2018-03-15 08:11 | XR ---
EXAMINATION TYPE: XR chest 2V DATE OF EXAM: 03/15/2018 COMPARISON: 03/14/2018 HISTORY: Status post cardiac surgery. Follow-up exam. TECHNIQUE: Frontal and lateral views of the chest are obtained. FINDINGS: There is no focal air space opacity, pulmonary vascular congestion, or pneumothorax seen. Trace left pleural effusion is improving with improving retrocardiac left basilar opacity. The cardi ac silhouette size is again enlarged with post CABG changes of the chest. The osseous structures ar e intact. IMPRESSION: Improving left trace pleural effusion and left basilar airspace disease, likely atelecta sis.
[2018-03-15] MEDS: IPRATROPIUM-ALBUTEROL 3 ML NEB INHALATION SCH ×2 (08:25→13:01)
[2018-03-15] MEDS: ATORVASTATIN 40 MG TAB PO SCH (08:54)
[2018-03-15] MEDS: ASPIRIN 81 MG PO SCH (08:54)
[2018-03-15] MEDS: AMIODARONE 200 MG TAB PO SCH (08:55)
[2018-03-15] MEDS: APIXABAN 5 MG TAB PO SCH (08:56)
[2018-03-15] MEDS ORDERED: DILTIAZEM CD 120 MG CAP.ER.24H PO SCH (09:15)
[2018-03-15] MEDS ORDERED: FUROSEMIDE 40 MG TAB PO SCH (09:15)
--- NOTE | 2018-03-15 11:29 | P.PN ---
Subjective Progress Note Date: 03/15/18 Principal diagnosis: Severe multivessel coronary artery disease with normal LV function, status post three-vessel coronary artery bypass grafting, postop day 2 Progress note dated 03/07/2018 63-year-old male status post postop day #1 status post triple vessel bypass grafting. The patient did have postoperative respiratory failure. He was extubated within the 6 hour timeframe. Patient is doing relatively well. Sitting up in the chair. Working on deep breathing coughing clearing of secretions and also using the incentive spirometer. Remains on nasal O2. Hemodynamically stable. The patient does have a history of non-ST segment elevation myocardial infarction hypertension tinnitus deafness multiple reviews orthopedic procedures and was not thought to have any intrinsic pulmonary disease. The patient is otherwise doing reasonably well. We stressed the importance of deep breathing coughing and clearing his secretions. We'll also stressed the importance of using the incentive spirometer. Chest x-ray is difficult to interpret. Typical postoperative changes no noted. On 03/08/2018 patient is seen in follow-up in the intensive care unit. He states he is more short of breath today. Patient did receive a dose of IV Lasix per CT surgery yesterday, his chest x-ray was reviewed by Dr. Robbins, and shows elevated right hemidiaphragm, right midlung streak atelectasis, small pleural effusions. Currently on 3 L per nasal cannula, his pulse ox is 94%, ration is tachycardic, but in sinus mechanism, his current heart rate is 118 BPM , he is afebrile. Maintenance IV fluid is LR at a rate of 40 ML per hour. No other drips. Incentive spirometry effort is significantly less today compared to yesterday, he is only able to achieve 750 today compared 1500 yesterday. He is complaining of mid back pain which is exacerbated by deep breathing. Patient needs increased pulmonary toileting, deep breathing and coughing. His labs were reviewed, the PVCs 8.7, hemoglobin is 9.3. Sodium is 136, patient has developed acute kidney injury, his BUN is 25, creatinine is 1.3, urine output is in the order from 30-70 ML per hour. Patient has left and right and mediastinal chest tubes, with small amount of serosanguineous drainage. Patient has ambulated around the unit, and tolerated activity fairly well. Progress note dated 03/09/2018 This is a 63-year-old male who is postop day #2, status post three-vessel bypass grafting. The patient had developed atrial fibrillation overnight was placed on amiodarone at 0.5 mg/m. He is getting an IV of lactated Ringer's at 20 mL an hour is receiving supplemental oxygen 3 L by nasal cannula. His incentive spirometry effort is not very good only 750 mL. This patient was discovered on evaluation to have severe triple-vessel disease, normal LV function, acute kidney injury, related to ATN, non-ST segment elevation myocardial infarction, hypertension, tinnitus, deafness, and had no history of intrinsic pulmonary disease as he was a lifelong nonsmoker. Progress note dated 03/10/2018 This is a 63-year-old male who is postop day #3, status post three-vessel bypass grafting. He did develop some atrial fibrillation postoperatively and was placed initially on IV Cordarone at 0.5 mg/m. There has not been switched to oral Cordarone. The patient is getting lactated Ringer's at KVO and still on oxygen at 2 L by nasal cannula. He is getting about 1250 mL on his incentive spirometer. He has surgical site discomfort. In addition to have severe triple-vessel disease which necessitated the bypass grafting, the patient was found to have acute kidney injury secondary to ATN, non-ST segment elevation myocardial infarction, hypertension, tinnitus, deafness, but did not have any intrinsic pulmonary disease. He is a lifelong nonsmoker. On 03/11/2018 patient seen again in follow-up in intensive care unit. He is sitting up in the chair, denies any acute distress, his dyspnea. His pain is under good control, he remains in atrial fibrillation with a rate of 121 BPM. Currently on oral amiodarone 400 mg twice a day, Lopressor at 25 mg twice a day , she did receive a dose of IV Lanoxin, and she is on diltiazem 30 mg every 6 hours. Continues on oral anticoagulation with Eliquis 5 mg by mouth twice a day. Patient has been ambulating, tolerating activity well. 2 L per nasal cannula his pulse ox is 93%. Afebrile, hemodynamically stable. Lung sounds are diminished at the bases, his chest x-ray has been reviewed by Dr. Martinez, and shows partial obscuration of the medial retrocardiac airspace and costophrenic angle that may relate to atelectasis and trace pleural effusion. Patient will receive a dose of IV Lasix today per CT surgery. On 03/12/2018 patient seen again in follow-up in the intensive care unit. He is resting in the recliner, he states he did not sleep much because of noise in the unit, he states he normally takes Advil PM as a sleep aid. But otherwise denies any acute complaints, denies any dyspnea, his postop pain is controlled. Her maintenance in atrial fibrillation, and the rate is still low 100s to 120s with activity. He is afebrile, remains on 2 L per nasal cannula his pulse ox is 94%, hemodynamically stable, his beta blockers are being adjusted per CT surgery, it is increased to 50 mg 3 times a day, he remains on oral amiodarone and oral Cardizem. Lung sounds are diminished at the bases, no wheezes, no rhonchi, today's chest x-ray has been reviewed and shows mild bibasilar infiltrates, likely related to atelectasis. Patient is compliant with his incentive spirometer, is able to achieve 1500 on the today. On 03/14/2018 patient seen in follow-up on selective care unit. No acute distress, room air pulse ox is 91%, post exercises 94%. Vital signs are stable , afebrile. His chest x-ray has been reviewed, shows stable exam, with mild cardiomegaly, and small left greater than right effusions and adjacent atelectasis. Able to achieve 3152-0351 ML in his incentive spirometry today. Remains in A. fib, and the rate is 119 BPM, Mirian on a combination of oral amiodarone 200 by mouth twice a day, oral Cardizem at 30 mg every 6 hours, metoprolol 75 mg every 8 hours, and he is on oral anticoagulation the form of Eliquis. Overall remains stable, tolerating ambulation. On 03/15/2018 patient seen in follow-up on selective care unit. Stress, denies any dyspnea, denies any chest pain, vital signs are stable, room air pulse ox is 92%, patient is compliant with his incentive spirometer, he is achieving about 4896-0943 ML on it today. Today's chest x-ray has been reviewed shows improving left trace pleural effusion and left basilar airspace disease likely atelectasis. His labs were noted, WBC 7.0, hemoglobin is 7.7, electrolytes are within normal limits, BUN is 32 creatinine is 1. Tolerating oral diet, ambulation, no acute events overnight. Anticipate discharge home today. Objective - Vital Signs Vital signs: Vital Signs Temp 97.7 F 03/15/18 08:00 Pulse 88 03/15/18 08:39 Resp 14 03/15/18 08:00 BP 115/67 03/15/18 08:00 Pulse Ox 92 L 03/15/18 08:00 Intake & Output 03/14/18 03/15/18 03/15/18 18:59 06:59 18:59 Intake Total 720 50 680 Output Total 875 Balance -155 50 680 Weight 131.1 kg 131 kg Intake: Oral 720 50 480 Tube Feeding 200 Output: Urine 875 Other: Voiding Method Urinal Urinal Urinal # Voids 1 ABP, PAP, CO, CI - Last Documented Arterial Blood Pressure 123/113 Pulmonary Artery Pressure 34/26 Cardiac Output 5.4 Cardiac Index 3.4 - Exam No acute distress, oriented 3. HEENT examination is grossly unremarkable. Mucous membranes are moist. No oral lesions. Neck supple. Full range of motion. No adenopathy thyromegaly or neck vein distention. Cardiovascular examination reveals regular rhythm rate. S1-S2 normal. No S3 or S4. No discernible murmur noted. Lungs reveal clear breath sounds. His breath sounds are equal bilaterally. Diminished breath sounds at the bases, dullness to percussion over bilateral bases. Abdomen soft bowel sounds are heard. No masses or tenderness. Extremities are intact. No cyanosis clubbing or edema. Skin is without rash or lesion. Midsternal incision is clean dry and intact, mediastinal, and bilateral pleural chest tube insertion sites are intact, left leg incisions covered with dressings, patient has bilateral lower leg SWATI hose on Neurologic examination is brief but nonfocal. - Labs CBC & Chem 7: 03/15/18 05:24 03/15/18 05:24 Labs: Abnormal Lab Results - Last 24 Hours (Table) 03/14/18 03/14/18 03/14/18 Range/Units 11:33 16:22 20:52 RBC (4.30-5.90) m/uL Hgb (13.0-17.5) gm/dL Hct (39.0-53.0) % BUN (9-20) mg/dL Glucose (74-99) mg/dL POC Glucose (mg/dL) 120 H 126 H 124 H (75-99) mg/dL Calcium (8.4-10.2) mg/dL Magnesium (1.6-2.3) mg/dL Total Protein (6.3-8.2) g/dL Albumin (3.5-5.0) g/dL 03/15/18 03/15/18 03/15/18 Range/Units 02:01 05:24 05:24 RBC 2.67 L (4.30-5.90) m/uL Hgb 7.7 L (13.0-17.5) gm/dL Hct 24.8 L (39.0-53.0) % BUN 32 H (9-20) mg/dL Glucose 104 H (74-99) mg/dL POC Glucose (mg/dL) 119 H (75-99) mg/dL Calcium 8.3 L (8.4-10.2) mg/dL Magnesium 2.4 H (1.6-2.3) mg/dL Total Protein 5.2 L (6.3-8.2) g/dL Albumin 2.8 L (3.5-5.0) g/dL 03/15/18 Range/Units 06:30 RBC (4.30-5.90) m/uL Hgb (13.0-17.5) gm/dL Hct (39.0-53.0) % BUN (9-20) mg/dL Glucose (74-99) mg/dL POC Glucose (mg/dL) 105 H (75-99) mg/dL Calcium (8.4-10.2) mg/dL Magnesium (1.6-2.3) mg/dL Total Protein (6.3-8.2) g/dL Albumin (3.5-5.0) g/dL Assessment and Plan Plan: Assessment: Severe triple-vessel coronary artery disease with normal LV function, status postop day #7, three-vessel bypass grafting. Postoperative respiratory failure, resolved with extubation within the 6 hour time limit Acute kidney injury, possibly related to ATN, recovered Non-ST segment elevation myocardial infarction History of hypertension History of tinnitus History of deafness Multiple previous orthopedic procedures Lifelong nonsmoker No history of intrinsic pulmonary disease Plan: Patient remains stable, no specific complaints, denies any dyspnea, currently on room air, tolerating ambulation, chest x-ray shows improving left trace pleural effusion and left basilar atelectasis. Hemodynamically stable, no acute events overnight, anticipate discharge home today. I performed a history & physical examination of the patient and discussed their management with my nurse practitioner, Geena Hoyt. I reviewed the nurse practitioner's note and agree with the documented findings and plan of care. Lung sounds are clear. The findings and the impression was discussed with the patient. I attest to the documentation by the nurse practitioner. Time with Patient: Less than 30
[2018-03-15 11:53] LABS: Glucose,Whole Blood 116 mg/dL (75-99)
[2018-03-15 13:16] VITALS: BP 102/53; RESP 16; TEMP 97.1
[2018-03-15 13:18] VITALS: PULSE 94
--- NOTE | 2018-03-15 14:53 | P.PN ---
Subjective Progress Note Date: 03/15/18 This is a 63-year-old male patient of Dr. Davison with past medical history for hypertension, osteoarthritis, benign prostatic hypertrophy. Patient gives history that for a long period of time since last fall he has had a cough when he lays in bed. He has had about a bronchitis and following that he did have some improvement for about 6 months and now he has a cough when he lays down and has some chest pain in the midsternal area. He does golf 3-4 times a week and does not have any chest heaviness at that time. He states he has had it every day for 2-3 weeks in a row and went to see Dr. Davison yesterday and he was sent into the emergency center for evaluation. Patient describes it as a heavy chest. He states he gets up and take some Pepto-Bismol or something else and then he ends up sleeping in a chair. Troponins are 0.064 , 0.070, 0.060. Triglycerides 122, cholesterol 229, LDL 156, HDL 49. Lipase 72. CBC is within normal limits. Electrolytes are normal. Patient has been admitted to the selective care unit and cardiology consult requested. He has been started on heparin drip and aspirin. Cardiology has added and Lipitor and beta david. Echocardiogram reveals EF of 55-60%, moderate concentric left ventricular hypertrophy, LV mildly dilated at 29-33, mild aortic valve sclerosis , mild tricuspid regurgitation. Patient is scheduled for heart catheterization today. 03/06: Heart catheterization with Dr. Walter yesterday revealed severe triple vessel coronary disease, normal left ventricular size and systolic function. Recommendations for cardiovascular surgery evaluation which was done yesterday. Plan is for urgent coronary artery bypass graft 3 today. Patient denies any new complaints. His is at bedside. 03/07: Patient underwent coronary artery bypass grafting using the left internal mammary artery to the left anterior descending artery, left radial artery from the aorta to the obtuse marginal artery, reverse saphenous vein graft from the aorta to the right coronary artery. Patient remains in the intensive care unit. Patient was successfully extubated early in the morning. This morning, patient is sitting up in a chair and appears to be comfortable. Plan is to remove the one pleural tube and Bally's today. His blood sugars been running 131 and 152. He is ordered for 1 dose of Lasix IV push 20 mg this morning.. 03/08: Patient remains in the intensive care unit. Pulse ox is 94% on 3 L nasal cannula. He has been afebrile. Patient is some increased shortness of breath and is doing less with incentive spirometry. Mediastinal and right pleural chest tubes have been discontinued. 03/09: Patient remain in the intensive care unit, still on O2, still have a chest tube and, patient developed to have A. fib with RVR started on amiodarone drip his pulse rate is down to 100 and is feeling little bit better. Patient is in the chair eating his first meal this morning and tolerating food very well. 03/11: Patient is continued in atrial fibrillation with elevated rate. He is on amiodarone oral and Lopressor as well as 1 dose of IV digoxin, Cardizem 30 mg every 6 hours. Patient was started on eliquis. Patient states that he is feeling a lot better from yesterday. He states he has been up and walked, took a nap and also took a shower. He feels tired after minimal activity. He did feel a little lightheadedness but it wasn't bad. Pulse ox is 94% on room air. Hemoglobin is 8.2, creatinine 0.8. Blood sugars have been running between 118 and 131. Patient is not diabetic. 03/12: He remains in the intensive care unit now as an overflow for selective care. Patient states he has been sleeping well in the hospital until last night and Ambien has are been added for tonight. He states he was feeling woozy and out of it this morning but after nap he was feeling improved. Hemoglobin is 8.8. Ferrlecit 1 dose has been ordered. His Lopressor was increased to 50 mg 3 times daily and he received 1 dose of IV Lasix this morning. 03/13:Patient complains of fatigue but no other real concerns. He remains in a fib in the low 100s. BP is on the low side. Repeat chest x-ray reveals persistent low lung volumes and cardiomegaly with mild central vascular congestion and suspected tiny pleural effusions. Pulse ox is 96% on 2 L nasal cannula. Today's hemoglobin is 8.5. Patient is awaiting for selective care bed. 03/14: Sugars are running between 109 and 128. He will not need any medications at home for this. Hemoglobin is at 7.9. Heart rate is running in the 90s and low 100s and remains in atrial fibrillation. He has been ambulating well in the hallway without any complaints of chest pain, shortness of breath, lightheadedness or dizziness. Patient states he is going home today. Home care has been arranged. 03/15: Patient was not discharged yesterday due to elevated heart rate but today heart rate is running 80-90s. IS is 1500 ml. Patient is ambulating without difficulties. No chest pain, shortness of breath. No dizziness or lightheadedness. Patient is scheduled for discharge home today. Objective - Vital Signs Vital signs: Vital Signs Temp 97.1 F L 03/15/18 04:00 Pulse 88 03/15/18 08:39 Resp 16 03/15/18 04:00 BP 115/65 03/15/18 04:00 Pulse Ox 93 L 03/15/18 04:00 Intake & Output 03/14/18 03/15/18 03/15/18 18:59 06:59 18:59 Intake Total 720 50 Output Total 875 Balance -155 50 Weight 131.1 kg 131 kg Intake: Oral 720 50 Output: Urine 875 Other: Voiding Method Urinal Urinal # Voids 1 ABP, PAP, CO, CI - Last Documented Arterial Blood Pressure 123/113 Pulmonary Artery Pressure 34/26 Cardiac Output 5.4 Cardiac Index 3.4 - Exam General appearance: Present: cooperative, disheveled, no acute distress. Absent : average body habitus, mild distress, morbidly obese, obese, severe distress, thin - EENT Eyes: Present: normal appearance. Absent: abnormal pupil, anicteric sclerae, disc margins sharp, edentulous, EOMI, PERRLA, fundus normal, photophobia, dentition normal, poor dentition, ptosis, scleral icterus ENT: Present: normal oropharynx. Absent: hard of hearing, hearing grossly normal, NA/AT, other, pharyngeal erythema, thrush, tonsillar exudates, tonsillar swelling Ears: bilateral: normal - Neck Neck: Present: normal ROM Carotids: bilateral: upstroke normal Thyroid: bilateral: normal size - Respiratory Respiratory: bilateral: diminished, dullness, rales - Cardiovascular Rhythm: irregularly irregular Heart sounds: normal: S1, S2 Abnormal Heart Sounds: Present: systolic murmur, S3 Gallop - Gastrointestinal General gastrointestinal: Present: decreased bowel sounds, soft. Absent: absent bowel sounds, distended, hepatomegaly, hyperactive bowel sounds, normal bowel sounds, organomegaly, rigid, scaphoid, splenomegaly, tenderness, umbilical hernia, ventral hernia - Integumentary Integumentary: Present: normal. Absent: calor, cellulitis, cyanotic, decreased turgor, flushed, jaundiced, normal turgor, pale, rash, ulcer - Neurologic Neurologic: Present: CNII-XII intact - Musculoskeletal Musculoskeletal: Present: gait normal, generalized weakness. Absent: strength equal bilaterally, right sided weakness, left sided weakness - Psychiatric Psychiatric: Present: A&O x's 3 - Labs CBC & Chem 7: 03/15/18 05:24 03/15/18 05:24 Labs: Abnormal Lab Results - Last 24 Hours (Table) 03/14/18 03/14/18 03/14/18 Range/Units 11:33 16:22 20:52 RBC (4.30-5.90) m/uL Hgb (13.0-17.5) gm/dL Hct (39.0-53.0) % BUN (9-20) mg/dL Glucose (74-99) mg/dL POC Glucose (mg/dL) 120 H 126 H 124 H (75-99) mg/dL Calcium (8.4-10.2) mg/dL Magnesium (1.6-2.3) mg/dL Total Protein (6.3-8.2) g/dL Albumin (3.5-5.0) g/dL 03/15/18 03/15/18 03/15/18 Range/Units 02:01 05:24 05:24 RBC 2.67 L (4.30-5.90) m/uL Hgb 7.7 L (13.0-17.5) gm/dL Hct 24.8 L (39.0-53.0) % BUN 32 H (9-20) mg/dL Glucose 104 H (74-99) mg/dL POC Glucose (mg/dL) 119 H (75-99) mg/dL Calcium 8.3 L (8.4-10.2) mg/dL Magnesium 2.4 H (1.6-2.3) mg/dL Total Protein 5.2 L (6.3-8.2) g/dL Albumin 2.8 L (3.5-5.0) g/dL 03/15/18 Range/Units 06:30 RBC (4.30-5.90) m/uL Hgb (13.0-17.5) gm/dL Hct (39.0-53.0) % BUN (9-20) mg/dL Glucose (74-99) mg/dL POC Glucose (mg/dL) 105 H (75-99) mg/dL Calcium (8.4-10.2) mg/dL Magnesium (1.6-2.3) mg/dL Total Protein (6.3-8.2) g/dL Albumin (3.5-5.0) g/dL Assessment and Plan Plan: 1. Non-ST elevated myocardial infarction status post CABG. Continue current management per cardiovascular surgery and pulmonary medicine. Patient has been successfully extubated. Continue aspirin 81 mg daily, Lipitor 40 mg daily, Lopressor 75 mg every 8 hours, Lasix 40 mg daily 2. Hypertension. Continue Lopressor, Cardizem. Amlodipine was discontinued. 3. Benign prostatic hypertrophy. Monitor for urinary retention. 4. Osteoarthritis, generalized. 5. 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 Tylenol for pain 6. Atrial fibrillation with RVR, paroxysmal atrial fibrillation. Continue amiodarone, Cardizem, Lopressor, patient received 1 dose of IV digoxin. Patient is on eliquis. 7. DVT prophylaxis. 7. GI prophylaxis. Pepcid. Discharge plan: Home with [facility]. Impression and plan of care have been directed as dictated by the signing physician. Stefania Vázquez nurse practitioner acting as scribe for signing physician.
--- NOTE | 2018-03-15 14:53 | P.PN ---
Subjective Progress Note Date: 03/15/18 This is a pleasant 63-year-old gentleman with history of hypertension , hyperlipidemia, who is status post coronary artery bypass grafting surgery. He was seen and examined on the telemetry unit today, he has been up ambulating in the [place] a couple of times today. Continues to be in atrial fibrillation, his heart rate today is staying in the mid 100 range, blood pressure 120/60. We will increase his dose of beta david to 3 times a day today for more optimal heart rate control. He did use his incentive spirometry while I was in the room, he is getting at times up to 1999. 03/15/2018 Patient seen and examined this morning, he's been up ambulating in the [place] most of the day. Continues to be in atrial fibrillation, heart rate is under adequate control. He is anticipating discharge home today. Objective - Vital Signs Vital signs: Vital Signs Temp 97.1 F L 03/15/18 12:00 Pulse 94 03/15/18 13:17 Resp 16 03/15/18 12:00 BP 102/53 03/15/18 12:00 Pulse Ox 95 03/15/18 12:00 Intake & Output 03/14/18 03/15/18 03/15/18 18:59 06:59 18:59 Intake Total 701 22 1474 Output Total 875 Balance -679 87 6447 Weight 131.1 kg 131 kg Intake: Oral 720 50 960 Tube Feeding 200 Output: Urine 875 Other: Voiding Method Urinal Urinal Urinal # Voids 1 ABP, PAP, CO, CI - Last Documented Arterial Blood Pressure 123/113 Pulmonary Artery Pressure 34/26 Cardiac Output 5.4 Cardiac Index 3.4 - Exam PHYSICAL EXAMINATION: GENERAL: 63-year-old gentleman in no acute distress at the time of my examination HEENT: Head is atraumatic, normocephalic. Pupils equal, round. Sclera anicteric. Conjunctiva are clear. Mucous membranes of the mouth are moist. Neck is supple. There is no elevated jugular venous pressure.] bruit is heard. HEART EXAMINATION: Heart S1 S2 irregularly irregular systolic murmur is heard CHEST EXAMINATION: Lungs are clear with fine crackles heard at the bases . No chest wall tenderness is noted on palpation or with deep breathing. ABDOMEN: Soft, nontender. Bowel sounds are heard. No organomegaly noted. EXTREMITIES: 2+ peripheral pulses with no evidence of peripheral edema and no calf tenderness noted. NEUROLOGIC patient is awake, alert and oriented ?-3. . - Labs CBC & Chem 7: 03/15/18 05:24 03/15/18 05:24 Labs: Abnormal Lab Results - Last 24 Hours (Table) 03/14/18 03/14/18 03/15/18 Range/Units 16:22 20:52 02:01 RBC (4.30-5.90) m/uL Hgb (13.0-17.5) gm/dL Hct (39.0-53.0) % BUN (9-20) mg/dL Glucose (74-99) mg/dL POC Glucose (mg/dL) 126 H 124 H 119 H (75-99) mg/dL Calcium (8.4-10.2) mg/dL Magnesium (1.6-2.3) mg/dL Total Protein (6.3-8.2) g/dL Albumin (3.5-5.0) g/dL 03/15/18 03/15/18 03/15/18 Range/Units 05:24 05:24 06:30 RBC 2.67 L (4.30-5.90) m/uL Hgb 7.7 L (13.0-17.5) gm/dL Hct 24.8 L (39.0-53.0) % BUN 32 H (9-20) mg/dL Glucose 104 H (74-99) mg/dL POC Glucose (mg/dL) 105 H (75-99) mg/dL Calcium 8.3 L (8.4-10.2) mg/dL Magnesium 2.4 H (1.6-2.3) mg/dL Total Protein 5.2 L (6.3-8.2) g/dL Albumin 2.8 L (3.5-5.0) g/dL 03/15/18 Range/Units 11:41 RBC (4.30-5.90) m/uL Hgb (13.0-17.5) gm/dL Hct (39.0-53.0) % BUN (9-20) mg/dL Glucose (74-99) mg/dL POC Glucose (mg/dL) 116 H (75-99) mg/dL Calcium (8.4-10.2) mg/dL Magnesium (1.6-2.3) mg/dL Total Protein (6.3-8.2) g/dL Albumin (3.5-5.0) g/dL Assessment and Plan Plan: Assessment and plan #1 non-Q-wave TX status post coronary artery bypass grafting surgery #2 hypertension #3 occasional cigar smoking #4 hyperlipidemia, untreated Plan From cardiology's perspective, patient may be able to be discharged home once cleared by primary and surgical services. We will make him a follow-up appointment to see Dr. Walter in the office post discharge. DNP note has been reviewed, I agree with a documented findings and plan of care. Patient was seen and examined.
--- NOTE | 2018-03-15 15:57 | P.DS ---
Providers Date of admission: 03/04/18 17:03 Expected date of discharge: 03/15/18 Attending physician: Alena Hammer Consults: 03/04/18 17:03 Consult Physician Urgent Consulting Provider: [facility] Consult Reason/Comments: Chest Pain, Elevated Troponin Do you want consulting provider notified?: Yes 03/05/18 14:30 Consult Physician Urgent Consulting Provider: Matt Calderón Consult Reason/Comments: cabg Do you want consulting provider notified?: Already Contacted 03/05/18 15:49 Consult Physician Routine Consulting Provider: Coleman Robbins Consult Reason/Comments: preop open heart Do you want consulting provider notified?: Yes Consult to Anesthesia Routine Consulting Provider: Anesthesia,Services Consult Reason/Comments: Cardiac Surgery Pre-Op 03/06/18 21:12 Consult Physician Routine Consulting Provider: Cece Woosd Consult Reason/Comments: medical management Do you want consulting provider notified?: Already Contacted Primary care physician: Kameron Davison - Discharge Diagnosis(es) (1) Non-STEMI (non-ST elevated myocardial infarction) Current Visit: Yes Status: Acute (2) Hypertension Current Visit: Yes Status: Chronic (3) Family history of coronary artery disease Current Visit: Yes Status: Chronic Hospital Course: FINAL DIAGNOSIS: 1. Non-ST elevation myocardial infarction, triple vessel coronary artery disease 2. Preserved left ventricular function 3. Hypertension 4. Obesity 5. Strong family history for coronary artery disease with evidence of diffuse coronary artery disease 6. Social alcohol use of 2-7 drinks per week 7. Postoperative atrial fibrillation with rapid ventricular response PRINCIPAL PROCEDURE: 1. Urgent multiple arterial triple coronary artery bypass grafting using the left internal mammary artery to the left anterior descending artery, the left radial artery from the aorta to the obtuse marginal artery, reverse saphenous vein graft from the aorta to the right coronary artery 2. Endoscopic harvesting of the left radial artery 3. Endoscopic harvesting of the left greater saphenous vein between the groin and the knee level 4. Intraoperative graft flow measurements 5. Intraoperative transesophageal echocardiogram 6. Epi-aortic scanning. HISTORY OF PRESENT ILLNESS: This is a 63-year-old gentleman follows with Dr. Kameron Gordon on an outpatient basis. He is normally a very active gentleman , however he has had anginal type symptoms in the form of shortness of breath and intermittent chest pressure for approximately the last 6 months with worsening in the last couple of weeks. He did not seek attention sooner as he attributed his symptoms to acid reflux. The patient did go see his primary care physician and upon description of the symptoms his primary recommended he come to the emergency room for evaluation. He did have elevation of troponins, his EKG demonstrated sinus rhythm with a right bundle branch block, lateral ST changes and inferior Q wave, and he was ruled in for non-ST elevation myocardial infarction. He was recommended to undergo heart catheterization which demonstrated LAD stenosis of 99%, circumflex 70%, and chronic total occlusion of the right coronary artery. Transthoracic echocardiogram demonstrated preserved left ventricular function with an ejection fraction of 55 -60% with no significant valvular pathology. The patient was referred to Dr. Hammer from cardiothoracic surgery for urgent consultation. He was recommended to undergo urgent bypass surgery. All risks and benefits were explained in detail to the patient and his family, all questions were answered, and consent was obtained to proceed with surgery. Due to the urgent nature of his symptoms and diagnostics the patient was kept inpatient. HOSPITAL COURSE: On 03/06/2018 the patient was taken to the preoperative area, prepared in the usual fashion, and subsequently taken to the operating room where Dr. Hammer performed urgent multiple arterial triple coronary artery bypass grafting using the left internal mammary artery to the left anterior descending artery, the left radial artery from the aorta to the obtuse marginal artery, reverse saphenous vein graft from the aorta to the right coronary artery , endoscopic harvesting of the left radial artery, endoscopic harvesting of the left greater saphenous vein between the groin and the knee level, intraoperative graft flow measurements,intraoperative transesophageal echocardiogram, and epi-aortic scanning. Upon completion of surgery the patient was transferred to the cardiovascular intensive care unit where he was recovered , monitored hemodynamically, and where he progressed to cardiac rehabilitation phase 1. He was extubated, all lines, tubes, and drips were discontinued when appropriate, and he was transferred to [address] [place] [address] for further monitoring and rehabilitation. He did develop postoperative atrial fibrillation with rapid ventricular response which was treated with a variety of medications, he remained in atrial fibrillation with his heart rate in the high 90s-low 100s which is acceptable at this time. His oxygen was titrated down , he continued to work with physical and occupational therapy, he was tolerating oral diet, his pain was controlled, and he was ready to be discharged to home with home care on postoperative day #9. He received written and verbal instruction regarding his medications, activity restrictions, signs and symptoms requiring physician notification, and follow-up appointments. COMPLICATIONS: The patient experienced postoperative atrial fibrillation with rapid ventricular response which was treated accordingly. Patient Condition at Discharge: Stable Plan - Discharge Summary Discharge Rx Participant: Yes New Discharge Prescriptions: New Acetaminophen Tab [Tylenol] 650 mg PO Q4HR PRN tab PRN Reason: Fever and/ or MILD Pain Amiodarone [Cordarone] 200 mg PO BID #20 tab Apixaban [Eliquis] 5 mg PO BID #60 tab Aspirin 81 mg PO DAILY #30 chew Atorvastatin [Lipitor] 40 mg PO DAILY #30 tab Diltiazem Cd [Cardizem CD] 120 mg PO DAILY #30 cap.er.24h Furosemide [Lasix] 40 mg PO DAILY #30 tab Metoprolol Tartrate [Lopressor] 75 mg PO Q8HR #90 tab Pantoprazole [Protonix] 40 mg PO AC-BRKFST #30 tablet.dr BoydDocusate Sodium [Senokot-S] 2 each PO HS tab Discontinued amLODIPine [Norvasc] 5 mg PO DAILY Meloxicam [Mobic] 15 mg PO DAILY PRN PRN Reason: Pain HYDROcodone/IBUPROFEN 7.5-200 [Vicoprofen 7.5-200 mg] 1 tab PO DAILY PRN PRN Reason: Pain Discharge Medication List Acetaminophen Tab [Tylenol] 650 mg PO Q4HR PRN tab 03/15/18 [Rx] Amiodarone [Cordarone] 200 mg PO BID #20 tab 03/15/18 [Rx] Apixaban [Eliquis] 5 mg PO BID #60 tab 03/15/18 [Rx] Aspirin 81 mg PO DAILY #30 chew 03/15/18 [Rx] Atorvastatin [Lipitor] 40 mg PO DAILY #30 tab 03/15/18 [Rx] Diltiazem Cd [Cardizem CD] 120 mg PO DAILY #30 cap.er.24h 03/15/18 [Rx] Furosemide [Lasix] 40 mg PO DAILY #30 tab 03/15/18 [Rx] Metoprolol Tartrate [Lopressor] 75 mg PO Q8HR #90 tab 03/15/18 [Rx] Pantoprazole [Protonix] 40 mg PO AC-BRKFST #30 tablet. 03/15/18 [Rx] Sennosides-Docusate Sodium [Senokot-S] 2 each PO HS tab 03/15/18 [Rx] Follow up Appointment(s)/Referral(s): Alannah Stoner NPC [Nurse Practitioner] - 03/20/18 2:30 pm Cielo Walter MD [STAFF PHYSICIAN] - 03/27/18 9:45 am Alena Hammer MD [STAFF PHYSICIAN] - 04/19/18 10:15 am Coleman Robbnis DO [Doctor of Osteopathic Medicine] - 04/03/18 2:30 pm [facility], [NON-STAFF] - 1-2 Days Kameron Davison DO [Primary Care Provider] - 03/20/18 8:20 am (Sunday) Ambulatory/Diagnostic Orders: Complete Blood Count w/diff [LAB.AMB] Time Frame: 3 Days, Location: None Selected Comprehensive Metabolic Panel [LAB.AMB] Time Frame: 3 Days, Location: None Selected Patient Instructions/Handouts: Sternal Precautions (GEN), Coronary Artery Bypass Graft (DC) Activity/Diet/Wound Care/Special Instructions: DISCHARGE INSTRUCTIONS: 1. No driving for 4 weeks, or until physician gives their ok. 2. The patient should sleep in their own bed, no medical bed needed. 3. Stairs are not an issue. If the bedroom is upstairs, it is advised that the patient go up at night and down in the morning for the first week. Go slowly, using handrail and take 1 step at a time. 4. SWATI hose are to be worn for 30 days or until physician discontinues. 5. Heart hugger is to be worn 100% of the time until physician discontinues.( except when showering) 6. No lifting, pushing, or pulling more than 10 pounds for 12 weeks. The physician will advise of any restriction changes. 7. The patient is expected to continue the prescribed walking program. 8. Continue pain control per as needed orders. 9. Continue with incentive spirometry and splinting/heart hugger until otherwise directed by the physician. 10. Must shower daily using liquid antibacterial soap and a separate white washcloth for each individual incision. 11. Routine sternal incision care. No powders, lotions, ointments on incisions. 12. Please call surgeon/DEPOT MANAGER for temp greater than 101 F or purulent drainage from incisions. discussed with the patient, including the potential for misuse, addiction, and abuse. Opiod Start Talking form was reviewed with the patient. 13. All prescriptions given by surgeon for 30 days. Refills need to be filled through geospatial specialist/primary care physician. 14. A Red armband has been placed on the patient. It should be worn for 30 days post surgery and will be removed by the cardiac surgeons. If an ER visit is necessary, please make sure the number on the Red armband is called. HOME HEALTH SERVICES TO PROVIDE: RN SKILLED HOME CARE SERVICES FOR POST-OP SURGICAL PATIENTS WITH THE FOLLOWING: Coronary Artery Bypass Surgery (CABG), Mitral Valve Replacement/ Repair ( MVR), Aortic Valve Replacement/Repair (AVR) RN TO CONTINUE EDUCATION FROM ``ROAD TO A HEALTH HEART PATIENT EDUCATION MANUAL (GIVEN TO PATIENT IN THE HOSPITAL) MEDICATION RECONCILIATION WITH EDUCATION NEEDED ON FIRST HOME VISIT EMPHASIZE IMPORTANCE OF WEARING BREAST SUPPORT/HEART HUGGER ENCOURAGE USE OF INCENTIVE SPIROMETER 10 X EVERY HOUR WHILE AWAKE ENCOURAGE UTILIZATION OF LOWER EXTREMITY COMPRESSION STOCKINGS/SWATI HOSE and ELEVATE LEGS ABOVE LEVEL OF HEART WHILE AT REST. ENCOURAGE AMBULATION 3-5x/day INCREASING TOLERATES, WHILE AVOID EXTREMES IN TEMPERATURE FREQUENCY: RN TO OPEN THE PATIENT WITHIN 24 HOURS OF DISCHARGE FROM THE HOSPITAL WITH TELEHEALTH INSTALLED AT [facility], RN TO VISIT 2-3 X A WEEK FOR 4 WEEKS ESTABLISHED BY PATIENT NEEDS. REMOVAL OF SUTURES: NURSING SERVICES TO REMOVE SUTURES TWO WEEKS POST SURGICAL DATE (03/20/18/) . If any questions regarding suture removal please call the office at [phone]. LABORATORY: CBC, CMP TO BE DRAWN ON THE THIRD DAY HOME, 03/18/18(RAN STAT) FAX RESULTS TO [phone]. TELEHEALTH PARAMETERS: WEIGHT: NOTIFY MD OF WEIGHT GAIN OF 2 LBS IN 24 HOURS OR 5 LBS IN ONE WEEK HR: NOTIFY MD OF HR <55 BPM OR HR>100 BPM BP: NOTIFY MD IF BP <90/55 OR BP>140/100 O2 SAT: NOTIFY MD IF PO2<93% ON ROOM AIR SEND TELEHEALTH REPORT TO INVENTORY ANALYST AND CARDIOVASCULAR SURGEON THE FIRST WEEK OF CARE AND THEN BI-WEEKLY. PLEASE ADDITIONALLY COMMUNICATE ANY ABNORMALS AND NEW FINDINGS TO THE SURGEONS OFFICE.
== END 2018-03-15 16:51 | disposition home health service (06) | DRG 233 ==
LOC: EC 15:13 → 6SEL 17:03 → 6ICU 03-06 12:58 → 6SEL 03-13 19:14
PROVIDERS: ADMIT Internal Medicine; ATTEND Surgery
PROC: 4A023N7 Measurement of Cardiac Sampling and Pressure, Left Heart, Percutaneous Approach (ICD-10-PCS; 2018-03-05)
PROC: B2111ZZ Fluoroscopy of Multiple Coronary Arteries using Low Osmolar Contrast (ICD-10-PCS; 2018-03-05)
PROC: B2151ZZ Fluoroscopy of Left Heart using Low Osmolar Contrast (ICD-10-PCS; 2018-03-05)
PROC: 021009W Bypass Coronary Artery, One Artery from Aorta with Autologous Venous Tissue, Open Approach (ICD-10-PCS; 2018-03-06)
PROC: 03BC4ZZ Excision of Left Radial Artery, Percutaneous Endoscopic Approach (ICD-10-PCS; 2018-03-06)
PROC: 06BQ4ZZ Excision of Left Saphenous Vein, Percutaneous Endoscopic Approach (ICD-10-PCS; 2018-03-06)
PROC: B24BZZ4 Ultrasonography of Heart with Aorta, Transesophageal (ICD-10-PCS; 2018-03-06)
PROC: 5A1221Z Performance of Cardiac Output, Continuous (ICD-10-PCS; 2018-03-06)
PROC: 02100Z9 Bypass Coronary Artery, One Artery from Left Internal Mammary, Open Approach (ICD-10-PCS; principal; 2018-03-06 09:15)
PROC: 02100AW Bypass Coronary Artery, One Artery from Aorta with Autologous Arterial Tissue, Open Approach (ICD-10-PCS; 2018-03-06 09:15)
DX: I21.4 Non-ST elevation (NSTEMI) myocardial infarction (principal); N17.0 Acute kidney failure with tubular necrosis; I48.1 Persistent atrial fibrillation; I10 Essential (primary) hypertension; E66.9 Obesity, unspecified; I25.82 Chronic total occlusion of coronary artery; M19.90 Unspecified osteoarthritis, unspecified site; F17.290 Nicotine dependence, other tobacco product, uncomplicated; N40.0 Benign prostatic hyperplasia without lower urinary tract symptoms; E78.5 Hyperlipidemia, unspecified; F40.240 Claustrophobia; H35.30 Unspecified macular degeneration; H93.19 Tinnitus, unspecified ear; I25.110 Atherosclerotic heart disease of native coronary artery with unstable angina pectoris; M54.31 Sciatica, right side; M51.9 Unspecified thoracic, thoracolumbar and lumbosacral intervertebral disc disorder; K21.9 Gastro-esophageal reflux disease without esophagitis; I45.10 Unspecified right bundle-branch block; H91.90 Unspecified hearing loss, unspecified ear; Z82.49 Family history of ischemic heart disease and other diseases of the circulatory system; Z72.89 Other problems related to lifestyle; Z79.899 Other long term (current) drug therapy; Z68.37 Body mass index [BMI] 37.0-37.9, adult
CPT/HCPCS: 36415; 36600; 71045; 71046; 80048; 80053; 80061; 80074; 81003; 82330; 82550; 82553; 82728; 82805; 83036; 83540; 83550; 83690; 83735; 83880; 84100; 84132; 84443; 84484; 85025; 85027; 85520; 85610; 85730; 86850; 86891; 86900; 86901; 86920; 87070; 87086; 93005; 93306; 93458; 93880; 93923; 93930; 93970; 94002; 94003; 94150; 94640; 94760; 96374; 99285

== ENCOUNTER → 2018-05-09 | Outpatient (CLI) | payer BC ==
[2018-05-09 12:25] LABS: Albumin 3.8 g/dL (3.5-5.0); Potassium 4.4 mmol/L (3.5-5.1); Total Bilirubin 0.6 mg/dL (0.2-1.3); Total Protein 6.7 g/dL (6.3-8.2)
== END | disposition home or self-care (01) ==
LOC: LABWHC1 10:46
PROVIDERS: ATTEND Internal Medicine Interventional Cardiology
DX: E78.2 Mixed hyperlipidemia (principal); I48.0 Paroxysmal atrial fibrillation
CPT/HCPCS: 36415; 80053; 80061; 84443

== ENCOUNTER 2020-03-17 06:05 | Day surgery (SDC) | payer MEDICARE, BC ==
[~2020-03-17 06:05] MED LIST: ALPRAZolam 0.25 MG TAB PO PRN; ALPRAZolam 0.5 MG TAB PO PRN; NITROGLYCERIN SL TABS 0.4 MG TAB SUBLINGUAL PRN; SODIUM CHLORIDE 0.9% 1,000 ML in EMPTY BAG 1 BAG IV ONE
[2020-03-17] MEDS ORDERED: SODIUM CHLORIDE 0.9% 1,000 ML IV ONE (06:45)
[2020-03-17] MEDS ORDERED: ASPIRIN 325 MG TAB PO ONE (07:00)
[2020-03-17] MEDS ORDERED: fentaNYL (PF) 50 MCG/ML 2 ML AMP ONE (07:22)
[2020-03-17] MEDS ORDERED: LIDOCAINE 1% INJ 10MG/ML (20 ML MDV) ONE (07:22)
[2020-03-17] MEDS ORDERED: fentaNYL (PF) 50 MCG/ML 2 ML AMP IVP ONE (07:28)
[2020-03-17] MEDS ORDERED: LIDOCAINE 1% INJ 10MG/ML (20 ML MDV) SQ ONE (07:33)
[2020-03-17] MEDS ORDERED: IOPAMIDOL-370 100ML BTL INJ ONE ×3 (07:43→08:15)
[2020-03-17] MEDS ORDERED: IOPAMIDOL-370 50ML BTL INJ ONE (07:52)
[2020-03-17] MEDS ORDERED: CLOPIDOGREL 75 MG TAB ONE (07:56)
[2020-03-17] MEDS ORDERED: CLOPIDOGREL 75 MG TAB PO ONE (07:58)
[2020-03-17] MEDS ORDERED: BIVALIRUDIN BOLUS 250 MG/50 ML IV ONE (07:58)
[2020-03-17] MEDS ORDERED: BIVALIRUDIN 250 MG in SODIUM CHLORIDE 0.9% 50 ML IV ONE (08:00)
[2020-03-17] MEDS ORDERED: MAG HYDROX/AL HYDROX/SIMETH 30 ML CUP PO PRN (08:35)
[2020-03-17] MEDS ORDERED: RX INFO: IV CONTRAST WAS GIVEN 1 EACH MISC MISCELLANE PRN (08:35)
[2020-03-17] MEDS ORDERED: ZOLPIDEM 5 MG TAB PO PRN (08:35)
[2020-03-17] MEDS ORDERED: ATROPINE SULFATE 0.1 MG/ML 10ML SYRINGE IV PRN (08:35)
[2020-03-17] MEDS ORDERED: NITROGLYCERIN SL TABS 0.4 MG TAB SUBLINGUAL PRN (08:35)
[2020-03-17] MEDS ORDERED: SODIUM CHLORIDE 0.9% 1,000 ML IV SCH (08:45)
--- NOTE | 2020-03-17 09:26 | CC ---
CARDIAC CATHETERIZATION REPORT Mr. Virgen is a 65-year-old male with known history of coronary artery disease, status post coronary artery bypass grafting, history of hypertension, hyperlipidemia, who is scheduled to undergo total hip arthroplasty, underwent a myocardial perfusion imaging that revealed a moderately sized area of reversible defect involving the lateral wall. In view of that, recommendation made regarding cardiac catheterization. The procedures, risks, and complication were discussed with the patient who is in full understanding and agreement. PROCEDURE: Patient was brought to pipelines laborer in a fasting semi-sedated state after receiving fentanyl and Benadryl and achieving moderate conscious sedated state. Using Xylocaine anesthesia and Seldinger technique, a 6-Polish sheath was introduced in the right femoral artery. Selective right and left coronary angiography performed using 6-Polish 4 bend right and left Sherman catheter, multiple views of the coronary artery including hemiasxial views were obtained. The 6-Polish right Sherman catheter was used to cannulate the JACKSON to LAD and saphenous vein graft to the right coronary artery. Images of the grafts were obtained. Following that, a 6-Polish tight pigtail catheter was introduced into the left ventricle and left ventricular end-diastolic pressure was calculated. Following that, an DAVID view of the madalyn inhibitor was performed. Following that, catheter removed, images were reviewed. FINDINGS: 1. LEFT MAIN: This is a large-sized vessel, bifurcating into left circumflex, left anterior descending artery. Left main coronary artery has no evidence of high- grade stenosis. 2. LEFT ANTERIOR DESCENDING ARTERY: This vessel has an 80% to 90% stenosis proximally. Subsequently is totally occluded with no significant antegrade flow. 3. LEFT CIRCUMFLEX: This is a large nondominant vessel, giving rise to a large obtuse marginal branch. The left circumflex proximally has a 70% stenosis. The rest of the vessel has no high-grade stenosis. 4. RIGHT CORONARY ARTERY: This vessel is totally occluded in the mid segment with no significant antegrade flow. 5. JACKSON TO THE LAD: The distal anastomotic site is patent. The flow into the LAD is brisk, there is retrograde filling to the proximal LAD. 6. SAPHENOUS VEIN GRAFT TO THE RIGHT CORONARY ARTERY: This graft is totally occluded proximally. 7. COLLATERALS: There is collateral from the LAD territory toward the right PDA. 8. LEFT VENTRICULOGRAM: Left ventriculogram were not performed. 9. AORTOGRAM: Aortogram revealed a tricuspid aortic valve with no evidence of aortic regurgitation. There was no visualization of the saphenous vein graft to the RCA or the radial artery to the OM. 10.HEMODYNAMICS: There was no gradient across the aortic valve. The ventricular end- diastolic pressure was 10-12 mmHg. CONCLUSION: 1. Chronically occluded RCA and LAD. 2. Critical stenosis in the proximal left circumflex. 3. Patent JACKSON to LAD. 4. Occluded saphenous vein graft to the right coronary artery. 5. Normal appearance of the ascending aorta. RECOMMENDATION: In view of finding anatomy, I recommend proceeding with angioplasty and stenting of the left circumflex. The procedures risks and complication were discussed with the patient who is in full understanding and agreement. MMODL / IJN: [id number] /
--- NOTE | 2020-03-17 09:31 | PTCA ---
PERCUTANEOUSTRANS CORORONARY ANGIOGRAPHY Mr. Virgen is a 65-year-old male who has been evaluated to undergo total hip arthroplasty, underwent myocardial perfusion imaging that revealed moderately-sized reversible defect involving the lateral wall. In view of that, he underwent cardiac catheterization that revealed a critical stenosis in the proximal left circumflex, occluded radial artery bypass to the circumflex. In view of that, recommendation made regarding angioplasty and stenting. The procedures, risks, and complication were discussed with the patient, who is in full understanding and agreement. PROCEDURE: A 6-Spanish FR4 guiding catheter introduced into the system. After cannulating the left main, a 0.014 balanced medium weight J-wire was advanced across the lesion and positioned distally. Following that, a 3.0 x 15 mm NC Emerge balloon was advanced and inflation at 12 atmospheres was done. Following that, the balloon was removed and a 3.5 x 18 mm Xience Ashley stent was advanced, deployed and post-dilated at 16 atmospheres. Following that, the balloon was removed and a 4.0 x 12 mm NC Emerge balloon was advanced and multiple inflation at maximum of 12 atmospheres was done. After the last inflation, after appropriate wait the balloon and the guidewire were withdrawn back in the guiding catheter. Images were obtained and repeated. Those images reveal stable successful stenting. At that point, the guiding catheter, the balloon and the guidewire were removed. The sheath was removed. Hemostasis was obtained with deployment of an Angio-Seal. There was no immediate complication. Patient is returned to his room in stable condition. Of note, the patient had chest discomfort with the inflation with no EKG changes. He received Angiomax per protocol as well as oral loading dose of clopidogrel. RESULTS: Successful stenting of the proximal left circumflex with reduction of stenosis from 70% to 0%. RECOMMENDATION: Patient will be continued on aspirin, Plavix and statin. The importance of dual antiplatelet treatment was discussed with the patient, who is full understanding and agreement. He will be re-evaluated in 3 months regarding possibility of stopping dual antiplatelet treatment and proceed with surgical intervention. Those findings and recommendation were discussed with the patient and his family and they are in full understanding and agreement. Duration of sedation is 47 minutes. MMODL / IJN: [id number] /
--- NOTE | 2020-03-17 09:35 | LTR ---
DATE OF SERVICE: 03/17/2020 RE: PromiseSourav Dear Dr. Davison: I had the pleasure to perform cardiac catheterization and coronary angioplasty and stenting on Mr. Virgen at [facility] on March 17, 2020 and a fully copy of the procedure note will be forwarded to you. In brief, he was found to have a patent JACKSON to LAD with occluded saphenous vein graft to the right coronary artery and occluded radial bypass to the left circumflex with significant obstructive disease involving the proximal left circumflex. He underwent successful stenting of that vessel. I am hopeful that this procedure will stabilize his status. At this time I will continue dual antiplatelet treatment for 3 months and re- evaluate him at that time and if he is stable, then proceed with his surgical intervention. Thank you again for allowing me to participate in this patient's care. Please feel free to call for any questions. Sincerely yours, MD EAGLE CastellonL / KERI: [id number] /
[2020-03-17 14:27] VITALS: BMI 37.4
[2020-03-17] MEDS: ASPIRIN 81 MG PO SCH (14:55)
[2020-03-17] MEDS: ATORVASTATIN 40 MG TAB PO SCH (14:55)
[2020-03-17] MEDS: DILTIAZEM CD 120 MG CAP.ER.24H PO SCH (14:55)
[2020-03-17] MEDS: METOPROLOL TARTRATE 50 MG TAB PO SCH ×3 (14:55→21:02)
[2020-03-18 08:02] LABS: African American GFR (CKD) >90 (>60 ml/min/1.73 sqM); Anion Gap 5 mmol/L; Blood Urea Nitrogen 21 mg/dL (9-20); Calcium 8.9 mg/dL (8.4-10.2); Carbon Dioxide 31 mmol/L (22-30); Chloride 106 mmol/L (98-107); Glucose 119 mg/dL (74-99); Non-African American GFR(CKD) 89 (>60 ml/min/1.73 sqM); Potassium 3.9 mmol/L (3.5-5.1); Sodium 142 mmol/L (137-145)
[2020-03-18] MEDS: CLOPIDOGREL 75 MG TAB PO SCH ×2 (08:11→08:27)
[2020-03-18] MEDS: METOPROLOL TARTRATE 50 MG TAB PO SCH (08:11)
[2020-03-18] MEDS: ATORVASTATIN 40 MG TAB PO SCH (08:11)
[2020-03-18] MEDS: ASPIRIN 81 MG PO SCH (08:11)
[2020-03-18] MEDS: DILTIAZEM CD 120 MG CAP.ER.24H PO SCH (08:11)
[2020-03-18 08:27] VITALS: BP 115/70; PULSE 77; RESP 16; TEMP 97.9
--- NOTE | 2020-03-18 09:34 | PN ---
PROGRESS NOTE Mr. Virgen is a 65-year-old male with a history of coronary artery disease status post coronary artery bypass grafting who was scheduled to undergo total hip arthroplasty and was found to have significant ischemia on his myocardial perfusion imaging, underwent cardiac catheterization, was found to have critical stenosis in the proximal left circumflex with occlusion of his graft, underwent successful stenting of that vessel. He is doing well this morning, denying any chest pain. His breathing has been stable. He denies any dizziness, palpitation. He denies any nausea. He continues to be on aspirin once a day, Lipitor 40 mg daily, Plavix 75 mg daily, diltiazem 120 mg daily, metoprolol tartrate 50 mg 3 times a day. PHYSICAL EXAMINATION: Blood pressure running in the 100 to 140 with a heart rate in the 70s. LUNGS: Clear. HEART: Regular rate and rhythm, S1, S2. No S3. No rub. ABDOMEN: Soft, nontender. EXTREMITIES: No edema, right groin hematoma with mild ecchymosis. His EKG reveals sinus mechanism with right bundle branch block. IMPRESSION: 1. Status post stenting of the left circumflex. 2. Status post coronary artery bypass grafting. 3. Hypertension. 4. Hyperlipidemia. RECOMMENDATION: Patient will be discharged home today and followed as an outpatient. MMODL / IJN: [id number] /
== END 2020-03-18 09:52 | disposition home or self-care (01) ==
LOC: CATHCVL 06:05 → 3NCARDOBS 08:17 → CATHCVL 03-18 09:52
PROVIDERS: ATTEND Internal Medicine Interventional Cardiology
DX: I25.810 Atherosclerosis of coronary artery bypass graft(s) without angina pectoris (principal); I25.10 Atherosclerotic heart disease of native coronary artery without angina pectoris; I25.82 Chronic total occlusion of coronary artery; I10 Essential (primary) hypertension; I48.0 Paroxysmal atrial fibrillation; E78.2 Mixed hyperlipidemia; Z95.1 Presence of aortocoronary bypass graft; Z79.82 Long term (current) use of aspirin; Z79.02 Long term (current) use of antithrombotics/antiplatelets; Z79.899 Other long term (current) drug therapy; Z96.659 Presence of unspecified artificial knee joint; Z87.891 Personal history of nicotine dependence; Z82.49 Family history of ischemic heart disease and other diseases of the circulatory system
CPT/HCPCS: 93459; 93567; 80048; C9600; C1769 ×3; C1760; C1887; C1725; C1894; C1874; J2001; J3010; J0583; Q9967 ×2

== ENCOUNTER → 2020-07-06 | Outpatient (CLI) | payer MEDICARE, BC | END | disposition home or self-care (01) | LOC: LABWHC1 10:18 | PROVIDERS: ATTEND Family Medicine | DX: I25.10 Atherosclerotic heart disease of native coronary artery without angina pectoris (principal); R07.9 Chest pain, unspecified | CPT/HCPCS: 36415; 84484; 85379 ==

== ENCOUNTER → 2020-12-27 | Outpatient (CLI) | payer MEDICARE, BC | END | disposition home or self-care (01) | LOC: LABPAT 09:16 | PROVIDERS: ATTEND Orthopaedic Surgery | DX: Z01.812 Encounter for preprocedural laboratory examination (principal) | CPT/HCPCS: 36415; 86850; 86900; 86901; 87070 ==

== ENCOUNTER 2021-01-03 06:19 | Day surgery (SDC) | payer MEDICARE, BC ==
[2020-12-29 12:26] VITALS: BMI 37.2
--- NOTE | 2021-01-02 12:08 | HP ---
HISTORY AND PHYSICAL REASON FOR ADMISSION: Surgery scheduled for 01/03/2021 HISTORY OF PRESENT ILLNESS: Sourav Virgen is a 65-year-old gentleman seen with symptomatic right hip osteoarthritis. After treatment options were discussed, he elected to proceed with direct anterior right total hip arthroplasty. Consent was obtained. PAST MEDICAL HISTORY: Hypertension, hyperlipidemia. PAST SURGICAL HISTORY: Coronary artery bypass surgery, total knee arthroplasty, bilateral. MEDICATIONS: Atorvastatin, metoprolol, furosemide. ALLERGIES: None. SOCIAL HISTORY: He denies current tobacco use. PHYSICAL EXAMINATION: Evaluation of the right hip, he has very limited range of motion with severe pain. Positive hip impingement sign. Straight leg raise negative. Distal neurovascular exam is intact. RADIOGRAPHS: Right hip radiographs reveal severe osteoarthritic changes. IMPRESSION: 1. Right hip osteoarthritis. 2. Hypertension. 3. Hyperlipidemia. PLAN: Direct anterior right total hip arthroplasty. Surgery 01/03/2021. MMODL / IJN: [id number] /
[~2021-01-03 06:19] MED LIST changes: +ACETAMINOPHEN TAB 500 MG TAB PO PRN; -ALPRAZolam 0.25 MG TAB PO PRN; -ALPRAZolam 0.5 MG TAB PO PRN; +MELOXICAM 7.5 MG TAB PO PRN; -NITROGLYCERIN SL TABS 0.4 MG TAB SUBLINGUAL PRN; -SODIUM CHLORIDE 0.9% 1,000 ML in EMPTY BAG 1 BAG IV ONE; +TRANEXAMIC ACID 1,000 MG in SODIUM CHLORIDE 0.9% 100 ML IVPB PRN; +ceFAZolin 3 GM in SODIUM CHLORIDE 0.9% 100 ML IVPB PRN
[2021-01-03] MEDS ORDERED: ONDANSETRON 4 MG/2 ML VIAL ONE (06:56)
[2021-01-03] MEDS ORDERED: LIDOCAINE 1% (10MG/ML) FOR IV START INTRADERMA ONE (07:14)
[2021-01-03] MEDS ORDERED: LACTATED RINGERS 1,000 ML IV ONE ×2 (07:16→08:52)
[2021-01-03] MEDS ORDERED: ONDANSETRON 4 MG/2 ML VIAL IVP ONE (07:21)
[2021-01-03] MEDS ORDERED: DEXAMETHASONE SOD PHOSPHATE 4 MG/ML 1 ML VIAL IVP ONE (07:22)
[2021-01-03] MEDS ORDERED: ROCURONIUM 10 MG/ML (5 ML VIAL) IV ONE (07:27)
[2021-01-03] MEDS ORDERED: fentaNYL (PF) 50 MCG/ML 2 ML AMP ONE (07:27)
[2021-01-03] MEDS ORDERED: SODIUM CHLORIDE 0.9% 100 ML BAG ONE (07:27)
[2021-01-03] MEDS ORDERED: PHENYLEPHRINE-0.9% NACL SYG 1,000 MCG/10 ML SYRINGE ONE (07:27)
[2021-01-03] MEDS ORDERED: LIDOCAINE 1% INJ 10MG/ML (20 ML MDV) ONE (07:27)
[2021-01-03] MEDS ORDERED: ALBUMIN HUMAN 5% (12.5gm) 250 ML BOTTLE IVPB ONE (07:27)
[2021-01-03] MEDS ORDERED: ePHEDrine SULFATE/0.9% NACL/PF 50 MG/5 ML SYRINGE IV ONE (07:27)
[2021-01-03] MEDS ORDERED: PROPOFOL 10 MG/ML 20 ML VIAL IV ONE (07:27)
[2021-01-03] MEDS ORDERED: MIDAZOLAM 2 MG/2 ML VIAL ONE (07:27)
[2021-01-03] MEDS ORDERED: TRANEXAMIC ACID 1,000 MG/10 ML VIAL ONE (07:27)
[2021-01-03] MEDS ORDERED: SUCCINYLCHOLINE CHLORIDE 100 MG/5 ML SYR IV ONE (07:27)
[2021-01-03] MEDS: ROPIVACAINE/EPI/CLONIDINE/KET 50 ML SYRINGE MISCELLANE PRN ×2 (08:05→09:36)
[2021-01-03] MEDS ORDERED: ceFAZolin 3,000 MG in SODIUM CHLORIDE 0.9% IRRIGATIO 3,000 ML IRRIGATION ONE (08:06)
[2021-01-03] MEDS ORDERED: HYDROmorphone 0.5 MG/0.5 ML SYRINGE IVP PRN (09:56)
[2021-01-03] MEDS ORDERED: ONDANSETRON 4 MG/2 ML VIAL IVP PRN (09:56)
[2021-01-03] MEDS ORDERED: NALOXONE 0.4 MG/ML 1 ML VIAL IV PRN (09:56)
[2021-01-03] MEDS ORDERED: HYDROmorphone 0.2 MG/1 ML SYRINGE IVP PRN (09:56)
[2021-01-03] MEDS ORDERED: HYDROcodone/APAP 5-325MG 1 EACH TAB PO PRN ×2 (09:56)
--- NOTE | 2021-01-03 09:56 | P.OP ---
Date of Procedure: 01/03/21 Preoperative Diagnosis: Right hip osteoarthritis Postoperative Diagnosis: Right hip osteoarthritis Procedure(s) Performed: Direct anterior right total hip arthroplasty Implants: 1. Depuy Corail size 15 standard collar press-fit femoral stem 2. Depuy pinnacle 66 multi hole press-fit acetabular shell 3. Depuy pinnacle neutral polyethylene acetabular liner 36 mm ID 66 mm OD 4. Depuy metal femoral head 36 mm +15.5 Anesthesia: LIZZA, local Surgeon: Calin Strong Injection Mold Technician #1: Shane Han Estimated Blood Loss (ml): 900 Pathology: other (Femoral head) Condition: stable Disposition: PACU Indications for Procedure: 65-year-old gentleman seen with symptomatic right hip osteoarthritis. After treatment options were discussed, he elected to proceed with total hip arthroplasty. Operative Findings: see description of procedure Description of Procedure: The patient was taken to the operative suite. Patient underwent a general anesthetic by the department of anesthesia. Patient was then transferred to the [place] table. Patient was given preoperative IV antibiotics and TXA. Both lower extremities were placed in standard leg spars. The hip was then prepped and draped in the normal sterile orthopedic fashion. A standard anterior incision was made beginning 3 cm lateral and 1 cm distal to the ASIS extending 10 cm. Dissection was then carried down through the subcutaneous soft tissues down to the fascia overlying the tensor fascia edvin. An incision was now made through the fascia. Careful dissection was taken down exposing the tensor fascia edvin muscle. A Cobra retractor was now placed along the medial femoral neck and a second one along the lateral femoral neck. The venous circumflex vessels were now identified, cauterized and clipped. We identified the anterior hip capsule. An incision was made through the hip capsule along the lateral border. I performed a partial anterior capsulectomy. Retractors were now placed around the femoral neck itself. A femoral neck cut was now made with a sagittal saw. It was completed with an osteotome at the lateral neck area. The femoral head was now removed without difficulty. The extremity was now rotated to 60 of external rotation. It was locked in position. Residual labrum was now debrided out. Serial reaming was performed of the acetabulum while Jareth LOYOLA assisted holding an anterior retractor for exposure. Once we reached the appropriate size and a trial was position and fit nicely. The appropriate size was now chosen opened and made available. It was introduced into the acetabulum without difficulty. The C-arm/fluoroscopy was now brought into the operative field. We made sure we had a true AP pelvic view. We now under direct C- arm/fluoroscopy introduced into the acetabular component with appropriate version and inclination. I held the cup in appropriate position well Jareth LOYOLA used a mallet to seat the acetabular component. I noted the component now to be well seated and stable. Acetabular cup introduce her was removed. The C-arm was pulled back. An appropriate liner was introduced and clicked into position. It was felt to be stable. At this point retractors were removed. The extremity was now placed into 135 external rotation with no traction. The leg was now dropped to the ground and adducted. Appropriate retractors were now positioned along the proximal femur. We also placed our femoral look into position. Additional capsular releasing was performed to gain access to the proximal femur. We now used a box osteotome. A canal finder was now utilized. Serial broaching was now performed with the assistance of Jareth LOYOLA tapping the broaches down with a mallet while held the broach in appropriate rotation and position. This was done until we reached the appropriate size with good overall rotational stability. Appropriate calcar planing was performed. A trial head/neck was placed into position. The hip was now reduced. The C- arm/fluoroscopy was brought back into the operative field. I took AP pelvis demonstrating reasonable leg length alignment. I now checked the trial components knee. The appropriately sized. The C-arm/fluoroscopy was pulled back. Retractors were repositioned and the hip was dislocated. The leg was again taken down to the ground and adducted. Appropriate retractors were repositioned as well as the femoral hook. All trial components were removed. The femoral implant was opened along with the femoral head. The femoral implant was introduced on the appropriate handle into our pre-broached area. I held the component position well Jareth LOYOLA used a mallet to seat the femoral component. The femoral component was now noted to be well seated and stable.. The femoral head was introduced with good positioning and fixation noted. Retractors were now removed. The hip was now reduced. There appeared be good positioning of the hip confirmed on intraoperative fluoroscopy. Spot films were obtained to document this. A second gram of TXA was given. The deep and superficial soft tissues were infiltrated with local analgesic. Bipolar cautery had been utilized intermittently through the procedure for hemostasis. The wound was irrigated copiously with pulse lavage mechanical irrigation. The fascia was repaired with Vicryl suture. The subcutaneous soft tissues were repaired in layers with Vicryl suture. The skin was approximated with pernio/Dermabond. Sterile dressings were applied. Patient was then awakened, transferred to a bed and taken to recovery in stable condition. Jareth LOYOLA assisted with the complex procedure.
--- NOTE | 2021-01-03 10:00 | FL ---
EXAMINATION TYPE: FL guidance operating room, XR Hip Limited RT DATE OF EXAM: 01/03/2021 CLINICAL HISTORY: Right hip pain and osteoarthritis TECHNIQUE: Fluoroscopy. Intraoperative limited views right hip. COMPARISON: Outside right hip x-ray 20 days ago. FINDINGS: Fluoroscopic guidance was provided during right hip replacement procedure performed by Dr. Strong. A total of 24 seconds of fluoroscopic time was utilized during the procedure and 2 spot intraoperative images are acquired. Intraoperative images obtained show metallic hardware from total right hip arthroplasty satisfactory in position on frontal projection. IMPRESSION: As Above.
[2021-01-03 10:21] VITALS: TEMP 97.2
[2021-01-03] MEDS: HYDROmorphone 0.5 MG/0.5 ML SYRINGE IVP PRN ×2 (10:35→10:40)
[2021-01-03 12:59] VITALS: RESP 16
[2021-01-03] MEDS: ceFAZolin 3 GM in SODIUM CHLORIDE 0.9% 100 ML IVPB ONE ×2 (13:11→13:18)
[2021-01-03 13:27] VITALS: BP 116/70; PULSE 57
== END 2021-01-03 14:31 | disposition home health service (06) ==
LOC: OR 06:19
PROVIDERS: ATTEND Orthopaedic Surgery
DX: M16.11 Unilateral primary osteoarthritis, right hip (principal); I10 Essential (primary) hypertension; E78.2 Mixed hyperlipidemia; Z95.1 Presence of aortocoronary bypass graft; Z96.653 Presence of artificial knee joint, bilateral; Z79.899 Other long term (current) drug therapy; I25.10 Atherosclerotic heart disease of native coronary artery without angina pectoris; Z82.49 Family history of ischemic heart disease and other diseases of the circulatory system; Z95.5 Presence of coronary angioplasty implant and graft; Z87.891 Personal history of nicotine dependence; Z79.02 Long term (current) use of antithrombotics/antiplatelets; Z79.82 Long term (current) use of aspirin
CPT/HCPCS: 27130; 97110; 97161; 88300; 73501; C1776; P9045; J2250; J1100; J0690 ×2; J2405; J2001; J3010; J2370; J0330; J2704; J1170; 36415; 86850; 86900; 86901

== ENCOUNTER 2021-02-07 08:55 | Day surgery (SDC) | payer MEDICARE, BC ==
[2021-02-03 10:11] VITALS: BMI 38.4
--- NOTE | 2021-02-06 12:13 | HP ---
HISTORY AND PHYSICAL REASON FOR ADMISSION: Surgery 02/07/2021 HISTORY OF PRESENT ILLNESS: Sourav Virgen is a 66-year-old patient seen with residual persistent wound with history of previous right direct anterior total hip arthroplasty. He had failed conservative measures to get the wound to heal in. We discussed revisional closure of the right hip anterior wound/incision. I discussed the procedure, risks, complications, benefits and recovery. He is agreeable. Consent was obtained. PAST MEDICAL HISTORY: Hypertension, hyperlipidemia. PAST SURGICAL HISTORY: Bilateral total hip arthroplasty, direct anterior right total hip arthroplasty. DAILY MEDICATIONS: Atorvastatin, furosemide, metoprolol. ALLERGIES: None. SOCIAL HISTORY: Denies tobacco use. PHYSICAL EXAMINATION: Evaluation of the right hip, there is a residual open wound area along the proximal incision site. It appears superficial. There is no evidence for any erythema or infective process. Painless log-rolling of the right hip is without pain. Straight leg raise is negative. Distal neurovascular exam is intact. RADIOGRAPHS: Right knee radiographs revealed a stable appearing total hip arthroplasty. IMPRESSION: 1. Persistent residual wound anterior right hip. 2. History of direct anterior right total hip arthroplasty. 3. Hypertension. 4. Hyperlipidemia. PLAN: Revision right anterior hip incision. Surgery scheduled for 02/07/2021. MMODL / IJN: [id number] /
[~2021-02-07 08:55] MED LIST changes: -ACETAMINOPHEN TAB 500 MG TAB PO PRN; +DEXAMETHASONE SOD PHOSPHATE 4 MG/ML 1 ML VIAL IV ONE; +HYDROmorphone 0.5 MG/0.5 ML SYRINGE IVP PRN; +LACTATED RINGERS 1,000 ML IV SCH; -MELOXICAM 7.5 MG TAB PO PRN; +MIDAZOLAM 2 MG/2 ML VIAL IV PRN; +ONDANSETRON 4 MG/2 ML VIAL IVP ONE; -TRANEXAMIC ACID 1,000 MG in SODIUM CHLORIDE 0.9% 100 ML IVPB PRN
[2021-02-07] MEDS ORDERED: LIDOCAINE 1% (10MG/ML) FOR IV START INTRADERMA ONE (09:35)
[2021-02-07] MEDS ORDERED: ePHEDrine SULFATE/0.9% NACL/PF 50 MG/5 ML SYRINGE IV ONE (10:02)
[2021-02-07] MEDS ORDERED: MIDAZOLAM 2 MG/2 ML VIAL ONE (10:02)
[2021-02-07] MEDS ORDERED: LIDOCAINE 1% INJ 10MG/ML (20 ML MDV) ONE (10:02)
[2021-02-07] MEDS ORDERED: PROPOFOL 10 MG/ML 20 ML VIAL IV ONE (10:02)
[2021-02-07] MEDS ORDERED: SUCCINYLCHOLINE CHLORIDE 100 MG/5 ML SYR IV ONE (10:02)
[2021-02-07] MEDS ORDERED: fentaNYL (PF) 50 MCG/ML 2 ML AMP ONE (10:02)
[2021-02-07] MEDS ORDERED: BUPIVACAINE (PF) 0.5% 30 ML VIAL SQ ONE ×2 (10:20→10:43)
[2021-02-07] MEDS ORDERED: ceFAZolin 3,000 MG in SODIUM CHLORIDE 0.9% IRRIGATIO 3,000 ML IRRIGATION ONE (10:20)
--- NOTE | 2021-02-07 10:40 | P.OP ---
Date of Procedure: 02/07/21 Preoperative Diagnosis: Right anterior hip incisional dehiscence Postoperative Diagnosis: Same Procedure(s) Performed: Secondary closure right anterior hip incision Anesthesia: [place] Surgeon: Calin Strong Customer Relations Consultant #1: Shane Han Estimated Blood Loss (ml): 4 Pathology: none sent Condition: stable Disposition: PACU Indications for Procedure: 66-year-old patient seen with a right anterior hip area incisional dehiscence with history of previous direct anterior total hip arthroplasty. I discussed revision and secondary closure of the incision. He was agreeable. Consent was obtained. Operative Findings: see description of procedure Description of Procedure: Patient was taken to the operative suite. Patient received preoperative IV antibiotics. The right hip incision area was prepped and draped in normal sterile orthopedic fashion. There was an area in the central portion of the incision measuring approximately 3 cm where the incision had dehisced and there was granulation tissue in the area. I used a #15 blade and debrided out the abnormal-appearing tissue getting down to good stable bleeding tissue. This was superficial and encompassed only the incision area. Beneath the incision and the deeper area of the subcutaneous soft tissues was no abnormal tissue. There was already evidence for infection. I irrigated the wound out. The subcutaneous soft tissues appear with 2-0 Vicryl. The skin. Nylon suture. We applied sterile dressings. The patient was awakened and transferred recovery entire procedure well. Jareth LOYOLA assisted with the procedure.
[2021-02-07 11:01] VITALS: TEMP 96.9
[2021-02-07 11:54] VITALS: RESP 16
[2021-02-07 13:06] VITALS: BP 113/70; PULSE 70
== END 2021-02-07 13:08 | disposition home or self-care (01) ==
LOC: OR 08:55
PROVIDERS: ATTEND Orthopaedic Surgery
DX: T81.31XA Disruption of external operation (surgical) wound, not elsewhere classified, initial encounter (principal); Y83.8 Other surgical procedures as the cause of abnormal reaction of the patient, or of later complication, without mention of misadventure at the time of the procedure; I10 Essential (primary) hypertension; E78.5 Hyperlipidemia, unspecified; Z79.899 Other long term (current) drug therapy; Z98.1 Arthrodesis status; I25.10 Atherosclerotic heart disease of native coronary artery without angina pectoris; M19.90 Unspecified osteoarthritis, unspecified site
CPT/HCPCS: 12020; J2250; J1100; J0690 ×2; J2405; J2001; J3010; J0330; J2704

== ENCOUNTER 2021-03-11 16:24 | Emergency (ER) | payer MEDICARE, BC ==
[2021-03-11 16:28] VITALS: BP 172/97; PULSE 71; RESP 20; TEMP 97
--- NOTE | 2021-03-11 16:58 | ED ---
General Adult HPI - General Chief complaint: Urogenital Stated complaint: Blood in Urine Time Seen by Provider: 03/11/21 16:30 Source: patient, RN notes reviewed, old records reviewed Mode of arrival: ambulatory Limitations: no limitations - History of Present Illness Initial comments: 66-year-old male presents with chief complaint of blood in his urine. He states she's prior to arrival he had a episode where he had urinated berna blood. Prior to this he had urinated normally with a small blood clot at the end of his stream. He denied pain. No flank pain. Patient has had no previous issues similar to this. Patient is currently on aspirin and Plavix with history of CAD. No previous history of urinary tract issues. - Related Data Home Medications Medication Instructions Recorded Confirmed Metoprolol Tartrate [Lopressor] 50 mg PO TID 03/11/20 03/11/21 Vit C/E/Zn/Coppr/Lutein/Zeaxan 1 cap PO DAILY 03/11/21 03/11/21 [Preservision Areds 2 Softgel] Previous Rx's Medication Instructions Recorded Aspirin 81 mg PO DAILY #30 chew 03/15/18 Atorvastatin [Lipitor] 40 mg PO DAILY #30 tab 03/15/18 Diltiazem Cd [Cardizem CD] 120 mg PO DAILY #30 cap.er.24h 03/15/18 Furosemide [Lasix] 40 mg PO DAILY #30 tab 03/15/18 Clopidogrel [Plavix] 75 mg PO DAILY #90 tab 03/18/20 Nitroglycerin Sl Tabs [Nitrostat] 0.4 mg SUBLINGUAL Q5M PRN #25 tab 03/18/20 Cephalexin [Keflex] 500 mg PO TID 10 Days #30 cap 03/11/21 Allergies Allergy/AdvReac Type Severity Reaction Status Date / Time No Known Allergies Allergy Verified 03/11/21 16:59 Review of Systems ROS Statement: Those systems with pertinent positive or pertinent negative responses have been documented in the HPI. ROS Other: All systems not noted in ROS Statement are negative. Past Medical History Past Medical History: Coronary Artery Disease (CAD), Chest Pain / Angina, Eye Disorder, Hypertension, Myocardial Infarction (HI), Osteoarthritis (OA), Prostate Disorder Additional Past Medical History / Comment(s): BILATERAL TINNITUS, BEGINNINGS OF MACULAR DEGENERATION. Last Myocardial Infarction Date:: 02/2018 History of Any Multi-Drug Resistant Organisms: None Reported Past Surgical History: Coronary Bypass/CABG, Heart Catheterization With Stent, Joint Replacement, Orthopedic Surgery, Prostate Surgery Additional Past Surgical History / Comment(s): TOTAL BILATERAL KNEE REPLACEMENTS, BILATERAL KNEE ARTHROSCOPIES, CYSTOSCOPY/TURP 2015, LASIK EYE SX - RT EYE, lumbar disc disease of L4, L5, L6 with right lower extremity sciatica. Right hip replacement. One heart stent placed March 2020. CABG 3 vessel February 2018. hip replacement Past Anesthesia/Blood Transfusion Reactions: No Reported Reaction Additional Past Anesthesia/Blood Transfusion Reaction / Comment(s): Claustrophobia. Date of Last Stent Placement:: 03/17/2020 Past Psychological History: No Psychological Hx Reported Smoking Status: Never smoker Past Alcohol Use History: Occasional Past Drug Use History: None Reported - Past Family History Mother Family Medical History: No Reported History Additional Family Medical History / Comment(s): Other at age 74 with heart failure and coronary artery disease. Father Family Medical History: Myocardial Infarction (HI) Additional Family Medical History / Comment(s): Father at age 89 from a myocardial infarction. Sister(s) Additional Family Medical History / Comment(s): Patient has one sister and one half-sister with no major medical problems. Patient does not have any brothers. Patient has 2 sons with no major medical problems. General Exam Limitations: no limitations General appearance: alert, in no apparent distress Head exam: Present: atraumatic, normocephalic Eye exam: Present: normal appearance, PERRL ENT exam: Present: normal exam Neck exam: Present: normal inspection. Absent: tenderness, meningismus Respiratory exam: Present: normal lung sounds bilaterally. Absent: respiratory distress, wheezes Cardiovascular Exam: Present: regular rate, normal rhythm GI/Abdominal exam: Present: soft. Absent: distended, tenderness, guarding, rebound Extremities exam: Present: normal inspection, normal capillary refill Back exam: Present: normal inspection. Absent: CVA tenderness (R), CVA tenderness (L) Neurological exam: Present: alert, oriented X3, CN II-XII intact. Absent: motor sensory deficit Psychiatric exam: Present: normal affect, normal mood Skin exam: Present: warm, dry, intact. Absent: cyanosis, diaphoretic Course Vital Signs 03/11/21 16:25 Temperature 97 F L Pulse Rate 71 Respiratory 20 Rate Blood Pressure 172/97 O2 Sat by Pulse 99 Oximetry Medical Decision Making - Medical Decision Making 66-year-old male presenting with painless hematuria. Patient is hemodynamically stable. His urinalysis is berna blood. He did report dysuria over the past several weeks. Urine culture is pending. Patient's hemoglobin is 12.7 which is improved from prior. CT performed, does show concern for possible cystitis and bladder wall thickening. This may be a hemorrhagic cystitis. He is given IV antibiotics in the emergency department. He will be prescribed oral antibiotics and is given return parameters. He's given urology follow-up. - Lab Data Result diagrams: 03/11/21 16:53 03/11/21 16:53 Lab Results 03/11/21 03/11/21 03/11/21 Range/Units 16:53 16:53 16:53 WBC 5.7 (3.8-10.6) k/uL RBC 4.21 L (4.30-5.90) m/uL Hgb 12.7 L (13.0-17.5) gm/dL Hct 38.8 L (39.0-53.0) % MCV 92.1 (80.0-100.0) fL MCH 30.1 (25.0-35.0) pg MCHC 32.7 (31.0-37.0) g/dL RDW 14.4 (11.5-15.5) % Plt Count 284 (150-450) k/uL MPV 6.6 Neutrophils % 69 % Lymphocytes % 19 % Monocytes % 7 % Eosinophils % 3 % Basophils % 1 % Neutrophils # 4.0 (1.3-7.7) k/uL Lymphocytes # 1.1 (1.0-4.8) k/uL Monocytes # 0.4 (0-1.0) k/uL Eosinophils # 0.2 (0-0.7) k/uL Basophils # 0.0 (0-0.2) k/uL PT 11.3 (9.0-12.0) sec INR 1.1 (<1.2) APTT 23.2 (22.0-30.0) sec Sodium (137-145) mmol/L Potassium (3.5-5.1) mmol/L Chloride (98-107) mmol/L Carbon Dioxide (22-30) mmol/L Anion Gap mmol/L BUN (9-20) mg/dL Creatinine (0.66-1.25) mg/dL Est GFR (CKD-EPI)AfAm (>60 ml/min/1.73 sqM) Est GFR (CKD-EPI)NonAf (>60 ml/min/1.73 sqM) Glucose (74-99) mg/dL Calcium (8.4-10.2) mg/dL Total Bilirubin (0.2-1.3) mg/dL AST (17-59) U/L ALT (4-49) U/L Alkaline Phosphatase (38-126) U/L Total Protein (6.3-8.2) g/dL Albumin (3.5-5.0) g/dL Urine Color Red Urine Appearance Bloody (Clear) Urine RBC >182 H (0-5) /hpf 03/11/21 Range/Units 16:53 WBC (3.8-10.6) k/uL RBC (4.30-5.90) m/uL Hgb (13.0-17.5) gm/dL Hct (39.0-53.0) % MCV (80.0-100.0) fL MCH (25.0-35.0) pg MCHC (31.0-37.0) g/dL RDW (11.5-15.5) % Plt Count (150-450) k/uL MPV Neutrophils % % Lymphocytes % % Monocytes % % Eosinophils % % Basophils % % Neutrophils # (1.3-7.7) k/uL Lymphocytes # (1.0-4.8) k/uL Monocytes # (0-1.0) k/uL Eosinophils # (0-0.7) k/uL Basophils # (0-0.2) k/uL PT (9.0-12.0) sec INR (<1.2) APTT (22.0-30.0) sec Sodium 138 (137-145) mmol/L Potassium 3.8 (3.5-5.1) mmol/L Chloride 105 (98-107) mmol/L Carbon Dioxide 26 (22-30) mmol/L Anion Gap 7 mmol/L BUN 17 (9-20) mg/dL Creatinine 0.87 (0.66-1.25) mg/dL Est GFR (CKD-EPI)AfAm >90 (>60 ml/min/1.73 sqM) Est GFR (CKD-EPI)NonAf 90 (>60 ml/min/1.73 sqM) Glucose 109 H (74-99) mg/dL Calcium 8.8 (8.4-10.2) mg/dL Total Bilirubin 0.3 (0.2-1.3) mg/dL AST 22 (17-59) U/L ALT 17 (4-49) U/L Alkaline Phosphatase 102 (38-126) U/L Total Protein 6.9 (6.3-8.2) g/dL Albumin 4.2 (3.5-5.0) g/dL Urine Color Urine Appearance (Clear) Urine RBC (0-5) /hpf Disposition Clinical Impression: UTI (urinary tract infection), Hematuria Disposition: HOME SELF-CARE Condition: Good Instructions (If sedation given, give patient instructions): Urinary Tract Infection in Men (ED), Hematuria (ED) Prescriptions: Cephalexin [Keflex] 500 mg PO TID 10 Days #30 cap Is patient prescribed a controlled substance at d/c from ED?: No Referrals: Kameron Davison DO [Primary Care Provider] - 1-2 days Lucius Mena MD [STAFF PHYSICIAN] - 1-2 days Time of Disposition: 17:59
[2021-03-11 17:01] LABS: Basophils % (A) 1 %; Eosinophils # (A) 0.2 k/uL (0-0.7); Eosinophils % (A) 3 %; HCT 38.8 % (39.0-53.0); HGB 12.7 gm/dL (13.0-17.5); Lymphocytes # (A) 1.1 k/uL (1.0-4.8); Lymphocytes % (A) 19 %; MCH 30.1 pg (25.0-35.0); MCHC 32.7 g/dL (31.0-37.0); MCV 92.1 fL (80.0-100.0); Mean Platelet Volume 6.6; Monocytes # (A) 0.4 k/uL (0-1.0); Monocytes % (A) 7 %; Neutrophils % (A) 69 %; Platelet Count 284 k/uL (150-450); RBC 4.21 m/uL (4.30-5.90); RDW 14.4 % (11.5-15.5); WBC 5.7 k/uL (3.8-10.6)
[2021-03-11 17:05] LABS: RBC,Urine >182 /hpf (0-5)
[2021-03-11 17:07] LABS: Appearance,Urine Bloody (Clear); Color,Urine Red
[2021-03-11 17:11] LABS: INR 1.1 (<1.2); Partial Thromboplastin Time 23.2 sec (22.0-30.0); Prothrombin Time 11.3 sec (9.0-12.0)
[2021-03-11 17:13] LABS: ALT 17 U/L (4-49); AST 22 U/L (17-59); African American GFR (CKD) >90 (>60 ml/min/1.73 sqM); Albumin 4.2 g/dL (3.5-5.0); Alkaline Phosphatase 102 U/L (38-126); Anion Gap 7 mmol/L; Blood Urea Nitrogen 17 mg/dL (9-20); Calcium 8.8 mg/dL (8.4-10.2); Carbon Dioxide 26 mmol/L (22-30); Chloride 105 mmol/L (98-107); Glucose 109 mg/dL (74-99); Non-African American GFR(CKD) 90 (>60 ml/min/1.73 sqM); Potassium 3.8 mmol/L (3.5-5.1); Sodium 138 mmol/L (137-145); Total Bilirubin 0.3 mg/dL (0.2-1.3); Total Protein 6.9 g/dL (6.3-8.2)
--- NOTE | 2021-03-11 17:33 | CT ---
EXAMINATION TYPE: CT abdomen pelvis wo con DATE OF EXAM: 03/11/2021 COMPARISON: None available. HISTORY: Severe hematuria today. post Op hip. CT DLP: 1803.4 mGycm Automated exposure control for dose reduction was used. TECHNIQUE: Helical acquisition of images was performed from the lung bases through the pelvis. FINDINGS: LUNG BASES: No significant abnormality is appreciated. LIVER/GB: No acute abnormality is appreciated. Cholelithiasis without acute cholecystitis. PANCREAS: No significant abnormality is seen. SPLEEN: No significant abnormality is seen. ADRENALS: No significant abnormality is seen. KIDNEYS: No significant abnormality is seen. No hydronephrosis or nephrolithiasis. No significant per inephric abnormality. FREE AIR: No free air is visualized RETROPERITONEAL ADENOPATHY: None visualized REPRODUCTIVE ORGANS: No significant abnormality is seen URINARY BLADDER: Limited evaluation of urinary bladder due to streak artifact. Mild urinary bladder wall thickening. PELVIC ADENOPATHY: None visualized. OSSEOUS STRUCTURES: No acute abnormality is seen. Right hip arthroplasty noted. BOWEL: No significant abnormality is seen. OTHER: Mild to moderate atherosclerotic disease. IMPRESSION: MILD URINARY BLADDER WALL THICKENING, CORRELATE FOR POSSIBLE CYSTITIS. OTHERWISE NO ACUTE ABNORMALITY.
[2021-03-11] MEDS ORDERED: cefTRIAXone IN SWFI 1,000 MG/10 ML SYRINGE IVP STA (17:42)
== END 2021-03-11 18:54 | disposition home or self-care (01) ==
LOC: EC 16:24
DX: N39.0 Urinary tract infection, site not specified (principal); I10 Essential (primary) hypertension; I25.10 Atherosclerotic heart disease of native coronary artery without angina pectoris; I25.2 Old myocardial infarction; M19.90 Unspecified osteoarthritis, unspecified site; F40.240 Claustrophobia; Z79.02 Long term (current) use of antithrombotics/antiplatelets; Z79.82 Long term (current) use of aspirin; Z79.899 Other long term (current) drug therapy; Z90.79 Acquired absence of other genital organ(s); Z95.1 Presence of aortocoronary bypass graft; Z95.5 Presence of coronary angioplasty implant and graft; Z96.641 Presence of right artificial hip joint; Z96.653 Presence of artificial knee joint, bilateral
CPT/HCPCS: 36415; 74176; 80053; 81001; 85025; 85610; 85730; 96374; 99284

== ENCOUNTER → 2022-05-16 | Outpatient (CLI) | payer MEDICARE, BC | END | disposition home or self-care (01) | LOC: LABWHC1 11:05 | PROVIDERS: ATTEND Orthopaedic Surgery | DX: Z01.812 Encounter for preprocedural laboratory examination (principal); M16.12 Unilateral primary osteoarthritis, left hip; Z22.322 Carrier or suspected carrier of Methicillin resistant Staphylococcus aureus | CPT/HCPCS: 87070 ==

== ENCOUNTER → 2022-05-22 | Day surgery (SDC) | payer MEDICARE, BC ==
[2022-05-17 12:02] VITALS: BMI 37.2
--- NOTE | 2022-05-21 23:14 | HP ---
HISTORY AND PHYSICAL DATE OF SURGERY: 05/22/2022. HISTORY OF PRESENT ILLNESS: Sourav Virgen is a 67-year-old gentleman, seen with symptomatic left hip osteoarthritis. We discussed options. He elected to proceed with direct anterior left total hip arthroplasty. Consent was obtained. Cardiac and medical clearance were provided. PAST MEDICAL HISTORY: Hypertension, hyperlipidemia, coronary artery disease. PAST SURGICAL HISTORY: Right total hip arthroplasty, right total knee arthroplasty, left total knee arthroplasty. DAILY MEDICATIONS: 1. Aspirin. 2. Atorvastatin. 3. Cardizem. 4. Metoprolol. 5. Tylenol. ALLERGIES: None. SOCIAL HISTORY: Denies tobacco use. PHYSICAL EVALUATION OF THE LEFT HIP: He has diffuse tenderness about the hip girdle. Very limited range of motion with severe pain. Positive hip impingement sign. Straight-leg raise negative. Distal neurovascular exam is intact. RADIOGRAPHS: Radiographs of the left hip revealed severe osteoarthritic changes. IMPRESSION: 1. Left hip osteoarthritis. 2. Hypertension. 3. Hyperlipidemia. 4. Coronary artery disease. PLAN: Direct anterior left total hip arthroplasty. MMODL / IJN: [id number] /
[~2022-05-22] MED LIST changes: +ACETAMINOPHEN TAB 500 MG TAB PO PRN; +HYDROcodone/APAP 5-325MG 1 EACH TAB PO PRN; +HYDROcodone/APAP 7.5-325MG 1 EACH TAB PO PRN; +LACTATED RINGERS 1,000 ML IV ONE; +LIDOCAINE 1% (10MG/ML) FOR IV START INTRADERMA PRN; +MELOXICAM 7.5 MG TAB PO PRN; +METOCLOPRAMIDE 5 MG/ML 2 ML VIAL IVP PRN; -MIDAZOLAM 2 MG/2 ML VIAL IV PRN; +MIDAZOLAM 2 MG/2 ML VIAL IVP ONE; +NALOXONE 0.4 MG/ML 1 ML VIAL IV PRN; +ONDANSETRON 4 MG/2 ML VIAL IVP PRN; +TRANEXAMIC ACID IN NACL,ISO-OS 1,000 MG in SALINE 1 100ML.BAG IVPB PRN; +ceFAZolin 1,000 MG in SODIUM CHLORIDE 0.9% 1,000 ML IRRIGATION ONE; +ceFAZolin 3 GM in SODIUM CHLORIDE 0.9% 100 ML IVPB ONE
[2022-05-22 06:40] VITALS: TEMP 97.1
--- NOTE | 2022-05-22 07:48 | P.ANPRN ---
Procedure Note - Anesthesia - Nerve Block Performed Left Erector Spinae Single Time Out Performed: Yes ([id number]) Date of Procedure: 05/22/22 Procedure Start Time: 20:00 Procedure Stop Time: 07:25 Location of Patient: PreOp Indication: Acute Post-Operative Pain, Requested by Surgeon Sedation Type: Sedate with meaningful contact maintained Preparation: Sterile Prep Position: Prone Catheter: None Needle Types: Pajunk Needle Gauge: 21 Ultrasound used to visualize needle placement: Yes Ultrasound used to observe medication spread: Yes Injectate: 0.5% Ropivacaine (see comment for volume) Blood Aspirated: No Pain Paresthesia on Injection Noted: No Resistance on Injection: Normal Image Stored and Saved: Yes Events: Uneventful and Well Tolerated (25 ml of block solution containing 14 ml of 0.5% ropivacaine, 10 ML of preservative-free 0.9% normal saline mixed with 4MG of dexamethasone)
--- NOTE | 2022-05-22 09:36 | P.OP ---
Date of Procedure: 05/22/22 Preoperative Diagnosis: Left hip osteoarthritis Postoperative Diagnosis: Left hip osteoarthritis Procedure(s) Performed: Direct anterior left total hip arthroplasty Implants: 1. Depuy Corail KA size 16 standard collar press-fit femoral stem 2. Depuy pinnacle 62 mm multi hole press-fit acetabular shell 3. Depuy pinnacle neutral +4 polyethylene acetabular liner 36 mm ID 62 mm OD 4. Biolox delta ceramic femoral head +1.5 36 mm Anesthesia: GETA, regional (erector spinae block) Surgeon: Calin Strong [employer] Systems Engineer #1: Shane Han Estimated Blood Loss (ml): 100 Pathology: other (Femoral head) Condition: stable Disposition: PACU Indications for Procedure: 67-year-old patient seen with symptomatic left hip osteoarthritis. After treatment options were discussed, he elected to proceed with direct anterior left total hip arthroplasty. Operative Findings: see description of procedure Description of Procedure: The patient was taken to the operative suite after having an erector spinae block performed by the department of anesthesia for postoperative pain management. Patient underwent a general anesthetic by the department of anesthesia. Patient was then transferred to the [facility] table. Patient was given preoperative IV antibiotics and TXA. Both lower extremities were placed in standard leg spars. The hip was then prepped and draped in the normal sterile orthopedic fashion. A standard anterior incision was made beginning 3 cm lateral and 1 cm distal to the ASIS extending 10 cm. Dissection was then carried down through the subcutaneous soft tissues down to the fascia overlying the tensor fascia edvin. An incision was now made through the fascia. Careful dissection was taken down exposing the tensor fascia edvin muscle. A Cobra retractor was now placed along the medial femoral neck and a second one along the lateral femoral neck. The venous circumflex vessels were now identified, cauterized and clipped. We identified the anterior hip capsule. An incision was made through the hip capsule along the lateral border. I performed a partial anterior capsulectomy. Retractors were now placed around the femoral neck itself. A femoral neck cut was now made with a sagittal saw. It was completed with an osteotome at the lateral neck area. The femoral head was now removed without difficulty. The extremity was now rotated to 60 of external rotation. It was locked in position. Residual labrum was now debrided out. Serial reaming was performed of the acetabulum while Jareth LOYOLA assisted holding an anterior retractor for exposure. Once we reached the appropriate size and a trial was position and fit nicely. The appropriate size was now chosen opened and made available. It was introduced into the acetabulum without difficulty. The C-arm/fluoroscopy was now brought into the operative field. We made sure we had a true AP pelvic view. We now under direct C-arm/fluoroscopy introduced into the acetabular component with appropriate version and inclination. I held the cup in appropriate position well Jareth LOYOLA used a mallet to seat the acetabular component. I noted the component now to be well seated and stable. Acetabular cup introduce her was removed. The C-arm was pulled back. An appropriate liner was introduced and clicked into position. It was felt to be stable. At this point retractors were removed. The extremity was now placed into 120 external rotation with no traction. The leg was now dropped to the ground and adducted. Appropriate retractors were now positioned along the proximal femur. We also placed our femoral look into position. Additional capsular releasing was performed to gain access to the proximal femur. We now used a box osteotome. A canal finder was now utilized. Serial broaching was now performed with the assistance of Jareth LOYOLA tapping the broaches down with a mallet while held the broach in appropriate rotation and position. This was done until we reached the appropriate size with good overall rotational stability. Appropriate calcar planing was performed. A trial head/neck was placed into position. The hip was now reduced. The C-arm/fluoroscopy was brought back into the operative field. I obtained an AP pelvis demonstrating adequate leg length alignment. The trial components appeared adequately sized and adequately positioned. The C-arm/fluoroscopy was pulled back. Retractors were repositioned and the hip was dislocated. The leg was again taken down to the ground and adducted. Appropriate retractors were repositioned as well as the femoral hook. All trial components were removed. The femoral implant was opened along with the femoral head. The femoral implant was introduced on the appropriate handle into our pre-broached area. I held the component position well Jareth LOYOLA used a mallet to seat the femoral component. The femoral component was now noted to be well seated and stable.. The femoral head was introduced with good positioning and fixation noted. Retractors were now removed. The hip was now reduced. There appeared be good positioning of the hip confirmed on intraoperative fluoroscopy. Spot films were obtained to document this. A second gram of TXA was given. The deep and superficial soft tissues were infiltrated with local analgesic. Bipolar cautery had been utilized intermittently through the procedure for hemostasis. The wound was irrigated copiously with pulse lavage mechanical irrigation. The fascia was repaired with Vicryl suture. The subcutaneous soft tissues were repaired in layers with Vicryl suture. The skin was approximated with pernio/Dermabond. Sterile dressings were applied. Patient was then awakened, transferred to a bed and taken to recovery in stable condition. Jareth LOYOLA assisted with the complex procedure.
[2022-05-22 09:58] VITALS: RESP 16
[2022-05-22] MEDS: HYDROmorphone 0.5 MG/0.5 ML SYRINGE IVP PRN ×2 (10:11→10:26)
--- NOTE | 2022-05-22 10:52 | XR ---
Fluoroscopy INDICATION: Pain FINDINGS: Fluoroscopy time: 13 seconds. Images obtained: 2. IMPRESSIONS: 1. Documentation of fluoroscopy.
[2022-05-22 11:21] VITALS: BP 119/65; PULSE 52
--- NOTE | 2022-05-22 12:48 | FL ---
Fluoroscopy HISTORY: Hip arthroplasty 13 seconds fluoroscopy time supplied to the referring clinician. 2 intraoperative C-arm images docum ent the procedure. See dictated report from orthopedic surgery.
== END | disposition home health service (06) ==
LOC: OR 05:58
PROVIDERS: ATTEND Orthopaedic Surgery
DX: M16.12 Unilateral primary osteoarthritis, left hip (principal); G89.18 Other acute postprocedural pain; I10 Essential (primary) hypertension; E78.5 Hyperlipidemia, unspecified; I25.10 Atherosclerotic heart disease of native coronary artery without angina pectoris; I49.9 Cardiac arrhythmia, unspecified; I48.91 Unspecified atrial fibrillation; Z96.641 Presence of right artificial hip joint; Z96.653 Presence of artificial knee joint, bilateral; Z79.82 Long term (current) use of aspirin; Z79.02 Long term (current) use of antithrombotics/antiplatelets; Z79.83 Long term (current) use of bisphosphonates; Z79.891 Long term (current) use of opiate analgesic; Z95.1 Presence of aortocoronary bypass graft; Z79.1 Long term (current) use of non-steroidal anti-inflammatories (NSAID)
CPT/HCPCS: 27130; 97110; 97161; 64999; 88300; 73501; C1776; J2250; J1100; J0690 ×2; J2405; J1170; 86850; 86900; 86901

== ENCOUNTER → 2024-01-17 | Outpatient (CLI) | payer MEDICARE, BC ==
[2024-01-17 19:29] LABS: ALT 17 U/L (10-49); AST 16 U/L (14-35); Albumin 4.2 g/dL (3.8-4.9); Albumin/Globulin Ratio 1.68 Ratio (1.60-3.17); Alkaline Phosphatase 85 U/L (41-126); BUN/Creat Ratio 15.45 Ratio (12.00-20.00); Calcium 8.8 mg/dL (8.7-10.3); Carbon Dioxide 25.5 mmol/L (21.6-31.8); Chloride 106 mmol/L (96-109); Globulin 2.5 g/dL (1.6-3.3); Glucose 122 mg/dL (70-110); Sodium 144 mmol/L (135-145); Total Bilirubin 0.3 mg/dL (0.3-1.2); Total Protein 6.7 g/dL (6.2-8.2)
[2024-01-17 19:51] LABS: HCT 40.3 % (39.6-50.0); MCH 30.4 pg (27.0-32.0); MCHC 32.3 g/dL (32.0-37.0); MCV 94.4 FL (80.0-97.0); Mean Platelet Volume 9.2 FL (9.5-12.2); NRBC Per 100 WBC 0 X 10*3/uL (0.00-0.01); Platelet Count 235 X 10*3/uL (140-440); RBC 4.27 X 10*6/uL (4.40-5.60); RDW 13.5 % (11.5-14.5)
== END | disposition home or self-care (01) ==
LOC: LABPAT 15:40
PROVIDERS: ATTEND Internal Medicine Interventional Cardiology
DX: Z01.812 Encounter for preprocedural laboratory examination (principal); I48.0 Paroxysmal atrial fibrillation; I25.810 Atherosclerosis of coronary artery bypass graft(s) without angina pectoris
CPT/HCPCS: 80053; 84443; 85027

== ENCOUNTER 2024-01-29 07:53 | Day surgery (SDC) | payer MEDICARE, BC ==
[~2024-01-29 07:53] MED LIST changes: -ACETAMINOPHEN TAB 500 MG TAB PO PRN; +ALPRAZolam 0.25 MG TAB PO PRN; +ALPRAZolam 0.5 MG TAB PO PRN; +ASPIRIN 325 MG TAB PO ONE; +ATORVASTATIN 80 MG TAB PO ONE; -DEXAMETHASONE SOD PHOSPHATE 4 MG/ML 1 ML VIAL IV ONE; +HEPARIN SODIUM,PORCINE (1 ML) 2,500 UNIT in SODIUM CHLORIDE 0.9% 250 ML IRRIGATION PRN; +HEPARIN SODIUM,PORCINE 10,000 UNIT in SODIUM CHLORIDE 0.9% 1,000 ML IRRIGATION PRN; -HYDROcodone/APAP 5-325MG 1 EACH TAB PO PRN; -HYDROcodone/APAP 7.5-325MG 1 EACH TAB PO PRN; -HYDROmorphone 0.5 MG/0.5 ML SYRINGE IVP PRN; -LACTATED RINGERS 1,000 ML IV ONE; -LACTATED RINGERS 1,000 ML IV SCH; -LIDOCAINE 1% (10MG/ML) FOR IV START INTRADERMA PRN; -MELOXICAM 7.5 MG TAB PO PRN; -METOCLOPRAMIDE 5 MG/ML 2 ML VIAL IVP PRN; -MIDAZOLAM 2 MG/2 ML VIAL IVP ONE; -NALOXONE 0.4 MG/ML 1 ML VIAL IV PRN; +NITROGLYCERIN SL TABS 0.4 MG TAB SUBLINGUAL PRN; -ONDANSETRON 4 MG/2 ML VIAL IVP ONE; -ONDANSETRON 4 MG/2 ML VIAL IVP PRN; -TRANEXAMIC ACID IN NACL,ISO-OS 1,000 MG in SALINE 1 100ML.BAG IVPB PRN; -ceFAZolin 1,000 MG in SODIUM CHLORIDE 0.9% 1,000 ML IRRIGATION ONE; -ceFAZolin 3 GM in SODIUM CHLORIDE 0.9% 100 ML IVPB ONE; -ceFAZolin 3 GM in SODIUM CHLORIDE 0.9% 100 ML IVPB PRN
[2024-01-29 08:18] VITALS: RESP 18; TEMP 97.4
[2024-01-29] MEDS: SODIUM CHLORIDE 0.9% 1,000 ML in EMPTY BAG 1 BAG IV SCH (08:18)
[2024-01-29] MEDS ORDERED: LIDOCAINE 1% INJ 10MG/ML (20 ML MDV) ONE (08:41)
[2024-01-29] MEDS ORDERED: VERAPAMIL 2.5 MG/ML 2 ML AMP ONE (08:41)
[2024-01-29] MEDS ORDERED: HEPARIN SODIUM 1,000 UN/ML (10ML VL) ONE (08:54)
[2024-01-29] MEDS ORDERED: fentaNYL (PF) 50 MCG/ML 2 ML AMP ONE (08:55)
[2024-01-29] MEDS: fentaNYL (PF) 50 MCG/ML 2 ML AMP IVP ONE (09:19)
[2024-01-29] MEDS: LIDOCAINE 1% INJ 10MG/ML (20 ML MDV) SQ ONE (09:25)
[2024-01-29] MEDS: IOPAMIDOL-370 200ML BTL INJ ONE (09:52)
[2024-01-29] MEDS ORDERED: RX INFO: IV CONTRAST WAS GIVEN 1 EACH MISC MISCELLANE PRN (10:03)
--- NOTE | 2024-01-29 10:10 | P.CARDCATH ---
Date of Procedure: 01/29/24 Description of Procedure: Cardiac Catheterization: The patient is a 69-year-old male with known history of CAD status post CABG and stenting of the left circumflex in 2019 who presented with symptoms of progressive dyspnea and had an abnormal MPI. He had known occluded left radial to the OM and SVG to the RCA from prior angiography. He had evidence of atrial fibrillation of new onset. Recommendations were made regarding cardiac catheterization, the risks and the complications were discussed with the patient who is in full understanding and agreement. Procedure Description: Patient was brought to offset label rewinder in fasting semi-sedated state after receiving Fentanyl and Benadryl achieiving moderate conscious sedated state. Using Xylocaine Anesthesia and modified Seldinger technique, and using a micropuncture technique, a 6-Monegasque sheath was introduced in the right femoral artery . Subsequently, selective coronary angiography was performed using a 6-Monegasque 4 bend Sherman catheter. Multiple views of the coronary artery including hemiaxial views were obtained. The right Sherman catheter was used to cannulate the JACKSON, images of the graft were performed the left Sherman catheter was used to cross the aortic valve and LVEDP was calculated. Following that, catheter and sheath were removed. Hemostasis was obtained with manual pressure, there was inability to advance an Angio-Seal because of significant tortuosity.. There was no immediate complication. Patient was returned to room in stable condition. Findings: Left main: This is a large size vessel, bifurcating into LAD and left circumflex, left main has no obstructive disease LAD: This vessel has a 90% stenosis proximally and totally occluded in the midsegment with no significant antegrade flow Left circumflex: This is a large nondominant vessel giving rise to a large obtuse marginal branch. The stented segment in the proximal left circumflex is patent with no evidence of significant in-stent restenosis RCA: This vessel is chronically occluded in the mid segment with no significant antegrade flow. There is collaterals from the LAD to the distal PDA and PLV JACKSON to the LAD: The distal anastomotic site is patent and the flow in the LAD is brisk Left Ventriculogram: Not performed Hemodynamics: There was no gradient across the aortic valve, LVEDP was 12-16 mmHg Conclusion: 1. Chronically occluded LAD and RCA 2. Patent JACKSON to the LAD 3. Patent stent in the proximal left circumflex with no significant in-stent restenosis 4. Right dominance Recommendations: I have recommended to continue medical therapy with aggressive coronary risks modifications. He will be evaluated for rhythm control to help with symptoms. The findings and the recommendations were discussed with the patient and the family and they were in full understanding and agreement. Duration of sedation is 25 minutes.
[2024-01-29] MEDS ORDERED: SODIUM CHLORIDE 0.9% 1,000 ML IV SCH (10:15)
[2024-01-29] MEDS ORDERED: ATORVASTATIN 40 MG TAB PO SCH (15:00)
[2024-01-29 15:53] VITALS: BP 127/68; PULSE 71
[2024-01-29] MEDS ORDERED: METOPROLOL TARTRATE 50 MG TAB PO SCH (16:00)
[2024-01-30] MEDS ORDERED: ASPIRIN 81 MG PO SCH (09:00)
[2024-01-30] MEDS ORDERED: DILTIAZEM CD 120 MG CAP.ER.24H PO SCH (09:00)
== END 2024-01-29 15:54 | disposition home or self-care (01) ==
LOC: CATHCVL 07:53
PROVIDERS: ATTEND Internal Medicine Interventional Cardiology
DX: I25.10 Atherosclerotic heart disease of native coronary artery without angina pectoris (principal); Z95.5 Presence of coronary angioplasty implant and graft; I48.0 Paroxysmal atrial fibrillation
CPT/HCPCS: 93459; C1760; C1769 ×2; C1894 ×2; J2001; J3010; Q9967

== ENCOUNTER 2024-02-15 06:07 | Day surgery (SDC) | payer MEDICARE, BC ==
[2024-02-11 15:42] VITALS: BMI 37.4
[2024-02-15 06:49] VITALS: TEMP 98
[2024-02-15] MEDS: SODIUM CHLORIDE 0.9% 500 ML 500 ML IV SCH (06:50)
[2024-02-15] MEDS: IV FLUID CONTINUATION 1,000 ML IV ONE (06:51)
[2024-02-15] MEDS: BENZOCAINE SPRAY 1 CAN TOPICAL ONE (07:15)
[2024-02-15] MEDS ORDERED: LIDOCAINE 1% INJ 10MG/ML (20 ML MDV) ONE (07:20)
[2024-02-15] MEDS ORDERED: PROPOFOL 10 MG/ML 20 ML VIAL IV ONE (07:20)
[2024-02-15 07:41] VITALS: RESP 16
--- NOTE | 2024-02-15 07:41 | P.PCN ---
Date of Procedure: 02/15/24 Description of Procedure: Indication: Atrial fibrillation Procedure Description: After explaining the procedure to the patient, it's risk and complications, blood pressure, heart rate and O2 saturation were monitored. The throat was sprayed with Cetacaine. Patient received sedation per anesthesia department. The probe was introduced into the esophagus without difficulty. Images were obtained. Following that, the probe was removed. There was no immediate complication. Findings: Left atrial size is dilated, left atrial appendage is normal. The left ventricle size and systolic function are normal. The aortic valve, mitral and tricuspid valve appears to be normal. Pulmonic valve appears to be normal. No pericardial fusion was noted. Descending thoracic aorta revealed mild atherosclerotic changes. No shunting was noted with contrast bubble study. Doppler: Pulse wave and color Doppler were obtained, and revealed mild to moderate mitral and tricuspid regurgitation with mild aortic and pulmonic regurgitation. There was no shunting across the interatrial septum. Conclusion: 1. Dilated left atrium with normal appearance of the left atrial appendage 2. Normal ventricle size and systolic function 3. Mild to moderate mitral and tricuspid regurgitation 4. Mild aortic and pulmonic regurgitation 5. No shunting across the interatrial septum Cardioversion: After obtaining SHIRA and sedated state per anesthesia department a synchronized biphasic cardioversion using 150 j was performed with roman catholic of sinus mechanism, there was no immediate complications.
[2024-02-15 08:53] VITALS: BP 145/77; PULSE 77
[2024-02-15] MEDS ORDERED: FUROSEMIDE 40 MG TAB PO SCH (09:00)
[2024-02-15] MEDS ORDERED: ASPIRIN 81 MG PO SCH (09:00)
[2024-02-15] MEDS ORDERED: DILTIAZEM CD 120 MG CAP.ER.24H PO SCH (09:00)
[2024-02-15] MEDS ORDERED: METOPROLOL TARTRATE 50 MG TAB PO SCH (09:00)
[2024-02-15] MEDS ORDERED: APIXABAN 5 MG TAB PO SCH (09:00)
[2024-02-15] MEDS ORDERED: ATORVASTATIN 40 MG TAB PO SCH (15:00)
== END 2024-02-15 09:09 | disposition home or self-care (01) ==
LOC: OR 06:07
PROVIDERS: ATTEND Internal Medicine Interventional Cardiology
DX: I08.3 Combined rheumatic disorders of mitral, aortic and tricuspid valves (principal); I48.11 Longstanding persistent atrial fibrillation; I10 Essential (primary) hypertension; E78.5 Hyperlipidemia, unspecified; M19.90 Unspecified osteoarthritis, unspecified site; Z79.01 Long term (current) use of anticoagulants; Z79.82 Long term (current) use of aspirin; Z79.899 Other long term (current) drug therapy; Z95.5 Presence of coronary angioplasty implant and graft; Z95.1 Presence of aortocoronary bypass graft
CPT/HCPCS: 93312; 93320; 93325; 92960; J2001; J2704

== ENCOUNTER 2025-02-20 05:59 | Day surgery (SDC) | payer MEDICARE, BC ==
[~2025-02-20 05:59] MED LIST changes: -ALPRAZolam 0.25 MG TAB PO PRN; -ALPRAZolam 0.5 MG TAB PO PRN; -ASPIRIN 325 MG TAB PO ONE; -ATORVASTATIN 80 MG TAB PO ONE; -HEPARIN SODIUM,PORCINE (1 ML) 2,500 UNIT in SODIUM CHLORIDE 0.9% 250 ML IRRIGATION PRN; -HEPARIN SODIUM,PORCINE 10,000 UNIT in SODIUM CHLORIDE 0.9% 1,000 ML IRRIGATION PRN; -NITROGLYCERIN SL TABS 0.4 MG TAB SUBLINGUAL PRN; +SODIUM CHLORIDE 0.9% 1,000 ML IV SCH
[2025-02-20] MEDS: LIDOCAINE 1% (10MG/ML) FOR IV START INTRADERMA STA (06:40)
[2025-02-20] MEDS: IV FLUID CONTINUATION 500 ML IV ONE (06:40)
[2025-02-20] MEDS: SODIUM CHLORIDE 0.9% 500 ML 500 ML IV SCH (06:40)
[2025-02-20 06:59] VITALS: TEMP 97.1
[2025-02-20 07:03] LABS: African American GFR (CKD) >90 (>60 ml/min/1.73 sqM); Anion Gap 9 mmol/L; Blood Urea Nitrogen 21 mg/dL (9-20); Calcium 9.0 mg/dL (8.4-10.2); Carbon Dioxide 26 mmol/L (22-30); Chloride 106 mmol/L (98-107); Glucose 112 mg/dL (74-99); Non-African American GFR(CKD) 88 (>60 ml/min/1.73 sqM); Potassium 3.8 mmol/L (3.5-5.1); Sodium 141 mmol/L (137-145)
[2025-02-20] MEDS ORDERED: LIDOCAINE 1% INJ 10MG/ML (20 ML MDV) ONE (07:13)
[2025-02-20] MEDS ORDERED: PROPOFOL 10 MG/ML 20 ML VIAL IV ONE (07:13)
[2025-02-20] MEDS: BENZOCAINE SPRAY 1 EACH MUCOUS MEM PRN (07:17)
--- NOTE | 2025-02-20 07:34 | P.PCN ---
Date of Procedure: 02/20/25 Description of Procedure: Indication: Atrial fibrillation Procedure Description: After explaining the procedure to the patient, it's risk and complications, blood pressure, heart rate and O2 saturation were monitored. The throat was sprayed with Cetacaine. Patient received sedation per anesthesia department. The probe was introduced into the esophagus without difficulty. Images were obtained. Following that, the probe was removed. There was no immediate complication. Findings: Left atrial size is dilated, left atrial appendage is normal. Left ventricular size and systolic function are normal. The aortic valve revealed mild fibrocalcific changes of the aortic cusps with preserved opening. Mildly calcified mitral valve leaflets was noted. The tricuspid and pulmonic valve appears to be normal. Descending thoracic aorta revealed mild atherosclerotic changes. No pericardial fusion was noted. Contrast bubble study revealed no shunting across the interatrial septum. Doppler: Pulse wave and color Doppler were obtained, and revealed moderate mitral and tricuspid regurgitation with trace aortic and mild pulmonic regurgitation. There was no shunting across the interatrial septum. Conclusion: 1. Dilated left atrium with normal appearance of the left atrial appendage 2. Normal ventricular size and systolic function 3. Moderate mitral and tricuspid regurgitation 4. Trace aortic with mild pulmonic regurgitation 5. No shunting across the interatrial septum Cardioversion: After performing SHIRA and obtaining sedated state per anesthesia department a synchronized biphasic cardioversion using 150 J was performed with orthodoxy of sinus mechanism, there is no immediate complications.
[2025-02-20 08:50] VITALS: RESP 16
[2025-02-20 09:02] VITALS: BP 130/87; PULSE 64
[2025-02-20] MEDS ORDERED: APIXABAN 5 MG TAB PO SCH (21:00)
[2025-02-20] MEDS ORDERED: METOPROLOL TARTRATE 50 MG TAB PO SCH (21:00)
[2025-02-21] MEDS ORDERED: DILTIAZEM CD 120 MG CAP.ER.24H PO SCH (09:00)
[2025-02-21] MEDS ORDERED: ATORVASTATIN 40 MG TAB PO SCH (09:00)
== END 2025-02-20 09:12 | disposition home or self-care (01) ==
LOC: OR 05:59
PROVIDERS: ATTEND Internal Medicine Interventional Cardiology
DX: I48.11 Longstanding persistent atrial fibrillation (principal); I25.10 Atherosclerotic heart disease of native coronary artery without angina pectoris; I10 Essential (primary) hypertension; E78.2 Mixed hyperlipidemia; M19.90 Unspecified osteoarthritis, unspecified site; E66.9 Obesity, unspecified; G47.33 Obstructive sleep apnea (adult) (pediatric); H93.19 Tinnitus, unspecified ear; H35.30 Unspecified macular degeneration; Z68.38 Body mass index [BMI] 38.0-38.9, adult; Z95.1 Presence of aortocoronary bypass graft; Z79.01 Long term (current) use of anticoagulants; Z79.02 Long term (current) use of antithrombotics/antiplatelets; Z79.82 Long term (current) use of aspirin; Z79.899 Other long term (current) drug therapy
CPT/HCPCS: 93312; 93320; 93325; 92960; 80048; J2003; J2704